=== PATIENT | male | born 1950 | race Caucasian/White ===

== ENCOUNTER 2023-03-01 17:33 | Inpatient (IN) | payer OTHER, SELFPAY ==
[2023-03-01] VITALS (13 sets, daily range): BP systolic 112–133; BP diastolic 66–86; PULSE 50–68; RESP 10–22; TEMP 36–36.6; O2SAT 90–100; BMI 31.8; BMI 29.0
--- NOTE | 2023-03-01 17:39 | CT_ITS ---
EXAM: CT HEAD WITHOUT INTRAVENOUS CONTRAST CLINICAL INDICATION: STROKE TECHNIQUE: Multiple axial images were obtained of the head without intravenous contrast. This CT exam was performed using one or more of the following dose reduction techniques: automated exposure control, adjustment of the mA and/or kV according to patient size, and/or use of iterative reconstruction technique. This report was created using [employer] report [employer] technology. COMPARISON: None. FINDINGS: BRAIN AND EXTRA-AXIAL SPACES: Unremarkable. No intra- or extra-axial hemorrhage. No evidence of acute infarct. No intracranial mass or mass effect. There is preservation of the cantrell/white matter interface. Posterior fossa structures are unremarkable. Ventricles are appropriate for age. No hydrocephalus. Basal cisterns are patent. BONES/JOINTS: Unremarkable. No discrete lytic or blastic abnormalities. SINUSES: Unremarkable as visualized. Clear. MASTOID AIR CELLS: Unremarkable. Clear. ORBITS: Visualized globes, extraocular muscles, optic nerves and retrobulbar fat appear unremarkable. CT/Brain/Head without Contrast IMPRESSION: 1. No acute intracranial abnormality. 2. Aspects score 10. N.B. : The above Results were Read Back by Aravind Huffman MD to Jeanette Choi MD, and understanding confirmed on 03/01/2023 18:04:33 (ET). Electronically Signed: Aravind Huffman MD at 17:48 EDT ,
--- NOTE | 2023-03-01 17:41 | CT_ITS ---
We are attempting to reach an attending provider to discuss findings. An addendum with communication details will be sent when the communication is complete. EXAM: CT ANGIOGRAPHY HEAD AND NECK WITH INTRAVENOUS CONTRAST CLINICAL INDICATION: Neuro deficit, acute, stroke suspected TECHNIQUE: [place] of [place]/head and neck CT angiography protocol performed with intravenous contrast. This CT exam was performed using one or more of the following dose reduction techniques: automated exposure control, adjustment of the mA and/or kV according to patient size, and/or use of iterative reconstruction technique. This report was created using [employer] report [employer] technology. MIP reconstructed images were created and reviewed. CONTRAST: [id number] 100ML COMPARISON: None. FINDINGS: HEAD: RIGHT ANTERIOR CEREBRAL ARTERY: Unremarkable. No significant stenosis at the visualized segments. Anterior communicating artery is present. No aneurysm. RIGHT MIDDLE CEREBRAL ARTERY: Unremarkable. No significant stenosis at the visualized segments. No aneurysm. RIGHT POSTERIOR CEREBRAL ARTERY: Unremarkable. No occlusion or significant stenosis. No aneurysm. RIGHT INTRACRANIAL INTERNAL CAROTID ARTERY: Unremarkable. No significant stenosis. No dissection or occlusion. RIGHT INTRACRANIAL VERTEBRAL ARTERY: Unremarkable. No significant stenosis. No dissection or occlusion. LEFT ANTERIOR CEREBRAL ARTERY: Unremarkable. No significant stenosis at the visualized segments. No aneurysm. LEFT MIDDLE CEREBRAL ARTERY: Unremarkable. No significant stenosis at the visualized segments. No aneurysm. LEFT POSTERIOR CEREBRAL ARTERY: Unremarkable. No occlusion or significant stenosis. No aneurysm. LEFT INTRACRANIAL INTERNAL CAROTID ARTERY: Unremarkable. No significant stenosis. No dissection or occlusion. LEFT INTRACRANIAL VERTEBRAL ARTERY: Unremarkable. No significant stenosis. No dissection or occlusion. BASILAR ARTERY: Unremarkable. No significant stenosis. No aneurysm. OTHER VASCULATURE: No vascular malformation. NECK: RIGHT COMMON CAROTID ARTERY: Unremarkable. No significant stenosis. No dissection or occlusion. RIGHT EXTRACRANIAL INTERNAL CAROTID ARTERY: Unremarkable. No significant stenosis. No dissection or occlusion. RIGHT EXTERNAL CAROTID ARTERY: Unremarkable. No occlusion. RIGHT EXTRACRANIAL VERTEBRAL ARTERY: Unremarkable. No significant stenosis. No dissection or occlusion. LEFT COMMON CAROTID ARTERY: Unremarkable. No significant stenosis. No dissection or occlusion. LEFT EXTRACRANIAL INTERNAL CAROTID ARTERY: Unremarkable. No significant stenosis. No dissection or occlusion. LEFT EXTERNAL CAROTID ARTERY: Unremarkable. No occlusion. LEFT EXTRACRANIAL VERTEBRAL ARTERY: Unremarkable. No significant stenosis. No dissection or occlusion. BRACHIOCEPHALIC AND SUBCLAVIAN ARTERIES: Unremarkable as visualized. No occlusion or significant stenosis. LUNG APICES: Unremarkable as visualized. HEAD and NECK: BONES/JOINTS: Unremarkable. No discrete lytic or blastic abnormalities. SOFT TISSUES: Unremarkable. CAROTID STENOSIS REFERENCE USING NASCET CRITERIA: % ICA stenosis = (1 - narrowest ICA diameter/diameter of distal cervical ICA) x 100. Mild - <50% stenosis. Moderate - 50-69% stenosis. Severe - 70-94% stenosis. Near occlusion - 95-99% stenosis. Occluded - 100% stenosis. CT/STROKE CTA Head AND Neck W/Con IMPRESSION: Negative CTA carotid and CTA brain. Electronically Signed: Aravind Huffman MD at 18:08 EDT ,
--- NOTE | 2023-03-01 17:45 | ED.RN ---
THIS RN CALLED [facility] AT [phone].
[2023-03-01 17:54] LABS: Absolute Neutrophil Count 3.6 X10^3/uL (2.0-7.7); Basophil# 0.02 X10^3/uL; Basophil% 0.4 % (0-1); Eosinophil# 0.12 X10^3/uL; Eosinophils% 2.3 % (0-5); Hematocrit 36.7 % (40-54); Hemoglobin 11.7 g/dL (13.0-16.5); Mean Corp Hgb Conc 31.9 g/dL (32-36); Mean Corpuscular Hgb 32.3 pg (27.0-32.0); Mean Corpuscular Volume 101.4 fL (80-94); Mean Platelet Vol. 11.8 fl (6.2-12.0); Monocyte# 0.52 X10^3/uL; Monocyte% 9.9 % (0-10); NRBC Flagged by Analyzer 0 % (0-5); Neutrophil # 3.58 X10^3/uL (2.7-7.7); Platelet Count 144 K/mm3 (150-450); RBC Distribution Width CV 15.1 % (11.6-14.6); RBC Distribution Width SD 56.4 fl (35.1-43.9); Red Blood Count 3.62 M/mm3 (4.6-6.2); White Blood Count 5.3 K/mm3 (4.4-11.0)
--- NOTE | 2023-03-01 17:55 | ED.RN ---
SILVIA WARRENUOLOGIST ON ROBOT AT [id number].
[2023-03-01 18:04] LABS: Alcohol, Blood (Medical)-Serum < 3.0 mg/dL
[2023-03-01 18:05] LABS: International Normalized Ratio 1.1; Prothrombin Time (Protime)PT. 14.3 SECONDS (11.7-14.9)
[2023-03-01 18:11] LABS: Anion Gap 7 (5-15); BUN 50 mg/dL (7-18); BUN/Creat Ratio 14.8 RATIO (10-20); Calcium,Total 9.4 mg/dL (8.5-10.1); Chloride 104 mmol/L (98-107); Creatinine, Serum 3.37 mg/dL (0.70-1.30); EST Glomerular Filtration Rate 19 mL/min (>60); Est Glom Filt Rate - Afr Amer 23 mL/min (>60); Estimated Creatinine Clearance 21.43 ml/min; Glucose 151 mg/dL (74-106); Potassium 4.4 mmol/L (3.5-5.1); Sodium Level 135 mmol/L (136-145); Troponin-I HS 24 pg/mL (3.0-78.0)
[2023-03-01] MEDS: 0.9% Normal Saline 1,000 ML 100 ML IV (18:17)
--- NOTE | 2023-03-01 18:21 | MDS.RN ---
PT HAS A CORNEAL ABRASION FROM FALLING DOWN 5-7 STEPS IN THE LEFT EYE. PT ALSO HAS MULTIPLE ABRASIONS TO BL SHINS. PT HAS DARK CIRCLES AROUND EYES THAT ALMOST MIMIC RACCOON EYES. CT AND CTA HAS BEEN DONE. PT HAS BEEN CLEANED UP AND UROSTOMY LEAKS.
--- NOTE | 2023-03-01 18:23 | ED.RN ---
DR SOTO USED TETRACAINE AND FLUOROSCEIN? ON PTS EYES TO SEE WHY HE IS HAVING SO MUCH LEFT EYE PAIN. CORNEAL ABRASION FOUND.
[2023-03-01 18:44] LABS: Color, Urine Yellow (Yellow); Glucose, Dipstick Normal (Normal); Ketone-Dipstick 5 mg/dl (Negative); Leukocyte Esterase-Dipstick 500 /ul (Negative); Nitrite-Dipstick Negative (Negative); Occult Blood-Urine 250 /ul (Negative); Protein-Dipstick 100 mg/dl (Negative); Urine Bilirubin Dipstick Negative (Negative); Urine Clarity Cloudy (Clear); Urine Urobilinogen 1 mg/dl (Normal)
[2023-03-01 18:53] LABS: Bacteria 4+ /hpf (None Seen); Mucous, Urine RARE /hpf (<or=2+); Red Blood Cells-Urine 0-5 SEEN /hpf (0-5); Squamous Epithelial Cells - UA 0-5 SEEN /hpf (0-5); White Blood Cells 10-25 SEEN /hpf (0-5)
--- NOTE | 2023-03-01 19:32 | ED.RN ---
PER DR. SOTO VERBAL ORDER, OKAY TO DC [facility] CHECKS Q30.
--- NOTE | 2023-03-01 19:39 | ED.RN ---
THIS RN ANSWERED PHONE CALL FROM SLIM CAMPOS (PT SISTER IN LAW) AT 1940. THIS RN ASKED THE PT IF IT WOULD BE OKAY TO TAKE CALL. PT GAVE VERBAL PERMISSION AND STATED IT IS ALWAYS OKAY TO GIVE SLIM INFORMATION. THIS RN UPDATED MS. CAMPOS ON PLAN OF CARE. SHE WOULD LIKE AN UPDATE WHEN ALL RESULTS ARE BACK AT [phone].
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
--- NOTE | 2023-03-01 20:06 | ED.RN ---
THIS RN CALLED SLIM CAMPOS ON BEHALF OF THE PT AT 2015. THIS RN UPDATED HER THAT PT IS TO BE ADMITTED TO PCU. THIS RN ALSO UPDATED HER ON PLAN OF CARE. THIS RN ASKED HER IF SHE KNEW WHAT MEDICATIONS PT TAKES AT HOME. SHE RECOMMENDED WE CALL [facility] [place] THAT IS WHERE PTS MEDICATION LIST IS.
[2023-03-01] MEDS: Gentamicin Sulfate 1 OPTH.BTL 2 DRP LEFT EYE (20:38)
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
--- NOTE | 2023-03-01 21:12 | ED.RN ---
REPORT GIVEN TO JOSE DURAN IN PCU. [facility] COMPLETED AT BEDSIDE. CARE ASSUMED BY JOSE DURAN ON PCU.
[2023-03-01 23:15] LABS: Magnesium 2.6 mg/dL (1.6-2.6)
[2023-03-02] VITALS (7 sets, daily range): BP systolic 119–136; BP diastolic 62–77; PULSE 56–79; RESP 17–20; TEMP 36.4–37; O2SAT 96–100; BMI 29.0
[2023-03-02] MEDS: 0.9% Normal Saline 1,000 ML 75 ML IV ×2 (05:11→21:42)
[2023-03-02] MEDS: Acetaminophen 325 MG Tablet 650 MG PO ×2 (05:11→21:39)
[2023-03-02] MEDS: Gentamicin Sulfate 1 OPTH.BTL 1 DRP LEFT EYE ×4 (05:11→21:40)
[2023-03-02 06:01] LABS: Absolute Lymphocyte Count 0.53 X10^3/uL (0.83-4.51); Absolute Neutrophil Count 3.4 X10^3/uL (2.0-7.7); Basophil# 0.01 X10^3/uL; Basophil% 0.2 % (0-1); Eosinophil# 0.12 X10^3/uL; Eosinophils% 2.7 % (0-5); Hematocrit 36.1 % (40-54); Lymphocyte # 0.53 X10^3/ul (0.83-4.51); Lymphocyte % 11.8 % (19-41); Mean Corp Hgb Conc 30.5 g/dL (32-36); Mean Corpuscular Hgb 31.8 pg (27.0-32.0); Mean Corpuscular Volume 104.3 fL (80-94); Monocyte# 0.42 X10^3/uL; Monocyte% 9.3 % (0-10); NRBC Flagged by Analyzer 0 % (0-5); Neutrophil # 3.39 X10^3/uL (2.7-7.7); Neutrophil % 75.3 % (47-70); POSITIVE DIFFERENTIAL YES; Platelet Count 128 K/mm3 (150-450); RBC Distribution Width CV 15.3 % (11.6-14.6); RBC Distribution Width SD 58.2 fl (35.1-43.9); Red Blood Count 3.46 M/mm3 (4.6-6.2); White Blood Count 4.5 K/mm3 (4.4-11.0)
[2023-03-02 06:13] LABS: Anisocytosis 1+; Differential Comment SCANNED; Differential Indicated SCAN CRITERIA MET; Macrocytosis 1+
[2023-03-02 06:36] LABS: ALB/GLOB Ratio 0.5 RATIO (0.9-2.4); AST(SGOT) 24 U/L (15-37); Alanine Aminotransfer ALT/SGPT 22 U/L (16-61); Albumin, Serum 2.8 g/dL (3.2-5.0); Alkaline Phosphatase 80 U/L (45-117); Anion Gap 7 (5-15); BUN 45 mg/dL (7-18); BUN/Creat Ratio 15.6 RATIO (10-20); Calcium,Total 8.7 mg/dL (8.5-10.1); Chloride 108 mmol/L (98-107); Cholesterol 110 mg/dL (200); Creatinine, Serum 2.88 mg/dL (0.70-1.30); EST Glomerular Filtration Rate 23 mL/min (>60); Est Glom Filt Rate - Afr Amer 28 mL/min (>60); Estimated Creatinine Clearance 25.07 ml/min; Globulin 5.1 g/dL (2.2-4.2); Glucose 165 mg/dL (74-106); High Density Lipoprotein 30 mg/dL; Potassium 4.1 mmol/L (3.5-5.1); Protein, Total 7.9 g/dL (6.4-8.2); Sodium Level 135 mmol/L (136-145); Triglycerides 144 mg/dL; Very Low Density Lipoprotein 29 mg/dL (5-40)
[2023-03-02 07:50] LABS: Hemoglobin A1c 5.5 % (3.8-5.6)
--- NOTE | 2023-03-02 08:01 | PCM.PN.HOSP ---
Reason for Visit Reason for Visit: Diagnoses Cerebral infarction, unspecified (03/01/23) Dizziness and giddiness (03/01/23) Other specified abnormal findings of blood chemistry (03/01/23) Injury of conjunctiva and corneal abrasion without foreign body, left eye, initial encounter (03/01/23) Subjective Subjective leaking around urostomy. pain in right hip after falls. Objective Data Objective Data Vital Signs: Vital Signs Temp Pulse Resp BP Pulse Ox O2 Del Method O2 Flow Rate 37.0 C 62 18 136/77 H 98 Room Air 2 03/02/23 05:15 03/02/23 05:15 03/02/23 05:15 03/02/23 05:15 03/02/23 05:15 03/02/23 05:15 03/02/23 01:15 Oxygen Flow Rate (L/min) 2 Oxygen Delivery Method Room Air Weight: 97.3 kg Body Mass Index (BMI) 29.0 Intake & Output: Intake and Output for Last 24 Hours 02/28/23 03/01/23 03/02/23 23:59 23:59 23:59 Intake Total 281.67 / 281.67 607.5 / 607.5 Output Total 260 / 260 Balance 281.67 / 221.67 347.5 / 347.5 Lab / Micro Data Result Diagrams: 03/02/23 05:46 03/02/23 05:46 Labs: Laboratory Results - last 24 hr 03/01/23 17:45: WBC 5.3, RBC 3.62 L, Hgb 11.7 L, Hct 36.7 L, MCV 101.4 H, MCH 32.3 H, MCHC 31.9 L, RDW Std Deviation 56.4 H, RDW Coeff of Homar 15.1 H, Plt Count 144 L, MPV 11.8, Immature Gran % (Auto) 0.400, Neut % (Auto) 68.0, Lymph % (Auto) 19.0, [place] % (Auto) 9.9, Eos % (Auto) 2.3, Baso % (Auto) 0.4, Absolute Neuts (auto) 3.6, Absolute Lymphs (auto) 1.00, Nucleated RBC % 0 03/01/23 17:45: PT 14.3, INR 1.1, APTT 35.0 03/01/23 17:45: Sodium 135 L, Potassium 4.4, Chloride 104, Carbon Dioxide 24.0, Anion Gap 7, BUN 50 H, Creatinine 3.37 H, Estim Creat Clear Calc 21.43, Est GFR (MDRD) Af Amer 23 L, Est GFR (MDRD) Non-Af 19 L, BUN/Creatinine Ratio 14.8, Glucose 151 H, Calcium 9.4, Troponin I High Sens 24 03/01/23 17:45: Ethyl Alcohol < 3.0 03/01/23 17:45: Magnesium 2.6 03/01/23 18:30: Ammonia 36.0 H 03/01/23 18:35: Urine Color Yellow, Urine Clarity Cloudy, Urine pH 8.0, Ur Specific [place] 1.010, Urine Protein 100 H, Urine Glucose (UA) Normal, Urine Ketones 5 H, Urine Occult Blood 250 H, Urine Nitrite Negative, Urine Bilirubin Negative, Urine Urobilinogen 1 H, Ur Leukocyte Esterase 500 H, Urine RBC 0-5 SEEN, Urine WBC 10-25 SEEN, Ur Squamous Epith Cells 0-5 SEEN, Urine Bacteria 4+, Urine Mucus RARE 03/02/23 05:46: WBC 4.5, RBC 3.46 L, Hgb 11.0 L, Hct 36.1 L, MCV 104.3 H, MCH 31.8, MCHC 30.5 L, RDW Std Deviation 58.2 H, RDW Coeff of Homar 15.3 H, Plt Count 128 L, MPV 12.0, Immature Gran % (Auto) 0.700, Neut % (Auto) 75.3 H, Lymph % (Auto) 11.8 L, [place] % (Auto) 9.3, Eos % (Auto) 2.7, Baso % (Auto) 0.2, Absolute Neuts (auto) 3.4, Absolute Lymphs (auto) 0.53 L, Nucleated RBC % 0, Differential Comment SCANNED, Anisocytosis 1+, Macrocytosis 1+ 03/02/23 05:46: Sodium 135 L, Potassium 4.1, Chloride 108 H, Carbon Dioxide 20.0 L, Anion Gap 7, BUN 45 H, Creatinine 2.88 H, Estim Creat Clear Calc 25.07, Est GFR (MDRD) Af Amer 28 L, Est GFR (MDRD) Non-Af 23 L, BUN/Creatinine Ratio 15.6, Glucose 165 H, Calcium 8.7, Total Bilirubin 0.90, AST 24, ALT 22, Alkaline Phosphatase 80, Total Protein 7.9, Albumin 2.8 L, Globulin 5.1 H, Albumin/Globulin Ratio 0.5 L, Triglycerides 144, Cholesterol 110, LDL Cholesterol 51, VLDL Cholesterol 29, HDL Cholesterol 30 L, TSH 0.60 03/02/23 05:46: Hemoglobin A1c 5.5 03/02/23 05:46: Ammonia 54.0 H Radiography Diagnostic Testing: Radiology Impression Brain CT 03/01/23 17:39 IMPRESSION: 1. No acute intracranial abnormality. 2. Aspects score 10. N.B. : The above Results were Read Back by Aravind Huffman MD to Jeanette Choi MD, and understanding confirmed on 03/01/2023 18:04:33 (ET). Electronically Signed: Aravind Huffman MD at 17:48 EDT , Head/Neck CTA 03/01/23 17:41 IMPRESSION: Negative CTA carotid and CTA brain. Electronically Signed: Aravind Huffman MD at 18:08 EDT , ADDENDUM: 03/01/23 1828 IMPRESSION: Negative CTA carotid and CTA brain. N.B. : The above Results were Read Back by Aravind Huffman MD to Jeanette Choi MD, and understanding confirmed on 03/01/2023 18:22:00 (ET). Electronically Signed: Aravind Huffman MD at 18:08 EDT , Physical Exam Const alert and no apparent distress HEENT head/scalp atraumatic and moist oral mucous membranes Resp normal respiratory effort, no retractions, no use of accessory muscles and clear to auscultation bilaterally Cardio regular rate, regular rhythm, S1 normal heart sound and S2 normal heart sound GI GI Narrative: urostomy in RLQ with active leaking underdressing. Extremity Extremity Narrative: exquistite pain over right hip. Neuro oriented x3, no focal motor deficits and no sensory deficits noted Sensorium / Orientation: oriented to place and oriented to time Speech: speech normal Assessment & Plan Assessment/Plan (1) Vertigo: PLAN: suspect due to vertigo. No focal deficits to suggest CVA at this time. Pt adamantly refused MRI unless he was knocked out. Head CT, CTA head and neck negative Physical therapy, occupational therapy and speech therapy to work with patient. Daily aspirin. High intensity statin Permissive hypertension. Control blood pressure with labetalol for systolic blood pressure of more than 220 or diastolic blood pressure of more than 120. Echocardiogram ordered. CVA ruled out (2) Injury of conjunctiva and corneal abrasion of left eye w/o FB: PLAN: Injury of contact level and continue abrasions of the left without foreign body. Eye exams with dilatation done by ED physician with report that there was no foreign body. Started on gentamicin at the emergency department and continued. (3) Hyperammonemia: PLAN: Unclear significance Will start empiric lactulose (4) NAYE (acute kidney injury): PLAN: Suspected (no baseline studies to compare at this time) Improved today Continue IVF as pt received a contrast load yesterday for CTA Check renal US (5) Right hip pain: PLAN: out of proportion to exam. Xray shows femoroacetabular impingement (no fracture seen) given the fall and severe pain, will check a CT (pt wont tolerate an MRI, see above) pain control (6) Leakage of genitourinary device: PLAN: stoma is withdrawn in abdomen, making a good seal difficult as urine is seeping under adhesive and compromising adhesive stoma nurse to evaluate / PLAN: Plan DVT prophylaxis: SCDs ordered. Charges/Coding Visit Charges Inpatient E&M: 76180 Subs Hosp L3
--- NOTE | 2023-03-02 10:12 | NURSING ---
This RN spoke with Tosha, patient's [id number] in regards to obtaining information for MRI Questionnaire. Information provided was limited. Patient's son lives in [place], [place]. [id number] is going to attempt to obtain his phone number as we don't have it in patient's contact list here at [facility]. Called Linda, in MRI and updated her on same.
[2023-03-02] MEDS: Lactulose 20 GM/30 ML UDC PO (10:52)
[2023-03-02] MEDS: Aspirin 81 MG TAB.CHEW PO (10:52)
--- NOTE | 2023-03-02 10:57 | RAD_ITS ---
STUDY: X-RAY - PELVIS AND RIGHT HIP REASON FOR EXAM: Male, 73 years old. pain TECHNIQUE: 3 views of the pelvis and hip. COMPARISON: None. FINDINGS: There is a non-specific bowel gas pattern. Normal visualized soft tissue structures. No fracture or displaced bony fragment is seen. Normal bilateral iliac wings, sacroiliac joints and visualized sacrum. Normal bilateral superior and inferior pubic rami. Normal pubic symphysis. Normal bilateral ischial tuberosities. Normal visualized femoral head. Normal acetabulum. Decreased offset at the lateral head neck junction of the right femur and overgrowth and uncovering of the lateral aspect of the femoral head are all findings associated with femoral acetabular impingement. There is no evidence of avascular necrosis. The left hip is normal. RAD/HIP, UNI W/ Pelvis 2-3 Views IMPRESSION: 1. Decreased offset at the lateral head neck junction of the right femur and overgrowth and uncovering of the lateral aspect of the femoral head are all findings associated with femoral acetabular impingement. There is no evidence of avascular necrosis. Electronically Signed: Félix Luna MD at 13:35 EDT ,
--- NOTE | 2023-03-02 14:30 | CT_ITS ---
STUDY: CT Lower Extremity W/O Contrast Injection 03/02/2023 4:14 PM REASON FOR EXAM: Male, 73 years old. right hip pain Individualized dose optimization techniques were used for this CT. COMPARISON: xr of the same day TECHNIQUE: Multiple axial computed tomographic images were obtained of the hip. IV contrast was not utilized. FINDINGS: Soft tissue planes are preserved. There is no fracture. There is no dislocation. There is anatomic alignment. The sacro iliac joint is unremarkable. Femoral head is noted in the acetabulum. Pincer type of impingement noted as extra bone extends out over the normal rim of the superior acetabulum. Cam impingement noted with the femoral head is not round and a superior spur has formed on the edge of the femoral head . Degenerative findings in the lumbar spine. Right lower ostomy noted. This contains small bowel and several mesenteric vessels. Appendix is visualized and appears normal. 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 (Combined impingement means that both the pincer and cam types are present. ) Electronically Signed: Que Henriquez MD at 16:19 EDT ,
[2023-03-02] MEDS: 0.9% Saline Lock 10 ML Syringe IV (18:18)
[2023-03-02] MEDS: Atorvastatin Calcium 40 MG Tablet PO (21:39)
[2023-03-02] MEDS: oxyCODONE 5 MG Tablet PO (21:39)
[2023-03-02] MEDS: MELATONIN 3 MG TABLET PO (21:39)
[2023-03-03] MEDS: Gentamicin Sulfate 1 OPTH.BTL 1 DRP LEFT EYE ×6 (03:02→22:06)
[2023-03-03 03:04] VITALS: BP 112/62; PULSE 70; RESP 18; TEMP 36.9; O2SAT 98
[2023-03-03] MEDS: Acetaminophen 325 MG Tablet 650 MG PO (05:44)
[2023-03-03] MEDS: oxyCODONE 5 MG Tablet PO ×2 (05:45→18:19)
[2023-03-03 06:24] LABS: Absolute Lymphocyte Count 0.91 X10^3/uL (0.83-4.51); Absolute Neutrophil Count 1.8 X10^3/uL (2.0-7.7); Basophil# 0.01 X10^3/uL; Basophil% 0.3 % (0-1); Eosinophil# 0.14 X10^3/uL; Eosinophils% 4.3 % (0-5); Hematocrit 32.2 % (40-54); Hemoglobin 9.8 g/dL (13.0-16.5); Lymphocyte # 0.91 X10^3/ul (0.83-4.51); Lymphocyte % 28.2 % (19-41); Mean Corp Hgb Conc 30.4 g/dL (32-36); Mean Corpuscular Hgb 32.1 pg (27.0-32.0); Mean Corpuscular Volume 105.6 fL (80-94); Mean Platelet Vol. 12.1 fl (6.2-12.0); Monocyte# 0.35 X10^3/uL; Monocyte% 10.8 % (0-10); NRBC Flagged by Analyzer 0 % (0-5); Neutrophil # 1.81 X10^3/uL (2.7-7.7); Neutrophil % 56.1 % (47-70); Platelet Count 122 K/mm3 (150-450); RBC Distribution Width CV 15.3 % (11.6-14.6); RBC Distribution Width SD 59.2 fl (35.1-43.9); Red Blood Count 3.05 M/mm3 (4.6-6.2); White Blood Count 3.2 K/mm3 (4.4-11.0)
[2023-03-03 06:43] LABS: ALB/GLOB Ratio 0.5 RATIO (0.9-2.4); AST(SGOT) 19 U/L (15-37); Alanine Aminotransfer ALT/SGPT 19 U/L (16-61); Albumin, Serum 2.5 g/dL (3.2-5.0); Alkaline Phosphatase 73 U/L (45-117); Anion Gap 5 (5-15); BUN 33 mg/dL (7-18); BUN/Creat Ratio 15.1 RATIO (10-20); Calcium,Total 8.8 mg/dL (8.5-10.1); Chloride 112 mmol/L (98-107); Creatinine, Serum 2.18 mg/dL (0.70-1.30); EST Glomerular Filtration Rate 32 mL/min (>60); Est Glom Filt Rate - Afr Amer 38 mL/min (>60); Estimated Creatinine Clearance 33.12 ml/min; Glucose 99 mg/dL (74-106); Potassium 4.1 mmol/L (3.5-5.1); Protein, Total 7.5 g/dL (6.4-8.2); Sodium Level 137 mmol/L (136-145)
--- NOTE | 2023-03-03 07:00 | US_ITS ---
STUDY: RENAL ULTRASOUND - COMPLETE REASON FOR EXAM: Male, 73 years old. Kidney injury TECHNIQUE: Ultrasound evaluation of the kidneys was performed with real-time and static rai-scale imaging. COMPARISON: None. FINDINGS: RIGHT KIDNEY: Normal location of the right kidney, which is normal in size. The right kidney measures 11 cm x 5.7 cm x 5.9 cm. There is a normal cortex of the right kidney. The renal cortex measures 2.1 cm. There is no right renal mass or cyst. There are no right renal calculi. There is no right hydronephrosis. DISTAL RIGHT URETER: There is non-visualization of the distal right ureter. There is no demonstrated right ureterovesical junction calculus. There is no demonstrated right ureteral jet. LEFT KIDNEY: with mild renal atrophy. The left kidney measures 8.6 cm x 4.3 cm x 4.2 cm. There is a normal cortex of the left kidney. The renal cortex measures 1.1 cm. There is no left renal mass or cyst. There are no left renal calculi. There is mild hydronephrosis of the left kidney. DISTAL LEFT URETER: There is non-visualization of the distal left ureter. There is no demonstrated left ureterovesical junction calculus. There is no demonstrated left ureteral jet. BLADDER: The bladder is empty at the time of examination. US/Kidney and Bladder IMPRESSION: Mild atrophy of the left kidney with a mild degree of left hydronephrosis. Electronically Signed: Mulugeta Castro MD at 10:59 EDT ,
[2023-03-03] MEDS: Aspirin 81 MG TAB.CHEW PO (08:58)
[2023-03-03 09:04] VITALS: BP 109/60; PULSE 77; RESP 18; TEMP 36.7; O2SAT 94
[2023-03-03 09:06] LABS: Vitamin B12 1006 pg/mL (211-911)
--- NOTE | 2023-03-03 10:25 | WOUNDNOTE ---
Was asked to see patient for leaking urostomy. removed the ostomy appliance d/t leaking. urine very strong with lots of mucous noted. the peristomal skin is cantrell/purple in color. very tender to touch. skin slightly weepy. stoma sits just at skin level and sits within a crease. the urine appears to be leaking laterally. cleansed skin with warm water. pat dry. applied stoma powder and placed a small piece of Adapt ring to the lateral crease. placed a 1 piece convex [place] appliance. pt tolerated well. will monitor. family is supposed to bring some patient patients appliances in.
--- NOTE | 2023-03-03 10:45 | PN.HOSP_ITS ---
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) Cerebral infarction, unspecified (03/01/23) Pain in right hip (03/01/23) Acute kidney failure, unspecified (03/01/23) Dizziness and giddiness (03/01/23) Other specified abnormal findings of blood chemistry (03/01/23) Injury of conjunctiva and corneal abrasion without foreign body, left eye, initial encounter (03/01/23) Subjective Subjective Patient is a 73-year-old gentleman admitted with disequilibrium admitted to regular nursing floor for subsequent evaluation and management Objective Data Objective Data Vital Signs: Vital Signs Temp Pulse Resp BP Pulse Ox O2 Del Method O2 Flow Rate 98.4 F 70 18 112/62 98 Nasal Cannula 3 03/03/23 03:04 03/03/23 03:04 03/03/23 03:04 03/03/23 03:04 03/03/23 03:04 03/03/23 08:42 03/03/23 08:42 Oxygen Flow Rate (L/min) 3 Oxygen Delivery Method Nasal Cannula Weight: 97.3 kg Body Mass Index (BMI) 29.0 Intake & Output: Intake and Output for Last 24 Hours 03/01/23 03/02/23 03/03/23 23:59 23:59 23:59 Intake Total 281.67 / 281.67 2277.50 / 2277.50 240 / 240 Output Total 760 / 760 120 / 120 Balance 281.67 / 221.67 1517.50 / 1517.50 120 / 120 Lab / Micro Data Result Diagrams: 03/03/23 05:55 03/03/23 05:55 Labs: Laboratory Results - last 24 hr 03/01/23 17:45: Vitamin B12 1006 H 03/03/23 05:55: WBC 3.2 L, RBC 3.05 L, Hgb 9.8 L, Hct 32.2 L, MCV 105.6 H, MCH 32.1 H, MCHC 30.4 L, RDW Std Deviation 59.2 H, RDW Coeff of Homar 15.3 H, Plt Count 122 L, MPV 12.1 H, Immature Gran % (Auto) 0.300, Neut % (Auto) 56.1, Lymph % (Auto) 28.2, [place] % (Auto) 10.8 H, Eos % (Auto) 4.3, Baso % (Auto) 0.3, Absolute Neuts (auto) 1.8 L, Absolute Lymphs (auto) 0.91, Nucleated RBC % 0 03/03/23 05:55: Sodium 137, Potassium 4.1, Chloride 112 H, Carbon Dioxide 20.0 L , Anion Gap 5, BUN 33 H, Creatinine 2.18 H, Estim Creat Clear Calc 33.12, Est GFR (MDRD) Af Amer 38 L, Est GFR (MDRD) Non-Af 32 L, BUN/Creatinine Ratio 15.1, Glucose 99, Calcium 8.8, Total Bilirubin 0.70, AST 19, ALT 19, Alkaline Phosphatase 73, Total Protein 7.5, Albumin 2.5 L, Globulin 5.0 H, Albumin/Globulin Ratio 0.5 L Micro: Microbiology 03/01/23 19:18 Urine, Nephrostomy Urine Culture - Preliminary Escherichia coli GNR non eye dropper assembler Alpha hemolytic organism Alpha hemolytic organism#2 GNR lactose eye dropper assembler Radiography Diagnostic Testing: Radiology Impression Hip/Pelvis X-Ray 03/02/23 10:57 IMPRESSION: 1. Decreased offset at the lateral head neck junction of the right femur and overgrowth and uncovering of the lateral aspect of the femoral head are all findings associated with femoral acetabular impingement. There is no evidence of avascular necrosis. 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 (Combined impingement means that both the pincer and cam types are present. ) Electronically Signed: Que Henriquez MD at 16:19 EDT , Physical Exam Narrative GENERAL: cooperative HEENT: Atraumatic; normocephalic EYES; Anicteric, Normal Conjunctiva NECK; supple, normal thyroid, RESPIRATORY: Diminished to auscultation CARDIOVASCULAR: Regular S1 S2, GI: soft, normoactive bowel sounds, : No Renal angle tenderness; EXTREMITIES: No edema, no clubbing, MUSCULOSKELETAL: no muscle wasting NEURO: Awake; no lateralizing signs. SKIN: No Rash PSYCH; Flat affect Assessment & Plan Assessment/Plan (1) Vertigo: (2) NAYE (acute kidney injury): (3) Right hip pain: PLAN: Plan Patient is a 73-year-old gentleman admitted with disequilibrium admitted to regular nursing floor for subsequent evaluation and management 1. Disequilibrium ? Patient declined MRI requested for PT OT eval and social sciences research scientist to assist with discharge planning 2. Right hip pain ? Imaging studies demonstrated Femoroacetabular impingement. Treated symptomati callie with plans for patient to be referred to the PT surgery as outpatient 3. Left corneal abrasion ? Patient was started on gentamicin from the ED continued 4. Hyperammonemia -Patient started on lactulose 5. Acute kidney injury ?patient baseline creatinine unknown patient apparently did receive dye for CAT scan on IV fluid with subsequent monitoring with daily BMPs ordered 5. Presence of urostomy ? Patient apparently difficulty with adhesive to the stoma. Patient has been evaluated by stoma nurse 6. Anemia - Secondary to chronic disorder monitoring H&H and transfuse if patient becomes symptomatic or hemoglobin falls below 7 7. DVT prophylaxis ? SCDs Time spent in the patient's overall evaluation,decision-making process, review of diagnostic data, adjustment of management, discussion with other providers, nursing nursing and ancillary staff involved in patient's care documentation, 40 Minutes Charges/Coding Visit Charges Inpatient E&M: 77103 Subs Hosp L2
[2023-03-03] MEDS: 0.9% Normal Saline 1,000 ML 75 ML IV (11:46)
[2023-03-03] MEDS: 0.9% Saline Lock 10 ML Syringe IV (11:47)
--- NOTE | 2023-03-03 12:30 | CASEMGMT ---
JOSE YOU in to complete [employer] form. JOSE YOU explained [employer] form to patient, patient voiced understanding. Patient signed [employer] Form and filed in chart. Patient provided copy of signed [employer] form. Patient had no further questions or concerns at this time.
--- NOTE | 2023-03-03 12:30 | CASEMGMT ---
RN CM Face to Face with patient for initial transition planning/care coordination assessment. RN CM introduced self and role at [facility]. Patient lying in bed, alert and oriented, brother at bedside. Patient willing to participate in assessment and is able to answer all questions appropriately. Care providers, pharmacy, and demographics verified. Patient wishes to discharge to SNF at discharge for additional therapy. A list of SNF providers including quality and resource use data and consistent with the patient?s preferred geographical region, medical needs, and insurance network were provided from the [employer] Guide. Patient states he prefers [facility] and [facility] and was agreeable to have referrals sent to both facilities. Patient states he has no further needs or concerns at this time. SW updated regarding request for SNF and preferences. CM to follow for discharge planning needs that may arise. PCP: None, just moved from [place]. Was to have apt with [facility] but missed appt. Specialists: none Preferred Pharmacy: no preferences Insurance: [place], [facility] Prescription Benefit: [place] Living Will/HPOA: none LNOK: daughter lives in [place], brother lives in [place]. Living Arrangements: Patient just recently moved from [place] and has been staying in brother's basement. Patient having difficulty with stairs and has had falls. Transportation: self, brother DME/HHC: Patient denies DME. Per Brother Perez, daughter works at [employer] in [place] and is going to be moving patient down with her. Patient and brother agreeable to SNF for additional rehab and then transition to [place] in [place] Disposition Plan: SNF pending acceptnace. Vickie HANSON, RN, CM
[2023-03-03 14:27] VITALS: BP 138/69; PULSE 84; RESP 18; TEMP 36.7; O2SAT 96
[2023-03-03 15:12] VITALS: BMI 29.0
--- NOTE | 2023-03-03 15:25 | CASEMGMT ---
Referrals sent to [facility] and [facility] via [facility] per patient request. Kaylee Godoy DIRECTOR INBOUND SALES, COUNSELING DIRECTOR
[2023-03-03 19:51] VITALS: O2SAT 93
--- NOTE | 2023-03-03 19:51 | NURSING ---
Pt refusing O2 through [facility] at this time. States he never wears O2.Pt also wants IV's out at this time educated on both needs. Remains non-compliant.
[2023-03-03 22:00] VITALS: O2SAT 98
[2023-03-03] MEDS: Atorvastatin Calcium 40 MG Tablet PO (22:08)
[2023-03-03 23:20] VITALS: BP 159/87; PULSE 72; RESP 18; TEMP 36.4; O2SAT 98
[2023-03-04] MEDS: 0.9% Normal Saline 1,000 ML 75 ML IV (00:22)
[2023-03-04] MEDS: Gentamicin Sulfate 1 OPTH.BTL 1 DRP LEFT EYE ×4 (00:24→14:53)
--- NOTE | 2023-03-04 00:58 | EX.EMERGENCY ---
EMERGENCY DOCUMENTATION INITIATED: Date: 02/28/2023 Time: 1900 Initiated at beginning of Shift by Charge and Audio/Video Engineer
[2023-03-04 04:42] VITALS: BP 174/104; PULSE 78; RESP 18; TEMP 36.7; O2SAT 95
--- NOTE | 2023-03-04 07:47 | PN.HOSP_ITS ---
Reason for Visit Reason for Visit: Diagnoses Disorder of urea cycle metabolism, unspecified (03/03/23) Cerebral infarction, unspecified (03/03/23) Pain in right hip (03/03/23) Acute kidney failure, unspecified (03/03/23) Dizziness and giddiness (03/03/23) Other specified abnormal findings of blood chemistry (03/03/23) Injury of conjunctiva and corneal abrasion without foreign body, left eye, initial encounter (03/03/23) Subjective Subjective Patient blood pressure control not optimal added scheduled amlodipine. Patient finally agreed to be discharged to [facility] for rehab Objective Data Objective Data Vital Signs: Vital Signs Temp Pulse Resp BP Pulse Ox O2 Del Method O2 Flow Rate 98.1 F 78 18 174/104 H 95 Room Air 2 03/04/23 04:42 03/04/23 04:42 03/04/23 04:42 03/04/23 04:42 03/04/23 04:42 03/04/23 04:42 03/03/23 16:10 Oxygen Flow Rate (L/min) 2 Oxygen Delivery Method Room Air Weight: 97.3 kg Body Mass Index (BMI) 29.0 Intake & Output: Intake and Output for Last 24 Hours 03/02/23 03/03/23 03/04/23 23:59 23:59 23:59 Intake Total 2277.50 / 2277.50 1890 / 1890 945 / 945 Output Total 760 / 760 545 / 845 300 / 300 Balance 1517.50 / 1517.50 1345 / 1045 645 / 645 Lab / Micro Data Result Diagrams: 03/03/23 05:55 03/03/23 05:55 Labs: Laboratory Results - last 24 hr 03/01/23 17:45: Vitamin B12 1006 H Micro: Microbiology 03/01/23 19:18 Urine, Nephrostomy Urine Culture - Preliminary Escherichia coli GNR non mechanical manager Alpha hemolytic organism Alpha hemolytic organism#2 GNR lactose mechanical manager Radiography Diagnostic Testing: Radiology Impression Echocardiogram 03/01/23 21:11 Interpretation Summary The estimated ejection fraction is 65 %. Diastolic function is indeterminate. Aortic sclerosis, no stenosis. Ordering Physician: Mukul Suh Referring Physician: NO PCP Performed By: Dory Soils, STEVENCS, RVT Renal Ultrasound 03/03/23 07:00 IMPRESSION: Mild atrophy of the left kidney with a mild degree of left hydronephrosis. Electronically Signed: Mulugeta Castro MD at 10:59 EDT , Physical Exam Narrative GENERAL: cooperative HEENT: Atraumatic; normocephalic EYES; Anicteric, Normal Conjunctiva NECK; supple, normal thyroid, RESPIRATORY: Diminished to auscultation CARDIOVASCULAR: Regular S1 S2, GI: soft, normoactive bowel sounds, : No Renal angle tenderness; EXTREMITIES: No edema, no clubbing, MUSCULOSKELETAL: no muscle wasting NEURO: Awake; no lateralizing signs. SKIN: No Rash PSYCH; Flat affect Assessment & Plan Assessment/Plan (1) Vertigo: (2) NAYE (acute kidney injury): (3) Right hip pain: PLAN: Plan Patient is a 73-year-old gentleman admitted with disequilibrium admitted to regular nursing floor for subsequent evaluation and management 1. Disequilibrium ? Patient declined MRI requested for PT OT eval and social work supervisor to assist with discharge planning 2. Right hip pain ? Imaging studies demonstrated Femoroacetabular impingement. Treated symptomatically with plans for patient to be referred to the PT surgery as outpatient 3. Left corneal abrasion ? Patient was started on gentamicin from the ED continued 4. Hyperammonemia -Patient started on lactulose 5. Acute kidney injury ?patient baseline creatinine unknown patient apparently did receive dye for CAT scan on IV fluid with subsequent monitoring with daily BMPs ordered 5. Presence of urostomy ? Patient apparently difficulty with adhesive to the stoma. Patient has been evaluated by stoma nurse 6. Anemia - Secondary to chronic disorder monitoring H&H and transfuse if patient becomes symptomatic or hemoglobin falls below 7 7. DVT prophylaxis ? SCDs 8. Essential hypertension ? Newly diagnosed patient started on amlodipine 10 mg daily Time spent in the patient's overall evaluation,decision-making process, review of diagnostic data, adjustment of management, discussion with other providers, nursing nursing and ancillary staff involved in patient's care documentation, 40 Minutes Charges/Coding Visit Charges Inpatient E&M: 84661 Subs Hosp L2
[2023-03-04 08:18] VITALS: O2SAT 95
[2023-03-04 08:34] VITALS: BP 133/79; PULSE 120; RESP 16; TEMP 37; O2SAT 94
[2023-03-04] MEDS: Aspirin 81 MG TAB.CHEW PO (09:04)
--- NOTE | 2023-03-04 09:57 | CASEMGMT ---
[facility] accepted patient. SW will notify patient. Dorene Goodman WAREHOUSE PROCESSOR HEAD MEN'S GOLF COACH
--- NOTE | 2023-03-04 10:59 | WOUNDNOTE ---
Urostomy appliance remains intact. no sign of leakage noted at this time. will monitor.
[2023-03-04 11:00] VITALS: BP 133/79; PULSE 120; RESP 16; TEMP 37; O2SAT 94
--- NOTE | 2023-03-04 11:09 | CASEMGMT ---
SW notified patient that [facility] agreed to accept him. Kaylee Godoy GASKET SUPERVISOR, RELIABILITY ENGINEER
[2023-03-04] MEDS: amLODIPine 10 MG Tablet PO (11:19)
[2023-03-04] MEDS: oxyCODONE 5 MG Tablet PO (11:27)
--- NOTE | 2023-03-04 11:37 | TREXTCAR_ITS ---
Diet Diet Order/Speech Therapy: 03/01/23 21:11 Diet: Cardiac - Heart Healthy Food consistency:: Regular Liquid Consistency:: Regular/Thin Wound(s) left lei: Wound Type: Abrasion Therapies Physical Therapy: Eval and Treat Occupational Therapy: Eval and Treat Problem/Diagnosis (1) Vertigo: Status: Acute Code(s): R42 - Dizziness and giddiness (2) NAYE (acute kidney injury): Status: Acute Code(s): N17.9 - Acute kidney failure, unspecified (3) Right hip pain: Status: Acute Code(s): M25.551 - Pain in right hip Plan Patient is a 73-year-old gentleman admitted with disequilibrium admitted to regular nursing floor for subsequent evaluation and management 1. Disequilibrium ? Patient declined MRI requested for PT OT eval and social worker assistant to assist with discharge planning 2. Right hip pain ? Imaging studies demonstrated Femoroacetabular impingement. Treated symptomatically with plans for patient to be referred to the PT surgery as outpatient 3. Left corneal abrasion ? Patient was started on gentamicin from the ED continued 4. Hyperammonemia -Patient started on lactulose 5. Acute kidney injury ?patient baseline creatinine unknown patient apparently did receive dye for CAT scan on IV fluid with subsequent monitoring with daily BMPs ordered 5. Presence of urostomy ? Patient apparently difficulty with adhesive to the stoma. Patient has been evaluated by stoma nurse 6. Anemia - Secondary to chronic disorder monitoring H&H and transfuse if patient becomes symptomatic or hemoglobin falls below 7 7. DVT prophylaxis ? SCDs 8. Essential hypertension ? Newly diagnosed patient started on amlodipine 10 mg daily Time spent in the patient's overall evaluation,decision-making process, review of diagnostic data, adjustment of management, discussion with other providers, nursing nursing and ancillary staff involved in patient's care documentation, 40 Minutes Allergies/Procedures Done in Hospital Allergies No Known Allergies Allergy (Verified 03/01/23 18:19) Type of Care/Length of Stay Estimated LOS: Convalescent Care Less Than 30 days Type of Care Needed: Skilled Rehab Potential: Good Prognosis: Good Additional Orders/Day of Discharge Day of Discharge: 03/04/23 Dietary and Speech Recommendations Dietitian Recommendations/Changes: Continue cardiac diet. ONS not indicated at this time. Discharge Plan Admission Admit Date/Time: 03/03/23 16:08 Attending Provider: Rafi Montero Primary Care Provider: Care Physician,No Primary Consulting Providers: Mukul Suh ; Get Wheatley Discharge Orders/Prescriptions Prescriptions: New sennosides-docusate sodium [Stool Softener-Stimulant Laxat] 8.6-50 mg Tablet 2 tab PO BID PRN PRN (Reason: Constipation) Qty: 0 0RF oxycodone 5 mg Tablet 5 mg PO Q6H PRN PRN (Reason: Pain Score 6-10) 2 Days Qty: 8 0RF Remove Patch 1 patch topical DAILY@2200 Qty: 0 0RF acetaminophen 325 mg Tablet 650 mg PO Q6H PRN PRN (Reason: Pain 1-10 Or Fever>100.7) Qty: 0 0RF melatonin 3 mg Tablet 3 mg PO QHS PRN PRN (Reason: Insomnia) Qty: 0 0RF gentamicin 0.3 % Drops 1 drp LEFT EYE Q4 7 Days Qty: 0 0RF amlodipine 10 mg Tablet 10 mg PO DAILY Qty: 0 0RF lidocaine 5 % Adhesive Patch,Medicated 1 patch topical DAILY Qty: 0 0RF Protocol: *Topical Application Instructions APPLICATION INSTRUCTIONS: right hip Referrals / Follow Up: Care Physician,No Primary [Primary Care Provider] - Disposition Disposition (needs filled in before D/C Order can be placed): Detention [facility]
--- NOTE | 2023-03-04 11:38 | PCM.DC.SUM ---
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 Disequilibrium ? Patient declined MRI requested for PT OT eval and social work instructor to assist with discharge planning 2. Right hip pain ? Imaging studies demonstrated Femoroacetabular impingement. Treated symptomatically with plans for patient to be referred to the PT surgery as outpatient 3. Left corneal abrasion ? Patient was started on gentamicin from the ED continued 4. Hyperammonemia -Patient started on lactulose 5. Acute kidney injury ?patient baseline creatinine unknown patient apparently did receive dye for CAT scan on IV fluid with subsequent monitoring with daily BMPs ordered 5. Presence of urostomy ? Patient apparently difficulty with adhesive to the stoma. Patient has been evaluated by stoma nurse 6. Anemia - Secondary to chronic disorder monitoring H&H and transfuse if patient becomes symptomatic or hemoglobin falls below 7 7. DVT prophylaxis ? SCDs 8. Essential hypertension ? Newly diagnosed patient started on amlodipine 10 mg daily Time spent in the patient's overall evaluation,decision-making process, review of diagnostic data, adjustment of management, discussion with other providers, nursing nursing and ancillary staff involved in patient's care documentation, 40 Minutes Medications at Discharge Home Medications Remove Patch 1 patch topical DAILY@2200 ##0 03/04/23 acetaminophen 325 mg tablet 650 mg PO Q6H PRN PRN Pain 1-10 Or Fever>100.7 #0 tabs 03/04/23 amlodipine 10 mg tablet 10 mg PO DAILY #0 tabs 03/04/23 gentamicin 0.3 % eye drops 1 drp LEFT EYE Q4 7 days #0 mL 03/04/23 lidocaine 5 % topical patch 1 patch topical DAILY #0 ea 03/04/23 melatonin 3 mg tablet 3 mg PO QHS PRN PRN Insomnia #0 tabs 03/04/23 oxycodone 5 mg tablet 5 mg PO Q6H PRN PRN Pain Score 6-10 2 days #8 tabs 03/04/23 sennosides 8.6 mg-docusate sodium 50 mg tablet (Stool Softener-Stimulant Laxative) 2 tab PO BID PRN PRN Constipation #0 tabs 03/04/23 Hospital Course Summary of Care Provided Minutes Spent on Discharge: 40 Physical Exam Narrative GENERAL: cooperative HEENT: Atraumatic; normocephalic EYES; Anicteric, Normal Conjunctiva NECK; supple, normal thyroid, RESPIRATORY: Diminished to auscultation CARDIOVASCULAR: Regular S1 S2, GI: soft, normoactive bowel sounds, : No Renal angle tenderness; EXTREMITIES: No edema, no clubbing, MUSCULOSKELETAL: no muscle wasting NEURO: Awake; no lateralizing signs. SKIN: No Rash PSYCH; Flat affect Weight / BMI Weight Weight: 97.3 kg Body Mass Index (BMI) 29.0 ABG / Lab / Microbiology Data Result Diagrams: 03/03/23 05:55 03/03/23 05:55 Microbiology: Microbiology 03/01/23 19:18 Urine, Nephrostomy Urine Culture - Preliminary Escherichia coli GNR non thermal technician Streptococcus infantarius coli Enterococcus faecalis GNR lactose thermal technician Radiography Diagnostic Testing: Radiology Impression Echocardiogram 03/01/23 21:11 Interpretation Summary The estimated ejection fraction is 65 %. Diastolic function is indeterminate. Aortic sclerosis, no stenosis. Ordering Physician: Mukul Suh Referring Physician: NO PCP Performed By: Dory Solis, VARSHA, RVT D/C Instructions Discharge Diet: No restrictions Discharge Activity: Return to Normal Activity Call your doctor if you observe: Fever of 101 or Higher, Shortness of breath, Fainting spells and Chest pain Meaningful Use Info Meaningful Use Diagnoses (Choose all that apply): None applicable Discharge Plan Admission Admit Date/Time: 03/03/23 16:08 Attending Provider: Rafi Montero Primary Care Provider: Care Physician,No Primary Consulting Providers: Mukul Suh ; Get Wheatley Discharge Orders/Prescriptions Prescriptions: New sennosides-docusate sodium [Stool Softener-Stimulant Laxat] 8.6-50 mg Tablet 2 tab PO BID PRN PRN (Reason: Constipation) Qty: 0 0RF oxycodone 5 mg Tablet 5 mg PO Q6H PRN PRN (Reason: Pain Score 6-10) 2 Days Qty: 8 0RF Remove Patch 1 patch topical DAILY@2200 Qty: 0 0RF acetaminophen 325 mg Tablet 650 mg PO Q6H PRN PRN (Reason: Pain 1-10 Or Fever>100.7) Qty: 0 0RF melatonin 3 mg Tablet 3 mg PO QHS PRN PRN (Reason: Insomnia) Qty: 0 0RF gentamicin 0.3 % Drops 1 drp LEFT EYE Q4 7 Days Qty: 0 0RF amlodipine 10 mg Tablet 10 mg PO DAILY Qty: 0 0RF lidocaine 5 % Adhesive Patch,Medicated 1 patch topical DAILY Qty: 0 0RF Protocol: *Topical Application Instructions APPLICATION INSTRUCTIONS: right hip Referrals / Follow Up: Care Physician,No Primary [Primary Care Provider] - Disposition Disposition (needs filled in before D/C Order can be placed): [facility] Facility Charges/Coding Visit Charges Inpatient E&M: 18700 Disch Hosp >30min
--- NOTE | 2023-03-04 12:30 | CASEMGMT ---
BENJAMIN sent patient's d/c orders and med list to [facility] via [employer]. SW spoke with patient. Introduced self and role at [facility]. BENJAMIN asked patient if he is able to sit up in a wheelchair. Patient said he can sit up in a wheelchair. BENJAMIN told patient he will be going to [facility] under his Medicare. BENJAMIN explained that Medicare does not pay for wheelchair vans so he will get a bill for this transport. Patient was insistent that [facility] would pay for this transport. BENJAMIN asked patient which [facility] he [facility]. Patient said he just moved up here from [place] and has not been to any [facility] clinics in [place] yet. BENJAMIN told him SW will check on this. BENJAMIN called BENJAMIN Blas at the [facility] and left her a voice mail requesting a return call. Dorene HER
--- NOTE | 2023-03-04 13:26 | CASEMGMT ---
BENJAMIN received a return call from Wan at the [facility] in [place]. Wan does not think [facility] will pay transport if patient is not going to a [facility] contracted facility. Wan suggested BENJAMIN call the transfer line. BENJAMIN called the transfer line and left a message requesting a return call regarding this matter. Dorene HER
[2023-03-04 13:55] VITALS: BMI 29.0
--- NOTE | 2023-03-04 14:22 | CASEMGMT ---
BENJAMIN spoke with the [facility] transfer line and they will not pay for transport if a patient is going to a facility that is not contracted with the [facility]. BENJAMIN let patient know this information. Patient asked about the cost for a wheelchair van. BENJAMIN called [employer] and it is a $95 base fee and $10 per mile. The cost came out to $305. BENJAMIN told patient this information. There was a family member at bedside and it was decided they will transport patient. BENJAMIN asked [employer]ION SERVICES DIRECTOR who felt patient could get in and out of a care no problem. Patient will get picked up at . RN, audio visual secretary, and [facility] notified. BENJAMIN also sent patient's COVID test via [employer]. PASRR completed in [facility]. Plan: d/c to [facility] under skilled level of care on a PASRR. Family transported via private vehicle. Dorene HER
[2023-03-04 15:00] VITALS: BP 156/71; PULSE 80; RESP 16; TEMP 36.6; O2SAT 95
--- NOTE | 2023-03-04 16:23 | NURSING ---
Report called to Gisela at [facility]. Family to transport patient.
== END 2023-03-04 16:37 | disposition skilled nursing facility (03) | DRG 149 ==
LOC: ED 20:09 → PCU 20:29
PROVIDERS: Admitting Provider Hospitalist; Emergency Provider Emergency Medicine; Visit Provider Internal Medicine
DX: R42 Dizziness and giddiness (principal); E72.20 Disorder of urea cycle metabolism, unspecified; N17.9 Acute kidney failure, unspecified; D63.8 Anemia in other chronic diseases classified elsewhere; Z43.6 Encounter for attention to other artificial openings of urinary tract; S05.02XA Injury of conjunctiva and corneal abrasion without foreign body, left eye, initial encounter; W10.9XXA Fall (on) (from) unspecified stairs and steps, initial encounter; I10 Essential (primary) hypertension; M25.851 Other specified joint disorders, right hip; F17.210 Nicotine dependence, cigarettes, uncomplicated; R29.6 Repeated falls; Z79.899 Other long term (current) drug therapy
CPT/HCPCS: 36415; 70450; 70496; 70498; 73502; 73700; 76770; 80048; 80053; 80061; 81001; 82077; 82140; 82607; 83036; 83735; 84443; 84484; 85025; 85610; 85730; 87077; 87086; 87088; 87186; 87426; 92523; 92610; 93005; 93306; 97161; 97166; 97802; 99285; J7030; Q9967; A4216

== ENCOUNTER → 2023-06-27 | Outpatient (CLI) | payer OTHER, SELFPAY ==
--- NOTE | 2023-06-27 14:52 | CT_ITS ---
STUDY: CT BRAIN WITHOUT CONTRAST REASON FOR EXAM: Male, 73 years old. IMPAIRED MEMORY, FALL IN MARCH 2023 HIT HEAD RADIATION DOSAGE (If Supplied By Facility): CTDIvol = ( 44.99 ) mGy, DLP = ( 829.85 ) mGycm TECHNIQUE: Transaxial CT imaging of the brain was performed without administration of intravenous contrast material. Individualized dose optimization techniques were used for this CT. COMPARISON: March 01, 2023 CT head FINDINGS: Normal soft tissue structures. Normal calvarium. There is mild cerebral atrophy with widening of the extra-axial spaces and ventricular dilatation. Normal white matter tracts of the cerebral hemispheres. Normal basal ganglia and thalami. Normal brainstem. There is mild cerebellar atrophy. There is no intracranial hemorrhage. There are no findings of an acute ischemic infarction. Normal visualized paranasal sinuses. CT/Brain/Head without Contrast IMPRESSION: Atrophy no evidence of acute hemorrhage or infarct or edema. Electronically Signed: Ginny Waterman MD at 5:35 EDT ,
== END | disposition home or self-care (01) ==
LOC: CT 14:51
DX: I69.911 Memory deficit following unspecified cerebrovascular disease (principal)
CPT/HCPCS: 70450

== ENCOUNTER 2023-07-26 12:26 | Inpatient (IN) | payer OTHER, SELFPAY ==
[2023-07-26] VITALS (35 sets, daily range): BP systolic 79–138; BP diastolic 48–96; PULSE 45–61; RESP 8–20; TEMP 35.4–36.8; O2SAT 95–100; BMI 28.6; BMI 28.0
--- NOTE | 2023-07-26 12:28 | CT_ITS ---
We are attempting to reach an attending provider to discuss findings. An addendum with communication details will be sent when the communication is complete. EXAM: CT HEAD WITHOUT INTRAVENOUS CONTRAST CLINICAL INDICATION: Neuro deficit, acute, stroke suspected TECHNIQUE: Multiple axial images were obtained of the head without intravenous contrast. This CT exam was performed using one or more of the following dose reduction techniques: automated exposure control, adjustment of the mA and/or kV according to patient size, and/or use of iterative reconstruction technique. RADIATION DOSE: CTDIvol = 44.99 mGy, DLP = 829.85 mGy-cm COMPARISON: CT head without contrast 06/27/2023. FINDINGS: BRAIN AND EXTRA-AXIAL SPACES: Unremarkable. No intra- or extra-axial hemorrhage. No evidence of acute infarct. No intracranial mass or mass effect. There is preservation of the cantrell/white matter interface. Posterior fossa structures are unremarkable. Ventricles are appropriate for age. No hydrocephalus. Basal cisterns are patent. BONES/JOINTS: Unremarkable. No discrete lytic or blastic abnormalities. VASCULATURE: Tubular calcified plaques in the cavernous segments of both internal carotid arteries are unchanged. SINUSES: Unremarkable as visualized. Clear. MASTOID AIR CELLS: Unremarkable. Clear. ORBITS: Visualized globes, extraocular muscles, optic nerves and retrobulbar fat appear unremarkable. CT/STROKE Brain/Head without Cont IMPRESSION: 1. No CT evidence of intracranial bleeding, acute ischemic infarct or acute intracranial abnormality at this time. 2. Total ASPECTS score: 10/10. 3. No significant interval change when compared to 06/27/2023. Electronically Signed: Trever Cortés MD at 12:43 EDT ,
--- NOTE | 2023-07-26 12:28 | RAD_ITS ---
INDICATION: Neuro deficit, acute, stroke suspected EXAMINATION/TECHNIQUE: X-RAY - XR Chest 1 View COMPARISON: FINDINGS: LINES/DEVICES: None. LUNGS: No consolidation, edema or effusion. No pneumothorax. MEDIASTINUM AND CARDIOVASCULAR STRUCTURES: Cardiac silhouette not enlarged. Central airways and mediastinal contour are unremarkable. BONES AND SOFT TISSUES: Unremarkable. RAD/Chest 1 View IMPRESSION: No radiographic evidence of acute cardiopulmonary disease. Electronically Signed: Kenneth Nichole DO at 16:16 EDT ,
--- NOTE | 2023-07-26 12:32 | ED.RN ---
THIS RN CALLED [facility] AT 1228.
--- NOTE | 2023-07-26 12:39 | EKG12_ITS ---
Test Reason : STROKEALRT Blood Pressure : / mmHG Vent. Rate : 051 BPM Atrial Rate : 051 BPM P-R Int : 118 ms QRS Dur : 078 ms QT Int : 654 ms P-R-T Axes : 000 -52 -78 degrees QTc Int : 602 ms Critical Test Result: Long QTc Sinus bradycardia Left axis deviation T wave abnormality, consider inferior ischemia T wave abnormality, consider anterolateral ischemia Prolonged QT Abnormal ECG Confirmed by STANLEY BECKWITH, TONYA ([id number]), city editor MIRIAM HEMPHILL ([id number]) on 08/21/2023 2:28:16 PM Referred By: Confirmed By:WILBERT ANGEL MD
--- NOTE | 2023-07-26 12:39 | ED.RN ---
THIS RN CALLED [facility] TO LET THEM KNOW PT BACK IN ROOM AT 1237.
--- NOTE | 2023-07-26 12:44 | CT_ITS ---
INDICATION: Neuro deficit, acute, stroke suspected EXAMINATION: CTA HEAD - CTA Head and Neck Stroke W/ Contrast (and W/O if performed) TECHNIQUE: [place]/head CT angiogram protocol was performed following IV contrast. Routine carotid CT angiogram protocol was performed without and with IV contrast. NASCET criteria using the distal ICAs for comparison were used for evaluation of stenoses. 3D reconstructions were reviewed of the CT angiogram head and neck. A radiation dose optimization technique was used for this scan. IV Contrast dosage and agent: 100 mL of Isovue-370. COMPARISON: FINDINGS: --Anterior cerebral circulation: ACAs: No significant stenosis at the visualized segments. ACOM: Present. MCAs: No significant stenosis at the visualized segments. --Posterior cerebral circulation: PCOMs: Bilaterally patent and small posterior communicating arteries. buyer renter: No significant stenosis at the visualized segments. BASILAR ARTERY: No significant stenosis. --Carotid and vertebral circulation: AORTIC ARCH AND BRANCHES: High-grade stenosis of the left vertebral artery at its direct aortic arch origin. Normal and widely patent aortic arch and origins of the innominate artery, left common carotid artery and left carotid artery. RIGHT CCA: No occlusion, significant stenosis or dissection. RIGHT ICA: Motion degradation artifacts at the origin of the right internal carotid artery without obvious significant stenosis and unchanged. LEFT CCA: No occlusion, significant stenosis or dissection. LEFT ICA: Motion degradation artifacts at the origin of the left internal carotid artery without obvious significant stenosis and unchanged. RIGHT VERTEBRAL ARTERY: No occlusion, significant stenosis or dissection. LEFT VERTEBRAL ARTERY: High-grade stenosis at its direct aortic arch origin. Normal remaining segments of the left vertebral artery. NECK SOFT TISSUES: Unremarkable. LUNG APICES: Clear. BONES: Mild C5-6 C7 degenerative disc space height narrowing with endplate sclerosis. No lytic or blastic lesions. Normal vertebral body heights and alignment. Normal remaining cervical disc space heights. CT/STROKE CTA Head AND Neck W/Con IMPRESSION: 1. No CTA evidence of any suspicious significant vaso-occlusive disease of the anterior and posterior intracranial circulation and no intracranial aneurysms. This is unchanged when compared to 03/01/2023. 2. Greater than 70% stenosis of the left vertebral artery at its direct aortic arch origin. The remaining segments of the left vertebral artery are widely patent. 3. Motion degradation artifacts at the origins of both cervical internal carotid arteries similar to the previous CTA neck. No obvious significant stenosis at the origins of both cervical internal carotid arteries. Widely patent remaining cervical carotid arteries. 4. Normal and widely patent codominant right vertebral artery including its subclavian origin. 5. Normal and widely patent aortic arch and origins of the innominate artery, left common carotid artery and left subclavian artery. 6. No significant interval change when compared to 03/01/2023. N.B. : The above Results were Read Back by Trever Cortés MD to Get Alexander DO, and understanding confirmed on 07/26/2023 14:46:24 (ET). Electronically Signed: Trever Cortés MD at 14:56 EDT ,
--- NOTE | 2023-07-26 12:48 | ED.RN ---
[facility] NEUROLOGIST TO TALK TO DR. STOUT ABOUT PT CT RESULTS. [facility] NEUROLOGIST NOT TO BEAM IN ON ROBOT.
--- NOTE | 2023-07-26 13:00 | CT_ITS ---
STUDY: CT ABDOMEN AND PELVIS WITH CONTRAST REASON FOR EXAM: Male, 73 years old. Abdominal pain RADIATION DOSAGE (If Supplied By Facility): CTDIvol = ( 23.55 ) mGy, DLP = ( 1345.69 ) mGycm TECHNIQUE: Transaxial images were obtained from the dome of the diaphragm to the symphysis pubis without oral contrast. IV 100mL Isovue-370 was administered. Sagittal and coronal images were reconstructed. Individualized dose optimization techniques were used for this CT. COMPARISON: None. FINDINGS: There is an irregular 2.3 cm parenchymal density in the right lower lobe requiring further evaluation with a The The visualized portions of the heart are within normal limits. Normal liver. Normal gallbladder and extrahepatic biliary system. Normal spleen. There is mesenteric stranding around the pancreas since just before pancreatitis. Normal bilateral adrenal glands. Normal right kidney. Atrophic small left kidney with hydronephrosis. Left hydroureter Normal visualized stomach. Normal small intestine. Mild colonic diverticulosis. The appendix is visualized and appears normal. Calcified abdominal aorta. 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 Normal inferior vena Normal retroperitoneum.toneum. 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 Normal osseous structures. CT/Abdomen/Pelvis W IV Cont ONLY IMPRESSION: Possible pancreatitis. Colonic diverticulosis. Atrophic left kidney with hydronephrosis and left hydroureter. 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 Irregular right lower lobe parenchymal nodule requiring further evaluation. Focal infrarenal abdominal aortic aneurysm. Electronically Signed: Kenneth Nichole DO at 16:09 EDT ,
--- NOTE | 2023-07-26 13:01 | EDS_ITS ---
HPI History of Present Illness Chief Complaint: Stroke Alert Informant: patient and EMS Onset/Context/Timing Onset: Yesterday Context: Sudden Onset Timing: Continuous Quality and Location: Positive for Right Arm Weakness and Right Leg Weakness Associated Symptoms Associated Symptoms: Negative for Headache, Nausea, Vomiting or Chest Pain Narrative Narrative: Patient presents with confusion, slurred speech, and generalized weakness that was noticed today. Patient's last known well was yesterday afternoon approximately 22 hours prior to arrival. Patient states he feels weak in his arms and legs. Patient also pulled his urostomy tube out accidentally today. Patient admits to some pain in his abdomen as well. Patient denies any fevers or chills. Patient denies any headaches. Patient denies any nausea or vomiting. [facility] Medical History (Updated 07/26/23 @ 17:[address] Get Alexander, ) Hypertension Home Medications Remove Patch 1 patch topical DAILY@2200 ##0 03/04/23 [Rx Last Taken Unknown] acetaminophen 325 mg tablet 650 mg (2 x 325 mg) PO Q6H PRN PRN Pain 1-10 Or Fever>100.7 #0 tabs 03/04/23 [Rx Last Taken Unknown] amlodipine 10 mg tablet 10 mg PO DAILY #0 tabs 03/04/23 [Rx Last Taken Unknown] gentamicin 0.3 % eye drops 1 drp LEFT EYE Q4 7 days #0 mL 03/04/23 [Rx Last Taken Unknown] lidocaine 5 % topical patch 1 patch topical DAILY #0 ea 03/04/23 [Rx Last Taken Unknown] melatonin 3 mg tablet 3 mg PO QHS PRN PRN Insomnia #0 tabs 03/04/23 [Rx Last Taken Unknown] oxycodone 5 mg tablet 5 mg PO Q6H PRN PRN Pain Score 6-10 2 days #8 tabs 03/04/23 [Rx Last Taken Unknown] sennosides 8.6 mg-docusate sodium 50 mg tablet (Stool Softener-Stimulant Laxative) 2 tab PO BID PRN PRN Constipation #0 tabs 03/04/23 [Rx Last Taken Unknown] Allergy/AdvReac Type Severity Reaction Status Date / Time No Known Allergies Allergy Verified 07/26/23 12:50 Surgical History History of urostomy Social History (System 03/05/23 @ 10:00 by Halima Elizalde) Smoking Status: Current every day smoker tobacco type: cigarettes ROS ROS ED Constitutional Constitutional ED: Denies chills or fever(s) ENT ENT ED: Denies rhinorrhea or sore throat Cardiovascular Cardiovascular: Denies chest pain or palpitations Respiratory/Chest Respiratory/Chest: Denies cough or dyspnea Gastrointestinal Gastrointestinal: Reports abdominal pain; Denies nausea or vomiting Musculoskeletal Musculoskeletal: Denies back pain or neck pain Integumentary Denies abscess or rash Neurologic Neurologic: Reports weakness; Denies headache(s) Allergic/Immunologic Allergic/Immunologic ED: Denies mouth swelling or urticaria EXAM Physical Exam Const Vital Signs: 07/26/23 12:34 07/26/23 12:41 07/26/23 12:27 Temperature 96.4 F L Temperature Source Temporal Pulse Rate 52 L 57 L Respiratory Rate 17 18 Blood Pressure 112/71 112/71 Blood Pressure Mean 84 84 Pulse Ox 97 98 98 Oxygen Delivery Method Room Air Room Air Room Air Oxygen Flow Rate (L/min) 07/26/23 12:43 07/26/23 12:43 07/26/23 12:49 Temperature 96.9 F L Temperature Source Temporal Pulse Rate 52 L 52 L 50 L Respiratory Rate 20 H 15 11 L Blood Pressure 99/68 99/68 Blood Pressure Mean 78 78 Pulse Ox 99 99 95 Oxygen Delivery Method Room Air Room Air Room Air Oxygen Flow Rate (L/min) 07/26/23 12:27 07/26/23 12:58 07/26/23 13:30 Temperature Temperature Source Pulse Rate 57 L 51 L 49 L Respiratory Rate 18 11 L 11 L Blood Pressure 112/71 99/70 138/93 H Blood Pressure Mean 84 79 108 Pulse Ox 98 98 99 Oxygen Delivery Method Room Air Room Air Room Air Oxygen Flow Rate (L/min) 07/26/23 13:35 07/26/23 14:06 07/26/23 14:09 Temperature 96.9 F L Temperature Source Temporal Pulse Rate 49 L 53 L 53 L Respiratory Rate 11 L 14 11 L Blood Pressure 138/93 H 136/85 H 136/85 H Blood Pressure Mean 108 102 102 Pulse Ox 99 99 100 Oxygen Delivery Method Room Air Room Air Room Air Oxygen Flow Rate (L/min) 07/26/23 15:12 07/26/23 14:54 07/26/23 15:44 Temperature 97.4 F L Temperature Source Oral Pulse Rate 46 L 46 L Respiratory Rate 13 10 L Blood Pressure 125/78 H 103/69 Blood Pressure Mean 93 80 Pulse Ox 100 99 99 Oxygen Delivery Method Nasal Cannula Nasal Cannula Room Air Oxygen Flow Rate (L/min) 2 2 07/26/23 16:21 07/26/23 16:21 07/26/23 17:03 Temperature 97.4 F L Temperature Source Oral Pulse Rate 45 L 45 L 50 L Respiratory Rate 15 11 L 11 L Blood Pressure 104/61 104/61 90/65 Blood Pressure Mean 75 75 73 Pulse Ox 100 100 99 Oxygen Delivery Method Room Air Room Air Room Air Oxygen Flow Rate (L/min) 07/26/23 17:12 Temperature 95.7 F L Temperature Source Temporal Pulse Rate 49 L Respiratory Rate 10 L Blood Pressure 89/53 L Blood Pressure Mean 65 Pulse Ox 100 Oxygen Delivery Method Room Air Oxygen Flow Rate (L/min) Positive well nourished and well developed General Appearance ED: well developed and NAD HEENT Reports moist mucous membranes Neck supple and no JVD Resp normal respiratory effort Auscultation: diminished lung sounds bilateral Cardio Rate: regular rate Rhythm: regular rhythm GI soft to palpation GI Narrative: There is tenderness over the right mid to lower abdomen where the patient's urostomy site was. There is some darkening of the skin around the urostomy site. The urostomy site is open. There is no bleeding or purulent drainage noted. Palpation: tender RLQ; Negative for guarding or rebound tenderness present Extremity General Extremety ED: Negative for deformity or tenderness General Extremity: Negative for deformity Neuro oriented x3, CN's II-XII intact bilaterally and no sensory deficits noted Neuro Narrative: Patient has generalized weakness in his arms and legs but is somewhat worse on the right. Speech: speech normal Motor Exam: general weakness Psych mental status grossly normal MDM MDM MDM Narrative Medical decision making narrative: Prehospital stroke alert was called. Stroke protocols were entered. Differential diagnosis includes stroke, sepsis, urinary tract infection, electrolyte abnormality, cardiac dysrhythmia, cardiac ischemia, and pneumonia. CT scan of the brain will be obtained to assess for intracranial bleeding and stroke. EKG will be obtained to assess for cardiac dysrhythmia and cardiac ischemia. CBC will be obtained to assess for leukocytosis and anemia. Basic metabolic profile will be obtained to assess for renal function and electrolyte abnormality. Lactate will be obtained to assess for sepsis. High-sensitivity troponin will be obtained to assess for cardiac ischemia. PT with INR and PTT will be obtained to assess for coagulopathy. Urinalysis will be obtained to assess for urinary tract infection. Blood cultures will be obtained to assess for sepsis. Urine culture will be obtained to assess for urinary tract infection. Chest x-ray will be obtained to assess for pneumonia. CT scan of the abdomen and pelvis will be obtained to assess for bowel obstruction, perforation, and abdominal mass. CTA of the head and neck will be obtained to assess for large vessel occlusion. Lab Data Attestation: I reviewed the patient's lab results. Lab results narrative: CBC was reviewed. White blood cell count was normal. There is mild anemia with a hemoglobin of 12.2. Platelets were slightly low at 86. PT with INR and PTT were reviewed and were within normal limits. Basic metabolic profile was reviewed. Potassium was low at 3.2. Chloride was 118. Anion gap was normal. BUN was 92 and creatinine was 4.16. These are increased from previous results. Serum lactate was normal at 1.9. Initial high-sensitivity troponin was reviewed and was elevated at 2644. Urinalysis was reviewed. There is a leukocyte es terase of 500 with 10-25 white blood cells and 1+ bacteria. 2-hour repeat high- sensitivity troponin was reviewed and was elevated at 2322. Labs: Laboratory Results - last 24 hr 07/26/23 07/26/23 07/26/23 13:15 13:30 15:10 WBC 4.7 RBC 4.06 L Hgb 12.2 L Hct 40.6 MCV 100.0 H MCH 30.0 MCHC 30.0 L RDW Std Deviation 58.2 H RDW Coeff of Homar 15.9 H Plt Count 86 L MPV 13.5 H Immature Gran % (Auto) 1.100 H Neut % (Auto) 65.1 Lymph % (Auto) 25.6 Towns % (Auto) 5.1 Eos % (Auto) 2.5 Baso % (Auto) 0.6 Absolute Neuts (auto) 3.1 Absolute Lymphs (auto) 1.21 Nucleated RBC % 0.4 Differential Comment SCANNED Platelet Estimate MOD DEC PT 14.5 INR 1.1 APTT 31.2 Sodium 145 Potassium 3.2 L Chloride 118 H Carbon Dioxide 19.0 L Anion Gap 8 BUN 92 H Creatinine 4.16 H Estim Creat Clear Calc 17.36 Est GFR (MDRD) Af Amer 18 L Est GFR (MDRD) Non-Af 15 L BUN/Creatinine Ratio 22.1 H Glucose 65 L Lactic Acid 1.9 Calcium 8.6 Troponin I High Sens 2644 H* Urine Color Yellow Urine Clarity Clear Urine pH 7.0 Ur Specific [place] 1.010 Urine Protein 30 H Urine Glucose (UA) Normal Urine Ketones Negative Urine Occult Blood 50 H Urine Nitrite Negative Urine Bilirubin Negative Urine Urobilinogen Normal Ur Leukocyte Esterase 500 H Urine RBC 0 SEEN Urine WBC 10-25 SEEN Ur Squamous Epith Cells 0 SEEN Urine Bacteria 1+ Urine Mucus 0 SEEN POC Glucose 07/26/23 07/26/23 16:24 16:29 WBC RBC Hgb Hct MCV MCH MCHC RDW Std Deviation RDW Coeff of Homar Plt Count MPV Immature Gran % (Auto) Neut % (Auto) Lymph % (Auto) Towns % (Auto) Eos % (Auto) Baso % (Auto) Absolute Neuts (auto) Absolute Lymphs (auto) Nucleated RBC % Differential Comment Platelet Estimate PT INR APTT Sodium Potassium Chloride Carbon Dioxide Anion Gap BUN Creatinine Estim Creat Clear Calc Est GFR (MDRD) Af Amer Est GFR (MDRD) Non-Af BUN/Creatinine Ratio Glucose Lactic Acid Calcium Troponin I High Sens 2322 H* Urine Color Urine Clarity Urine pH Ur Specific [place] Urine Protein Urine Glucose (UA) Urine Ketones Urine Occult Blood Urine Nitrite Urine Bilirubin Urine Urobilinogen Ur Leukocyte Esterase Urine RBC Urine WBC Ur Squamous Epith Cells Urine Bacteria Urine Mucus POC Glucose 63 L Radiography Diagnostic Testing: Clinical Impression(s) from Imaging Studies Brain CT 07/26/23 12:28 IMPRESSION: 1. No CT evidence of intracranial bleeding, acute ischemic infarct or acute intracranial abnormality at this time. 2. Total ASPECTS score: 10/10. 3. No significant interval change when compared to 06/27/2023. Electronically Signed: Trever Cortés MD at 12:43 EDT , ADDENDUM: 07/26/23 1252 IMPRESSION: 1. No CT evidence of intracranial bleeding, acute ischemic infarct or acute intracranial abnormality at this time. 2. Total ASPECTS score: 10/10. 3. No significant interval change when compared to 06/27/2023. N.B. : The above Results were Read Back by Trever Cortés MD to Get Alexander DO, and understanding confirmed on 07/26/2023 12:45:44 (ET). Electronically Signed: Trever Cortés MD at 12:43 EDT , Chest X-Ray 07/26/23 12:28 IMPRESSION: No radiographic evidence of acute cardiopulmonary disease. Electronically Signed: Kenneth Nichole DO at 16:16 EDT , Head/Neck CTA 07/26/23 12:44 IMPRESSION: 1. No CTA evidence of any suspicious significant vaso-occlusive disease of the anterior and posterior intracranial circulation and no intracranial aneurysms. This is unchanged when compared to 03/01/2023. 2. Greater than 70% stenosis of the left vertebral artery at its direct aortic arch origin. The remaining segments of the left vertebral artery are widely patent. 3. Motion degradation artifacts at the origins of both cervical internal carotid arteries similar to the previous CTA neck. No obvious significant stenosis at the origins of both cervical internal carotid arteries. Widely patent remaining cervical carotid arteries. 4. Normal and widely patent codominant right vertebral artery including its subclavian origin. 5. Normal and widely patent aortic arch and origins of the innominate artery, left common carotid artery and left subclavian artery. 6. No significant interval change when compared to 03/01/2023. N.B. : The above Results were Read Back by Trever Cortés MD to Get Alexander DO, and understanding confirmed on 07/26/2023 14:46:24 (ET). Electronically Signed: Trever Cortés MD at 14:56 EDT , ADDENDUM: 07/26/23 1503 IMPRESSION: 1. No CTA evidence of any suspicious significant vaso-occlusive disease of the anterior and posterior intracranial circulation and no intracranial aneurysms. This is unchanged when compared to 03/01/2023. 2. Greater than 70% stenosis of the left vertebral artery at its direct aortic arch origin. The remaining segments of the left vertebral artery are widely patent. 3. Motion degradation artifacts at the origins of both cervical internal carotid arteries similar to the previous CTA neck. No obvious significant stenosis at the origins of both cervical internal carotid arteries. Widely patent remaining cervical carotid arteries. 4. Normal and widely patent codominant right vertebral artery including its subclavian origin. 5. Normal and widely patent aortic arch and origins of the innominate artery, left common carotid artery and left subclavian artery. 6. No significant interval change when compared to 03/01/2023. N.B. : The above Results were Read Back by Trever Cortés MD to Get Alexander DO, and understanding confirmed on 07/26/2023 14:46:24 (ET). Electronically Signed: Trever Cortés MD at 14:56 EDT , Abdomen/Pelvis CT 07/26/23 13:00 IMPRESSION: Possible pancreatitis. Colonic diverticulosis. Atrophic left kidney with hydronephrosis and left hydroureter. 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 Irregular right lower lobe parenchymal nodule requiring further evaluation. Focal infrarenal abdominal aortic aneurysm. Electronically Signed: Kenneth Nichole DO at 16:09 EDT , CT scan of the brain was obtained. There is no acute infarct or bleed noted. This was interpreted by the radiologist and was also independently reviewed by myself. CTA of the head and neck was obtained. There is stenosis of the left vertebral artery. There is no large vessel occlusion or medium vessel occlusion noted. There is no bleeding noted. This was interpreted by the radiologist and was also independently reviewed by myself. CT scan of the abdomen and pelvis was obtained. There is possible pancreatitis. There is atrophic left kidney with hydronephrosis and hydroureter. There is an ileal conduit to the right anterior abdominal wall. There is an irregular right lower lobe parenchymal nodule requiring further evaluation. This was interpreted by the radiologist and was also independently reviewed by myself. Portable 1 view chest x-ray was obtained. On my independent interpretation, lung baca are clear. There is normal cardiac silhouette. Bony thorax is normal. There is no acute process noted. Radiologist also interpreted the x-ray and agrees. EKG Initial EKG: Attestation: I personally reviewed and interpreted this EKG as follows: Interpretation: Sinus Bradycardia (51) and Non-Specific ST Changes Comments: EKG was obtained. On my independent interpretation, it shows sinus bradycardia with a rate of 51. MT interval was normal at 118 ms. QRS interval is normal at 78 ms. QTc interval was slightly prolonged at 602 ms. There is left axis deviation at -52. There are nonspecific ST-T wave changes noted. The nonspecific T wave changes in V3 through V6 are new compared to previous EKG dated 03/03/2023. Prior EKG tracings: available for review Prior: Changed (Nonspecific T wave inversion in leads V3 through V6 are new compared to previous EKG dated 03/03/2023.) Management Discussion w/another healthcare provider: Hospitalist (Dr. Piper), [employer] and Radiologist Treatment and Re-Evaluation Narrative: Patient was given IV fluids. Case was discussed with the stroke neurologist, Dr. Winkler. He states the patient is not a candidate for thrombolytics at this time. He recommends further evaluation with CTA of the head and neck and inpatient admission. Patient was given aspirin. Urine culture, blood cultures were obtained. Patient was started on cefepime. Patient was given IV fluids. Patient's blood sugar dropped to 63. Patient was given a dose of D50. Patient was started on heparin drip. Case was discussed with Dr. Zayas from cardiology. He had no further recommendations. Case was discussed with the hospitalist. He will admit the patient to her service. Patient understood and was agreeable with the plan. All questions were answered. Critical Care Time Critical Care Time: Yes Critical care time (excluding procedures): 30-74 minutes (36), Including time spent:, Discussing w/Patient &/or Family/Paper Slitter, Discussing w/Consultants, Arranging Admission or Transfer and Performing Direct Patient Care at Bedside Discharge Plan Dx/Rx/DC Orders Clinical Impression: Non-STEMI (non-ST elevated myocardial infarction), Urinary tract infection, Sepsis, Acute kidney injury Disposition Disposition: Acute Care [facility]
[2023-07-26] MEDS: 0.9% Normal Saline 1,000 ML 1000 ML IV ×2 (13:14→17:10)
[2023-07-26 13:47] LABS: Absolute Lymphocyte Count 1.21 X10^3/uL (0.83-4.51); Absolute Neutrophil Count 3.1 X10^3/uL (2.0-7.7); Basophil# 0.03 X10^3/uL; Basophil% 0.6 % (0-1); Eosinophil# 0.12 X10^3/uL; Eosinophils% 2.5 % (0-5); Hematocrit 40.6 % (40-54); Hemoglobin 12.2 g/dL (13.0-16.5); Lymphocyte # 1.21 X10^3/ul (0.83-4.51); Lymphocyte % 25.6 % (19-41); Mean Platelet Vol. 13.5 fl (6.2-12.0); Monocyte# 0.24 X10^3/uL; Monocyte% 5.1 % (0-10); NRBC Flagged by Analyzer 0.4 % (0-5); Neutrophil # 3.08 X10^3/uL (2.7-7.7); Neutrophil % 65.1 % (47-70); POSITIVE COUNT YES; Platelet Count 86 K/mm3 (150-450); RBC Distribution Width CV 15.9 % (11.6-14.6); RBC Distribution Width SD 58.2 fl (35.1-43.9); Red Blood Count 4.06 M/mm3 (4.6-6.2); White Blood Count 4.7 K/mm3 (4.4-11.0)
[2023-07-26 13:49] LABS: Differential Indicated SCAN CRITERIA MET
[2023-07-26 13:53] LABS: International Normalized Ratio 1.1; Prothrombin Time (Protime)PT. 14.5 SECONDS (11.7-14.9)
[2023-07-26 13:54] LABS: Partial Thromboplast Time 31.2 Seconds (24.1-36.2)
[2023-07-26 13:57] LABS: Lactic Acid 1.9 mmol/L (0.4-1.9)
[2023-07-26 14:03] LABS: Anion Gap 8 (5-15); BUN 92 mg/dL (7-18); BUN/Creat Ratio 22.1 RATIO (10-20); Calcium,Total 8.6 mg/dL (8.5-10.1); Chloride 118 mmol/L (98-107); Creatinine, Serum 4.16 mg/dL (0.70-1.30); EST Glomerular Filtration Rate 15 mL/min (>60); Est Glom Filt Rate - Afr Amer 18 mL/min (>60); Estimated Creatinine Clearance 17.36 ml/min; Glucose 65 mg/dL (74-106); Potassium 3.2 mmol/L (3.5-5.1); Sodium Level 145 mmol/L (136-145); Troponin-I HS 2644 pg/mL (3.0-78.0)
--- NOTE | 2023-07-26 14:04 | ED.RN ---
PER DR. STOUT VERBAL ORDER, OKAY TO DISCONTINUE NIH ASSESSMENTS DUE TO LAB RESULT FINDINGS.
[2023-07-26] MEDS: Aspirin 81 MG TAB.CHEW 324 MG PO (14:29)
[2023-07-26 14:30] LABS: Differential Comment SCANNED; Platelet Estimate MOD DEC (ADEQ)
[2023-07-26 15:17] LABS: Mucous, Urine 0 SEEN /hpf (<or=2+); Red Blood Cells-Urine 0 SEEN /hpf (0-5); Squamous Epithelial Cells - UA 0 SEEN /hpf (0-5)
[2023-07-26 15:19] LABS: Color, Urine Yellow (Yellow); Glucose, Dipstick Normal (Normal); Ketone-Dipstick Negative (Negative); Leukocyte Esterase-Dipstick 500 /ul (Negative); Nitrite-Dipstick Negative (Negative); Occult Blood-Urine 50 /ul (Negative); Protein-Dipstick 30 mg/dl (Negative); Urine Bilirubin Dipstick Negative (Negative); Urine Clarity Clear (Clear); Urine Urobilinogen Normal (Normal)
[2023-07-26 16:18] LABS: Bacteria 1+ /hpf (None Seen); White Blood Cells 10-25 SEEN /hpf (0-5)
[2023-07-26 16:42] LABS: Bedside Glucose 63 mg/dL (74-106)
[2023-07-26] MEDS: Dextrose 50%-Water 25 GM/50 ML DISP.SYRIN IV (16:53)
[2023-07-26] MEDS: Heparin Injection (Vial) 5,000 UNIT/ML VIAL 7500 UNIT IV (16:54)
[2023-07-26] MEDS: HEPARIN/D5w 25,000 UNITS 25,000 UNITS/250 ML IV.SOLN. 14 UNITS CONT INF (16:59)
[2023-07-26 17:00] LABS: Troponin-I HS 2322 pg/mL (3.0-78.0)
--- NOTE | 2023-07-26 17:04 | ED.RN ---
[facility]
--- NOTE | 2023-07-26 17:07 | PCM.HP.STD ---
Documented by User: Dr. Jeremy Piper DO 07/26/23 23:35 HPI - General General Date of Admission: 07/26/23 Date of Service: 07/26/23 Chief Complaint: Stroke alert, altered mental status HPI Narrative LEIF SIMON is a 73 M with history of presence of urostomy, CKD and hypertension who presented to [facility] ED on 07/26/2023 via EMS as a stroke alert. Acute stroke ruled out in the ED. However, patient course complicated by continued altered mental status along with elevated troponins, elevated lipase and other electrolyte abnormalities. Patient seen at bedside in the ED. He was laying comfortably in bed, did not appear to be in any acute distress. He was initially somnolent, but then woke up with further questioning and was answering most questions appropriately. He knew that he was in [facility] and knew his name, however he thought the year was 2002 and that Bam was president. Patient states that he lives in a trailer on his brother's property. He was not sure exactly what happened over the last few days. States he does not drink alcohol or use illicit substances. Not able to answer many more questions. Does report some mild epigastric pain but otherwise denies any acute distress. Vitals in the ED were notable for hypotension with BP 90s over 50s, and heart rate in the 45 to 55 bpm range. Labs are notable for normal white blood cell count of 4, creatinine 4.16, BUN 92, potassium 3.2, lactate 1.9, troponin 2644, lipase 346. UA showed clear yellow urine, 30 protein, 500 leukocyte esterase, negative nitrites, 1+ bacteria, 10-[address] head and CTA head/neck were negative for any acute pathology. Chest x-ray was nonacute. CT abdomen pelvis showed mesenteric fat stranding around the pancreas concerning for pancreatitis, left hydronephrosis with hydroureter, otherwise no other acute findings. [facility] Medical History Hypertension Home Medications Remove Patch 1 patch topical DAILY@2200 ##0 03/04/23 [Rx Last Taken Unknown] acetaminophen 325 mg tablet 650 mg (2 x 325 mg) PO Q6H PRN PRN Pain 1-10 Or Fever>100.7 #0 tabs 03/04/23 [Rx Last Taken 07/25/23] amlodipine 10 mg tablet 10 mg PO DAILY #0 tabs 03/04/23 [Rx Last Taken 07/25/23] gentamicin 0.3 % eye drops 1 drp LEFT EYE Q4 7 days #0 mL 03/04/23 [Rx Last Taken Unknown] lidocaine 5 % topical patch 1 patch topical DAILY #0 ea 03/04/23 [Rx Last Taken Unknown] melatonin 3 mg tablet 3 mg PO QHS PRN PRN Insomnia #0 tabs 03/04/23 [Rx Last Taken Unknown] oxycodone 5 mg tablet 5 mg PO Q6H PRN PRN Pain Score 6-10 2 days #8 tabs 03/04/23 [Rx Last Taken Unknown] sennosides 8.6 mg-docusate sodium 50 mg tablet (Stool Softener-Stimulant Laxative) 2 tab PO BID PRN PRN Constipation #0 tabs 03/04/23 [Rx Last Taken 07/13/23] Allergy/AdvReac Type Severity Reaction Status Date / Time No Known Allergies Allergy Verified 07/26/23 12:50 Surgical History History of urostomy Social History (Updated 07/26/23 @ 18:50 by Marina Vanegas) Smoking Status: Current every day smoker tobacco type: cigarettes alcohol intake: former ROS Review of Systems ROS Unobtainable: due to mental status Vital Signs Vital Signs Vital Signs: 07/26/23 12:34 07/26/23 12:41 07/26/23 12:27 Temperature 96.4 F L Temperature Source Temporal Pulse Rate 52 L 57 L Respiratory Rate 17 18 Blood Pressure 112/71 112/71 Blood Pressure Mean 84 84 Pulse Ox 97 98 98 Oxygen Delivery Method Room Air Room Air Room Air Oxygen Flow Rate (L/min) 07/26/23 12:43 07/26/23 12:43 07/26/23 12:49 Temperature 96.9 F L Temperature Source Temporal Pulse Rate 52 L 52 L 50 L Respiratory Rate 20 H 15 11 L Blood Pressure 99/68 99/68 Blood Pressure Mean 78 78 Pulse Ox 99 99 95 Oxygen Delivery Method Room Air Room Air Room Air Oxygen Flow Rate (L/min) 07/26/23 12:27 07/26/23 12:58 07/26/23 13:30 Temperature Temperature Source Pulse Rate 57 L 51 L 49 L Respiratory Rate 18 11 L 11 L Blood Pressure 112/71 99/70 138/93 H Blood Pressure Mean 84 79 108 Pulse Ox 98 98 99 Oxygen Delivery Method Room Air Room Air Room Air Oxygen Flow Rate (L/min) 07/26/23 13:35 07/26/23 14:06 07/26/23 14:09 Temperature 96.9 F L Temperature Source Temporal Pulse Rate 49 L 53 L 53 L Respiratory Rate 11 L 14 11 L Blood Pressure 138/93 H 136/85 H 136/85 H Blood Pressure Mean 108 102 102 Pulse Ox 99 99 100 Oxygen Delivery Method Room Air Room Air Room Air Oxygen Flow Rate (L/min) 07/26/23 15:12 07/26/23 14:54 07/26/23 15:44 Temperature 97.4 F L Temperature Source Oral Pulse Rate 46 L 46 L Respiratory Rate 13 10 L Blood Pressure 125/78 H 103/69 Blood Pressure Mean 93 80 Pulse Ox 100 99 99 Oxygen Delivery Method Nasal Cannula Nasal Cannula Room Air Oxygen Flow Rate (L/min) 2 2 07/26/23 16:21 07/26/23 16:21 07/26/23 17:03 Temperature 97.4 F L Temperature Source Oral Pulse Rate 45 L 45 L 50 L Respiratory Rate 15 11 L 11 L Blood Pressure 104/61 104/61 90/65 Blood Pressure Mean 75 75 73 Pulse Ox 100 100 99 Oxygen Delivery Method Room Air Room Air Room Air Oxygen Flow Rate (L/min) Weight Weight: 95.8 kg Body Mass Index (BMI) 28.6 Physical Exam Const alert Constitutional Narrative: Alert and oriented x2 in the ED, not oriented to time. Appeared fairly somnolent but comfortable lying in bed, in no acute distress. General Appearance: cooperative and comfortable HEENT normocephalic, head/scalp atraumatic, hearing grossly normal bilaterally, nasal mucous membranes and turbinates normal and moist oral mucous membranes Eyes PERRL, EOMs intact bilaterally and conjunctivae normal Neck full ROM, no lymphadenopathy and supple Lymph Lymphatic: no lymphadenopathy noted Chest inspection of chest normal Resp normal respiratory effort, normal air movement, no use of accessory muscles and clear to auscultation bilaterally Cardio regular rate, regular rhythm, no murmurs and peripheral pulses 2+ throughout GI normal to inspection, nondistended, normoactive bowel sounds, soft to palpation, non-tender and non-distended Back/Spine normal ROM Extremity normal to inspection, full ROM and no pedal edema Skin no rashes or lesions noted Results Lab / Micro Data 07/26/23 13:30 07/26/23 20:57 Labs: Laboratory Results - last 24 hr 07/26/23 13:15: Lactic Acid 1.9 07/26/23 13:30: WBC 4.7, RBC 4.06 L, Hgb 12.2 L, Hct 40.6, MCV 100.0 H, MCH 30.0, MCHC 30.0 L, RDW Std Deviation 58.2 H, RDW Coeff of Homar 15.9 H, Plt Count 86 L, MPV 13.5 H, Immature Gran % (Auto) 1.100 H, Neut % (Auto) 65.1, Lymph % (Auto) 25.6, [place] % (Auto) 5.1, Eos % (Auto) 2.5, Baso % (Auto) 0.6, Absolute Neuts (auto) 3.1, Absolute Lymphs (auto) 1.21, Nucleated RBC % 0.4, Differential Comment SCANNED, Platelet Estimate MOD DEC, PT 14.5, INR 1.1, APTT 31.2, Sodium 145, Potassium 3.2 L, Chloride 118 H, Carbon Dioxide 19.0 L, Anion Gap 8, BUN 92 H, Creatinine 4.16 H, Estim Creat Clear Calc 17.36, Est GFR (MDRD) Af Amer 18 L, Est GFR (MDRD) Non-Af 15 L, BUN/Creatinine Ratio 22.1 H, Glucose 65 L, Calcium 8.6, Troponin I High Sens 2644 H* 07/26/23 15:10: Urine Color Yellow, Urine Clarity Clear, Urine pH 7.0, Ur Specific [place] 1.010, Urine Protein 30 H, Urine Glucose (UA) Normal, Urine Ketones Negative, Urine Occult Blood 50 H, Urine Nitrite Negative, Urine Bilirubin Negative, Urine Urobilinogen Normal, Ur Leukocyte Esterase 500 H, Urine RBC 0 SEEN, Urine WBC 10-25 SEEN, Ur Squamous Epith Cells 0 SEEN, Urine Bacteria 1+, Urine Mucus 0 SEEN 07/26/23 16:24: POC Glucose 63 L 07/26/23 16:29: Troponin I High Sens 2322 H* Radiology Impression Brain CT 07/26/23 12:28 IMPRESSION: 1. No CT evidence of intracranial bleeding, acute ischemic infarct or acute intracranial abnormality at this time. 2. Total ASPECTS score: 10/10. 3. No significant interval change when compared to 06/27/2023. Electronically Signed: Trever Cortés MD at 12:43 EDT , ADDENDUM: 07/26/23 1252 IMPRESSION: 1. No CT evidence of intracranial bleeding, acute ischemic infarct or acute intracranial abnormality at this time. 2. Total ASPECTS score: 10/10. 3. No significant interval change when compared to 06/27/2023. N.B. : The above Results were Read Back by Trever Cortés MD to Get Alexander DO, and understanding confirmed on 07/26/2023 12:45:44 (ET). Electronically Signed: Trever Cortés MD at 12:43 EDT , Chest X-Ray 07/26/23 12:28 IMPRESSION: No radiographic evidence of acute cardiopulmonary disease. Electronically Signed: Kenneth Nichole DO at 16:16 EDT , Head/Neck CTA 07/26/23 12:44 IMPRESSION: 1. No CTA evidence of any suspicious significant vaso-occlusive disease of the anterior and posterior intracranial circulation and no intracranial aneurysms. This is unchanged when compared to 03/01/2023. 2. Greater than 70% stenosis of the left vertebral artery at its direct aortic arch origin. The remaining segments of the left vertebral artery are widely patent. 3. Motion degradation artifacts at the origins of both cervical internal carotid arteries similar to the previous CTA neck. No obvious significant stenosis at the origins of both cervical internal carotid arteries. Widely patent remaining cervical carotid arteries. 4. Normal and widely patent codominant right vertebral artery including its subclavian origin. 5. Normal and widely patent aortic arch and origins of the innominate artery, left common carotid artery and left subclavian artery. 6. No significant interval change when compared to 03/01/2023. N.B. : The above Results were Read Back by Trever Cortés MD to Get Alexander DO, and understanding confirmed on 07/26/2023 14:46:24 (ET). Electronically Signed: Trever Cortés MD at 14:56 EDT , ADDENDUM: 07/26/23 1503 IMPRESSION: 1. No CTA evidence of any suspicious significant vaso-occlusive disease of the anterior and posterior intracranial circulation and no intracranial aneurysms. This is unchanged when compared to 03/01/2023. 2. Greater than 70% stenosis of the left vertebral artery at its direct aortic arch origin. The remaining segments of the left vertebral artery are widely patent. 3. Motion degradation artifacts at the origins of both cervical internal carotid arteries similar to the previous CTA neck. No obvious significant stenosis at the origins of both cervical internal carotid arteries. Widely patent remaining cervical carotid arteries. 4. Normal and widely patent codominant right vertebral artery including its subclavian origin. 5. Normal and widely patent aortic arch and origins of the innominate artery, left common carotid artery and left subclavian artery. 6. No significant interval change when compared to 03/01/2023. N.B. : The above Results were Read Back by Trever Cortés MD to Get Alexander DO, and understanding confirmed on 07/26/2023 14:46:24 (ET). Electronically Signed: Trever Cortés MD at 14:56 EDT , Abdomen/Pelvis CT 07/26/23 13:00 IMPRESSION: Possible pancreatitis. Colonic diverticulosis. Atrophic left kidney with hydronephrosis and left hydroureter. 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 Irregular right lower lobe parenchymal nodule requiring further evaluation. Focal infrarenal abdominal aortic aneurysm. Electronically Signed: Kenneth Nichole DO at 16:09 EDT Reading Location ID and State: [facility] / [place] Tel [phone], Service support , Assessment & Plan Assessment/Plan (1) Acute kidney injury: PLAN: Plan Patient is a 73-year-old male with history of presence of urostomy, CKD and hypertension who presented to [facility] ED on 07/26/2023 via EMS as a stroke alert. Acute stroke ruled out in the ED. However, patient course complicated by continued altered mental status along with elevated troponins, elevated lipase and other electrolyte abnormalities. 1. Altered mental status Unclear etiology at this time. CT head and CTA head/neck in the ED negative, low concern for acute stroke at this time. UDS negative, alcohol level normal. Given 1 dose of Narcan in case of possible opiate intoxication, with no response. UA taken from urostomy bag appears only mildly infectious. ABG showed pH 7.36, CO2 in the 20s so no concern for severe hypercapnia. Ammonia level normal. TSH normal. BUN 81 as noted below, however seems less likely that this could be due to uremia. Patient was initially alert and oriented x2 in the ED; knew he was at [facility] but thought the year was 2002 and Kuhn was president. Then became somewhat less responsive on the floor, was not answering hardly any questions appropriately. -Initially admitted to PCU bed with cardiac telemetry, however transferred to the ICU due to persistent altered mental status and hypotension as noted below. Treating possible UTI and pancreatitis as noted below. Blood cultures pending. We will hold on getting brain MRI as this seems low yield, can consider at later time if needed. Continue to monitor closely. 2. Hypotension Unclear etiology at this point. May be secondary to significant hypovolemia in setting of possible pancreatitis and UTI as noted below. Labs did seem to be consistent with dehydration on admit. Patient did feel dehydrated in the ED and was requesting p.o. fluids. Seems less likely secondary to sepsis in setting of UTI but cannot be ruled out. May be secondary to cardiac etiology given elevated troponins with concern for NSTEMI on admission; however, bedside ultrasound performed and patient seem to have adequate ejection fraction. Notably has had normal lactate with no anion gap metabolic acidosis. ? Has received 3 L of IV fluids to this point, and now has maintenance fluids running. Has seemingly had mild improvement in his blood pressure with fluids. Echo ordered. Treating pancreatitis and UTI as below. Treating NSTEMI as below. Pressors as needed for now. 3. Bradycardia Unclear etiology. Patient has been bradycardic to the 50s on previous admissions. Not on any rate controlling medications. EKG shows sinus bradycardia to the 40s, telemetry shows this as well. May be secondary to NSTEMI but seems less likely. ?Can consider atropine 0.5 mg pushes, however would seem unlikely that this would aid patient at this point. 4. NSTEMI Unclear if type I versus type II at this time. Troponins 2644 on admit, repeat 2321 then 2026. EKG showed sinus bradycardia with no specific ST changes. Discussed with on-call cardiology in the ED, initiated on a heparin drip. ? Cardiology consulted, appreciate recs. Continue heparin drip for now. Continue on telemetry. Echo ordered as above. 5. Pancreatitis Unclear etiology. Lipase 354 in ED, CT abdomen pelvis on admission showed mesenteric stranding around the pancreas concerning for pancreatitis. Patient more alert in the ED, reported mild epigastric pain but was nontender to palpation. Alcohol level negative on admission. CT abdomen pelvis on admit showed normal liver, normal gallbladder and extrahepatic biliary system; liver enzymes normal so no concern for gallstone pancreatitis. Triglyceride level normal in March 2023. ? Has received 3 L of IV fluids as noted above. Now has maintenance IV fluids running at 100 mL/hour. Monitor volume status closely and discontinue if needed. Can add pain control as needed, however patient has been somnolent and not required pain control. 6. UTI - UA in ED showed 500 leukocyte esterase, negative nitrates, 1+ bacteria, 10-25 white blood cells. Urine culture pending. Will treat empirically with cefepime for now, given systemic symptoms as noted above. 7. NAYE on CKD - Creatinine 4.16 on admission, BUN 81. Unclear baseline but creatinine on discharge on last hospitalization in March 2023 was 2.18. Very likely prerenal in setting of NSTEMI, pancreatitis and UTI as noted above. IV fluids given as noted above. Monitor BMP daily. No acute needs for dialysis. Can consider nephrology consultation as needed. 8. Hypokalemia - Potassium 3.2 on admission. Suspect this may be due to wasting into the urostomy bag. Replete as needed. 9. S/p urostomy bag - Unclear on patient's history requiring the urostomy. CT abdomen pelvis on admission did show a small atrophic left kidney with hydronephrosis and left hydroureter. Urostomy bag replaced in the ED. Monitor. DVT prophylaxis: Heparin drip Status: Full code, unverified Expected disposition: TBD Total clinical time spent by myself addressing the patient's medical issues, reviewing all the data, and collaborating with patient's care team: 75 minutes. Charges/Coding Visit Charges Inpatient E&M: 00991 Init Hosp L3 Documented by User: Vinayak Del Toro 07/26/23 21:31 HPI - General General Date of Admission: 07/26/23 [facility] Medical History Hypertension Home Medications Remove Patch 1 patch topical DAILY@2200 ##0 03/04/23 [Rx Last Taken Unknown] acetaminophen 325 mg tablet 650 mg (2 x 325 mg) PO Q6H PRN PRN Pain 1-10 Or Fever>100.7 #0 tabs 03/04/23 [Rx Last Taken 07/25/23] amlodipine 10 mg tablet 10 mg PO DAILY #0 tabs 03/04/23 [Rx Last Taken 07/25/23] gentamicin 0.3 % eye drops 1 drp LEFT EYE Q4 7 days #0 mL 03/04/23 [Rx Last Taken Unknown] lidocaine 5 % topical patch 1 patch topical DAILY #0 ea 03/04/23 [Rx Last Taken Unknown] melatonin 3 mg tablet 3 mg PO QHS PRN PRN Insomnia #0 tabs 03/04/23 [Rx Last Taken Unknown] oxycodone 5 mg tablet 5 mg PO Q6H PRN PRN Pain Score 6-10 2 days #8 tabs 03/04/23 [Rx Last Taken Unknown] sennosides 8.6 mg-docusate sodium 50 mg tablet (Stool Softener-Stimulant Laxative) 2 tab PO BID PRN PRN Constipation #0 tabs 03/04/23 [Rx Last Taken 07/13/23] Allergy/AdvReac Type Severity Reaction Status Date / Time No Known Allergies Allergy Verified 07/26/23 12:50 Surgical History History of urostomy Social History (Updated 07/26/23 @ 18:50 by Marina Vanegas) Smoking Status: Current every day smoker tobacco type: cigarettes alcohol intake: former Results Lab / Micro Data 07/26/23 13:30 07/26/23 20:57 Assessment & Plan Assessment/Plan (1) Acute kidney injury:
--- NOTE | 2023-07-26 17:41 | ECHOD_ITS ---
Reason For Study: CHEST PAIN Procedure This was a 2D Doppler, Color Flow transthoracic echocardiogram. Exam performed portable in ICU/CCU. Left Ventricle Normal LV size. The estimated ejection fraction is 55 %. Diastolic function is indeterminate. No regional wall motion abnormalities noted. Right Ventricle Normal RV size. Normal systolic function. Atria Normal left atrium. Normal right atrium. No doppler evidence for ASD. Bubble contrast study negative for right to left interatrial shunt. Mitral Valve There is no mitral valve stenosis. Trivial mitral valve insufficiency. Tricuspid Valve There is no tricuspid stenosis. Trivial tricuspid valve insufficiency. Pulmonary artery systolic pressure is 30 mmHg. Aortic Valve Aortic sclerosis, no stenosis. There is no aortic stenosis. Trivial aortic valve insufficiency. Pulmonic Valve There is no pulmonic valvular stenosis. No pulmonic valve insufficiency. Great Vessels Normal aortic root. Pericardium/Pleural No pericardial effusion. Medication Performed a rapid injection of agitated mix of 9 cc saline and 1cc air to assess for atrial septal defect. MMode/2D Measurements & Calculations LVIDd: 5.9 cm IVSd: 0.94 cm Ao root diam: 3.8 cm LVIDs: 4.3 cm LVPWd: 1.2 cm RVDd: 4.2 cm FS: 27.0 % LAV(MOD-bp): 51.0 ml LVAd ap4: 38.2 cm2 SV(MOD-sp4): 84.1 ml LAV(MOD-bp) Indexed: 23.4 ml/m2 LVLd ap4: 8.4 cm LAV(MOD-sp2): 40.0 ml EDV(MOD-sp4): 145.4 ml LAV(MOD-sp4): 66.8 ml EDV(sp4-el): 147.9 ml LVAs ap4: 23.0 cm2 LVLs ap4: 7.3 cm ESV(MOD-sp4): 61.2 ml ESV(sp4-el): 61.7 ml EF(MOD-sp4): 57.9 % EF(sp4-el): 58.3 % SV(sp4-el): 86.2 ml LA A4 area: 21.7 cm2 LA dimension(2D): 4.1 cm RA A4 area: 23.3 cm2 TAPSE: 1.9 cm Time Measurements MV dec time: 0.23 sec Doppler Measurements & Calculations MV E max lamine: 97.7 cm/sec Lat Peak E' Lamine: 7.1 cm/sec Med Peak E' Lamine: 5.2 cm/sec MV A max lamine: 55.8 cm/sec E/E' lat: 13.8 E/E' med: 18.8 MV E/A: 1.8 MV V2 max: 101.8 cm/sec MV dec slope: 432.5 cm/sec2 Ao V2 max: 121.6 cm/sec MV max P.2 mmHg Ao max P.9 mmHg MV V2 mean: 47.0 cm/sec Ao V2 mean: 83.7 cm/sec MV mean P.2 mmHg Ao mean P.2 mmHg MV V2 VTI: 29.5 cm Ao V2 VTI: 29.3 cm AV (velocity ratio): 0.77 LV V1 max: 97.6 cm/sec PA V2 max: 121.3 cm/sec TR max lamine: 267.7 cm/sec LV V1 max P.8 mmHg PA V2 mean: 81.1 cm/sec TR max P.7 mmHg LV V1 mean P.1 mmHg LV V1 mean: 66.9 cm/sec LV V1 VTI: 22.5 cm ECHO/Echo Complete Interpretation Summary The estimated ejection fraction is 55 %. Diastolic function is indeterminate. Trivial aortic valve insufficiency. Trivial mitral valve insufficiency. Ordering Physician: Jeremy Piper Referring Physician: REMIGIO PCP Performed By: Marta Mccartney RCS
[2023-07-26 18:03] LABS: Alcohol, Blood (Medical)-Serum < 3.0 mg/dL
[2023-07-26 18:04] LABS: Lipase 346 U/L (13-75)
[2023-07-26 18:29] LABS: Amphetamine Urine VISTA NEGATIVE (<1000 ng/mL); Barbiturate Urine VISTA NEGATIVE (< 200 ng/mL); Benzodiazepine Urine VISTA NEGATIVE (< 200 ng/mL); Cocaine Urine VISTA NEGATIVE (< 300 ng/mL); Ecstacy Urine VISTA NEGATIVE (< 500 ng/mL); Methadone Urine VISTA NEGATIVE (< 300 ng/mL); PCP Urine VISTA NEGATIVE (< 25 ng/mL); THC Urine VISTA NEGATIVE (< 50 ng/mL); Vista UDS pH Range 7
[2023-07-26] MEDS: 0.9% Saline Lock 10 ML Syringe IV ×2 (19:54→20:36)
[2023-07-26] MEDS: Lactated Ringers 1,000 ML 100 ML IV (19:54)
[2023-07-26] MEDS: Lactated Ringers 1,000 ML 999 ML IV (20:18)
[2023-07-26 20:25] LABS: Bedside Glucose 86 mg/dL (74-106)
[2023-07-26] MEDS: Naloxone 0.4 MG/ML Syringe IV (20:32)
[2023-07-26 20:44] LABS: AST(SGOT) 37 U/L (15-37); Alanine Aminotransfer ALT/SGPT 28 U/L (16-61); Albumin, Serum 2.7 g/dL (3.2-5.0); Alkaline Phosphatase 61 U/L (45-117); Bilirubin, Direct 0.27 mg/dL (0.00-0.30); Globulin 4.2 g/dL (2.2-4.2); Protein, Total 6.9 g/dL (6.4-8.2)
[2023-07-26 20:56] LABS: Allen Test Positive; Base Excess -7 mmol/L (-2 to +2); Bicarbonate 18.2 mmol/L (22-26); Blood Gas Specimen Type ART; O2 Delivery Device Cannula; PO2 178 mmHG (75-100); SITE L Radial; SO2 100 % (95-99); Total Carbon Dioxide 19 mmol/L; pCO2 31.6 mmHg (35-45); pH 7.37 (7.35-7.45)
--- NOTE | 2023-07-26 21:15 | NURSING ---
Discussed need for transfer with Dr Piper. Pt is more alert and bp is more stable at this time. Physician states he doesn't feel comfortable keeping him on pcu at this time. Perhaps they will send him out of ICU tomorrow but I want him observed in ICU overnight
--- NOTE | 2023-07-26 21:20 | NURSING ---
Report given to diana gray for transfer to icu at bedside. transported to room 7 with belongings at this time
--- NOTE | 2023-07-26 21:37 | NURSING ---
Updated patients daughter on his condition and transfer to icu bed 7. Sharee states to please call for any needs or changes.
[2023-07-26 21:41] LABS: Lactic Acid 1.6 mmol/L (0.4-1.9)
[2023-07-26 21:52] LABS: Anion Gap 6 (5-15); BUN 81 mg/dL (7-18); BUN/Creat Ratio 22.7 RATIO (10-20); Calcium,Total 8.3 mg/dL (8.5-10.1); Chloride 120 mmol/L (98-107); Creatinine, Serum 3.57 mg/dL (0.70-1.30); EST Glomerular Filtration Rate 18 mL/min (>60); Est Glom Filt Rate - Afr Amer 22 mL/min (>60); Estimated Creatinine Clearance 20.23 ml/min; Glucose 78 mg/dL (74-106); Potassium 3.5 mmol/L (3.5-5.1); Sodium Level 146 mmol/L (136-145); Thyroid Stim Hormone (TSH) 0.75 uIU/mL (0.358-3.74); Troponin-I HS 2027 pg/mL (3.0-78.0)
[2023-07-26] MEDS: Dextrose 5%-Lactated Ringers 1,000 ML 100 ML IV (22:16)
[2023-07-26] MEDS: Atropine Sulfate 1 MG/10 ML Syringe 0.5 MG IV (23:15)
[2023-07-27] VITALS (58 sets, daily range): BP systolic 76–127; BP diastolic 47–90; PULSE 51–84; RESP 10–18; TEMP 36.2–37.3; O2SAT 93–100; BMI 28.8
[2023-07-27 01:40] LABS: Partial Thromboplast Time > 200.0 Seconds (24.1-36.2); Troponin-I HS 1894 pg/mL (3.0-78.0)
[2023-07-27 02:27] LABS: Bedside Glucose 93 mg/dL (74-106)
[2023-07-27 05:11] LABS: Hematocrit 33.3 % (40-54); Hemoglobin 9.6 g/dL (13.0-16.5); Mean Corp Hgb Conc 28.8 g/dL (32-36); Mean Corpuscular Hgb 29.9 pg (27.0-32.0); Mean Corpuscular Volume 103.7 fL (80-94); Mean Platelet Vol. 12.9 fl (6.2-12.0); POSITIVE COUNT YES; Platelet Count 73 K/mm3 (150-450); RBC Distribution Width CV 15.9 % (11.6-14.6); RBC Distribution Width SD 60.7 fl (35.1-43.9); Red Blood Count 3.21 M/mm3 (4.6-6.2); White Blood Count 3.2 K/mm3 (4.4-11.0)
[2023-07-27 05:34] LABS: Anion Gap 6 (5-15); BUN 68 mg/dL (7-18); BUN/Creat Ratio 22.7 RATIO (10-20); Calcium,Total 7.9 mg/dL (8.5-10.1); Chloride 121 mmol/L (98-107); Creatinine, Serum 2.99 mg/dL (0.70-1.30); EST Glomerular Filtration Rate 22 mL/min (>60); Est Glom Filt Rate - Afr Amer 27 mL/min (>60); Estimated Creatinine Clearance 24.15 ml/min; Glucose 110 mg/dL (74-106); Potassium 3.5 mmol/L (3.5-5.1); Sodium Level 150 mmol/L (136-145)
--- NOTE | 2023-07-27 05:39 | PCM.RX.CS ---
Consult Antibiotic Management Pharmacy has been consulted to manage selected antiobiotic: Vancomycin Type of Intervention Type of Consult: New start Labs Labs: Sodium 150 mmol/L (136-145) H 07/27/23 04:53 Potassium 3.5 mmol/L (3.5-5.1) 07/27/23 04:53 Chloride 121 mmol/L (98-107) H 07/27/23 04:53 Carbon Dioxide 23.0 mmol/L (21.0-32.0) 07/27/23 04:53 Anion Gap 6 (5-15) 07/27/23 04:53 BUN 68 mg/dL (7-18) H 07/27/23 04:53 Creatinine 2.99 mg/dL (0.70-1.30) H 07/27/23 04:53 Est GFR (MDRD) Af Amer 27 mL/min (>60) L 07/27/23 04:53 Est GFR (MDRD) Non-Af 22 mL/min (>60) L 07/27/23 04:53 BUN/Creatinine Ratio 22.7 RATIO (10-20) H 07/27/23 04:53 Glucose 110 mg/dL (74-106) H 07/27/23 04:53 Pharmacy Plan for Drug Dosing Pharmacy Plan for Drug Dosing: Pharmacy Service will continue to monitor and adjust dosing as required. CRCl < 20. GIVE 1ST DOSE AND DRAW RANDOM LEVEL 07/28 @ 0600 AND DOSE ACCORDINGLY Follow-Up Labs Follow-Up Labs: Trough: Vancomycin Date/Time Labs Ordered Labs to be done on [date and time ordered]: 07/28 @ 0600
[2023-07-27] MEDS: Dextrose 5%-Lactated Ringers 1,000 ML 100 ML IV (07:10)
--- NOTE | 2023-07-27 07:33 | PCM.PN.HOSP ---
Subjective Subjective Patient awake and alert, intermittently answers questions appropriately, reports some abdominal pain but had no other complaints Objective Data Objective Data Vital Signs: Vital Signs Temp Pulse Resp BP Pulse Ox O2 Del Method O2 Flow Rate 98 F 66 14 104/77 96 Room Air 1 07/27/23 07:00 07/27/23 07:00 07/27/23 07:00 07/27/23 07:00 07/27/23 07:00 07/27/23 07:00 07/27/23 04:45 Oxygen Flow Rate (L/min) 1 Oxygen Delivery Method Room Air Weight: 96.4 kg Body Mass Index (BMI) 28.8 Intake & Output: Intake and Output for Last 24 Hours 07/25/23 07/26/23 07/27/23 23:59 23:59 23:59 Intake Total 3133.33 / 3133.33 675.11 / 675.11 Output Total 1100 / 1100 Balance 3133.33 / 3033.33 -424.89 / -424.89 Lab / Micro Data 07/27/23 04:53 07/27/23 04:53 Labs: Laboratory Results - last 24 hr 07/26/23 13:15: Lactic Acid 1.9 07/26/23 13:30: WBC 4.7, RBC 4.06 L, Hgb 12.2 L, Hct 40.6, MCV 100.0 H, MCH 30.0, MCHC 30.0 L, RDW Std Deviation 58.2 H, RDW Coeff of Homar 15.9 H, Plt Count 86 L, MPV 13.5 H, Immature Gran % (Auto) 1.100 H, Neut % (Auto) 65.1, Lymph % (Auto) 25.6, Mora % (Auto) 5.1, Eos % (Auto) 2.5, Baso % (Auto) 0.6, Absolute Neuts (auto) 3.1, Absolute Lymphs (auto) 1.21, Nucleated RBC % 0.4, Differential Comment SCANNED, Platelet Estimate MOD DEC, PT 14.5, INR 1.1, APTT 31.2, Sodium 145, Potassium 3.2 L, Chloride 118 H, Carbon Dioxide 19.0 L, Anion Gap 8, BUN 92 H, Creatinine 4.16 H, Estim Creat Clear Calc 17.36, Est GFR (MDRD) Af Amer 18 L, Est GFR (MDRD) Non-Af 15 L, BUN/Creatinine Ratio 22.1 H, Glucose 65 L, Calcium 8.6, Troponin I High Sens 2644 H* 07/26/23 15:10: Urine Color Yellow, Urine Clarity Clear, Urine pH 7.0, Ur Specific [place] 1.010, Urine Protein 30 H, Urine Glucose (UA) Normal, Urine Ketones Negative, Urine Occult Blood 50 H, Urine Nitrite Negative, Urine Bilirubin Negative, Urine Urobilinogen Normal, Ur Leukocyte Esterase 500 H, Urine RBC 0 SEEN, Urine WBC 10-25 SEEN, Ur Squamous Epith Cells 0 SEEN, Urine Bacteria 1+, Urine Mucus 0 SEEN, Urine Opiates Screen NEGATIVE, Urine Methadone Screen NEGATIVE, Ur Barbiturates Screen NEGATIVE, Ur Phencyclidine Scrn NEGATIVE, Ur Amphetamines Screen NEGATIVE, MDMA (Ecstasy) Screen NEGATIVE, U Benzodiazepines Scrn NEGATIVE, Urine Cocaine Screen NEGATIVE, U Cannabinoids Screen NEGATIVE, Ur Drug Screen Comment 07/26/23 16:24: POC Glucose 63 L 07/26/23 16:29: Troponin I High Sens 2322 H* 07/26/23 17:20: Total Bilirubin 0.60, Direct Bilirubin 0.27, AST 37, ALT 28, Alkaline Phosphatase 61, Total Protein 6.9, Albumin 2.7 L, Globulin 4.2, Lipase 346 H, Ethyl Alcohol < 3.0 07/26/23 20:05: POC Glucose 86 07/26/23 20:57: Sodium 146 H, Potassium 3.5, Chloride 120 H, Carbon Dioxide 20.0 L, Anion Gap 6, BUN 81 H, Creatinine 3.57 H, Estim Creat Clear Calc 20.23, Est GFR (MDRD) Af Amer 22 L, Est GFR (MDRD) Non-Af 18 L, BUN/Creatinine Ratio 22.7 H, Glucose 78, Lactic Acid 1.6, Calcium 8.3 L, Ammonia 41.0 H, Troponin I High Sens 7 H*, TSH 0.75 07/27/23 00:45: APTT > 200.0 H*, Troponin I High Sens 1894 H* 07/27/23 02:05: POC Glucose 93 07/27/23 04:53: WBC 3.2 L, RBC 3.21 L, Hgb 9.6 L, Hct 33.3 L, MCV 103.7 H, MCH 29.9, MCHC 28.8 L, RDW Std Deviation 60.7 H, RDW Coeff of Homar 15.9 H, Plt Count 73 L, MPV 12.9 H, Sodium 150 H, Potassium 3.5, Chloride 121 H, Carbon Dioxide 23.0, Anion Gap 6, BUN 68 H, Creatinine 2.99 H, Estim Creat Clear Calc 24.15, Est GFR (MDRD) Af Amer 27 L, Est GFR (MDRD) Non-Af 22 L, BUN/Creatinine Ratio 22.7 H, Glucose 110 H, Calcium 7.9 L ABG Data ABG results: ABG 07/26/23 20:51 Specimen Type ART Sample Site L Radial pH 7.37 Bicarbonate Actual 18.2 L Total CO2 19 Base Excess -7 L O2 Saturation 100 H ABG pCO2 31.6 L ABG pO2 178 H Charles Test Positive O2 Delivery Device Cannula Liter Flow 2.0 Radiography Diagnostic Testing: Radiology Impression Brain CT 07/26/23 12:28 IMPRESSION: 1. No CT evidence of intracranial bleeding, acute ischemic infarct or acute intracranial abnormality at this time. 2. Total ASPECTS score: 10/10. 3. No significant interval change when compared to 06/27/2023. Electronically Signed: Trever Cortés MD at 12:43 EDT Reading Location ID and State: [facility] / [place] , Service support , ADDENDUM: 07/26/23 1252 IMPRESSION: 1. No CT evidence of intracranial bleeding, acute ischemic infarct or acute intracranial abnormality at this time. 2. Total ASPECTS score: 10/10. 3. No significant interval change when compared to 06/27/2023. N.B. : The above Results were Read Back by Trever Cortés MD to Get Alexander DO, and understanding confirmed on 07/26/2023 12:45:44 (ET). Electronically Signed: Trever Cortés MD at 12:43 EDT , Chest X-Ray 07/26/23 12:28 IMPRESSION: No radiographic evidence of acute cardiopulmonary disease. Electronically Signed: Kenneth Nichole DO at 16:16 EDT , Head/Neck CTA 07/26/23 12:44 IMPRESSION: 1. No CTA evidence of any suspicious significant vaso-occlusive disease of the anterior and posterior intracranial circulation and no intracranial aneurysms. This is unchanged when compared to 03/01/2023. 2. Greater than 70% stenosis of the left vertebral artery at its direct aortic arch origin. The remaining segments of the left vertebral artery are widely patent. 3. Motion degradation artifacts at the origins of both cervical internal carotid arteries similar to the previous CTA neck. No obvious significant stenosis at the origins of both cervical internal carotid arteries. Widely patent remaining cervical carotid arteries. 4. Normal and widely patent codominant right vertebral artery including its subclavian origin. 5. Normal and widely patent aortic arch and origins of the innominate artery, left common carotid artery and left subclavian artery. 6. No significant interval change when compared to 03/01/2023. N.B. : The above Results were Read Back by Trever Cortés MD to Get Alexander DO, and understanding confirmed on 07/26/2023 14:46:24 (ET). Electronically Signed: Trever Cortés MD at 14:56 EDT , ADDENDUM: 07/26/23 1503 IMPRESSION: 1. No CTA evidence of any suspicious significant vaso-occlusive disease of the anterior and posterior intracranial circulation and no intracranial aneurysms. This is unchanged when compared to 03/01/2023. 2. Greater than 70% stenosis of the left vertebral artery at its direct aortic arch origin. The remaining segments of the left vertebral artery are widely patent. 3. Motion degradation artifacts at the origins of both cervical internal carotid arteries similar to the previous CTA neck. No obvious significant stenosis at the origins of both cervical internal carotid arteries. Widely patent remaining cervical carotid arteries. 4. Normal and widely patent codominant right vertebral artery including its subclavian origin. 5. Normal and widely patent aortic arch and origins of the innominate artery, left common carotid artery and left subclavian artery. 6. No significant interval change when compared to 03/01/2023. N.B. : The above Results were Read Back by Trever Cortés MD to Get Alexander DO, and understanding confirmed on 07/26/2023 14:46:24 (ET). Electronically Signed: Trever Cortés MD at 14:56 EDT , Abdomen/Pelvis CT 07/26/23 13:00 IMPRESSION: Possible pancreatitis. Colonic diverticulosis. Atrophic left kidney with hydronephrosis and left hydroureter. 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 Irregular right lower lobe parenchymal nodule requiring further evaluation. Focal infrarenal abdominal aortic aneurysm. Electronically Signed: Kenneth Nichole DO at 16:09 EDT , Physical Exam Narrative General: Alert, initially thought it was 2002 and then said 2003, was corrected to 2002, did say he now knows Fernandez is president, knew where he was, could not tell me much about prior to the hospital HEENT: Normocephalic Eyes: Anicteric, normal conjunctiva, extraocular movements grossly intact Neck: Supple Respiratory: Clear to auscultation bilaterally, normal respiratory effort Cardiovascular: Regular rate and rhythm GI: Soft, tender in various spots but not reproducible, rebound, guarding, rigidity Extremities: No edema Musculoskeletal: Moving all extremities Neuro: No overt focal neurological deficits Skin: No rashes appreciated Psych: Cooperative Assessment & Plan Assessment/Plan (1) Acute kidney injury: PLAN: Plan #AMS -Lives in trailer on brothers property, could not remember the several days prior to admit -Denies alcohol or substance use, UDS negative, alcohol wnl, was given narcan for possible opioid intox but no response -ABG in ED w/ pH 7.36 and pCO2 in 20's, did have glucose of 63 on presentation -Ammonia 41 but not do not think this would entirely account for this, tsh wnl -BUN 81 which could be contributory -CT/CTA head and neck without acute process -UA w/ 500 leuk esterase, no nitrite, 1+ bacteria, 10-25wbc -CT abd w/ mesenteric fat stranding around pancreas and lipase 346 but no abd pain -CT also w/ small atrophic left kidney left hydronephrosis w/ hydroureter otherwise no acute findings -07/27: Waking up and is alert, will trial food, continue to treat underlying etiology #Concern for UTI -UA mildly infectious appearing -Continue cefepime -Monitor cx #Pancreatitis -Has elevated lipase of 346 which is >3x ULN and stranding on CT consistent with pancreatitis -Mild epigastric pain reported -Denies alcohol use and CT on admit with normal liver and gallbladder, TGs normal march -Continue fluids and supportive care #hypotension -Secondary to infection vs poor PO intake vs pancreatitis -Receiving IVF -on abx, follow cxs -Did require initiation of levo at 3AM at 5mcg/min, wean as tolerated -Hold home amlodipine #NAYE on CKD IV -Cr on presentation 4.16 with baseline around 2-3 -CT abd w/ small atrophic left kidney, left hydronephrosis and w/ hydroureter no previous renal ultrasound 03/03/2023 also noted the mild hydronephrosis of left kidney with atrophy -Prerenal w/ hypotension vs obstructive component w/ hydro -Improving with fluids #RLL parenchymal nodule -CT abd pelvis noted irregular R lower lobe parenchymal nodule- this will ultimately require further evaluation #Focal infrarenal AAA -CT abd w/ small focal thrombosed saccular aneurysm and infrarenal segment w/ max diameter 3.6cm #Presence of urostomy -Supportive care, urostomy bag replaced in ED #Elevated troponin -initially 2644 downtrended to 1874 -EKG sinus javier with non specific ST changes -No chest pain, possibly demand in nature given hypotension and underlying etiologies -Do not suspect ACS -Echo ordered -Given multiple other etiologies that may have caused demand ischemia we will transition to subcu heparin, patient has no chest pain at this time either, do not think heparin drip is necessary #Hypernatremia with hyperchloremia -Unclear etiology at this time -Continue D5LR and trend BMP, further workup if not improving #Pancytopenia/chronic macrocytic anemia/chronic thrombocytopenia -Unclear etiology -Liver fxn normal based on chemistries -Will check b12 and folate, continue to montor -Has chronic component of thrombocytopenia and macrocytic anemia -May need to see heme/onc on outpt basis #DVT ppx: Heparin sub q Frances Adkins MD Time spent in the patient's overall evaluation,decision-making process, review of diagnostic data, adjustment of management, discussion with other providers, nursing nursing and ancillary staff involved in patient's care documentation, 51 minutes Charges/Coding Visit Charges Inpatient E&M: 46517 Subs Hosp L3
--- NOTE | 2023-07-27 08:00 | NURSING ---
pt reacts almost violently when touched but this RN is unable to duplicate when touching the same area only a few minutes later. also, this happens in random areas: near urostomy, bilat arms, chest, feet.
--- NOTE | 2023-07-27 12:10 | NURSING ---
pts dtr Sharee states pt has had periods of confusion that not has she noticed but pt has mentioned as well. She also states he has increasingly c/o pain in his urostomy and back and that he has had several urostomy infections and other problems with it.
[2023-07-27 12:44] LABS: Anion Gap 6 (5-15); BUN 59 mg/dL (7-18); BUN/Creat Ratio 22.1 RATIO (10-20); Calcium,Total 8.2 mg/dL (8.5-10.1); Chloride 123 mmol/L (98-107); Creatinine, Serum 2.67 mg/dL (0.70-1.30); EST Glomerular Filtration Rate 25 mL/min (>60); Est Glom Filt Rate - Afr Amer 30 mL/min (>60); Estimated Creatinine Clearance 27.05 ml/min; Glucose 149 mg/dL (74-106); Potassium 3.4 mmol/L (3.5-5.1); Sodium Level 151 mmol/L (136-145)
--- NOTE | 2023-07-27 13:50 | NURSING ---
per pt's brother, pt lives in his own camper in this gentleman's backyard but they have little interaction except in passing or if pt askes for something. He states pt's camper reeks of urine/feces everywhere. everything appears to be filthy and soaked in urine. He states pt has told him he doesn't feel well but it is too much work to set up my meds, I'm just not going to take them. I believe he is getting medications/pain medications from the [place] (the state) in the mail. He says he is showering but he (the pt) has no running water. Since he moved to my yard last October, he has had maybe 5 baths. He can't continue to live like this.
[2023-07-27] MEDS: Nystatin Powder 15gm Bottle 1 APPLIC TOPICAL ×2 (14:32→20:33)
[2023-07-27] MEDS: Heparin Injection (Vial) 5,000 UNIT/ML VIAL 5000 UNIT SC ×2 (14:32→20:33)
[2023-07-27] MEDS: 0.9% Saline Lock 10 ML Syringe IV ×2 (14:37→18:11)
[2023-07-27] MEDS: TITRATION PARAMETER CHANGE 1 EACH IV (16:11)
[2023-07-27] MEDS: Dext 5%-0.45% NS 1,000 ML 100 ML IV (16:12)
[2023-07-27] MEDS: Potassium Chloride 10mEq/100mL 10 MEQ/100 ML IV.SOLN. 100 MEQ IV BOLUS ×2 (16:12→18:11)
[2023-07-28] VITALS (23 sets, daily range): BP systolic 88–150; BP diastolic 49–77; PULSE 59–97; RESP 12–18; TEMP 36.4–36.8; O2SAT 93–100; BMI 29.3
[2023-07-28] MEDS: Dext 5%-0.45% NS 1,000 ML 100 ML IV ×3 (01:08→19:41)
[2023-07-28] MEDS: Heparin Injection (Vial) 5,000 UNIT/ML VIAL 5000 UNIT SC (05:52)
[2023-07-28] MEDS: Nystatin Powder 15gm Bottle 1 APPLIC TOPICAL ×3 (05:53→19:41)
[2023-07-28 06:21] LABS: Absolute Lymphocyte Count 0.77 X10^3/uL (0.83-4.51); Absolute Neutrophil Count 1.6 X10^3/uL (2.0-7.7); Basophil# 0.01 X10^3/uL; Basophil% 0.4 % (0-1); Eosinophil# 0.09 X10^3/uL; Eosinophils% 3.4 % (0-5); Hemoglobin 8.6 g/dL (13.0-16.5); Lymphocyte # 0.77 X10^3/ul (0.83-4.51); Lymphocyte % 28.7 % (19-41); Mean Corp Hgb Conc 28.7 g/dL (32-36); Mean Corpuscular Hgb 30.1 pg (27.0-32.0); Mean Corpuscular Volume 104.9 fL (80-94); Mean Platelet Vol. 11.9 fl (6.2-12.0); Monocyte# 0.15 X10^3/uL; Monocyte% 5.6 % (0-10); NRBC Flagged by Analyzer 0 % (0-5); Neutrophil # 1.64 X10^3/uL (2.7-7.7); Neutrophil % 61.2 % (47-70); POSITIVE COUNT YES; Platelet Count 70 K/mm3 (150-450); RBC Distribution Width CV 15.9 % (11.6-14.6); RBC Distribution Width SD 60.4 fl (35.1-43.9); Red Blood Count 2.86 M/mm3 (4.6-6.2); White Blood Count 2.7 K/mm3 (4.4-11.0)
[2023-07-28 06:35] LABS: Vancomycin, Random Level 11.9 ug/mL (0.0-15.0)
--- NOTE | 2023-07-28 06:37 | CON.PCM.CC_ITS ---
Assessment & Plan Assessment/Plan (1) Sepsis: PLAN: Plan RECOMMENDATIONS: 1. Continue vasopressor support, if needed, to maintain mean arterial pressure at or above 65 mmHg. 2. Continue antimicrobials based upon cultures and sensitivities. 3. Repeat chemistry profile to monitor for renal function improvement/hypernatremia. 4. Encourage incentive spirometer use and mobilize patient as tolerated. IMPRESSIONS: 1. Gram-negative septic shock The patient initially presented to the hospital with altered mentation and was found to have a urinary tract source of infection. Although he initially received supplemental IV fluid hydration, the patient developed fluid refractory hypotension, which necessitated vasopressor support. As of this morning, he has been weaned from Levophed and appears to be clinically stable. Urine culture is preliminarily positive for ESBL E. coli. The patient remains on appropriate antimicrobials. Recommend continuing supplemental IV fluid hydration and monitoring renal function. 2. Acute on chronic kidney disease Most likely prerenal in etiology in the setting of #1. Anticipate further improvement with volume expansion. Continue to monitor urine output. No current indication for renal replacement therapy. 3. Hypernatremia Continue D5W and check chemistry profile this morning. 4. Encephalopathy Most likely metabolic in etiology in the setting #1. Mentation appears to be back to baseline at the present time. 5. Right lower lobe pulmonary nodule Recommend outpatient pulmonary follow-up after discharge. 6. NSTEMI Most likely demand ischemia in the setting of #1. Echocardiogram is pending. This note was generated with [employer] dictation software. It may contain incorrect words, spelling, and punctuation that were not noted in checking the note before signing. HPI Consult Data Date of Consult: 07/28/23 HPI Narrative Reason for Consultation: Shock HPI Narrative: The patient is a 73-year-old male, with a history as outlined below, who presented to the emergency department via EMS on July 26 with altered mental status. The patient has a known history of chronic kidney disease and hypertension. The patient denied any illicit drug use or alcohol dependency. On presentation to the emergency department, the patient was documented to have a temperature of 96.4 ?F. He was bradycardic with heart rate in the 50s. Oxygen saturations were stable on room air. Initial laboratory evaluation revealed no evidence of a leukocytosis. ABG on 2 L/min demonstrated a pH of 7.37 with a PCO2 of 31 and PO2 of 178. Chemistry profile was notable for a potassium of 3.2, bicarbonate of 19 and creatinine of 4.16. BUN was elevated at 92. Troponin was increased at 2644. Lipase was elevated at 346. Urinalysis was positive for leukocyte esterase but negative for nitrates. 1+ urine bacteria was noted. CT head demonstrated no acute findings. CT abdomen/pelvis demonstrated possible pancreatitis along with hydronephrosis and left hydroureter. An irregular appearing 2.3 cm nodular density was present in the right lower lobe of the lungs. The patient ultimately received supplemental IV fluid hydration and was initiated on antimicrobials. The patient developed fluid refractory hypotension, which required vasopressor initiation. As of this morning, the patient has been weaned from vasopressor support. He is currently pancytopenic with preliminary urine cultures that are positive for ESBL E. coli. ON LICENSE OF [facility] Medical History Hypertension Home Medications Remove Patch 1 patch topical DAILY@2200 ##0 03/04/23 [Rx Last Taken Unknown] acetaminophen 325 mg tablet 650 mg (2 x 325 mg) PO Q6H PRN PRN Pain 1-10 Or Fev er>100.7 #0 tabs 03/04/23 [Rx Last Taken 07/25/23] amlodipine 10 mg tablet 10 mg PO DAILY #0 tabs 03/04/23 [Rx Last Taken 07/25/23] gentamicin 0.3 % eye drops 1 drp LEFT EYE Q4 7 days #0 mL 03/04/23 [Rx Last Taken Unknown] lidocaine 5 % topical patch 1 patch topical DAILY #0 ea 03/04/23 [Rx Last Taken Unknown] melatonin 3 mg tablet 3 mg PO QHS PRN PRN Insomnia #0 tabs 03/04/23 [Rx Last Taken Unknown] oxycodone 5 mg tablet 5 mg PO Q6H PRN PRN Pain Score 6-10 2 days #8 tabs 03/04/23 [Rx Last Taken Unknown] sennosides 8.6 mg-docusate sodium 50 mg tablet (Stool Softener-Stimulant Laxative) 2 tab PO BID PRN PRN Constipation #0 tabs 03/04/23 [Rx Last Taken 07/13/23] Allergy/AdvReac Type Severity Reaction Status Date / Time No Known Allergies Allergy Verified 07/26/23 12:50 Surgical History History of urostomy Social History (Updated 07/26/23 @ 18:50 by Marina Vanegas) Smoking Status: Current every day smoker tobacco type: cigarettes alcohol intake: former ROS ROS Narrative 10 systems were reviewed with pertinent positives as noted in the HPI above. Physical Exam Const alert and no apparent distress General Appearance: cooperative HEENT normocephalic and head/scalp atraumatic Eyes PERRL and EOMs intact bilaterally Neck supple General: trachea midline Chest inspection of chest normal Resp normal respiratory effort Auscultation: Negative for rales, rhonchi or wheezes Cardio regular rate and regular rhythm GI normal to inspection, nondistended, normoactive bowel sounds Extremity no clubbing, cyanosis or edema Skin no rashes or lesions noted Neuro CN's II-XII intact bilaterally and no focal motor deficits Psych Mood & Affect: flat affect Lab / Micro Data 07/28/23 06:00 07/27/23 12:00 Labs: Laboratory Results - last 24 hr 07/27/23 12:00: Sodium 151 H, Potassium 3.4 L, Chloride 123 H, Carbon Dioxide 22.0, Anion Gap 6, BUN 59 H, Creatinine 2.67 H, Estim Creat Clear Calc 27.05, Est GFR (MDRD) Af Amer 30 L, Est GFR (MDRD) Non-Af 25 L, BUN/Creatinine Ratio 22.1 H, Glucose 149 H, Calcium 8.2 L 07/28/23 06:00: WBC 2.7 L, RBC 2.86 L, Hgb 8.6 L, Hct 30.0 L, MCV 104.9 H, MCH 30.1, MCHC 28.7 L, RDW Std Deviation 60.4 H, RDW Coeff of Homar 15.9 H, Plt Count 70 L, MPV 11.9, Immature Gran % (Auto) 0.700, Neut % (Auto) 61.2, Lymph % (Auto) 28.7, [place] % (Auto) 5.6, Eos % (Auto) 3.4, Baso % (Auto) 0.4, Absolute Neuts (auto) 1.6 L, Absolute Lymphs (auto) 0.77 L, Nucleated RBC % 0, Random Vancomycin 11.9 Micro: Microbiology 07/26/23 13:30 Blood Culture (Wb) - Venous Blood Culture - Preliminary 07/26/23 15:10 Urine, Pedibag Urine Culture - Preliminary GNR lactose core maker helper Charges/Coding Visit Charges Inpatient E&M: 59526 Init Hosp L3
--- NOTE | 2023-07-28 07:38 | PHA.PHARE_ITS ---
Consult Antibiotic Management Pharmacy has been consulted to manage selected antiobiotic: Vancomycin Type of Intervention Type of Consult: Follow-up Suspected Infection Suspected Infection: Other (UNKNOWN/EMPIRIC) Prior Doses of Antibiotics Prior Doses of Antibiotics Received/Current Regimen: Vancomycin 2000 mg IV x 1 given 07/26/23 @ 2216 Labs Labs: Sodium 151 mmol/L (136-145) H 07/27/23 12:00 Potassium 3.4 mmol/L (3.5-5.1) L 07/27/23 12:00 Chloride 123 mmol/L (98-107) H 07/27/23 12:00 Carbon Dioxide 22.0 mmol/L (21.0-32.0) 07/27/23 12:00 Anion Gap 6 (5-15) 07/27/23 12:00 BUN 59 mg/dL (7-18) H 07/27/23 12:00 Creatinine 2.67 mg/dL (0.70-1.30) H 07/27/23 12:00 Est GFR (MDRD) Af Amer 30 mL/min (>60) L 07/27/23 12:00 Est GFR (MDRD) Non-Af 25 mL/min (>60) L 07/27/23 12:00 BUN/Creatinine Ratio 22.1 RATIO (10-20) H 07/27/23 12:00 Glucose 149 mg/dL (74-106) H 07/27/23 12:00 Random Vancomycin 11.9 ug/mL (0.0-15.0) 07/28/23 06:00 Microbiology Microbiology: Microbiology 07/26/23 13:30 Blood Culture (Wb) - Venous Blood Culture - Preliminary 07/26/23 15:10 Urine, Pedibag Urine Culture - Preliminary GNR lactose data entry analyst Dosing Weight Weight used for dosin.3 kg Estimated Creatinine Clearance Estimated Creatinine Clearance: 27 Goal Trough Goal Trough: 15-20 mcg/mL Pharmacy Plan for Drug Dosing Pharmacy Plan for Drug Dosing: Vancomycin random level this AM = 11.9, as Scr has improved will start the patient on 1000 mg IV Q24H with a trough prior to the 3rd dose of this new regimen. Pharmacy Service will continue to monitor and adjust dosing as required. Follow-Up Labs Follow-Up Labs: Trough: Vancomycin Date/Time Labs Ordered Labs to be done on [date and time ordered]: 07/30 @ 4756
--- NOTE | 2023-07-28 07:45 | PN.HOSP_ITS ---
Reason for Visit Reason for Visit: Diagnoses Acute kidney failure, unspecified (07/26/23) Subjective Subjective Patient lying in bed, not reporting any abdominal pain today but is confused Objective Data Objective Data Vital Signs: Vital Signs Temp Pulse Resp BP Pulse Ox O2 Del Method O2 Flow Rate 97.6 F L 70 16 97/51 L 95 Room Air 1 07/28/23 00:00 07/28/23 07:00 07/28/23 07:00 07/28/23 07:00 07/28/23 07:00 07/28/23 07:00 07/27/23 04:45 Oxygen Flow Rate (L/min) 1 Oxygen Delivery Method Room Air Weight: 98.3 kg Body Mass Index (BMI) 29.3 Intake & Output: Intake and Output for Last 24 Hours 07/26/23 07/27/23 07/28/23 23:59 23:59 23:59 Intake Total 3133.33 / 3133.33 4283.12 / 4286.92 914.23 / 914.23 Output Total 3425 / 3425 300 / 300 Balance 3133.33 / 3033.33 858.12 / 861.92 614.23 / 614.23 Lab / Micro Data 07/28/23 06:00 07/27/23 12:00 Labs: Laboratory Results - last 24 hr 07/27/23 12:00: Sodium 151 H, Potassium 3.4 L, Chloride 123 H, Carbon Dioxide 22 .0, Anion Gap 6, BUN 59 H, Creatinine 2.67 H, Estim Creat Clear Calc 27.05, Est GFR (MDRD) Af Amer 30 L, Est GFR (MDRD) Non-Af 25 L, BUN/Creatinine Ratio 22.1 H , Glucose 149 H, Calcium 8.2 L 07/28/23 06:00: WBC 2.7 L, RBC 2.86 L, Hgb 8.6 L, Hct 30.0 L, MCV 104.9 H, MCH 30.1, MCHC 28.7 L, RDW Std Deviation 60.4 H, RDW Coeff of Homar 15.9 H, Plt Count 70 L, MPV 11.9, Immature Gran % (Auto) 0.700, Neut % (Auto) 61.2, Lymph % (Auto) 28.7, Door % (Auto) 5.6, Eos % (Auto) 3.4, Baso % (Auto) 0.4, Absolute Neuts (auto) 1.6 L, Absolute Lymphs (auto) 0.77 L, Nucleated RBC % 0, Folate 19.40, Random Vancomycin 11.9 Micro: Microbiology 07/26/23 13:30 Blood Culture (Wb) - Venous Blood Culture - Preliminary Coag Negative Staph 07/26/23 15:10 Urine, Pedibag Urine Culture - Preliminary GNR lactose application defense manager Physical Exam Narrative General: Alert, no acute distress, difficulty answering orientation questions HEENT: Atraumatic, normocephalic Eyes: Anicteric, t Neck: Supple Respiratory: Clear to auscultation bilaterally, normal respiratory effort Cardiovascular: Regular rate GI: Soft, nontender, no rebound, guarding, rigidity Extremities: Trace edema Musculoskeletal: Moving all extremities Neuro: No overt focal neurological deficits Skin: No rashes appreciated Psych: Attempts to be cooperative Assessment & Plan Assessment/Plan (1) Acute kidney injury: PLAN: Plan #AMS -Lives in trailer on brothers property, could not remember the several days prior to admit -Denies alcohol or substance use, UDS negative, alcohol wnl, was given narcan for possible opioid intox but no response -ABG in ED w/ pH 7.36 and pCO2 in 20's, did have glucose of 63 on presentation -Ammonia 41 but not do not think this would entirely account for this, tsh wnl -BUN 81 which could be contributory -CT/CTA head and neck without acute process -UA w/ 500 leuk esterase, no nitrite, 1+ bacteria, 10-25wbc -CT abd w/ mesenteric fat stranding around pancreas and lipase 346 but no abd pain -CT also w/ small atrophic left kidney left hydronephrosis w/ hydroureter otherwise no acute findings -07/27: Waking up and is alert, will trial food, continue to treat underlying etiology -07/28: Discussed with nursing staff after family gave further history, patient had a who about a year ago and since that time seems he has not been doing well. Brother had found him in his trailer and he lives there with a dog and he found urine and feces along to both the patient and the dog and the trailer and it sounds like there may be a more pervasive and longer-term problem with mental status leading up to acute admission. Will discuss with social work, doubt patient will be safe to return home #UTI -UA mildly infectious appearing -Continue cefepime -Monitor cx -07/28: Urine culture with gram-negative merrick lactose application defense manager which has speciated to ESBL E. coli, continue cefepime, will DC vancomycin. Had 1 or 2 blood cultures positive but it was for coag negative staph, suspect contaminant #Pancreatitis -Has elevated lipase of 346 which is >3x ULN and stranding on CT consistent with pancreatitis -Mild epigastric pain reported -Denies alcohol use and CT on admit with normal liver and gallbladder, TGs normal march -Continue fluids and supportive care -07/28: Continue present management, tolerating diet #hypotension -Secondary to infection vs poor PO intake vs pancreatitis -Receiving IVF -on abx, follow cxs -Did require initiation of levo at 3AM at 5mcg/min, wean as tolerated -Hold home amlodipine -07/28: Remains suboptimal, continue antibiotics, ICU on board #NAYE on CKD IV -Cr on presentation 4.16 with baseline around 2-3 -CT abd w/ small atrophic left kidney, left hydronephrosis and w/ hydroureter no previous renal ultrasound 03/03/2023 also noted the mild hydronephrosis of left kidney with atrophy -Prerenal w/ hypotension vs obstructive component w/ hydro -Improving with fluids -07/28: Continue supportive care #RLL parenchymal nodule -CT abd pelvis noted irregular R lower lobe parenchymal nodule- this will ultimately require further evaluation #Focal infrarenal AAA -CT abd w/ small focal thrombosed saccular aneurysm and infrarenal segment w/ m ax diameter 3.6cm #Presence of urostomy -Supportive care, urostomy bag replaced in ED #Elevated troponin -initially 2644 downtrended to 1874 -EKG sinus javier with non specific ST changes -No chest pain, possibly demand in nature given hypotension and underlying etiologies -Do not suspect ACS -Echo ordered -Given multiple other etiologies that may have caused demand ischemia we will transition to subcu heparin, patient has no chest pain at this time either, do not think heparin drip is necessary -07/28: Echo #Hypernatremia with hyperchloremia -Unclear etiology at this time -Continue D5LR and trend BMP, further workup if not improving -07/28: #Pancytopenia/chronic macrocytic anemia/chronic thrombocytopenia -Unclear etiology -Liver fxn normal based on chemistries -Will check b12 and folate, continue to monitor -Has chronic component of thrombocytopenia and macrocytic anemia -May need to see heme/onc on outpt basis -07/28: All cell lines slightly lower than yesterday, suspect that this is in part dilutional #DVT ppx: SCDs given platelet count Frances Adkins MD Time spent in the patient's overall evaluation,decision-making process, review of diagnostic data, adjustment of management, discussion with other providers, nursing nursing and ancillary staff involved in patient's care documentation, 45 minutes Charges/Coding Visit Charges Inpatient E&M: 40157 Subs Hosp L2
[2023-07-28] MEDS: Vancomycin IV 1,000 MG/200 ML BAG 200 MG IV (08:14)
[2023-07-28 08:30] LABS: Vitamin B12 606 pg/mL (211-911); Vitamin D,25 Hydroxy 63.3 ng/mL
--- NOTE | 2023-07-28 13:49 | WOUNDNOTE ---
Was consulted to see patient for his urostomy. nursing had stated that there was some discoloration around the stoma. this is quite normal with a residential urostomy. the skin often appears white or cantrell from frequent moisture. pt did not want this nurse to remove the appliance since it was just changed. did use the [place] connector to hook into the mcghee bag. pt denies further needs at this time.
--- NOTE | 2023-07-28 14:11 | CHAPLAIN ---
Type of Pastoral Visit _x__ Initial Visit ___ Follow-up Visit ___ On-call Visit ___ General Patient Visit ___ Spiritual Assessment ___ Family Conference ___ Bereavement ___ Rapid Response ___ Code Blue ___ Other (describe below) Pastoral Care Referral From _x__ Patient ___ Family ___ Nurse ___ Physician ___ Senior Drafter ___ Plate Worker Helper ___ Other (describe below) Sacrament/Intervention _x__ Active listening ___ Anointing ___ Episcopal ___ Bereavement ___ Communion ___ Destiny exploration ___ _x__ Life review _x__ Prayer ___ Reconciliation ___ Sacrament of Sick ___ Supportive presence ___ Wedding ___ Other (describe below) Pastoral Comments patient was able to answer questions appropriately however he was fixated on the smell of his blankets repeating that they smelled like medicines crushed into them and that he cannot breathe when up near his chin; blankets did not appear soiled or did not have an oder in evaluation of this marble polisher; pt stated goal is to get out of the hospital; pt only concern is that I won't go home from the hospital; pt offered spiritual care support, listening ear, and a prayer
[2023-07-28 14:15] LABS: Anion Gap 5 (5-15); BUN 40 mg/dL (7-18); Calcium,Total 7.5 mg/dL (8.5-10.1); Chloride 119 mmol/L (98-107); EST Glomerular Filtration Rate 33 mL/min (>60); Est Glom Filt Rate - Afr Amer 40 mL/min (>60); Estimated Creatinine Clearance 34.39 ml/min; Glucose 229 mg/dL (74-106); Potassium 3.1 mmol/L (3.5-5.1); Sodium Level 144 mmol/L (136-145)
[2023-07-28] MEDS: Potassium Chloride 10mEq/100mL 10 MEQ/100 ML IV.SOLN. 100 MEQ IV BOLUS ×2 (15:07→16:13)
[2023-07-29 02:00] VITALS: BP 117/74; PULSE 75; RESP 16; TEMP 36.9; O2SAT 98
[2023-07-29] MEDS: Dext 5%-0.45% NS 1,000 ML 100 ML IV (04:41)
[2023-07-29] MEDS: Nystatin Powder 15gm Bottle 1 APPLIC TOPICAL ×3 (04:42→21:28)
[2023-07-29 04:57] VITALS: BMI 29.8
[2023-07-29 05:02] LABS: Absolute Lymphocyte Count 0.72 X10^3/uL (0.83-4.51); Absolute Neutrophil Count 1.2 X10^3/uL (2.0-7.7); Eosinophil# 0.06 X10^3/uL; Eosinophils% 2.8 % (0-5); Hematocrit 29.3 % (40-54); Hemoglobin 8.4 g/dL (13.0-16.5); Lymphocyte # 0.72 X10^3/ul (0.83-4.51); Lymphocyte % 33.8 % (19-41); Mean Corp Hgb Conc 28.7 g/dL (32-36); Mean Corpuscular Hgb 29.7 pg (27.0-32.0); Mean Corpuscular Volume 103.5 fL (80-94); Monocyte# 0.12 X10^3/uL; Monocyte% 5.6 % (0-10); NRBC Flagged by Analyzer 0 % (0-5); Neutrophil # 1.22 X10^3/uL (2.7-7.7); Neutrophil % 57.3 % (47-70); POSITIVE COUNT YES; Platelet Count 73 K/mm3 (150-450); RBC Distribution Width CV 15.6 % (11.6-14.6); RBC Distribution Width SD 58.2 fl (35.1-43.9); Red Blood Count 2.83 M/mm3 (4.6-6.2); White Blood Count 2.1 K/mm3 (4.4-11.0)
[2023-07-29 05:16] LABS: Anion Gap 5 (5-15); BUN 26 mg/dL (7-18); BUN/Creat Ratio 16.1 RATIO (10-20); Chloride 120 mmol/L (98-107); Creatinine, Serum 1.61 mg/dL (0.70-1.30); EST Glomerular Filtration Rate 45 mL/min (>60); Est Glom Filt Rate - Afr Amer 54 mL/min (>60); Estimated Creatinine Clearance 44.85 ml/min; Glucose 110 mg/dL (74-106); Potassium 3.4 mmol/L (3.5-5.1); Sodium Level 145 mmol/L (136-145)
--- NOTE | 2023-07-29 07:26 | PCM.PN.INT ---
Assessment & Plan Assessment/Plan (1) Sepsis: PLAN: Plan RECOMMENDATIONS: 1. Okay to discontinue IV fluids 2. Continue antibiotics with contact precautions 3. Okay to leave the intensive care unit 4. Encourage incentive spirometer use and mobilize patient as tolerated. 5. Hemodynamically stable on room air. Will sign off from a critical care perspective IMPRESSIONS: 1. Septic shock secondary to ESBL E. coli UTI The patient initially presented to the hospital with altered mentation and was found to have a urinary tract source of infection. Patient has been off of pressors for over 24 hours. Patient has grown ESBL E. coli and is in current contact precautions. Patient currently is hemodynamically stable on room air. Will sign off from a critical care perspective. 2. Acute on chronic kidney disease Most likely prerenal in etiology in the setting of #1. Continue to monitor on a daily basis with electrolyte repletion as indicated. Continue to monitor urine output. No current indication for renal replacement therapy. 3. Hypernatremia Likely okay to discontinue IV fluids 4. Encephalopathy Most likely metabolic in etiology in the setting #1. Mentation appears to be back to baseline at the present time. 5. Right lower lobe pulmonary nodule Recommend outpatient pulmonary follow-up after discharge. 6. NSTEMI Most likely demand ischemia in the setting of #1. Echocardiogram shows preserved ejection fraction with slightly elevated pulmonary artery pressures. Patient likely could have outpatient follow-up This note was generated with [employer] dictation software. It may contain incorrect words, spelling, and punctuation that were not noted in checking the note before signing. Subjective Subjective Patient did well overnight. No acute issues were reported. Patient has been off of pressors for over 24 hours. Patient remains in isolation secondary to ESBL. Patient is not reporting any dyspnea this morning. Objective Data Objective Data Vital Signs: Vital Signs Temp Pulse Resp BP Pulse Ox O2 Del Method O2 Flow Rate 36.9 C 75 16 117/74 98 Room Air 1 07/29/23 02:00 07/29/23 02:00 07/29/23 02:00 07/29/23 02:00 07/29/23 02:00 07/29/23 02:00 07/27/23 04:45 Oxygen Flow Rate (L/min) 1 Oxygen Delivery Method Room Air Weight: 100 kg Body Mass Index (BMI) 29.8 Intake & Output: Intake and Output for Last 24 Hours 07/27/23 07/28/23 07/29/23 23:59 23:59 23:59 Intake Total 4283.12 / 4286.92 3219.23 / 3219.23 900 / 900 Output Total 3425 / 3425 1999 1575 / 1575 Balance 858.12 / 861.92 1219.23 / 1219.23 -675 / -675 Lab / Micro Data Attestation: I reviewed the patient's lab results. 07/29/23 04:50 07/29/23 04:50 Labs: Laboratory Results - last 24 hr 07/28/23 06:00: Sodium 144, Potassium 3.1 L, Chloride 119 H, Carbon Dioxide 20.0 L, Anion Gap 5, BUN 40 H, Creatinine 2.10 H, Estim Creat Clear Calc 34.39, Est GFR (MDRD) Af Amer 40 L, Est GFR (MDRD) Non-Af 33 L, BUN/Creatinine Ratio 19.0, Glucose 229 H, Calcium 7.5 L, Vitamin B12 606, Vitamin D 25-Hydroxy 63.3 07/29/23 04:50: WBC 2.1 L, RBC 2.83 L, Hgb 8.4 L, Hct 29.3 L, MCV 103.5 H, MCH 29.7, MCHC 28.7 L, RDW Std Deviation 58.2 H, RDW Coeff of Homar 15.6 H, Plt Count 73 L, MPV 12.0, Immature Gran % (Auto) 0.500, Neut % (Auto) 57.3, Lymph % (Auto) 33.8, [place] % (Auto) 5.6, Eos % (Auto) 2.8, Baso % (Auto) 0.0, Absolute Neuts (auto) 1.2 L, Absolute Lymphs (auto) 0.72 L, Nucleated RBC % 0, Sodium 145, Potassium 3.4 L, Chloride 120 H, Carbon Dioxide 20.0 L, Anion Gap 5, BUN 26 H, Creatinine 1.61 H, Estim Creat Clear Calc 44.85, Est GFR (MDRD) Af Amer 54 L, Est GFR (MDRD) Non-Af 45 L, BUN/Creatinine Ratio 16.1, Glucose 110 H, Calcium 8.0 L Micro: Microbiology 07/26/23 15:10 Urine, Pedibag Urine Culture - Final ESBL Escherichia coli 07/26/23 13:30 Blood Culture (Wb) - Venous Blood Culture - Preliminary Coag Negative Staph Radiography Diagnostic Testing: Radiology Impression Echocardiogram 07/26/23 17:41 Interpretation Summary The estimated ejection fraction is 55 %. Diastolic function is indeterminate. Trivial aortic valve insufficiency. Trivial mitral valve insufficiency. Ordering Physician: Jeremy Piper Referring Physician: REMIGIO PCP Performed By: Marta Mccartney RCS Physical Exam Const alert and no apparent distress General Appearance: cooperative HEENT normocephalic and head/scalp atraumatic Eyes PERRL and EOMs intact bilaterally Neck supple General: trachea midline Chest inspection of chest normal Resp normal respiratory effort Auscultation: Negative for rales, rhonchi or wheezes Cardio regular rate, regular rhythm, S1 normal heart sound, S2 normal heart sound, no murmurs, no rub and no gallops GI normal to inspection, nondistended, normoactive bowel sounds Extremity no clubbing, cyanosis or edema Skin no rashes or lesions noted Neuro CN's II-XII intact bilaterally and no focal motor deficits Psych Mood & Affect: flat affect Charges/Coding Visit Charges Inpatient E&M: 38256 Subs Hosp L2
--- NOTE | 2023-07-29 07:41 | PCM.PN.HOSP ---
Reason for Visit Reason for Visit: Diagnoses Sepsis, unspecified organism (07/26/23) Acute kidney failure, unspecified (07/26/23) Subjective Subjective Patient much more awake and alert today, feeling tired, abdominal pain improved Objective Data Objective Data Vital Signs: Vital Signs Temp Pulse Resp BP Pulse Ox O2 Del Method O2 Flow Rate 98.5 F 75 16 117/74 98 Room Air 1 07/29/23 02:00 07/29/23 02:00 07/29/23 02:00 07/29/23 02:00 07/29/23 02:00 07/29/23 02:00 07/27/23 04:45 Oxygen Flow Rate (L/min) 1 Oxygen Delivery Method Room Air Weight: 100 kg Body Mass Index (BMI) 29.8 Intake & Output: Intake and Output for Last 24 Hours 07/27/23 07/28/23 07/29/23 23:59 23:59 23:59 Intake Total 4283.12 / 4286.92 3219.23 / 3219.23 900 / 900 Output Total 3425 / 3425 1999 / 1999 1575 / 1575 Balance 858.12 / 861.92 1219.23 / 1219.23 -675 / -675 Lab / Micro Data 07/29/23 04:50 07/29/23 04:50 Labs: Laboratory Results - last 24 hr 07/28/23 06:00: Sodium 144, Potassium 3.1 L, Chloride 119 H, Carbon Dioxide 20.0 L, Anion Gap 5, BUN 40 H, Creatinine 2.10 H, Estim Creat Clear Calc 34.39, Est GFR (MDRD) Af Amer 40 L, Est GFR (MDRD) Non-Af 33 L, BUN/Creatinine Ratio 19.0, Glucose 229 H, Calcium 7.5 L, Vitamin B12 606, Vitamin D 25-Hydroxy 63.3 07/29/23 04:50: WBC 2.1 L, RBC 2.83 L, Hgb 8.4 L, Hct 29.3 L, MCV 103.5 H, MCH 29.7, MCHC 28.7 L, RDW Std Deviation 58.2 H, RDW Coeff of Homar 15.6 H, Plt Count 73 L, MPV 12.0, Immature Gran % (Auto) 0.500, Neut % (Auto) 57.3, Lymph % (Auto) 33.8, [place] % (Auto) 5.6, Eos % (Auto) 2.8, Baso % (Auto) 0.0, Absolute Neuts (auto) 1.2 L, Absolute Lymphs (auto) 0.72 L, Nucleated RBC % 0, Sodium 145, Potassium 3.4 L, Chloride 120 H, Carbon Dioxide 20.0 L, Anion Gap 5, BUN 26 H, Creatinine 1.61 H, Estim Creat Clear Calc 44.85, Est GFR (MDRD) Af Amer 54 L, Est GFR (MDRD) Non-Af 45 L, BUN/Creatinine Ratio 16.1, Glucose 110 H, Calcium 8.0 L Micro: Microbiology 07/26/23 15:10 Urine, Pedibag Urine Culture - Final ESBL Escherichia coli 07/26/23 13:30 Blood Culture (Wb) - Venous Blood Culture - Preliminary Coag Negative Staph Radiography Diagnostic Testing: Radiology Impression Echocardiogram 07/26/23 17:41 Interpretation Summary The estimated ejection fraction is 55 %. Diastolic function is indeterminate. Trivial aortic valve insufficiency. Trivial mitral valve insufficiency. Ordering Physician: Jeremy Piper Referring Physician: REMIGIO PCP Performed By: Marta Mccartney RCS Physical Exam Narrative General: Alert, oriented, no apparent distress HEENT: Atraumatic, normocephalic Eyes: Anicteric, normal conjunctiva, extraocular movements grossly intact Neck: Supple Respiratory: Clear to auscultation bilaterally, normal respiratory effort Cardiovascular: Regular rate and rhythm GI: Protuberant, nontender, no rebound, guarding, rigidity Extremities: No edema Musculoskeletal: Moving all extremities Neuro: No overt focal neurological deficits Skin: No rashes appreciated Psych: Cooperative Assessment & Plan Assessment/Plan (1) Acute kidney injury: PLAN: Plan #AMS -Lives in trailer on brothers property, could not remember the several days prior to admit -Denies alcohol or substance use, UDS negative, alcohol wnl, was given narcan for possible opioid intox but no response -ABG in ED w/ pH 7.36 and pCO2 in 20's, did have glucose of 63 on presentation -Ammonia 41 but not do not think this would entirely account for this, tsh wnl -BUN 81 which could be contributory -CT/CTA head and neck without acute process -UA w/ 500 leuk esterase, no nitrite, 1+ bacteria, 10-25wbc -CT abd w/ mesenteric fat stranding around pancreas and lipase 346 but no abd pain -CT also w/ small atrophic left kidney left hydronephrosis w/ hydroureter otherwise no acute findings -07/27: Waking up and is alert, will trial food, continue to treat underlying etiology -07/28: Discussed with nursing staff after family gave further history, patient had a who about a year ago and since that time seems he has not been doing well. Brother had found him in his trailer and he lives there with a dog and he found urine and feces along to both the patient and the dog and the trailer and it sounds like there may be a more pervasive and longer-term problem with mental status leading up to acute admission. Will discuss with social work, doubt patient will be safe to return home -07/29: Will likely need placement, continue to treat underlying etiology and patient alert and oriented today, answering much more appropriately #UTI -UA mildly infectious appearing -Continue cefepime -Monitor cx -07/28: Urine culture with gram-negative merrick lactose institutional cook which has speciated to ESBL E. coli, continue cefepime, will DC vancomycin. Had 1 or 2 blood cultures positive but it was for coag negative staph, suspect contaminant -07/29: Urine culture with ESBL E. coli 2 different strains, limited sensitivities, switch to [place], ID consulted due to likely need for IV antibiotics if patient DC'd #Pancreatitis -Has elevated lipase of 346 which is >3x ULN and stranding on CT consistent with pancreatitis -Mild epigastric pain reported -Denies alcohol use and CT on admit with normal liver and gallbladder, TGs normal march -Continue fluids and supportive care -07/28: Continue present management, tolerating diet -07/29: No more abdominal pain, fluids DC'd #hypotension -Secondary to infection vs poor PO intake vs pancreatitis -Receiving IVF -on abx, follow cxs -Did require initiation of levo at 3AM at 5mcg/min, wean as tolerated -Hold home amlodipine -07/28: Remains suboptimal, continue antibiotics, ICU on board -07/29: BP improved, no further pressors #NAYE on CKD IV -Cr on presentation 4.16 with baseline around 2-3 -CT abd w/ small atrophic left kidney, left hydronephrosis and w/ hydroureter no previous renal ultrasound 03/03/2023 also noted the mild hydronephrosis of left kidney with atrophy -Prerenal w/ hypotension vs obstructive component w/ hydro -Improving with fluids -07/28: Continue supportive care -07/29: Creatinine significantly improved with fluids #RLL parenchymal nodule -CT abd pelvis noted irregular R lower lobe parenchymal nodule- this will ultimately require further evaluation -07/29: Outpatient pulm follow-up #Focal infrarenal AAA -CT abd w/ small focal thrombosed saccular aneurysm and infrarenal segment w/ max diameter 3.6cm #Presence of urostomy -Supportive care, urostomy bag replaced in ED #Elevated troponin -initially 2644 downtrended to 1874 -EKG sinus javier with non specific ST changes -No chest pain, possibly demand in nature given hypotension and underlying etiologies -Do not suspect ACS -Echo ordered -Given multiple other etiologies that may have caused demand ischemia we will transition to subcu heparin, patient has no chest pain at this time either, do not think heparin drip is necessary -07/28: Echo -07/29: No wall motion abnormalities, EF 55%, indeterminate diastolic dysfunction, no ASD #Hypernatremia with hyperchloremia -Unclear etiology at this time -Continue D5LR and trend BMP, further workup if not improving -07/29: Improved #Pancytopenia/chronic macrocytic anemia/chronic thrombocytopenia -Unclear etiology -Liver fxn normal based on chemistries -Will check b12 and folate, continue to monitor -Has chronic component of thrombocytopenia and macrocytic anemia -May need to see heme/onc on outpt basis -07/28: All cell lines slightly lower than yesterday, suspect that this is in part dilutional -07/29: Similar to yesterday #DVT ppx: SCDs given platelet count Frances Adkins MD Time spent in the patient's overall evaluation,decision-making process, review of diagnostic data, adjustment of management, discussion with other providers, nursing nursing and ancillary staff involved in patient's care documentation, 45 minutes Charges/Coding Visit Charges Inpatient E&M: 36850 Subs Hosp L2
--- NOTE | 2023-07-29 08:30 | CASEMGMT ---
JOSE YOU NOTE: Received call from pt's dtr, Sharee, who voiced concerns w/pt's home/living situation, stating her uncle has stated pt's camper reeks of urine and feces and she voiced concerns of pt not bathing for awhile and not eating. She also voiced concerns that pt is not taking his meds correctly. She states feels pt would most benefit from going to a long-term nursing facility @ discharge but she is not think pt will be agreeable to this. Mansi ALEXANDER, made aware. Renea PELLETIERN JOSE CM
[2023-07-29 08:47] VITALS: BP 101/64; PULSE 74; RESP 17; TEMP 36.6; O2SAT 96
[2023-07-29] MEDS: Potassium Chloride 10mEq/100mL 10 MEQ/100 ML IV.SOLN. 100 MEQ IV BOLUS ×2 (08:51→10:47)
--- NOTE | 2023-07-29 10:15 | CON.PCM.ID_ITS ---
Assessment & Plan Assessment/Plan (1) Urinary tract infection: PLAN: Ucx with esbl ecoli. Cont meropenem while inpatient. NAYE improving. ANC trending down. 1 of 2 bcx with CoNS, consistent with contamination. Will follow, thank you HPI Consult Data Date of Consult: 07/29/23 HPI Narrative Reason for Consultation: esbl HPI Narrative: LEIF SIMON, is a 73 M with RLE urostomy, CKD, presented 07/26 as possible stroke due to acute onset confusion, lethargy. No fever or chills, no abd pain. Admitted on cefepime, then changed to meropenem. No n/v/d. Full ROS performed and neg except as noted above. [facility] Medical History Hypertension Home Medications Remove Patch 1 patch topical DAILY@2200 ##0 03/04/23 [Rx Last Taken Unknown] acetaminophen 325 mg tablet 650 mg (2 x 325 mg) PO Q6H PRN PRN Pain 1-10 Or Fever>100.7 #0 tabs 03/04/23 [Rx Last Taken 07/25/23] amlodipine 10 mg tablet 10 mg PO DAILY #0 tabs 03/04/23 [Rx Last Taken 07/25/23] gentamicin 0.3 % eye drops 1 drp LEFT EYE Q4 7 days #0 mL 03/04/23 [Rx Last Taken Unknown] lidocaine 5 % topical patch 1 patch topical DAILY #0 ea 03/04/23 [Rx Last Taken Unknown] melatonin 3 mg tablet 3 mg PO QHS PRN PRN Insomnia #0 tabs 03/04/23 [Rx Last Taken Unknown] oxycodone 5 mg tablet 5 mg PO Q6H PRN PRN Pain Score 6-10 2 days #8 tabs 03/04/23 [Rx Last Taken Unknown] sennosides 8.6 mg-docusate sodium 50 mg tablet (Stool Softener-Stimulant La xative) 2 tab PO BID PRN PRN Constipation #0 tabs 03/04/23 [Rx Last Taken 07/13/23] Allergy/AdvReac Type Severity Reaction Status Date / Time No Known Allergies Allergy Verified 07/26/23 12:50 Surgical History History of urostomy Social History (Updated 07/26/23 @ 18:50 by Marina Vanegas) Smoking Status: Current every day smoker tobacco type: cigarettes alcohol intake: former Physical Exam Const alert and no apparent distress General Appearance: cooperative HEENT normocephalic and head/scalp atraumatic Eyes PERRL and EOMs intact bilaterally Neck supple and No nodes Resp normal air movement and clear to auscultation bilaterally Cardio regular rate and regular rhythm GI soft to palpation, non-tender and non-distended GI Narrative: RLQ urostomy Extremity General Extremity: Negative for edema Skin no rashes or lesions noted Neuro CN's II-XII intact bilaterally Lab / Micro Data Attestation: I reviewed the patient's lab results. 07/29/23 04:50 07/29/23 04:50 Labs: Laboratory Results - last 24 hr 07/28/23 06:00: Sodium 144, Potassium 3.1 L, Chloride 119 H, Carbon Dioxide 20.0 L, Anion Gap 5, BUN 40 H, Creatinine 2.10 H, Estim Creat Clear Calc 34.39, Est GFR (MDRD) Af Amer 40 L, Est GFR (MDRD) Non-Af 33 L, BUN/Creatinine Ratio 19.0, Glucose 229 H, Calcium 7.5 L 07/29/23 04:50: WBC 2.1 L, RBC 2.83 L, Hgb 8.4 L, Hct 29.3 L, MCV 103.5 H, MCH 29.7, MCHC 28.7 L, RDW Std Deviation 58.2 H, RDW Coeff of Homar 15.6 H, Plt Count 73 L, MPV 12.0, Immature Gran % (Auto) 0.500, Neut % (Auto) 57.3, Lymph % (Auto) 33.8, Gregg % (Auto) 5.6, Eos % (Auto) 2.8, Baso % (Auto) 0.0, Absolute Neuts (auto) 1.2 L, Absolute Lymphs (auto) 0.72 L, Nucleated RBC % 0, Sodium 145, Potassium 3.4 L, Chloride 120 H, Carbon Dioxide 20.0 L, Anion Gap 5, BUN 26 H, Creatinine 1.61 H, Estim Creat Clear Calc 44.85, Est GFR (MDRD) Af Amer 54 L, Est GFR (MDRD) Non-Af 45 L, BUN/Creatinine Ratio 16.1, Glucose 110 H, Calcium 8.0 L Micro: Microbiology 07/26/23 15:10 Urine, Pedibag Urine Culture - Final ESBL Escherichia coli 07/26/23 13:30 Blood Culture (Wb) - Venous Blood Culture - Preliminary Coag Negative Staph Radiology Impression Echocardiogram 07/26/23 17:41 Interpretation Summary The estimated ejection fraction is 55 %. Diastolic function is indeterminate. Trivial aortic valve insufficiency. Trivial mitral valve insufficiency. Ordering Physician: Jeremy Piper Referring Physician: NO PCP Performed By: Marta Mccartney RCS
--- NOTE | 2023-07-29 11:59 | CASEMGMT ---
Addendum entered by Vimal Kurtz 07/29/23 14:09: JOSE YOU discussed discharge plan w/pt. Pt is aware ID has been consulted and discussed possibility of needing IV atb's @ d/c. Pt states he thinks he will be able to manage this @ his home. Pt states he does not want to go to a SNF @ discharge, stating, When you go into those places, you often don't get out. Pt gave permission for his dtr, Sharee, to be given medical information and to have discussion w/her re: discharge planning. Plan: TBD, pending course of treatment and progress w/therapy. CM or SW to f/u with pt to discuss further discharge planning. Original Note: RN?CM?FOOD QUALITY TECHNICIAN?CM?to room to meet with patient for initial transition planning/care coordination?assessment.?RN?CM?introduced self and role at [facility].? Pt voices understanding and consents to?assessment?at this time.? Pt resting in bed in no distress at this time.? Pt is A/O at this time and answers all questions appropriately.?? Care providers, pharmacy, and demographics verified/updated at this time. PCP: [facility]TEGRATION [facility]NALYST[facility] @ [place], [place] Specialists: none Preferred Pharmacy: [facility] Retail Insurance: [place], [facility] A only Prescription Benefit:?[place] only Living Will/HPOA:? Pt does not currently have LW/HCPOA and would like to complete. He states he would like his dtr, Sharee, to be primary HCPOA and son, Marvel to be 1st alternative. Mansi ALEXANDER, made aware. LNOK: Dtr, Sharee. Son, Marvel. Pt also has another son. Living Arrangements: Pt lives in motor home on his brother's property. 2 steps to enter. Pt was independent w/ADL's prior to hospitalization. Pt states he manages his own meds and that he has been taking them as prescribed, except for he had just recently missed a couple of days. He states he does not have running water in the motor home and so goes to his brother's to bathe. He states it is difficult to get in/out of his brother's bathtub, though, and he has fallen in the past. He goes to the laundromat to wash clothes. He states he gets his own groceries and mostly microwaves his meals. Pt states he has already paid the deposits and is supposed to be moving into the [facility] on [address] any day. The armored transport service manager @ [facility] is Kaylee Estes. Mansi ALEXANDER, made aware. Transportation:?Pt states drives self and has a vehicle. DME: ?States has the following DME:?Pt has a cane, rollator, and scooter he got from the [place]. He has a lift chair being stored in his brother's basement and a lift that goes on the back of his vehicle that needs wired before he can use it. He has a urostomy that he states he manages himself and the [place] mails the supplies to him. He states he probably does not have all the supplies he needs for it. HHC/SNF: No hx of either. PLAN:??RYLEY PELLETIERN?RN?CM
[2023-07-29 14:27] VITALS: O2SAT 96
--- NOTE | 2023-07-29 15:14 | WOUNDNOTE ---
Urostomy appliance remains intact to the RLQ. no sign of leaks noted. patient wanting to keep appliance in place. will continue to monitor.
[2023-07-29] MEDS: Glycerin/Hypromellose/PEG400 15 ml Bottle 2 DRP EACH EYE (15:25)
[2023-07-29 15:26] VITALS: BP 128/85; PULSE 94; RESP 14; TEMP 36.7; O2SAT 98
--- NOTE | 2023-07-29 17:00 | CASEMGMT ---
Social Work SW met with pt and introduced self and role of SW. SW discussed advance directives with pt and pt requesting to complete. Pt completed Living will and health care POA naming his daughter Sharee first and son Marvel second. Copy placed on chart and original given to pt. Pt gave SW permission to talk to family. SW spoke with pt regarding discharge plan. Pt feels he will be able to return home at discharge. SW explored home situation with pt. Pt states he has secured permanent house at [facility] and he can move in in August. Phone call placed to pt Dgt Sharee and updated on HCPOA and living will. Sharee confirms that pts home situation is not good and that SNF placement would be appropriate if pt would agree. SW to continue to follow for dc planning. BARRY Deshpande
[2023-07-29 21:00] VITALS: BP 127/80; PULSE 100; RESP 16; TEMP 36.8; O2SAT 98
[2023-07-30 03:00] VITALS: BP 146/75; PULSE 100; RESP 14; TEMP 36.4; O2SAT 98
[2023-07-30 04:32] VITALS: BMI 29.8
[2023-07-30 04:32] LABS: Absolute Lymphocyte Count 0.77 X10^3/uL (0.83-4.51); Basophil# 0.01 X10^3/uL; Basophil% 0.5 % (0-1); Eosinophil# 0.08 X10^3/uL; Eosinophils% 4.1 % (0-5); Hematocrit 30.8 % (40-54); Lymphocyte # 0.77 X10^3/ul (0.83-4.51); Lymphocyte % 39.1 % (19-41); Mean Corp Hgb Conc 29.2 g/dL (32-36); Mean Corpuscular Hgb 29.9 pg (27.0-32.0); Mean Corpuscular Volume 102.3 fL (80-94); Mean Platelet Vol. 11.6 fl (6.2-12.0); Monocyte# 0.12 X10^3/uL; Monocyte% 6.1 % (0-10); NRBC Flagged by Analyzer 0 % (0-5); Neutrophil # 0.97 X10^3/uL (2.7-7.7); Neutrophil % 49.2 % (47-70); POSITIVE COUNT YES; POSITIVE DIFFERENTIAL YES; Platelet Count 82 K/mm3 (150-450); RBC Distribution Width CV 15.8 % (11.6-14.6); RBC Distribution Width SD 57.7 fl (35.1-43.9); Red Blood Count 3.01 M/mm3 (4.6-6.2)
[2023-07-30 04:34] LABS: Differential Indicated SCAN CRITERIA MET
[2023-07-30 04:45] LABS: Anion Gap 4 (5-15); BUN 19 mg/dL (7-18); BUN/Creat Ratio 13.3 RATIO (10-20); Calcium,Total 8.4 mg/dL (8.5-10.1); Chloride 119 mmol/L (98-107); Creatinine, Serum 1.43 mg/dL (0.70-1.30); EST Glomerular Filtration Rate 52 mL/min (>60); Est Glom Filt Rate - Afr Amer 62 mL/min (>60); Glucose 89 mg/dL (74-106); Potassium 3.6 mmol/L (3.5-5.1); Sodium Level 143 mmol/L (136-145)
[2023-07-30 05:08] LABS: Anisocytosis 1+; Differential Comment SCANNED; Hypochromasia 1+; Platelet Estimate MOD DEC (ADEQ)
[2023-07-30] MEDS: Nystatin Powder 15gm Bottle 1 APPLIC TOPICAL ×2 (05:21→20:35)
--- NOTE | 2023-07-30 07:58 | PN.HOSP_ITS ---
Reason for Visit Reason for Visit: Diagnoses Sepsis, unspecified organism (07/26/23) Acute kidney failure, unspecified (07/26/23) Urinary tract infection, site not specified (07/26/23) Subjective Subjective Patient feeling tired today, still better than previous Objective Data Objective Data Vital Signs: Vital Signs Temp Pulse Resp BP Pulse Ox O2 Del Method O2 Flow Rate 97.6 F L 100 14 146/75 H 98 Room Air 1 07/30/23 03:00 07/30/23 03:00 07/30/23 03:00 07/30/23 03:00 07/30/23 03:00 07/30/23 03:00 07/27/23 04:45 Oxygen Flow Rate (L/min) 1 Oxygen Delivery Method Room Air Weight: 100 kg Body Mass Index (BMI) 29.8 Intake & Output: Intake and Output for Last 24 Hours 07/28/23 07/29/23 07/30/23 23:59 23:59 23:59 Intake Total 3219.23 / 3219.23 1636.67 / 1636.67 120 / 120 Output Total 1999 / 1999 3800 / 3800 700 / 700 Balance 1219.23 / 1219.23 -2163.33 / -2163.33 -580 / -580 Lab / Micro Data 07/30/23 04:15 07/30/23 04:15 Labs: Laboratory Results - last 24 hr 07/30/23 04:15: WBC 2.0 L, RBC 3.01 L, Hgb 9.0 L, Hct 30.8 L, MCV 102.3 H, MCH 29.9, MCHC 29.2 L, RDW Std Deviation 57.7 H, RDW Coeff of Homar 15.8 H, Plt Count 82 L, MPV 11.6, Immature Gran % (Auto) 1.000 H, Neut % (Auto) 49.2, Lymph % (Au to) 39.1, [place] % (Auto) 6.1, Eos % (Auto) 4.1, Baso % (Auto) 0.5, Absolute Neuts (auto) 1.0 L, Absolute Lymphs (auto) 0.77 L, Nucleated RBC % 0, Differential Comment SCANNED, Platelet Estimate MOD DEC, Hypochromasia 1+, Anisocytosis 1+, Sodium 143, Potassium 3.6, Chloride 119 H, Carbon Dioxide 20.0 L, Anion Gap 4 L, BUN 19 H, Creatinine 1.43 H, Estim Creat Clear Calc 50.50, Est GFR (MDRD) Af Amer 62, Est GFR (MDRD) Non-Af 52 L, BUN/Creatinine Ratio 13.3, Glucose 89, Calcium 8.4 L Micro: Microbiology 07/26/23 16:25 Blood Culture (Wb) - Anticubital Right Blood Culture - Preliminary No growth in 5 days. 07/26/23 15:10 Urine, Pedibag Urine Culture - Final ESBL Escherichia coli 07/26/23 13:30 Blood Culture (Wb) - Venous Blood Culture - Preliminary Coag Negative Staph Physical Exam Narrative General: Alert, oriented, no apparent distress HEENT: Atraumatic, normocephalic Eyes: Anicteric, normal conjunctiva, extraocular movements grossly intact Neck: Supple Respiratory: Clear to auscultation bilaterally, normal respiratory effort Cardiovascular: Regular rate and rhythm GI: Protuberant, nontender, no rebound, guarding, rigidity Extremities: No edema Musculoskeletal: Moving all extremities Neuro: No overt focal neurological deficits Skin: No rashes appreciated Psych: Cooperative Assessment & Plan Assessment/Plan (1) Acute kidney injury: PLAN: Plan #AMS -[place], could not remember the several days prior to admit -Denies alcohol or substance use, UDS negative, alcohol wnl, was given narcan for possible opioid intox but no response -ABG in ED w/ pH 7.36 and pCO2 in 20's, did have glucose of 63 on presentation -Ammonia 41 but not do not think this would entirely account for this, tsh wnl -BUN 81 which could be contributory -CT/CTA head and neck without acute process -UA w/ 500 leuk esterase, no nitrite, 1+ bacteria, 10-25wbc -CT abd w/ mesenteric fat stranding around pancreas and lipase 346 but no abd pain -CT also w/ small atrophic left kidney left hydronephrosis w/ hydroureter otherwise no acute findings -07/27: Waking up and is alert, will trial food, continue to treat underlying etiology -07/28: Discussed with nursing staff after family gave further history, patient had a who about a year ago and since that time seems he has not been doing well. Brother had found him in his trailer and he lives there with a dog and he found urine and feces along to both the patient and the dog and the trailer and it sounds like there may be a more pervasive and longer-term problem with mental status leading up to acute admission. Will discuss with social work, doubt patient will be safe to return home -07/29: Will likely need placement, continue to treat underlying etiology and patient alert and oriented today, answering much more appropriately -07/30: Patient's mental status is significantly improved. PT feels patient can go home with help. At present do not think patient would be able to manage IV antibiotics at home if necessary, patient will need 5 more days of IV antibiot ics, patient to consider placement #UTI -UA mildly infectious appearing -Continue cefepime -Monitor cx -07/28: Urine culture with gram-negative merrick lactose clinical counselor which has speciated to ESBL E. coli, continue cefepime, will DC vancomycin. Had 1 or 2 blood cultures positive but it was for coag negative staph, suspect contaminant -07/29: Urine culture with ESBL E. coli 2 different strains, limited sensitivities, switch to Merrem, ID consulted due to likely need for IV antibiotics if patient DC'd -07/30: Blood cultures 1 out of 2 for coag negative staph, likely contaminant, urine with ESBL as above, presently on Merrem #Pancreatitis -Has elevated lipase of 346 which is >3x ULN and stranding on CT consistent with pancreatitis -Mild epigastric pain reported -Denies alcohol use and CT on admit with normal liver and gallbladder, TGs normal march -Continue fluids and supportive care -07/28: Continue present management, tolerating diet -07/29: No more abdominal pain, fluids DC'd #hypotension -Secondary to infection vs poor PO intake vs pancreatitis -Receiving IVF -on abx, follow cxs -Did require initiation of levo at 3AM at 5mcg/min, wean as tolerated -Hold home amlodipine -07/28: Remains suboptimal, continue antibiotics, ICU on board -07/29: BP improved, no further pressors #NAYE on CKD IV -Cr on presentation 4.16 with baseline around 2-3 -CT abd w/ small atrophic left kidney, left hydronephrosis and w/ hydroureter no previous renal ultrasound 03/03/2023 also noted the mild hydronephrosis of left kidney with atrophy -Prerenal w/ hypotension vs obstructive component w/ hydro -Improving with fluids -07/28: Continue supportive care -07/29: Creatinine significantly improved with fluids #RLL parenchymal nodule -CT abd pelvis noted irregular R lower lobe parenchymal nodule- this will ultimately require further evaluation -07/29: Outpatient pulm follow-up #Focal infrarenal AAA -CT abd w/ small focal thrombosed saccular aneurysm and infrarenal segment w/ max diameter 3.6cm #Presence of urostomy -Supportive care, urostomy bag replaced in ED #Elevated troponin -initially 2644 downtrended to 1874 -EKG sinus javier with non specific ST changes -No chest pain, possibly demand in nature given hypotension and underlying etiologies -Do not suspect ACS -Echo ordered -Given multiple other etiologies that may have caused demand ischemia we will transition to subcu heparin, patient has no chest pain at this time either, do not think heparin drip is necessary -07/28: Echo -07/29: No wall motion abnormalities, EF 55%, indeterminate diastolic dysfunction, no ASD #Hypernatremia with hyperchloremia -Unclear etiology at this time -Continue D5LR and trend BMP, further workup if not improving -07/29: Improved #Pancytopenia/chronic macrocytic anemia/chronic thrombocytopenia -Unclear etiology -Liver fxn normal based on chemistries -Will check b12 and folate, continue to monitor -Has chronic component of thrombocytopenia and macrocytic anemia -May need to see heme/onc on outpt basis -07/28: All cell lines slightly lower than yesterday, suspect that this is in part dilutional -07/29: Similar to yesterday #DVT ppx: SCDs given platelet count Frances Adkins MD Time spent in the patient's overall evaluation,decision-making process, review of diagnostic data, adjustment of management, discussion with other providers, nursing nursing and ancillary staff involved in patient's care documentation, 37 minutes Charges/Coding Visit Charges Inpatient E&M: 19554 Subs Hosp L2
[2023-07-30 09:08] VITALS: O2SAT 98
[2023-07-30 09:59] VITALS: BP 115/68; PULSE 76; RESP 16; TEMP 36.4; O2SAT 95
--- NOTE | 2023-07-30 12:00 | CASEMGMT ---
Social Work SW spoke with pt's son Marvel who lives in [facility]. Marvel confirms that pt has rented an apartment in [place] and can move in in August. SW inquired about assistance with home setup in a new apartment. Marvel states pt has local family that can move his things into the apartment and get it ready for pt and local family can not, Marvel will come and assist. BARRY Deshpande
[2023-07-30] MEDS: oxyCODONE 5 MG Tablet PO (14:10)
[2023-07-30 14:12] VITALS: BP 126/74; PULSE 76; RESP 18; TEMP 36.4; O2SAT 94
--- NOTE | 2023-07-30 15:00 | CASEMGMT ---
Social Work BENJAMIN spoke with BENJAMIN Garcias at [facility]. Pt is service connected and does have SNF benefits through the [place]. Pt can use Medicare benefit or [place] benefit for SNF placement. BENJAMIN Catherine. BARRY Deshpande
--- NOTE | 2023-07-30 16:01 | CASEMGMT ---
Per Infectious Disease patient will be on 5 days of IV antibiotics at discharge. BENJAMIN met with patient. Introduced self and role at [facility]. BENJAMIN explained 's recommendation for IV's at d/c. BENJAMIN explained to patient that due to his insurance patient would be responsible for the cost of the IV medications and supplies which would be expensive. BENJAMIN discussed the option of chcf facility. Patient went on to talk about [facility] where he went in March. Patient said he had a bad experience. SW validated patient's concerns. BENJAMIN let patient know that he has other options. BENJAMIN A list of chcf facility providers including quality and resource use data and consistent with patient?s preferred geographic region, medical needs, and insurance network were provided from the [facility] Guide. Patient expressed interest in [facility] TCU. BENJAMIN let patient know SW will make a referral and get back with him tomorrow. SW encouraged patient to review the list for other options in case TCU cannot take him. BENJAMIN left a voice mail with referral for [facility] as well as sent a Backline. Dorene Goodman [employer] ARDEN
--- NOTE | 2023-07-30 16:03 | PCM.PN.ID ---
Physical Exam Narrative Feeling better, some abd pain, no fever Const alert and no apparent distress General Appearance: cooperative Resp normal air movement and clear to auscultation bilaterally Cardio regular rate and regular rhythm GI soft to palpation, non-tender and non-distended Skin no rashes or lesions noted ID ID: Route of nutrition/ use of supplements: [] Nutritional Intake: [] IV Site: [] Ferrer Catheter: [] Assessment & Plan Assessment/Plan (1) Urinary tract infection: PLAN: Ucx with esbl ecoli. Cont meropenem while inpatient. NAYE improving. 1 of 2 bcx with CoNS, consistent with contamination. Plan will be one week total of abx, can complete the course with IM ertapenem if he leaves prior to finishing. Will follow
[2023-07-30 21:00] VITALS: BP 133/85; PULSE 96; RESP 16; TEMP 36.4; O2SAT 98
[2023-07-31] VITALS (7 sets, daily range): BP systolic 117–141; BP diastolic 73–87; PULSE 72–101; RESP 16–18; TEMP 36.1–36.6; O2SAT 94–98; BMI 29.1
[2023-07-31] MEDS: oxyCODONE 5 MG Tablet PO ×5 (00:17→22:05)
[2023-07-31] MEDS: Glycerin/Hypromellose/PEG400 15 ml Bottle 2 DRP EACH EYE ×4 (00:18→22:13)
[2023-07-31 03:46] LABS: Absolute Lymphocyte Count 0.72 X10^3/uL (0.83-4.51); Absolute Neutrophil Count 1.1 X10^3/uL (2.0-7.7); Eosinophil# 0.06 X10^3/uL; Hematocrit 29.5 % (40-54); Hemoglobin 8.8 g/dL (13.0-16.5); Lymphocyte # 0.72 X10^3/ul (0.83-4.51); Lymphocyte % 35.6 % (19-41); Mean Corp Hgb Conc 29.8 g/dL (32-36); Mean Corpuscular Hgb 30.1 pg (27.0-32.0); Mean Platelet Vol. 11.6 fl (6.2-12.0); Monocyte# 0.15 X10^3/uL; Monocyte% 7.4 % (0-10); NRBC Flagged by Analyzer 0 % (0-5); Neutrophil # 1.07 X10^3/uL (2.7-7.7); POSITIVE COUNT YES; Platelet Count 80 K/mm3 (150-450); RBC Distribution Width CV 15.8 % (11.6-14.6); RBC Distribution Width SD 57.1 fl (35.1-43.9); Red Blood Count 2.92 M/mm3 (4.6-6.2)
[2023-07-31 03:58] LABS: Anion Gap 4 (5-15); BUN 18 mg/dL (7-18); BUN/Creat Ratio 13.2 RATIO (10-20); Calcium,Total 8.2 mg/dL (8.5-10.1); Chloride 115 mmol/L (98-107); Creatinine, Serum 1.36 mg/dL (0.70-1.30); EST Glomerular Filtration Rate 55 mL/min (>60); Est Glom Filt Rate - Afr Amer 66 mL/min (>60); Glucose 90 mg/dL (74-106); Potassium 3.6 mmol/L (3.5-5.1); Sodium Level 141 mmol/L (136-145)
[2023-07-31] MEDS: Nystatin Powder 15gm Bottle 1 APPLIC TOPICAL ×2 (05:49→22:16)
[2023-07-31] MEDS: 0.9% Saline Lock 10 ML Syringe IV ×2 (05:49→22:21)
--- NOTE | 2023-07-31 06:18 | NURSING ---
assuming care of this patient on PCU
--- NOTE | 2023-07-31 08:50 | CASEMGMT ---
Social Work Pt requested that Advance Directives be given to dgt Sharee. Phone call to Sharee and email address obtained. BENJAMIN emailed both living will and HCPOA to Sharee. Pt has originals and copy on pt chart. BENJAMIN updated Sharee on the discharge plan. Sharee states that pt has told her he has obtained an apartment in [place] but Sharee was not involved with this planning. BENJAMIN Catherine updated on conversation. BARRY Deshpande
--- NOTE | 2023-07-31 11:20 | WOUNDNOTE ---
Urostomy appliance leaking. removed appliance. the peristomal skin is very tender and cantrell in color. this is most likely d/t chronic moisture. patient states his appliance leaks a lot at home. cleansed the skin with warm soap and water. pat dry. applied skin prep to protect the skin. applied a new 2 piec flat Hansel appliance with a small amount of stoma paste. pt tolerated well. see stoma photo.
--- NOTE | 2023-07-31 12:15 | WOUNDNOTE ---
stoma photo: right lower abdomen
[2023-07-31] MEDS: Acetaminophen 325 MG Tablet 650 MG PO ×2 (12:57→19:38)
--- NOTE | 2023-07-31 14:56 | PN.HOSP_ITS ---
Reason for Visit Reason for Visit: Diagnoses Sepsis, unspecified organism (07/26/23) Acute kidney failure, unspecified (07/26/23) Urinary tract infection, site not specified (07/26/23) Subjective Subjective Feeling roughly the same today, little bit tired, irritated because his eyes are dry and he is worried somebody lost the eyedrops Objective Data Objective Data Vital Signs: Vital Signs Temp Pulse Resp BP Pulse Ox O2 Del Method O2 Flow Rate 97.8 F 72 16 117/77 95 Room Air 1 07/31/23 10:00 07/31/23 10:00 07/31/23 10:00 07/31/23 10:00 07/31/23 10:00 07/31/23 10:00 07/27/23 04:45 Oxygen Flow Rate (L/min) 1 Oxygen Delivery Method Room Air Weight: 97.6 kg Body Mass Index (BMI) 29.1 Intake & Output: Intake and Output for Last 24 Hours 07/29/23 07/30/23 07/31/23 23:59 23:59 23:59 Intake Total 1636.67 / 1636.67 240 / 240 120 / 120 Output Total 3800 / 3800 1400 / 2300 1500 / 1500 Balance -2163.33 / -2163.33 -1160 / -2060 -1380 / -1380 Lab / Micro Data 07/31/23 03:30 07/31/23 03:30 Labs: Laboratory Results - last 24 hr 07/31/23 03:30: WBC 2.0 L, RBC 2.92 L, Hgb 8.8 L, Hct 29.5 L, MCV 101.0 H, MCH 30.1, MCHC 29.8 L, RDW Std Deviation 57.1 H, RDW Coeff of Homar 15.8 H, Plt Count 80 L, MPV 11.6, Immature Gran % (Auto) 1.000 H, Neut % (Auto) 53.0, Lymph % (Auto) 35.6, Sebastian % (Auto) 7.4, Eos % (Auto) 3.0, Baso % (Auto) 0.0, Absolute Neuts (auto) 1.1 L, Absolute Lymphs (auto) 0.72 L, Nucleated RBC % 0, Sodium 141, Potassium 3.6, Chloride 115 H, Carbon Dioxide 22.0, Anion Gap 4 L, BUN 18, Creatinine 1.36 H, Estim Creat Clear Calc 53.10, Est GFR (MDRD) Af Amer 66, Est GFR (MDRD) Non-Af 55 L, BUN/Creatinine Ratio 13.2, Glucose 90, Calcium 8.2 L Micro: Microbiology 07/26/23 13:30 Blood Culture (Wb) - Venous Blood Culture - Final Coag Negative Staph 07/26/23 16:25 Blood Culture (Wb) - Anticubital Right Blood Culture - Preliminary No growth in 5 days. 07/26/23 15:10 Urine, Pedibag Urine Culture - Final ESBL Escherichia coli Physical Exam Narrative General: Alert, oriented, no apparent distress HEENT: Atraumatic, normocephalic Eyes: Anicteric, normal conjunctiva, extraocular movements grossly intact Neck: Supple Respiratory: Clear to auscultation bilaterally, normal respiratory effort Cardiovascular: Regular rate and rhythm GI: Protuberant, voluntary guarding on palpation however no guarding when listening with stethoscope, no rebound, no rigidity Extremities: No edema Musculoskeletal: Moving all extremities Neuro: No overt focal neurological deficits Skin: No rashes appreciated Psych: Cooperative Assessment & Plan Assessment/Plan (1) Acute kidney injury: PLAN: Plan #AMS -Lives in trailer on brothers property, could not remember the several days prior to admit -Denies alcohol or substance use, UDS negative, alcohol wnl, was given narcan for possible opioid intox but no response -ABG in ED w/ pH 7.36 and pCO2 in 20's, did have glucose of 63 on presentation -Ammonia 41 but not do not think this would entirely account for this, tsh wnl -BUN 81 which could be contributory -CT/CTA head and neck without acute process -UA w/ 500 leuk esterase, no nitrite, 1+ bacteria, 10-25wbc -CT abd w/ mesenteric fat stranding around pancreas and lipase 346 but no abd pain -CT also w/ small atrophic left kidney left hydronephrosis w/ hydroureter otherwise no acute findings -07/27: Waking up and is alert, will trial food, continue to treat underlying etiology -07/28: Discussed with nursing staff after family gave further history, patient had a who about a year ago and since that time seems he has not been doing well. Brother had found him in his trailer and he lives there with a dog and he found urine and feces along to both the patient and the dog and the trailer and it sounds like there may be a more pervasive and longer-term problem with mental status leading up to acute admission. Will discuss with social work, doubt patient will be safe to return home -07/29: Will likely need placement, continue to treat underlying etiology and patient alert and oriented today, answering much more appropriately -07/30: Patient's mental status is significantly improved. PT feels patient can go home with help. At present do not think patient would be able to manage IV antibiotics at home if necessary, patient will need 5 more days of IV antibiotics, patient to consider placement -07/31: Patient doing well and answering questions appropriately, plan is for SNF to finish out antibiotics #UTI -UA mildly infectious appearing -Continue cefepime -Monitor cx -07/28: Urine culture with gram-negative merrick lactose construction consultant which has speciated to ESBL E. coli, continue cefepime, will DC vancomycin. Had 1 or 2 blood cultures positive but it was for coag negative staph, suspect contaminant -07/29: Urine culture with ESBL E. coli 2 different strains, limited sensitivi ties, switch to Merrem, ID consulted due to likely need for IV antibiotics if patient DC'd -07/30: Blood cultures 1 out of 2 for coag negative staph, likely contaminant, urine with ESBL as above, presently on Merrem -07/31: We will need 7 total days of antibiotics, plan is to finish out antibiotics at SNF #Pancreatitis -Has elevated lipase of 346 which is >3x ULN and stranding on CT consistent with pancreatitis -Mild epigastric pain reported -Denies alcohol use and CT on admit with normal liver and gallbladder, TGs normal march -Continue fluids and supportive care -07/28: Continue present management, tolerating diet -07/29: No more abdominal pain, fluids DC'd #hypotension -Secondary to infection vs poor PO intake vs pancreatitis -Receiving IVF -on abx, follow cxs -Did require initiation of levo at 3AM at 5mcg/min, wean as tolerated -Hold home amlodipine -07/28: Remains suboptimal, continue antibiotics, ICU on board -07/29: BP improved, no further pressors #NAYE on CKD IV -Cr on presentation 4.16 with baseline around 2-3 -CT abd w/ small atrophic left kidney, left hydronephrosis and w/ hydroureter no previous renal ultrasound 03/03/2023 also noted the mild hydronephrosis of left kidney with atrophy -Prerenal w/ hypotension vs obstructive component w/ hydro -Improving with fluids -07/28: Continue supportive care -07/29: Creatinine significantly improved with fluids #RLL parenchymal nodule -CT abd pelvis noted irregular R lower lobe parenchymal nodule- this will ultimately require further evaluation -07/29: Outpatient pulm follow-up #Focal infrarenal AAA -CT abd w/ small focal thrombosed saccular aneurysm and infrarenal segment w/ max diameter 3.6cm #Presence of urostomy -Supportive care, urostomy bag replaced in ED #Elevated troponin -initially 2644 downtrended to 1874 -EKG sinus javier with non specific ST changes -No chest pain, possibly demand in nature given hypotension and underlying etiologies -Do not suspect ACS -Echo ordered -Given multiple other etiologies that may have caused demand ischemia we will transition to subcu heparin, patient has no chest pain at this time either, do not think heparin drip is necessary -07/28: Echo -07/29: No wall motion abnormalities, EF 55%, indeterminate diastolic dysfunction, no ASD #Hypernatremia with hyperchloremia -Unclear etiology at this time -Continue D5LR and trend BMP, further workup if not improving -07/29: Improved #Pancytopenia/chronic macrocytic anemia/chronic thrombocytopenia -Unclear etiology -Liver fxn normal based on chemistries -Will check b12 and folate, continue to monitor -Has chronic component of thrombocytopenia and macrocytic anemia -May need to see heme/onc on outpt basis -07/28: All cell lines slightly lower than yesterday, suspect that this is in part dilutional -07/29: Similar to yesterday -07/31: We will benefit from following up with hematology on outpatient basis for further exploration #DVT ppx: SCDs given platelet count Frances Adkins MD Time spent in the patient's overall evaluation,decision-making process, review of diagnostic data, adjustment of management, discussion with other providers, nursing nursing and ancillary staff involved in patient's care documentation, 37 minutes Charges/Coding Visit Charges Inpatient E&M: 68560 Subs Hosp L2
--- NOTE | 2023-07-31 16:25 | CASEMGMT ---
BENJAMIN is waiting to see if Inpatient Rehab will accept patient. BENJAMIN spoke with Steph and patient will be approved for TCU or Rehab and she will know by tomorrow. SW let patient know this information. Patient also is worried he will lose his apartment he put a deposit on. Patient asked BENJAMIN to call Kaylee Estes at [facility] regarding [address] letting her know patient wants the apartment, but won't be able to move in tomorrow. BENJAMIN told patient BENJAMIN will call. BENJAMIN called [facility] and left a voice mail requesting a return call. Dorene Goodman BIZTALK SOFTWARE DEVELOPER ARDEN
[2023-08-01] MEDS: oxyCODONE 5 MG Tablet 10 MG PO ×3 (03:51→15:42)
[2023-08-01 04:00] VITALS: BP 130/75; PULSE 77; RESP 18; TEMP 36.4; O2SAT 93
[2023-08-01 05:57] LABS: Absolute Lymphocyte Count 0.72 X10^3/uL (0.83-4.51); Absolute Neutrophil Count 1.3 X10^3/uL (2.0-7.7); Basophil# 0.01 X10^3/uL; Basophil% 0.4 % (0-1); Eosinophil# 0.08 X10^3/uL; Eosinophils% 3.5 % (0-5); Hematocrit 31.3 % (40-54); Hemoglobin 9.3 g/dL (13.0-16.5); Lymphocyte # 0.72 X10^3/ul (0.83-4.51); Lymphocyte % 31.6 % (19-41); Mean Corp Hgb Conc 29.7 g/dL (32-36); Mean Corpuscular Hgb 29.6 pg (27.0-32.0); Mean Corpuscular Volume 99.7 fL (80-94); Mean Platelet Vol. 9.9 fl (6.2-12.0); Monocyte# 0.19 X10^3/uL; Monocyte% 8.3 % (0-10); NRBC Flagged by Analyzer 0 % (0-5); Neutrophil # 1.27 X10^3/uL (2.7-7.7); Neutrophil % 55.8 % (47-70); POSITIVE COUNT YES; Platelet Count 95 K/mm3 (150-450); RBC Distribution Width CV 15.9 % (11.6-14.6); RBC Distribution Width SD 56.9 fl (35.1-43.9); Red Blood Count 3.14 M/mm3 (4.6-6.2); White Blood Count 2.3 K/mm3 (4.4-11.0)
[2023-08-01 06:00] VITALS: BMI 29.2
[2023-08-01 06:40] LABS: Anion Gap 5 (5-15); BUN 17 mg/dL (7-18); BUN/Creat Ratio 12.9 RATIO (10-20); Calcium,Total 8.5 mg/dL (8.5-10.1); Chloride 113 mmol/L (98-107); Creatinine, Serum 1.32 mg/dL (0.70-1.30); EST Glomerular Filtration Rate 56 mL/min (>60); Est Glom Filt Rate - Afr Amer 68 mL/min (>60); Estimated Creatinine Clearance 54.71 ml/min; Glucose 88 mg/dL (74-106); Potassium 3.9 mmol/L (3.5-5.1); Sodium Level 139 mmol/L (136-145)
[2023-08-01 07:39] VITALS: O2SAT 98
--- NOTE | 2023-08-01 09:14 | CASEMGMT ---
Inpatient Rehab has accepted patient. SW went to notify patient, but he was sleeping. SW did notify RN and physician. Dorene Goodman PROFESSOR OF THEATER ARDEN
--- NOTE | 2023-08-01 09:54 | CASEMGMT ---
Social Work SW completed LW/POA forms w/pt, the paper copies are on the chart. Pt named his daughter Sharee Camarillo as POA for healthcare. ATA Aly
[2023-08-01 10:05] VITALS: BP 126/78; PULSE 76; RESP 16; TEMP 36.6; O2SAT 95
--- NOTE | 2023-08-01 11:11 | DCINST_ITS ---
Discharge Instructions Diet Discharge Diet: Renal Diet Activity Discharge Activity: - (Advance activity as tolerated) Follow Up Care Test Results: Test results from this visit will be discussed in further detail at your follow- up appointment, if applicable. Discharge Plan Admission Admit Date/Time: 07/26/23 17:32 Primary Reason for Your Visit: confusion Attending Provider: Frances Adkins Primary Care Provider: ESTER BEAULIEU Consulting Providers: Jeremy Piper; Rory Love; Jordan Baldwin; Vu Kelley; Tomer Soares; Alma Tse NP; Mike Strange Instructions Patient Instructions: ED Fall Prevention Additional Instructions / Restrictions: DISCHARGE INSTRUCTIONS PLEASE READ *Please take this with you to your next doctors appointment* -You were found to have a right sided lung nodule in your lower lobe, this will need followed further on an outpatient basis, and be beneficial to follow-up with pulmonology on discharge, contact information below -You were also found to have a small abdominal aortic aneurysm that may need further monitoring over time, this can be followed through your primary care physician's office -You will also benefit from following with a blood doctor on discharge, contact information below that you can establish with one on discharge -Additionally will need to finish a course of antibiotics, you will have 3 more days of IM ertapenem -Please call your primary care provider's office upon discharge to schedule a hospital follow up within 1 week. -For any concerning signs or symptoms please call 911 or proceed to the nearest emergency department Discharge Orders/Prescriptions Prescriptions: New ertapenem 1 gram recon soln 1 g IM DAILY Qty: 3 0RF Rx Instructions: dx: esbl infection oxycodone 5 mg Tablet 5 mg PO Q4H PRN PRN (Reason: Pain Score 4-7) Qty: 0 0RF Continued sennosides-docusate sodium [Stool Softener-Stimulant Laxat] 8.6-50 mg Tablet 2 tab PO BID PRN PRN (Reason: Constipation) Qty: 0 0RF oxycodone 5 mg Tablet 5 mg PO Q6H PRN PRN (Reason: Pain Score 6-10) 2 Days Qty: 8 0RF acetaminophen 325 mg Tablet 650 mg PO Q6H PRN PRN (Reason: Pain 1-10 Or Fever>100.7) Qty: 0 0RF melatonin 3 mg Tablet 3 mg PO QHS PRN PRN (Reason: Insomnia) Qty: 0 0RF gentamicin 0.3 % Drops 1 drp LEFT EYE Q4 7 Days Qty: 0 0RF Hold Instructions: I can see fine now - noncompliant amlodipine 10 mg Tablet 10 mg PO DAILY Qty: 0 0RF Discontinued Remove Patch 1 patch topical DAILY@2200 Qty: 0 0RF lidocaine 5 % Adhesive Patch,Medicated 1 patch topical DAILY Qty: 0 0RF Protocol: *Topical Application Instructions APPLICATION INSTRUCTIONS: right hip Referrals / Follow Up: ESTER BEAULIEU [Other] - Within 1 Week ESTER BEAULIEU [Other] Rory Love MD [Med Staff - Active Staff] - Within 1 Month Regan Shah DO [Med Staff - Active Staff] - Disposition Disposition (needs filled in before D/C Order can be placed): Inpatient Rehab Unit/Facility
[2023-08-01 11:16] VITALS: BP 124/69
[2023-08-01] MEDS: Glycerin/Hypromellose/PEG400 15 ml Bottle 2 DRP EACH EYE (11:25)
--- NOTE | 2023-08-01 13:28 | CASEMGMT ---
BENJAMIN was able to talk with Eugenia at [facility]. BENJAMIN explained patient is in the hospital and will not be able to move into his new apartment today. Patient wants to make sure they do not give his apartment away. BENJAMIN told Eugenia patient was working with Kaylee Estes and it was [address]. Eugenia said she normally does not work in that office so she will look into this and get back with BENJAMIN. BENJAMIN let patient know this information as well as the information about Rehab taking him. Patient gave BENJAMIN verbal permission to talk with Jay yesterday. Today patient signed a release of information for Jordan. Plan: Inpatient Rehab Dorene HER
--- NOTE | 2023-08-01 13:43 | DS.PCM_ITS ---
Providers Date of Admission: 07/26/23 Date of Discharge: 08/01/23 Primary Care Physician: ETSER BEAULIEU Consultations 07/27/23 14:51 Consult: Onc/Wound/paper production engineer Routine Comment: Reason for Consult:: irritation and skin changes around urostomy 07/28/23 01:43 Consult: Burr Mill Operator / Pulmonary Medicine Routine Consulting Provider: Pulmonary Medicine addis Rice Reason for Consult: receiving levophed EMERGENT Consult: No MD Notified: Yes Date Notified: 07/28/23 Time Notified: 01:43 Method of Notification: Text 07/29/23 07:42 Consult: Infectious Disease Routine Consulting Provider: Mike Strange Reason for Consult: ESBL UTI w/ urostomy, limited sensitivities EMERGENT Consult: No MD Notified: Yes Date Notified: 07/29/23 Time Notified: 09:09 Method of Notification: Answering Service Reason For Visit: ALTERED MENTAL STATUS Diagnosis Discharge Diagnosis (1) Sepsis: Status: Acute Code(s): A41.9 - Sepsis, unspecified organism (2) Acute kidney injury: Status: Acute Code(s): N17.9 - Acute kidney failure, unspecified (3) Urinary tract infection: Status: Acute Code(s): N39.0 - Urinary tract infection, site not specified (4) Pancytopenia: Status: Acute Code(s): D61.818 - Other pancytopenia (5) Stage 3b chronic kidney disease (CKD): Status: Acute Code(s): N18.32 - Chronic kidney disease, stage 3b (6) Incidental lung nodule: Status: Acute Code(s): R91.1 - Solitary pulmonary nodule (7) Infrarenal abdominal aortic aneurysm (AAA) without rupture: Status: Acute Code(s): I71.43 - Infrarenal abdominal aortic aneurysm, without rupture (8) Elevated troponin: Status: Acute Code(s): R77.8 - Other specified abnormalities of plasma proteins Plan #Severe sepsis secondary to ESBL UTI -Pt with UTI as source with plt <100 on admission (86) and Cr >2 (3.57) in addition to metabolic encephalopathy with refractory hypotension requiring ICU admission and vasopressors #Metabolic encephalopathy 2/2 septic shock #mild Pancreatitis #NAYE on CKD IIIb #RLL parenchymal nodule -CT abd pelvis noted irregular R lower lobe parenchymal nodule- this will ul timately require further evaluation #Chronic urostomy #Focal infrarenal AAA -CT abd w/ small focal thrombosed saccular aneurysm and infrarenal segment w/ max diameter 3.6cm #Presence of urostomy #Elevated troponin- secondary to demand ischemia #Hypernatremia with hyperchloremia- resolved #Pancytopenia/chronic macrocytic anemia/chronic thrombocytopenia Medications at Discharge Home Medications acetaminophen 325 mg tablet 650 mg (2 x 325 mg) PO Q6H PRN PRN Pain 1-10 Or Fever>100.7 #0 tabs 03/04/23 amlodipine 10 mg tablet 10 mg PO DAILY #0 tabs 03/04/23 gentamicin 0.3 % eye drops 1 drp LEFT EYE Q4 7 days #0 mL 03/04/23 melatonin 3 mg tablet 3 mg PO QHS PRN PRN Insomnia #0 tabs 03/04/23 oxycodone 5 mg tablet 5 mg PO Q6H PRN PRN Pain Score 6-10 2 days #8 tabs 03/04/23 sennosides 8.6 mg-docusate sodium 50 mg tablet (Stool Softener-Stimulant Laxative) 2 tab PO BID PRN PRN Constipation #0 tabs 03/04/23 ertapenem 1 gram solution for injection 1 g IM DAILY #3 ea 08/01/23 oxycodone 5 mg tablet 5 mg PO Q4H PRN PRN Pain Score 4-7 #0 tabs 08/01/23 Hospital Course Summary of Care Provided Minutes Spent on Discharge: 45 Hospital Course: LEIF SIMON is a 73 M with history of presence of urostomy, CKD and hyper tension who presented to [facility] ED on 07/26/2023 via EMS for altered mental status and was found to be altered and had elevated troponins, elevated lipase and other electrolyte abnormalities additionally had UA suggestive of UTI and was found to have low blood pressure with blood pressures 90s over 50s and heart rate 45-55 with a creatinine of 3.57, and platelet count of 86. CT abdomen pelvis showed mesenteric fat stranding around the pancreas concerning for pancreatitis as well as small atrophic left kidney with hydronephrosis with hydroureter. He was given fluids and started on cefepime for UTI and ultimately did require Levophed for his refractory hypotension. Additionally had NAYE that improved with fluids. Multiple electrolyte abnormalities also improved as patient underlying etiologies were addressed. Ultimately he was found to have 2 strains of ESBL E. coli and his antibiotics were switched to Merrem and ID was consulted and he improved significantly. Jyothi jaquez unclear what his baseline mental status was however patient was awake and alert and answering questions after his underlying infection was being treated. Patient reports being somewhat tired and have intermittent pain around his ostomy but feels this is the same as it typically is and has no new or acute complaints. Decision was made for med rehab. Did discuss with patient his pancytopenia, lung nodule, aortic aneurysm and need for follow-up and he verbalized his understanding. Discharge instructions as follows: -You were found to have a right sided lung nodule in your lower lobe, this will need followed further on an outpatient basis, and be beneficial to follow-up with pulmonology on discharge, contact information below -You were also found to have a small abdominal aortic aneurysm that may need further monitoring over time, this can be followed through your primary care p lorrian's office -You will also benefit from following with a blood doctor on discharge, contact information below that you can establish with 1 on discharge -Additionally will need to finish 3 days of IM ertapenem -Please call your primary care provider's office upon discharge to schedule a hospital follow up within 1 week. -For any concerning signs or symptoms please call 911 or proceed to the nearest emergency department Physical Exam Narrative General: Alert, oriented, no apparent distress HEENT: Atraumatic, normocephalic Eyes: Anicteric, normal conjunctiva, extraocular movements grossly intact Neck: Supple Respiratory: Clear to auscultation bilaterally, normal respiratory effort Cardiovascular: Regular rate and rhythm GI: Protuberant, will have various tender spots but are inconsistent each time abdomen is palpated Extremities: No edema Musculoskeletal: Moving all extremities Neuro: No overt focal neurological deficits Skin: No rashes appreciated Psych: Cooperative Weight / BMI Weight Weight: 98 kg Body Mass Index (BMI) 29.2 ABG / Lab / Microbiology Data 08/01/23 05:45 08/01/23 05:45 Laboratory: Laboratory Results - last 24 hr 08/01/23 05:45: WBC 2.3 L, RBC 3.14 L, Hgb 9.3 L, Hct 31.3 L, MCV 99.7 H, MCH 29.6, MCHC 29.7 L, RDW Std Deviation 56.9 H, RDW Coeff of Homar 15.9 H, Plt Count 95 L, MPV 9.9, Immature Gran % (Auto) 0.400, Neut % (Auto) 55.8, Lymph % (Auto) 31.6, [place] % (Auto) 8.3, Eos % (Auto) 3.5, Baso % (Auto) 0.4, Absolute Neuts (auto) 1.3 L, Absolute Lymphs (auto) 0.72 L, Nucleated RBC % 0, Sodium 139, Potassium 3.9, Chloride 113 H, Carbon Dioxide 21.0, Anion Gap 5, BUN 17, Creatinine 1.32 H, Estim Creat Clear Calc 54.71, Est GFR (MDRD) Af Amer 68, Est GFR (MDRD) Non-Af 56 L, BUN/Creatinine Ratio 12.9, Glucose 88, Calcium 8.5 Microbiology: Microbiology 07/26/23 16:25 Blood Culture (Wb) - Anticubital Right Blood Culture - Final No growth in 5 days. 07/26/23 13:30 Blood Culture (Wb) - Venous Blood Culture - Final Coag Negative Staph 07/26/23 15:10 Urine, Pedibag Urine Culture - Final ESBL Escherichia coli D/C Instructions Discharge Diet: Renal Diet Meaningful Use Info Meaningful Use Diagnoses (Choose all that apply): None applicable Discharge Plan Admission Admit Date/Time: 07/26/23 17:32 Primary Reason for Your Visit: confusion Attending Provider: Frances Adkins Primary Care Provider: ESTER BEAULIEU Consulting Providers: Jeremy Piper; Rory Love; Jordan Baldwin; Vu Kelley; Tomer Soares; Alma Tse AUTOMATION DESIGN ENGINEER; Mike Strange Instructions Patient Instructions: ED Fall Prevention Additional Instructions / Restrictions: DISCHARGE INSTRUCTIONS PLEASE READ *Please take this with you to your next doctors appointment* -You were found to have a right sided lung nodule in your lower lobe, this will need followed further on an outpatient basis, and be beneficial to follow-up with pulmonology on discharge, contact information below -You were also found to have a small abdominal aortic aneurysm that may need further monitoring over time, this can be followed through your primary care physician's office -You will also benefit from following with a blood doctor on discharge, contact information below that you can establish with one on discharge -Additionally will need to finish a course of antibiotics, you will have 3 more days of IM ertapenem -Please call your primary care provider's office upon discharge to schedule a hospital follow up within 1 week. -For any concerning signs or symptoms please call 911 or proceed to the nearest emergency department Discharge Orders/Prescriptions Prescriptions: New ertapenem 1 gram recon soln 1 g IM DAILY Qty: 3 0RF Rx Instructions: dx: esbl infection oxycodone 5 mg Tablet 5 mg PO Q4H PRN PRN (Reason: Pain Score 4-7) Qty: 0 0RF Continued sennosides-docusate sodium [Stool Softener-Stimulant Laxat] 8.6-50 mg Tablet 2 tab PO BID PRN PRN (Reason: Constipation) Qty: 0 0RF oxycodone 5 mg Tablet 5 mg PO Q6H PRN PRN (Reason: Pain Score 6-10) 2 Days Qty: 8 0RF acetaminophen 325 mg Tablet 650 mg PO Q6H PRN PRN (Reason: Pain 1-10 Or Fever>100.7) Qty: 0 0RF melatonin 3 mg Tablet 3 mg PO QHS PRN PRN (Reason: Insomnia) Qty: 0 0RF gentamicin 0.3 % Drops 1 drp LEFT EYE Q4 7 Days Qty: 0 0RF Hold Instructions: I can see fine now - noncompliant amlodipine 10 mg Tablet 10 mg PO DAILY Qty: 0 0RF Discontinued Remove Patch 1 patch topical DAILY@2200 Qty: 0 0RF lidocaine 5 % Adhesive Patch,Medicated 1 patch topical DAILY Qty: 0 0RF Protocol: *Topical Application Instructions APPLICATION INSTRUCTIONS: right hip Referrals / Follow Up: ESTER BEAULIEU [Other] - Within 1 Week ESTER BEAULIEU [Other] oRry Love MD [Med Staff - Active Staff] - Within 1 Month Regan Shah DO [Med Staff - Active Staff] - Disposition Disposition (needs filled in before D/C Order can be placed): Inpatient Rehab Unit/Facility Charges/Coding Visit Charges Inpatient E&M: 84926 Disch Hosp >30min
--- NOTE | 2023-08-01 14:32 | PCM.PN.ID ---
Physical Exam Narrative Feeling better, no fever, d/c planned Const alert and no apparent distress General Appearance: cooperative Resp normal air movement and clear to auscultation bilaterally Cardio regular rate and regular rhythm GI soft to palpation, non-tender and non-distended Skin no rashes or lesions noted ID ID: Route of nutrition/ use of supplements: [] Nutritional Intake: [] IV Site: [] Ferrer Catheter: [] Assessment & Plan Assessment/Plan (1) Urinary tract infection: PLAN: Ucx with esbl ecoli. On sherri, will change to dose of erta. NAYE improving. 1 of 2 bcx with CoNS, consistent with contamination. Plan will be one week total of abx, wrote rx for 3 more days IM erta. Will follow as needed, d/w employment case manager
[2023-08-01 15:32] VITALS: BP 144/77; PULSE 98; RESP 16; TEMP 36.7; O2SAT 97
[2023-08-01] MEDS: Nystatin Powder 15gm Bottle 1 APPLIC TOPICAL (15:37)
[2023-08-01 17:39] VITALS: BP 143/83; PULSE 95; RESP 16; TEMP 36.4; O2SAT 95
--- NOTE | 2023-08-01 18:45 | NURSING ---
Called report to In rehab.
== END 2023-08-01 21:05 | DRG 698 ==
LOC: ED 17:25 → PCU 18:04 → ICU 21:41 → PCU 07-31 06:56
PROVIDERS: Admitting Provider Hospitalist; Emergency Provider Emergency Medicine; Visit Provider Internal Medicine
DX: T83.518A Infection and inflammatory reaction due to other urinary catheter, initial encounter (principal); A41.51 Sepsis due to Escherichia coli [E. coli]; R65.21 Severe sepsis with septic shock; G93.41 Metabolic encephalopathy; K85.90 Acute pancreatitis without necrosis or infection, unspecified; D61.818 Other pancytopenia; N17.9 Acute kidney failure, unspecified; I24.8 Other forms of acute ischemic heart disease; E87.0 Hyperosmolality and hypernatremia; Z16.12 Extended spectrum beta lactamase (ESBL) resistance; N13.6 Pyonephrosis; N18.32 Chronic kidney disease, stage 3b; I71.43 Infrarenal abdominal aortic aneurysm, without rupture; Z93.6 Other artificial openings of urinary tract status; I12.9 Hypertensive chronic kidney disease with stage 1 through stage 4 chronic kidney disease, or unspecified chronic kidney disease; E87.8 Other disorders of electrolyte and fluid balance, not elsewhere classified; F17.210 Nicotine dependence, cigarettes, uncomplicated; E86.0 Dehydration; E87.6 Hypokalemia; I95.89 Other hypotension; X58.XXXA Exposure to other specified factors, initial encounter; R91.1 Solitary pulmonary nodule; Z63.4 Disappearance and death of family member; Z79.899 Other long term (current) drug therapy
CPT/HCPCS: 36415; 36600; 70450; 70496; 70498; 71045; 74177; 80048; 80076; 80202; 80307; 81001; 82077; 82140; 82306; 82607; 82746; 82803; 82962; 83605; 83690; 84443; 84484; 85025; 85027; 85610; 85730; 87040; 87077; 87086; 87088; 87186; 92526; 92610; 93005; 93306; 97110; 97162; 97166; 97530; 97535; 99285; J2185; J7030; J7040; J7050; J7120; Q9967; A4216; J2310; J7799

== ENCOUNTER 2023-08-01 21:20 | Inpatient (IN) | payer MEDICARE, SELFPAY ==
[2023-08-01 21:30] VITALS: BP 124/79; PULSE 104; RESP 18; TEMP 36.6; O2SAT 98
--- NOTE | 2023-08-01 22:29 | NURSING ---
clinical findings were being completed and staff was assisting pt with signing paper work and refused to sign the permission to treat paper stating i'm trying to be difficult but i'm good as i'm going to get and no amount of therapy will help that I'm not signing that paper rn made aware pts statement.
[2023-08-01 22:35] VITALS: BMI 28.8
[2023-08-02] MEDS: Gentamicin Sulfate 1 OPTH.BTL 1 DRP LEFT EYE ×5 (05:34→20:24)
[2023-08-02] MEDS: oxyCODONE 5 MG Tablet PO ×3 (05:34→14:37)
[2023-08-02 05:58] LABS: Hematocrit 32.5 % (40-54); Hemoglobin 9.7 g/dL (13.0-16.5); Mean Corp Hgb Conc 29.8 g/dL (32-36); Mean Corpuscular Hgb 29.8 pg (27.0-32.0); Mean Platelet Vol. 10.8 fl (6.2-12.0); Platelet Count 101 K/mm3 (150-450); RBC Distribution Width CV 16.1 % (11.6-14.6); RBC Distribution Width SD 56.9 fl (35.1-43.9); Red Blood Count 3.25 M/mm3 (4.6-6.2); White Blood Count 2.8 K/mm3 (4.4-11.0)
[2023-08-02 06:20] LABS: Magnesium 2.1 mg/dL (1.6-2.6)
--- NOTE | 2023-08-02 07:46 | NURSING ---
staff retrieved wallet from the safe and gave it to the pt . paper signed by pt to verify that he received the wallet and checked the contents of the wallet. signed papers are in the pt chart
[2023-08-02 09:46] VITALS: BP 118/72; PULSE 77; RESP 15; TEMP 36.4; O2SAT 97
[2023-08-02 10:23] LABS: ALB/GLOB Ratio 0.8 RATIO (0.9-2.4); AST(SGOT) 23 U/L (15-37); Alanine Aminotransfer ALT/SGPT 22 U/L (16-61); Albumin, Serum 2.7 g/dL (3.2-5.0); Alkaline Phosphatase 76 U/L (45-117); Anion Gap 7 (5-15); BUN 19 mg/dL (7-18); BUN/Creat Ratio 14.7 RATIO (10-20); Calcium,Total 8.4 mg/dL (8.5-10.1); Chloride 109 mmol/L (98-107); Creatinine, Serum 1.29 mg/dL (0.70-1.30); EST Glomerular Filtration Rate 58 mL/min (>60); Est Glom Filt Rate - Afr Amer 70 mL/min (>60); Estimated Creatinine Clearance 55.98 ml/min; Globulin 3.6 g/dL (2.2-4.2); Glucose 83 mg/dL (74-106); Phosphorus 2.4 mg/dL (2.5-4.9); Protein, Total 6.3 g/dL (6.4-8.2); Sodium Level 139 mmol/L (136-145)
[2023-08-02] MEDS: amLODIPine 10 MG Tablet PO (10:41)
[2023-08-02] MEDS: Lidocaine 1% (5 ml sdv) 5 ML Vial 3.2 ML INFILT (10:53)
[2023-08-02] MEDS: Ertapenem Sod 1 GM/10 ML Vial IM (11:00)
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
--- NOTE | 2023-08-02 16:47 | PCM.RU.PYE ---
Admission Information Primary Diagnosis:: Debility secondary to septic shock from urosepsis with ESBL E. coli Status Changes from Prescreening?: No changes Identified Actual Problem List:: Falls, Pain, ALteration in Cmfrt, Depression, Alteration in Sleep, Mobility Impaired, Self Care Deficit and Alteration-Leisure Activ. Potential Problem List:: DVT, Bleeding, Infection, UTI, Aspiration, Falls, Skin Integrity and Depression Risk of Complications DVT: LMWH and IGNACIO Hose Bleeding: Monitor Lab Values, Nursing to Teach Precautions for anti-coagulation therapy., Wound, if applicable, to be assessed every shift. and Stroke patients assessed for lethargy or change in status. Infection: Clinical Staff to Monitor for S/S of infection: and S/S of infection include fever, redness, warmth, etc. Urinary Tract Infection: Monitor for frequency, burning, discomfort, or incontinence. and Nursing will obtain urine sample for urinalysis and C&S when ordered. Aspiration: Clinical staff will monitor for coughing, drooling, congestion., Speech will evaluate swallowing and dsyphasia. and Nursing will monitor patient swallowing during meals. Falls: Patient will be evaluated for Fall Precautions and Patient will be placed on Fall Precautions as indicated per protocol. Skin Breakdown: Nursing will assess skin daily using assessment tool. and Nursing will place on Skin Breakdown Precautions as indicated. Pain: Clinical staff will assess patient's pain level per protocol., Medications will be given, if needed, and the pain level reassessed. and Other methods: Massage, distraction, decrease stimulus, etc. used PRN. Plan of Care Patient requires physician specializing in physical medicine and rehab oversight to provide close medical supervision of rehab issues including: Pain Management, Sleep Problems, Bowel and Bladder, Medical and co-morbidity Management, DVT prophylaxis, Rehabilitation Leadership and Coordination of treatment team Patient needs Physical Therapy: For a minimum of 1 hour and At least 5 out of 7 days Patient needs Physical Therapy to improve:: Mobility, Strengthening, Transfers, Stretching, ROM, Endurance, Stairs, Gait and Balance Patient needs Occupational Therapy: For a minimum of 1 hour and At least 5 out of 7 days Patient needs Occupational Therapy to improve ADL's incl.: Eating, Grooming, Bathing, Dressing, Toileting, Toilet transfers, Community Reintegration, Higher functioning activities, Household tasks, Adaptive Equipment, Splinting and Other activities as determined Patient requires 24/ Rehabilitation Nursing for: Pain Issues, Identifying and preventing risk factors, Monitoring and reporting current medical conditions, Assisting with ambulation, transfer, and all ADL's, Teaching patients about disease process and medications, Family teaching, Providing safe environment, Bowel and Bladder Issues, Skin integrity and Medication Management Patient needs Wildlife Protector/ Case Management for: Discharge Planning, Arranging Home Equipment or Services and Family Interventions Patient needs Dietary and Nutrition Services for: Adequate Nutrition, Nutritional Supplements and Nutritional Education Goals Patient will remain: free from falls and or injury at time of discharge. Patient will perform bed mobility at: MOD I level of assist. Patient will complete transfers from bed to chair at: MOD I level of assist. Patient will ambulate: with LRD and - (200 feet with a wheeled walker on various surfaces without loss of balance) Patient will complete upper body dressing at: MOD I level of assist. Patient will complete lower body dressing at: MOD I level of assist. Patient will complete toileting at: MOD I level of assist. Patient will perform bathing at: MOD I level of assist. Patient will complete grooming at: MOD I level of assist. Patient will complete home management skills at: MOD I level of assist. Patient will achieve: - (1 curb step) Patient will have pain level of: of 3 or less Patient's skin will: remain intact Patient will receive: adequate nutrition. Discharge Planning Estimated Length of stay (days): 7 Anticipated D/C Destination: Home with Outpt Therapy ([facility]) Was Preadmission Assessment Accurate?: Yes
[2023-08-02] MEDS: 0.9% Saline Lock 10 ML Syringe IV (17:23)
[2023-08-02] MEDS: Glycerin/Hypromellose/PEG400 15 ml Bottle 1 DRP EACH EYE (17:24)
[2023-08-02] MEDS: oxyCODONE 5 MG Tablet 10 MG PO ×2 (20:26→20:53)
[2023-08-02] MEDS: Loratadine 10 MG Tablet PO (20:49)
[2023-08-02 22:00] VITALS: BP 128/74; PULSE 96; RESP 18; TEMP 36.8; O2SAT 96
[2023-08-02 22:30] VITALS: BP 128/74; PULSE 96; RESP 18; TEMP 36.8
--- NOTE | 2023-08-03 03:29 | NURSING ---
Reviewed and agree with Rigoberto RUIZ, documentation and assessment charting.
[2023-08-03] MEDS: Gentamicin Sulfate 1 OPTH.BTL 1 DRP LEFT EYE ×5 (06:15→20:43)
[2023-08-03] MEDS: Enoxaparin 40 MG/0.4 ML Syringe SC (06:15)
[2023-08-03] MEDS: Glycerin/Hypromellose/PEG400 15 ml Bottle 1 DRP EACH EYE ×4 (06:15→17:29)
[2023-08-03 06:42] VITALS: BP 114/70; PULSE 80; RESP 16; TEMP 36; O2SAT 96
[2023-08-03 09:58] VITALS: BP 122/70; PULSE 79; RESP 18; TEMP 36.7; O2SAT 97
[2023-08-03] MEDS: oxyCODONE 5 MG Tablet 10 MG PO ×2 (11:37→17:37)
[2023-08-03] MEDS: Lidocaine 1% (5 ml sdv) 5 ML Vial 3.2 ML INFILT (11:38)
[2023-08-03] MEDS: Ertapenem Sod 1 GM/10 ML Vial IM (11:38)
[2023-08-03] MEDS: amLODIPine 10 MG Tablet PO (11:39)
--- NOTE | 2023-08-03 11:40 | NURSING ---
Patient would not take any medications until this time and given. Tolerated IM atb left deltoid well.
[2023-08-03 19:59] VITALS: BP 121/67; PULSE 97; RESP 18; TEMP 36.5; O2SAT 94
[2023-08-03] MEDS: MELATONIN 3 MG TABLET PO (20:43)
[2023-08-03] MEDS: Loratadine 10 MG Tablet PO (20:44)
[2023-08-04] MEDS: Enoxaparin 40 MG/0.4 ML Syringe SC (05:53)
[2023-08-04] MEDS: Gentamicin Sulfate 1 OPTH.BTL 1 DRP LEFT EYE ×5 (05:53→19:53)
[2023-08-04 07:50] VITALS: BP 99/59; PULSE 68; RESP 15; TEMP 36.8
[2023-08-04] MEDS: amLODIPine 10 MG Tablet PO (08:25)
[2023-08-04] MEDS: Ertapenem Sod 1 GM/10 ML Vial IM (08:25)
[2023-08-04] MEDS: Lidocaine 1% (5 ml sdv) 5 ML Vial 3.2 ML INFILT (08:25)
[2023-08-04] MEDS: oxyCODONE 5 MG Tablet 10 MG PO (10:21)
[2023-08-04 12:00] VITALS: BP 135/85; PULSE 74; RESP 16; TEMP 36.9; O2SAT 95
[2023-08-04] MEDS: Acetaminophen 325 MG Tablet 650 MG PO (13:28)
[2023-08-04] MEDS: traMADol 50 MG Tablet PO (17:17)
[2023-08-04 18:00] VITALS: BP 100/65; PULSE 64; RESP 16; TEMP 36.9; O2SAT 94
[2023-08-04 19:30] VITALS: BP 105/65; PULSE 97; RESP 16; TEMP 36.7; O2SAT 93
[2023-08-04] MEDS: MELATONIN 3 MG TABLET PO (19:51)
[2023-08-04] MEDS: Loratadine 10 MG Tablet PO (19:52)
[2023-08-05 05:34] LABS: Absolute Lymphocyte Count 0.91 X10^3/uL (0.83-4.51); Absolute Neutrophil Count 1.6 X10^3/uL (2.0-7.7); Basophil# 0.02 X10^3/uL; Basophil% 0.7 % (0-1); Eosinophil# 0.08 X10^3/uL; Eosinophils% 2.8 % (0-5); Hematocrit 32.3 % (40-54); Hemoglobin 9.7 g/dL (13.0-16.5); Lymphocyte # 0.91 X10^3/ul (0.83-4.51); Lymphocyte % 31.7 % (19-41); Mean Corpuscular Hgb 29.8 pg (27.0-32.0); Mean Corpuscular Volume 99.1 fL (80-94); Monocyte# 0.21 X10^3/uL; Monocyte% 7.3 % (0-10); NRBC Flagged by Analyzer 0 % (0-5); Neutrophil # 1.63 X10^3/uL (2.7-7.7); Neutrophil % 56.8 % (47-70); Platelet Count 104 K/mm3 (150-450); RBC Distribution Width CV 15.9 % (11.6-14.6); Red Blood Count 3.26 M/mm3 (4.6-6.2); White Blood Count 2.9 K/mm3 (4.4-11.0)
[2023-08-05] MEDS: Gentamicin Sulfate 1 OPTH.BTL 1 DRP LEFT EYE ×5 (05:37→20:46)
[2023-08-05] MEDS: Enoxaparin 40 MG/0.4 ML Syringe SC (05:37)
[2023-08-05 05:57] LABS: Anion Gap 3 (5-15); BUN 20 mg/dL (7-18); BUN/Creat Ratio 16.4 RATIO (10-20); Calcium,Total 8.9 mg/dL (8.5-10.1); Chloride 106 mmol/L (98-107); Creatinine, Serum 1.22 mg/dL (0.70-1.30); EST Glomerular Filtration Rate 62 mL/min (>60); Est Glom Filt Rate - Afr Amer 75 mL/min (>60); Estimated Creatinine Clearance 59.19 ml/min; Glucose 86 mg/dL (74-106); Potassium 4.7 mmol/L (3.5-5.1); Sodium Level 137 mmol/L (136-145)
[2023-08-05 06:00] VITALS: BP 115/65; PULSE 72; RESP 16; TEMP 36.4; O2SAT 91
--- NOTE | 2023-08-05 08:00 | NURSING ---
Patient requesting to leave Hospital AMA. Discussed w/ patient about possibly having a discharge from care, willing to wait until MD arrives to Floor to discuss further.
[2023-08-05] MEDS: amLODIPine 10 MG Tablet PO (08:29)
[2023-08-05 09:40] VITALS: BP 115/65; PULSE 72; RESP 16; TEMP 36.4; O2SAT 91
--- NOTE | 2023-08-05 09:50 | PCM.DC ---
Discharge Instructions Diet Discharge Diet: Low fat / Low cholesterol Activity Discharge Activity: May Drive Weight Bearing Status: Full weight bearing Dressing / Incision Call your doctor if you observe: Fever of 101 or Higher, Shortness of breath, Dizziness, Fainting spells, Chest pain, Increased palpitations (irregular heartbeat) and Calf discomfort Cleanse incision/area with: Soap & Water Catheter: - (has a urostomy) Follow Up Care Please Follow Up With: [facility] Test Results: Test results from this visit will be discussed in further detail at your follow-up appointment, if applicable. Pending Tests Upon Discharge: none Discharge Plan Admission Admit Date/Time: 08/01/23 21:20 Primary Reason for Your Visit: Debility due to urosepsis Attending Provider: Abigail Gonzáles Primary Care Provider: ESTER BEAULIEU Instructions Additional Instructions / Restrictions: 1. Your bone marrow makes 3 kinds of cells, white blood cells, red blood cells and platelets. You have what is called pancytopenia.....this means your bone marrow is not producing enough of any of these 3 cell lines. You will need to follow up with a guyline operator/oncologist at the [place]. You also have a mass in your R lung which may be cancerous. The oncologist can arrange additional testing for you. 2. The cantrell skin around the stoma is normal in people who have had a ostomy for a long time.......It is due to constant exposure of the area to moisture. 3. I recommend you stop smoking. 4. We will be notifying Adult Protective Services to check up on you at your home.......I do not think you are adequately taking care of yourself at home. 5. You should follow up with your PCP within the next week. 6. Since you have not cooperated with doing therapy and you have decided to leave the hospital AMA you will not be receiving any prescriptions. You have finished the recommended course of antibiotics for the urinary tract infection. Discharge Orders/Prescriptions Prescriptions: Continued acetaminophen 325 mg Tablet 650 mg PO Q6H PRN PRN (Reason: Pain 1-10 Or Fever>100.7) Qty: 0 0RF melatonin 3 mg Tablet 3 mg PO QHS PRN PRN (Reason: Insomnia) Qty: 0 0RF gentamicin 0.3 % Drops 1 drp LEFT EYE Q4 7 Days Qty: 0 0RF Hold Instructions: I can see fine now - noncompliant amlodipine 10 mg Tablet 10 mg PO DAILY Qty: 0 0RF Discontinued sennosides-docusate sodium [Stool Softener-Stimulant Laxat] 8.6-50 mg Tablet 2 tab PO BID PRN PRN (Reason: Constipation) Qty: 0 0RF ertapenem 1 gram recon soln 1 g IM DAILY Qty: 3 0RF Rx Instructions: dx: esbl infection oxycodone 5 mg Tablet 5 mg PO Q4H PRN PRN (Reason: Pain Score 4-10) Qty: 0 0RF Referrals / Follow Up: ESTER BEAULIEU [Other] Disposition Disposition (needs filled in before D/C Order can be placed): Home, Self Care
[2023-08-05] MEDS: Acetaminophen 325 MG Tablet 650 MG PO ×3 (10:09→22:50)
[2023-08-05] MEDS: traMADol 50 MG Tablet PO ×2 (10:09→16:09)
--- NOTE | 2023-08-05 10:12 | PCM.DC.SUM ---
Providers Date of Admission: 08/01/23 Date of Discharge: 08/05/23 Primary Care Physician: ANABEL LOW Reason For Visit: SEPSIS, UTI Diagnosis Discharge Diagnosis (1) Debility: Status: Acute Code(s): R53.81 - Other malaise (2) Septic shock due to Escherichia coli: Status: Resolved Code(s): A41.51 - Sepsis due to Escherichia coli [E. coli]; R65.21 - Severe sepsis with septic shock (3) Infection due to ESBL-producing Escherichia coli: Status: Resolved Code(s): A49.8 - Other bacterial infections of unspecified site; Z16.12 - Extended spectrum beta lactamase (ESBL) resistance (4) Acute renal failure superimposed on stage 3a chronic kidney disease: Status: Resolved Code(s): N17.9 - Acute kidney failure, unspecified; N18.31 - Chronic kidney disease, stage 3a Qualifiers: Acute renal failure type: unspecified Qualified Code(s): N17.9 - Acute kidney failure, unspecified; N18.31 - Chronic kidney disease, stage 3a (5) Dehydration: Status: Resolved Code(s): E86.0 - Dehydration Plan: resolved (6) Elevated troponin: Status: Resolved Code(s): R77.8 - Other specified abnormalities of plasma proteins Plan: Due to NSTEMI? or did he have rhabdo from falling down the steps.......he does not know what happened to him for a few days prior to admission.....he could have laid in the same position for an extended period of time. And the troponin could also have stayed high due to the ARF? (7) Pancytopenia: Status: Acute Code(s): D61.818 - Other pancytopenia Plan: Etiology unknown at this time. With the 2.3 cm nodule in the RLL and long smoking hx he could have CA. The combination of pancytopenia, long standing tobacco dependence and pulmonary nodule raises suspicion for lung CA metastatic to bone? (8) Infrarenal abdominal aortic aneurysm (AAA) without rupture: Status: Chronic Code(s): I71.43 - Infrarenal abdominal aortic aneurysm, without rupture (9) Incidental lung nodule: Status: Acute Code(s): R91.1 - Solitary pulmonary nodule Plan: RLL 2.3 cm, irregular shape. (10) Stage 3a chronic kidney disease: Status: Chronic Code(s): N18.31 - Chronic kidney disease, stage 3a (11) Tobacco dependence: Status: Chronic Code(s): F17.200 - Nicotine dependence, unspecified, uncomplicated Plan 1. Pt has said he is leaving today regardless of whether we think he is safe to DC. I have explained to him what AMA means and that he will not receive prescriptions at [place]. He will follow up at the [facility] with Dr. Low. 2. Will need to follow up with oncology for pancytopenia and 2.3 cm irregularly shaped nodule in the RLL in pt with extensive hx of tobacco dependence. 3. I reviewed his OARRS report and he has only received 2 prescriptions for narcotics in the past year and both were for 4 tabs of Oxycodone 5 mg. He will need to follow up with pain management at the [facility] for pain medication. 4. SW will notify APS that we suspect he is not able to care for himself at home. EMS did not document the condition of his camper but, reportedly it smelled of feces and urine. He has been admitted to this hospital twice in the past year and on both occasions he was severely dehydrated. He confabulates....told me the [facility] wound nurse told him to use cigarette geophysical prospecting surveyor fluid to clean around his stoma. He also tells me that the reason he needed a urostomy was because he had bladder polyps and when he awoke one time after a cystoscopy he was told he got a double dose of chemo instilled in the bladder and this lead to breakdown of the bladder wall and then it was perforated during a procedure. [facility] Medications at Discharge Home Medications acetaminophen 325 mg tablet 650 mg (2 x 325 mg) PO Q6H PRN PRN Pain 1-10 Or Fever>100.7 #0 tabs 03/04/23 amlodipine 10 mg tablet 10 mg PO DAILY blood pressure #0 tabs 03/04/23 gentamicin 0.3 % eye drops 1 drp LEFT EYE Q4 eye gtts 7 days #0 mL 03/04/23 melatonin 3 mg tablet 3 mg PO QHS PRN PRN Insomnia #0 tabs 03/04/23 Hospital Course Operations None Procedures None Summary of Care Provided Minutes Spent on Discharge: 35 Hospital Course: LEIF ALFRED, is a 73 YO M with a past medical history of hypertension, left kidney atrophy, L hydronephrosis, L hydroureter, mild cerebral atrophy/mild cerebellar atrophy, tobacco dependence, alcohol abuse in remission, diverticulosis and a urostomy with ileal conduit who presented to the ED at [facility] on 07/26/2023 with altered mental status, elevated troponin, elevated lipase and not knowing what happened to him for the past few days. CTB was negative for cerebral hemorrhage or evidence of a acute infarct. Lab in the emergency department showed a white blood cell count of 4.7, hemoglobin of 12.12 with macrocytic indices, a markedly increased RDW standard deviation of 58.2 and platelets of 86,000. BMP was positive for an elevated creatinine of 4.16 with a BUN of 92, low potassium of 3.2 and a low serum bicarbonate 19. Lactic acid was 1.9. Troponin was elevated at 2644 and LFTs were unremarkable. Lipase was elevated at 346. A UA taking from the urostomy tube revealed 10-25 WBCs and +1 bacteria. Blood pressure in the emergency department was initially 112/71 but then dropped to 99/[address] scan of the abdomen and pelvis showed mesenteric fat stranding around the pancreas concerning for pancreatitis and left hydronephrosis with left hydroureter, and irregular right lower lobe parenchymal nodule and a focal infrarenal abdominal aortic aneurysm. He was admitted to the hospitalist service with a diagnosis of NSTEMI, borderline hypotension, acute renal failure, urinary tract infection and possible pancreatitis. IV fluids were started to hydrate and he was placed on cefepime. Urine culture and blood cultures were sent. Despite IV fluids the BP continued to drop and he was transferred to ICU for hypotension resistant to IVF's. He was started on a pressor. Urine culture grew greater than 100,000 colonies of an ESBL E. coli. The antibiotic was transitioned to meropenem. Consult was obtained with infectious disease and the plan was for 1 week of antibiotics. The patient threatened to leave and ID said he could complete his tx with IM Ertapenem. He was seen by physical therapy prior to discharge from the hospital and his gait was slow and he felt weak. It took him an increased time to complete 10 feet of ambulation and he did not want to walk any further. He was transferred to acute rehab on 08/01/2023 for 3 hours of therapy daily to restore strength/function at or near his level prior to the recent infection. On the morning of 08/02/2023 he refused therapy however the therapists were able to cajole him into doing some therapy. He was standby assist using a wheeled walker and ambulated 30 feet in his room. He refused to sit in the recliner. He was standby assist with a wheeled walker to stand and pivot. Mr. Fan was uncooperative while in rehab. He refused to do therapy and was gruff/nasty with the nursing/therapy staff. On 08/05/23 he informed everyone he was leaving and we could not stop him. I discussed what it meant to go AMA and then he signed the necessary paperwork. He concluded the complete course of antibiotics recommended by ID. He was not given RX's at [place]. He is going to follow up with Dr. Anabel Low, his [facility] in [place]. He will need to follow up with oncology at [place] for the irregularly shaped 2.3 cm nodule in the right lower lobe and for pancytopenia. Has not been allowing the nursing staff to keep him clean. Lying in bed in a diaper....will not put a gown or pajamas on. Was not scheduled for therapy today because he said he was leaving whether he was ready or not. Social working is now telling me that his camper is condemned and he has no place to go. DTR is POA and she is not in state. He is not capable of caring for himself. Has refused therapy over the weekend and will not get therapy today. Patients in this unit must do 3 hours a day and he will not even try. He has been c/o pruritus over the weekend and demanding Benadryl. He has no rash. Oxycodone has been discontinued and the Ertapenem has concluded. Will continue Claritin x 3 days then [place]. He is now on Tramadol for reported back pain. Physical Exam Const alert General Appearance: Negative for cooperative Resp normal respiratory effort Resp Narrative: Not tachypneic, even lying flat in bed. Not coughing. Markedly diminished BS's throughout. GI normal to inspection, nondistended, normoactive bowel sounds GI Narrative: regular bowel function Extremity General Extremity: Negative for edema Weight / BMI Weight Weight: 212 lb 1.355 oz Body Mass Index (BMI) 28.8 ABG / Lab / Microbiology Data 08/05/23 05:25 08/05/23 05:25 Laboratory: Laboratory Results - last 24 hr 08/05/23 05:25: WBC 2.9 L, RBC 3.26 L, Hgb 9.7 L, Hct 32.3 L, MCV 99.1 H, MCH 29.8, MCHC 30.0 L, RDW Std Deviation 57.0 H, RDW Coeff of Homar 15.9 H, Plt Count 104 L, MPV 11.0, Immature Gran % (Auto) 0.700, Neut % (Auto) 56.8, Lymph % (Auto) 31.7, Dent % (Auto) 7.3, Eos % (Auto) 2.8, Baso % (Auto) 0.7, Absolute Neuts (auto) 1.6 L, Absolute Lymphs (auto) 0.91, Nucleated RBC % 0, Sodium 137, Potassium 4.7, Chloride 106, Carbon Dioxide 28.0, Anion Gap 3 L, BUN 20 H, Creatinine 1.22, Estim Creat Clear Calc 59.19, Est GFR (MDRD) Af Amer 75, Est GFR (MDRD) Non-Af 62, BUN/Creatinine Ratio 16.4, Glucose 86, Calcium 8.9 D/C Instructions Discharge Diet: Low fat / Low cholesterol Weight Bearing Status: Full weight bearing Call your doctor if you observe: Fever of 101 or Higher, Shortness of breath, Dizziness, Fainting spells, Chest pain, Increased palpitations (irregular heartbeat) and Calf discomfort Cleanse incision/area with: Soap & Water Catheter: - (has a urostomy) Pending Tests Upon Discharge: none Please Follow Up With: [facility] Meaningful Use Info Meaningful Use Diagnoses (Choose all that apply): None applicable Discharge Plan Admission Admit Date/Time: 08/01/23 21:20 Primary Reason for Your Visit: Debility due to urosepsis Attending Provider: Abigail Gonázles Primary Care Provider: ANABEL LOW Instructions Additional Instructions / Restrictions: 1. Your bone marrow makes 3 kinds of cells, white blood cells, red blood cells and platelets. You have what is called pancytopenia.....this means your bone marrow is not producing enough of any of these 3 cell lines. You will need to follow up with a distresser/oncologist at the [place]. You also have a mass in your R lung which may be cancerous. The oncologist can arrange additional testing for you. 2. The cantrell skin around the stoma is normal in people who have had a ostomy for a long time.......It is due to constant exposure of the area to moisture. 3. I recommend you stop smoking. 4. We will be notifying Adult Protective Services to check up on you at your home.......I do not think you are adequately taking care of yourself at home. 5. You should follow up with your PCP within the next week. 6. Since you have not cooperated with doing therapy and you have decided to leave the hospital AMA you will not be receiving any prescriptions. You have finished the recommended course of antibiotics for the urinary tract infection. Discharge Orders/Prescriptions Prescriptions: Continued acetaminophen 325 mg Tablet 650 mg PO Q6H PRN PRN (Reason: Pain 1-10 Or Fever>100.7) Qty: 0 0RF melatonin 3 mg Tablet 3 mg PO QHS PRN PRN (Reason: Insomnia) Qty: 0 0RF gentamicin 0.3 % Drops 1 drp LEFT EYE Q4 7 Days Qty: 0 0RF Hold Instructions: I can see fine now - noncompliant amlodipine 10 mg Tablet 10 mg PO DAILY Qty: 0 0RF Discontinued sennosides-docusate sodium [Stool Softener-Stimulant Laxat] 8.6-50 mg Tablet 2 tab PO BID PRN PRN (Reason: Constipation) Qty: 0 0RF ertapenem 1 gram recon soln 1 g IM DAILY Qty: 3 0RF Rx Instructions: dx: esbl infection oxycodone 5 mg Tablet 5 mg PO Q4H PRN PRN (Reason: Pain Score 4-10) Qty: 0 0RF Referrals / Follow Up: ANABEL LOW [Other] [place], Head Of Mathematics/Oncologist [Other] (Pancytopenia and Rt Lung Mass) Disposition Disposition (needs filled in before D/C Order can be placed): Home, Self Care Charges/Coding Visit Charges Inpatient E&M: 81716 Disch Hosp >30min
[2023-08-05 12:00] VITALS: BP 134/66; PULSE 70; RESP 14; TEMP 36.8; O2SAT 98
--- NOTE | 2023-08-05 16:23 | CASEMGMT ---
Social Work IDT conversed on pt and pt is refusing therapy and reportedly being uncooperative with staff. Per staff, pt is requesting to DC home today regardless of what anyone says. Pt was not placed on therapy schedule in anticipation for DC. DR to DC pt today AMA. SW presented to pt's room, but pt asleep in bed and not arousable, however, nurse entered room to provide pt care and pt aroused. This worker introduced self and role and agreed to speak to this worker. Pt agreed for nurse to return later for care. SW inquired about wishes to DC AMA. Pt explained he has so many things to do to prepare for moving into new apartment, and he cannot get any of those things done in 'here' [referring to [place]]. SW encouraged pt to remain in [place] for nursing and therapy care. Pt and this worker spoke back and forth with no resolution. SW inquired where pt would DC to if he left today. Pt stated he could go to this new apartment; it was ready to move in 08/03, but if that was not ready, he could go back to his motor home [not mobile home]. BENJAMIN repeated and clarified pt had a roof over his head to return to, and pt confirmed multiple times. SW offered to contact [facility] to confirm. Pt agreed. BENJAMIN reviewed chart and hand-off reports from acute social workers on pt home situation. Per chart, pt can move into apartment on 08/09. BENJAMIN phoned Kaylee at [facility] to inquire about apt. readiness. Kaylee confirmed move in 08/09 maybe the evening on 08/08 but the old tenant moved out 08/01 and the apt needs 'flipped' for pt to move in. BENJAMIN thanked Kaylee for confirming. BENJAMIN returned to pt's room to update on move in date 08/09. Pt stated then I have nowhere to go. SW repeated earlier conversation, but pt denied, he was intending on moving into new apartment. BENJAMIN informed pt that this worker would return to discuss further. BENJAMIN phoned [employer] to collaborate as pt is allegedly homeless if DC AMA today. After conversation, this worker returned to pt's room to have further detailed discussion. BENJAMIN spoke with pt and attempted to retrieve further details on why pt wants to leave today, how pt would leave, who pt has as a support system, reason for admission initially, willingness to participate in therapy, expectations of Medicare coverage in [place] and therapy, and how this worker can assist pt during stay to remain until 08/09, for apartment readiness. Spoke extensively with pt. Provided ongoing active listening, empathized with pt's current and past situation, and expressed this worker's care for pt's well-being. Assisted pt in problem-solving reasons for pt wanting to DC. Pt expressed he cannot wear the current tennis shoes he has and needs clothes. Pt was admitted to the ED from EMS and was unable to gather personal belongings. Pt stated his daughter lives out of state and bought the shoes and clothes and mailed them to pt to wear. SW reframed pt's reported issues with clothes and shoes, that those are not pt's preferences to wear, but he does have clothes and shoes to wear. Pt agreed with statement. Pt explained he needs his glasses to do anything, which are at this house. Pt also stated he needs paperwork from his house, needs to check on his bank account balance, pay for the rest of the apartment and rent a [employer] truck before Friday. Pt explains he needs to do these tasks in person. First, SW inquired whom can help pt in the community. Pt stated a friend who pt pays to help with things like this. Pt phoned friend, Perez, to ask for help. SW spoke to Perez. Perez has the bowens to the pt's home and offered to bring pt any belongings, however, Perez works long hours (9pm) for the rest of the week and unsure when he could get the items. In addition, Perez stated pt's dtr was told that no one is allowed to enter pt's home without a mask and suit. Perez stated his is sick and he cannot risk bringing any illness home to . If that is not true, Perez would be able to assist. SW agreed to not jeopardize Perez or 's health, but appreciative of willingness to help. Pt ended phone call and refuted allegation of unable to enter pt's home. SW advised to error on the side of caution and not have anyone else enter the home. SW revisited pt's needs/wishes. Pt returned to the need of his glasses. SW offered to appropriately buy reading glasses for pt during stay. Pt agreed. SW informed pt, he could call the [employer] to get balance of bank account; call [employer] to get final payment amount; call to po [place] or this worker could assist with online rental, as pt states he has a credit card on his person; and if further paperwork from [employer] needs completed, this worker could assist. SW continued to stress to pt that he will be homeless if he leaves today, and could benefit from the nursing and therapy for the remainder of the week. Pt attempted to dispute each solution this worker offered, but ultimately, became tearful and expressed he is scared, he misses his dog, and is stressed moving into his apartment. SW validated feelings, empathized, and provided emotional support. SW continue to encourage pt remain and participate in therapy. Noted Medicare is covering [place] stay, and does not want pt to DC homeless or AMA, but pt must participate in therapy for ongoing coverage in . Pt beginning to get more tired, closing eyes, and not engaging in conversation as quickly. SW noted it is approx. 11 am, lunch is arriving within the hour, then therapy will see pt after lunch, and pt will be placed on the therapy schedule for tomorrow. Educated that if pt has a ride to leave AMA, this worker cannot stop pt, but encouraged to get medications, sleep, therapy, and food until apartment is ready 08/09. Pt did agree. This worker exited room and updated PT and Dr. -- After therapy session, SW spoke with treating PT. PT reported pt did participate in full hour session, SBA, completed steps, but did complain of pain. PT prepared pt for full 3 hrs of therapy tomorrow. Pt unsure if he could complete all hours, but willingness to try. SW attempted to follow up with pt but pt asleep in room. -- Acute psychiatric social worker supervisor received email from dtr stating I [dtr] have discussed it with my , and being involved in my father's care is too much for me. He is determined to continue on his usual pattern of needing and getting help,?only to throw it away. I apologize for the extra paperwork and concern this may cause you. Thank you. This worker updated [employer] and a POA VOID is not valid since pt is still electing dtr to make his decisions. SW replied to email to inform dtr. SW will continue to follow. Shivani Hanson, CARDIOVASCULAR DISEASE SPECIALIST ASSISTANT EDITOR
[2023-08-05 17:46] VITALS: BP 110/62; PULSE 83; RESP 14; TEMP 36.8; O2SAT 98
[2023-08-05 19:28] VITALS: BP 112/72; PULSE 72; RESP 14; TEMP 36.7; O2SAT 98
[2023-08-05] MEDS: Loratadine 10 MG Tablet PO (20:47)
[2023-08-05] MEDS: MELATONIN 3 MG TABLET PO (20:47)
[2023-08-06] MEDS: Gentamicin Sulfate 1 OPTH.BTL 1 DRP LEFT EYE ×4 (04:54→20:06)
[2023-08-06] MEDS: Enoxaparin 40 MG/0.4 ML Syringe SC (04:55)
[2023-08-06] MEDS: traMADol 50 MG Tablet PO ×3 (04:58→20:05)
[2023-08-06 07:44] VITALS: BP 117/62; PULSE 91; RESP 16; TEMP 36.7; O2SAT 93
[2023-08-06] MEDS: amLODIPine 10 MG Tablet PO (10:07)
--- NOTE | 2023-08-06 13:10 | NURSING ---
pt refused to work with OT today
--- NOTE | 2023-08-06 16:08 | CASEMGMT ---
Social Work SW notified by PT that pt on the phone with [facility] [employer] and pt is still needing to sign the lease agreement and provide payment for rent, but this can only be done online, and asking for this worker's assistance. SW presented to pt's room and offered assistance with tasks. Pt provided this worker access to phone/email to assist with lease agreement. SW assisted in having pt sign lease agreement, reviewed pricing and how to enroll for payment. BENJAMIN phoned Kaylee at [employer] to confirm lease is signed. Kaylee will confirm once back in the office; once lease is cosigned by Kaylee, an email notification will be sent to pt to set up payment. BENJAMIN agreed to return the following day to assist. Kaylee confirmed that pt can move in 08/08 as early as 0930. Pt also needed to schedule aul. BENJAMIN phoned [facility] and assisted in scheduling truck for lease picker on 08/08, sent email confirmation to pt and printed email confirmation for pt. pt expressed appreciation for this worker's assistance. BENJAMIN will continue to follow. RICKY SifuentesW
[2023-08-06 19:28] VITALS: BP 113/62; PULSE 89; RESP 17; TEMP 36.6; O2SAT 94
[2023-08-06] MEDS: MELATONIN 3 MG TABLET PO (20:05)
[2023-08-06] MEDS: Loratadine 10 MG Tablet PO (20:05)
[2023-08-07] MEDS: Gentamicin Sulfate 1 OPTH.BTL 1 DRP LEFT EYE ×3 (06:20→22:55)
[2023-08-07] MEDS: Enoxaparin 40 MG/0.4 ML Syringe SC (06:21)
[2023-08-07] MEDS: traMADol 50 MG Tablet PO ×3 (06:26→22:56)
[2023-08-07 08:30] VITALS: BP 109/72; PULSE 75; RESP 15; TEMP 36.1; O2SAT 96
[2023-08-07] MEDS: amLODIPine 10 MG Tablet PO (11:43)
[2023-08-07] MEDS: Acetaminophen 325 MG Tablet 650 MG PO (11:43)
[2023-08-07] MEDS: Glycerin/Hypromellose/PEG400 15 ml Bottle 1 DRP EACH EYE (14:44)
[2023-08-07] MEDS: MELATONIN 3 MG TABLET PO (20:06)
[2023-08-07 22:00] VITALS: BP 108/67; PULSE 72; RESP 17; TEMP 36.7; O2SAT 96
[2023-08-07] MEDS: Loratadine 10 MG Tablet PO (22:55)
[2023-08-08] MEDS: Gentamicin Sulfate 1 OPTH.BTL 1 DRP LEFT EYE ×2 (03:09→05:35)
[2023-08-08] MEDS: Enoxaparin 40 MG/0.4 ML Syringe SC (05:35)
[2023-08-08] MEDS: amLODIPine 10 MG Tablet PO (08:06)
[2023-08-08 09:38] VITALS: BP 110/70; PULSE 96; RESP 18; TEMP 36.6; O2SAT 95
--- NOTE | 2023-08-08 10:43 | PCM.PROGNOTE ---
Subjective Subjective This is a late entry for 08/07/23 Afebrile Vital signs are stable-blood pressure is within normal limits and the heart rate is also within normal limits. Maintaining appropriate oxygen saturation on room air Good oral intake D/W nursing - other than not wanting to do anything for himself, he told the nurses he is here for them to take care of him, no problems. Has done some walking and steps with PT but, never more than 1 hour a day. All recent lab is stable. Remains pancytopenic. Diff is unremarkable. Creat is down to 1.22 with a BUN of 20. Calcium is normal. Denies CP, SOB, cough, calf pain and lightheadedness. Alert, poor memory.........not able to recall what I told him after just 5 minutes. Unable to verify info about him that he has told us. Dtr refused to be POA. Says it is the same old story......he begs for help and then when it is offered he refuses or does not follow up. Never received the [facility]. NAD Heart - RRR with no MM or gallops or rub. Lungs - CTA, no tachypnea, respirations are not labored. abd - soft, NT, ND, BS's present no peripheral edema No rashes and no skin breakdown. Stoma is red and producing clear urine. Pt continues to c/o pain in the stoma and he is getting Tramadol 3 times a day but, I have never seen him appear to be in distress. Ambulating with a slow kwaku and no LOB. Continues to refuse to wear the gait belt. He is SBA for STS from various surfaces at A. He is able to SPT with FWW and SBA. He completed the tug test and 17.5 seconds today with a front wheeled walker at standby assist. He was able to do for sit to stands in 30 seconds using his upper extremities to assist. He is able to ascend/descend 5 steps with 2 handrails at standby assist. Impressions 1. Debility due to recent urosepsis 2. Hx of urostomy - 10-15 years ago per pt. functioning well. He is always c/o pain in the stoma but, it is functioning well and the urine is clear. He was not on pain medication at admission to the hospital and he has told me [facility] will not [facility]. He never appears to be in any distress. the cantrell discoloration around the stoma is normal and is due to chronic exposure to moisture. 3. irregular pulmonary nodule in the RLL - suspect he likely has lung CA. He will need to follow up at the [facility] with pulmonology and oncology for further W/U 4. Tobacco dependence - long standing. 5. pancytopenia - unknown etiology. He has been told he will need to follow up with heme/onc for this. 6. Hx of ETOH abuse........tells me that he quit but, I am skeptical about this. 7. In my opinion this gentleman is not capable of taking care for himself. No family willing to step up to be POA. It is my hope that the [facility] will do a competency eval with neurology/geropsych and have him declared incompetent to make healthcare decisions and appt a POA. He is hesitant to do anything for himself if there is someone who will do it for him. SW will make a referral to APS at [place]. 8. Plan is for him to discharge tomorrow to an appt he has rented at [facility] on [address]. An appt has been made for him to follow up with his PCP [facility] the [facility] in [place]. Objective Data Objective Data Vital Signs: Vital Signs Temp Pulse Resp BP Pulse Ox O2 Del Method 97.9 F 96 18 110/70 95 Room Air 08/08/23 09:38 08/08/23 09:38 08/08/23 09:38 08/08/23 09:38 08/08/23 09:38 08/08/23 09:38 Oxygen Delivery Method Room Air Weight: 212 lb 1.355 oz Body Mass Index (BMI) 28.8 Intake & Output: Intake and Output for Last 24 Hours 08/06/23 08/07/23 08/08/23 23:59 23:59 23:59 Intake Total 1100 / 1100 1200 / 1200 360 / 360 Output Total 2200 / 2200 2350 / 2350 750 / 750 Balance -1100 / -1100 -1150 / -1150 -390 / -390 Lab / Micro Data 08/05/23 05:25 08/05/23 05:25 Charges/Coding Visit Charges Inpatient E&M: 00880 Subs Hosp L2
--- NOTE | 2023-08-08 11:37 | PN_ITS ---
Subjective Subjective Afebrile Vital signs are stable Maintaining appropriate oxygen saturation on room air Eating 50 to 75% of his meals. No visitors since he was admitted to the hospital No adverse events is the past 24H. His friend Kel was supposed to pick him up at 9AM today and help him move his stuff into an appt in [place] but, no one has of yet showed up. Now I am told his brother is going to pick him up after he is done with work. I am skeptical about this and would not be surprised if his brother never shows. W ill discuss with the SW what the plan is if no one shows up to transport him today. Will ask discuss with risk management. Continues to complain of stoma pain and back pain. No CP and no cough or SOB. Good urine OP from the stoma and the urine is clear and pale yellow. Alert, poor memory, rambles and has a hard time staying on topic. Lungs - CTA HRRR abd - soft, NT, ND, BS's present No ankle edema and no calf pain Impressions 1. Debility due to Urosepsis, acute on chronic renal failure and generalized weakness 2. Cognitive dysfunction 3. presence of urostomy 4. changes in the skin surrounding the stoma due to chronic exposure to moisture......this is normal. has arranged for the hospital van to take the patient to his home to retrieve some items and then to his apt. His brother will assist with getting the rest of his things to the new appt. [facility]. Needs to be evaluated for pancytopenia and for the irregularly shaped RLL nodule measuring 2.3 cm. Objective Data Objective Data Vital Signs: Vital Signs Temp Pulse Resp BP Pulse Ox O2 Del Method 97.9 F 96 18 110/70 95 Room Air 08/08/23 09:38 08/08/23 09:38 08/08/23 09:38 08/08/23 09:38 08/08/23 09:38 08/08/23 09:38 Oxygen Delivery Method Room Air Weight: 212 lb 1.355 oz Body Mass Index (BMI) 28.8 Intake & Output: Intake and Output for Last 24 Hours 08/06/23 08/07/23 08/08/23 23:59 23:59 23:59 Intake Total 1100 / 1100 1200 / 1200 360 / 360 Output Total 2200 / 2200 2350 / 2350 750 / 750 Balance -1100 / -1100 -1150 / -1150 -390 / -390 Lab / Micro Data 08/05/23 05:25 08/05/23 05:25 Charges/Coding Visit Charges Inpatient E&M: 81801 Subs Hosp L2
--- NOTE | 2023-08-08 13:20 | NURSING ---
discharged home vis transport services. discharge instruction, medications and appointments reviewed with pt. denies questions or concerns
[2023-08-08 13:40] VITALS: BP 110/70; PULSE 96; RESP 18; TEMP 36.6; O2SAT 95
--- NOTE | 2023-08-08 13:47 | CASEMGMT ---
Social Work This worker notified by the nurse that pt's ride home canceled on him and his brother is unsure when he will get off work. SW presented to pt's room to discuss situation and problem solve for cotton picker and new transport. SW left voicemail with Kaylee at [facility] updating her on pt's later arrival time. SW phoned brother, Perez, and Perez was unsure when he would get off work 6,7,8pm. Brother agreed to come to apartment and assist pt with getting belongings after work. SW phoned [employer] for [facility] Van transport, spoke with Ibeth. Ibeth was able to accommodate pt DC cotton picker from [facility], drive to old trailer to gather some belongings quickly, then drop off at [facility] to get the keys before the leasing office closes. Pt agreeable to all arrangements. This worker accompanied nurse to main entrance with pt and belongings and gave well wishes as pt got into [facility] Van. BENJAMIN phoned referral to Fab at [facility]. Notified Fab of housing situation, lack of meals and support. Fab advised this worker to submit referral to [facility] online to allow start of services. BENJAMIN completed referral. BENJAMIN explained pt does not have insurance coverage for [facility], which is why is was not ordered. Fab appreciative of assistance this worker provided thus far and voiced phoning pt after this call to assist with providing immediate food and furniture assistance. RICKY Sifuentes COMMISSIONER OF OFFICIALS
== END 2023-08-08 13:15 | disposition home or self-care (01) | DRG 689 ==
PROVIDERS: Admitting Provider Internal Medicine; Visit Provider Internal Medicine
DX: N39.0 Urinary tract infection, site not specified (principal); I21.4 Non-ST elevation (NSTEMI) myocardial infarction; D61.818 Other pancytopenia; Z16.12 Extended spectrum beta lactamase (ESBL) resistance; N18.31 Chronic kidney disease, stage 3a; I71.43 Infrarenal abdominal aortic aneurysm, without rupture; I12.9 Hypertensive chronic kidney disease with stage 1 through stage 4 chronic kidney disease, or unspecified chronic kidney disease; F17.210 Nicotine dependence, cigarettes, uncomplicated; F17.290 Nicotine dependence, other tobacco product, uncomplicated; B96.20 Unspecified Escherichia coli [E. coli] as the cause of diseases classified elsewhere; Z79.899 Other long term (current) drug therapy; R91.1 Solitary pulmonary nodule
CPT/HCPCS: 36415; 80048; 80053; 83735; 84100; 85025; 85027; 97110; 97116; 97162; 97166; 97530; 97535; 97802; A4216

== ENCOUNTER 2024-01-09 19:17 | Inpatient (IN) | payer OTHER, SELFPAY ==
[2024-01-09 19:22] VITALS: BP 142/82; PULSE 99; RESP 18; TEMP 36.1; O2SAT 98; BMI 26.3
--- NOTE | 2024-01-09 19:31 | CT_ITS ---
STUDY: CT BRAIN WITHOUT CONTRAST REASON FOR EXAM: Male, 73 years old. altered mental status RADIATION DOSAGE (If Supplied By Facility): CTDIvol = ( 44.99 ) mGy, DLP = ( 897.35 ) mGycm TECHNIQUE: Transaxial CT imaging of the brain was performed without administration of intravenous contrast material. Individualized dose optimization techniques were used for this CT. COMPARISON: CT brain July 26, 2023 FINDINGS: Normal soft tissue structures. Normal calvarium. There is moderate cerebral atrophy with widening of the extra-axial spaces and ventricular dilatation. Normal white matter tracts of the cerebral hemispheres. Normal basal ganglia and thalami. Normal brainstem. Normal cerebellum. There is no intracranial hemorrhage. There are no findings of an acute ischemic infarction. Intracranial atherosclerosis. Normal visualized paranasal sinuses. CT/Brain/Head without Contrast IMPRESSION: Chronic involutional changes of the brain. Electronically Signed: Diony Hollingsworth MD at 21:57 EST ,
--- NOTE | 2024-01-09 19:32 | CT_ITS ---
STUDY: CT ABDOMEN AND PELVIS WITHOUT CONTRAST REASON FOR EXAM: Male, 73 years old. RLQ pain RADIATION DOSAGE (If Supplied By Facility): CTDIvol = ( 23.62 ) mGy, DLP = ( 1304.30 ) mGycm TECHNIQUE: Transaxial images were obtained from the dome of the diaphragm to the symphysis pubis without oral contrast, and without intravenous contrast. Sagittal and coronal images were reconstructed. Individualized dose optimization techniques were used for this CT. COMPARISON: CT abdomen and pelvis July 26, 2033. FINDINGS: The visualized lung bases are unremarkable. Calcific coronary artery disease. Normal liver. Normal gallbladder and extrahepatic biliary system. Normal spleen. Normal pancreas. Normal bilateral adrenal glands. Normal right kidney. Moderate left hydronephrosis. Left hydroureter. No radiodense ureterolithiasis. Small hiatal hernia. Normal small intestine. Normal colon. The appendix is visualized and appears normal. Infrarenal abdominal aortic aneurysm measures 3 cm. Calcified plaque along the aorta and its branches. Normal inferior vena cava. Normal retroperitoneum. Normal urinary bladder. Right lower quadrant urostomy. Normal osseous structures. CT/Abdomen/Pelvis without Cont IMPRESSION: Moderate left hydronephrosis and renal atrophy. Right lower quadrant urostomy. 3 cm abdominal aortic aneurysm unchanged. Sensitivity limited without IV and oral contrast. Electronically Signed: Diony Hollingsworth MD at 21:52 EST ,
--- NOTE | 2024-01-09 19:35 | EDS_ITS ---
HPI History of Present Illness Chief Complaint: Confusion Informant: patient and EMS Narrative Narrative: EMS was reportedly called for a welfare check. Patient's brothers reported he had increased confusion the last several days. His home was found to be [address] He does report a fall for 5 days ago. He states everything hurts, specifically his right lower quadrant where his stoma site is. Patient did reportedly start taking CBD Gummies not long ago. EMS squad report stated that his blood sugar was high. He does not have a history of diabetes. He has been hospitalized with altered mental status secondary to UTIs. [facility] Medical History Hypertension Non-STEMI (non-ST elevated myocardial infarction) Stage 3a chronic kidney disease Tobacco dependence Home Medications acetaminophen 325 mg tablet 650 mg (2 x 325 mg) PO Q6H PRN PRN Pain 1-10 Or Fever>100.7 #0 tabs 03/04/23 [Rx Last Taken 07/25/23] amlodipine 10 mg tablet 10 mg PO DAILY blood pressure #0 tabs 03/04/23 [Rx Last Taken 07/25/23] gentamicin 0.3 % eye drops 1 drp LEFT EYE Q4 eye gtts 7 days #0 mL 03/04/23 [Rx Last Taken Unknown] melatonin 3 mg tablet 3 mg PO QHS PRN PRN Insomnia #0 tabs 03/04/23 [Rx Last Taken Unknown] Allergy/AdvReac Type Severity Reaction Status Date / Time No Known Allergies Allergy Verified 07/26/23 12:50 Surgical History History of urostomy Social History household members: none Smoking Status: Current some day smoker tobacco type: cigarettes and cigars alcohol intake: former ROS ROS ED Constitutional Constitutional ED: Denies chills or fever(s) Eyes Eyes: Denies discharge from eye(s) ENT ENT ED: Denies discharge from eye(s), rhinorrhea or sore throat Cardiovascular Cardiovascular: Denies chest pain or palpitations Respiratory/Chest Respiratory/Chest: Reports dyspnea; Denies cough Gastrointestinal Gastrointestinal: Reports abdominal pain; Denies diarrhea, nausea or vomiting Musculoskeletal Musculoskeletal: Reports back pain and extremity pain Integumentary Denies Abrasions or rash Neurologic Neurologic: Reports headache(s) and weakness Psychiatric Psychiatric: Denies anxiety or depression Allergic/Immunologic Allergic/Immunologic ED: Denies lip swelling or urticaria EXAM Physical Exam Const Vital Signs: 01/09/24 19:22 01/09/24 20:44 01/09/24 21:20 Temperature 97 F L 97 F L 97.2 F L Temperature Source Temporal Temporal Axillary Pulse Rate 99 122 H 109 H Respiratory Rate 18 14 18 Blood Pressure 142/82 H 140/98 H 152/99 H Blood Pressure Mean 102 112 116 Pulse Ox 98 95 96 Oxygen Delivery Method Room Air Room Air Room Air Positive well nourished and well developed General Appearance ED: well developed HEENT Reports dry mucous membranes Mouth ED: Yes dry mucous membranes Mouth: dry mucous membranes Eyes EOMs intact bilaterally Chest Wall inspection of chest normal and palpation of chest normal Resp normal respiratory effort and clear to auscultation bilaterally Cardio regular rate and regular rhythm GI GI Narrative: Abdomen soft with minimal diffuse tenderness, slightly worse in the right lower quadrant at his stoma site. No surrounding erythema or palpable mass. Extremity normal to inspection Neuro Neuro Narrative: Patient is alert and answers questions. He is intermittently confused but able to be redirected. No focal deficits are noted. Skin no rashes or lesions noted MDM MDM MDM Narrative Medical decision making narrative: Patient placed on filter tank tender. IV line initiated. EKG obtained to evaluate for cardiac arrhythmia/ischemia. Labwork obtained to evaluate for leukocytosis, anemia, and electrolyte derangement. Urinalysis obtained to evaluate for infection/hematuria. Swab for COVID, influenza, and RSV obtained. CT scan of the head obtained given his confusion as well as CT scan abdomen pelvis given his right lower quadrant pain to evaluate for bowel abnormality, appendicitis, renal stone. BGT was obtained on arrival to the emergency room. His blood sugar is reading high on our monitor as well. Patient does tell the nurse that he is diabetic, although we do not have record of this from his last admission in August 2023. History & Record Review Discussion w/independent historian: Patient Additional record(s) reviewed:: Prior inpatient record, Prior ED visit and Prior labs Lab Data Attestation: I reviewed the patient's lab results. Labs: Laboratory Results - last 24 hr 01/09/24 01/09/24 01/09/24 19:39 19:58 20:27 WBC 6.0 RBC 4.74 Hgb 15.6 Hct 45.5 MCV 96.0 H MCH 32.9 H MCHC 34.3 RDW Std Deviation 50.9 H RDW Coeff of Homar 14.6 Plt Count 104 L MPV 12.8 H Immature Gran % (Auto) 1.200 H Neut % (Auto) 72.3 H Lymph % (Auto) 17.5 L Pershing % (Auto) 7.0 Eos % (Auto) 1.3 Baso % (Auto) 0.7 Absolute Neuts (auto) 4.4 Absolute Lymphs (auto) 1.06 Nucleated RBC % 0 Sodium 123 L Potassium 3.5 Chloride 97 L Carbon Dioxide 14.0 L Anion Gap 12 BUN 43 H Creatinine 3.27 H Estim Creat Clear Calc 22.08 Est GFR (MDRD) Af Amer 24 L Est GFR (MDRD) Non-Af 20 L BUN/Creatinine Ratio 13.1 Glucose 879 H* Hemoglobin A1c 12.1 H Calcium 10.0 Total Bilirubin 1.60 H Direct Bilirubin 0.63 H AST 13 L ALT 12 L Alkaline Phosphatase 133 H Troponin I High Sens 52 Total Protein 8.5 H Albumin 3.4 Globulin 5.1 H Lipase 295 H Urine Color Yellow Urine Clarity Clear Urine pH 7.0 Ur Specific [place] 1.010 Urine Protein 30 H Urine Glucose (UA) 1000 H Urine Ketones 5 H Urine Occult Blood 250 H Urine Nitrite Negative Urine Bilirubin Negative Urine Urobilinogen Normal Ur Leukocyte Esterase 500 H Urine RBC 0-5 SEEN Urine WBC 5-10 SEEN Ur Squamous Epith Cells 0-5 SEEN Urine Bacteria 0 SEEN Urine Mucus 0 SEEN Urine Opiates Screen NEGATIVE Urine Methadone Screen NEGATIVE Ur Barbiturates Screen NEGATIVE Ur Phencyclidine Scrn NEGATIVE Ur Amphetamines Screen NEGATIVE MDMA (Ecstasy) Screen NEGATIVE U Benzodiazepines Scrn NEGATIVE Urine Cocaine Screen NEGATIVE U Cannabinoids Screen NEGATIVE Ur Drug Screen Comment Ethyl Alcohol < 3.0 Acetone Level NEGATIVE POC Glucose > 500 H* ABG Data ABG results: ABG 01/09/24 20:21 Specimen Type HEBERT Sample Site Not entered VBG pH 7.22 L VBG pO2 38 VBG HCO3 14 L VBG Total CO2 15 L VBG O2 Sat (Calc) 62 VBG Base Excess -14 L POC Mix VBG pCO2 Pt Tmp 33.4 L O2 Delivery Device Room Air Radiography Chest X-Ray - ED: 1 View, Read by ED Physician, Chronic Changes and No Infiltrates Diagnostic Testing: Clinical Impression(s) from Imaging Studies Brain CT 01/09/24 19:31 IMPRESSION: Chronic involutional changes of the brain. Electronically Signed: Diony Hollingsworth MD at 21:57 EST Reading Location ID and State: [address] [place] [address] Tel , Service support , Abdomen/Pelvis CT 01/09/24 19:32 IMPRESSION: Moderate left hydronephrosis and renal atrophy. Right lower quadrant urostomy. 3 cm abdominal aortic aneurysm unchanged. Sensitivity limited without IV and oral contrast. Electronically Signed: Diony Hollingsworth MD at 21:52 EST Reading Location ID and State: [address] [place] [address] Tel , Service support , Chest X-Ray 01/09/24 20:09 IMPRESSION: Normal x-ray examination of the chest. Electronically Signed: Diony Hollingsworth MD at 21:02 EST Reading Location ID and State: [address] [place] [address] Tel , Service support , EKG Initial EKG: Attestation: I personally reviewed and interpreted this EKG as follows: Interpretation: Sinus Tachycardia (Sinus tachycardia at 109 with left anterior fascicular block. T wave inversions in V2 through V6 noted, similar to prior study.) Treatment and Re-Evaluation :: CBC was normal white count at 6.0. Hemoglobin is 15.6, however prior labs appear to show baseline hemoglobin around 9. Platelet count is low at 104. Differential is unremarkable. Chemistry studies significant for acute kidney injury with a BUN of 43 and a creatinine of 3.27. In August the patient's creatinine was 1.22. Glucose is elevated at 879. Sodium reveals pseudo- hyponatremia at 123. LFTs significant for total bilirubin of 1.6, direct bilirubin of 0.63. ALT and AST are normal. Alk phos is 133. Lipase is slightly elevated at 295. Urinalysis reveals 5-10 white cells with 0-5 epithelial cells. No bacteria noted. This is sent for culture. Urine tox screen is negative. EtOH is negative. Serum acetone is negative. Patient's hemoglobin A1c is 12.1. EKG is sinus tachycardia with T inversions in the precordial leads. This appears similar to prior study. Chest x-ray per my interpretation was chronic changes with no focal infiltrate. Radiology interpretation is reviewed and agrees. VBG reveals a pH of 7.216. CT scan of the head reveals chronic involutional changes. CT scan of the abdomen pelvis reveals hydronephrosis with renal atrophy on the left. This is similar to prior study when I compare. Right lower quadrant urostomy is noted. He has a 3 cm abdominal aortic aneurysm which is unchanged from prior. Patient is currently getting a second liter of IV fluids. He states he normally takes pills for his diabetes. I spoke with hospitalist who would like the patient to be given 20 units of Lantus subcu at this time and patient be admitted to the PCU. Discharge Plan Triage Chief Complaint: Confusion ED Provider: Melissa Ocampo Dx/Rx/DC Orders Clinical Impression: NAYE (acute kidney injury), Confusion, Hyperglycemia Prescriptions: No Action acetaminophen 325 mg Tablet 650 mg PO Q6H PRN PRN (Reason: Pain 1-10 Or Fever>100.7) Qty: 0 0RF melatonin 3 mg Tablet 3 mg PO QHS PRN PRN (Reason: Insomnia) Qty: 0 0RF gentamicin 0.3 % Drops 1 drp LEFT EYE Q4 7 Days Qty: 0 0RF Hold Instructions: I can see fine now - noncompliant amlodipine 10 mg Tablet 10 mg PO DAILY Qty: 0 0RF [facility] [facility] Provider[facility] - Disposition Disposition: Acute Care Hospital [facility]
--- NOTE | 2024-01-09 20:09 | RAD_ITS ---
STUDY: X-RAY CHEST REASON FOR EXAM: Male, 73 years old. sob TECHNIQUE: Single frontal view of the chest. COMPARISON: July 26, 2023 FINDINGS: The lungs are clear and expanded. There is no demonstrated pleural abnormality. Normal size heart. Normal mediastinum and christine. Normal visualized pulmonary arteries. Normal visualized aortic arch and descending thoracic aorta. Normal visualized thoracic spine. Normal visualized ribs, clavicles, and shoulders. There is no demonstrated abnormality of the visualized soft tissue structures of the upper abdomen. RAD/Chest 1 View (Portable) IMPRESSION: Normal x-ray examination of the chest. Electronically Signed: Diony Hollingsworth MD at 21:02 EST ,
--- OUTSIDE RECORDS SUMMARY | 2024-01-09 20:13 | XMS RPT_ITS | CCD ---
Author Name Unknown Address [address] [place] [address] Organization [facility] Care Team Providers Care [place] Operator Name Role Phone ALVARADO JOHNSON MD Attending Unavailable ALVARADO JOHNSON MD Consulting Unavailable ALVARADO JOHNSON MD Primary Care Unavailable ALVARADO JOHNSON MD Admitting Unavailable PROVIDER, UNKNOWN Consulting Unavailable PROVIDER, UNKNOWN Consulting Unavailable Results Test Name Value Interpretation Reference Range Facil ity Encounters Encounter Date Encounter Type Care Provider Facility Start: 03-04-2023 ambulatory ALVARADO JOHNSON [facility] Summary Purpose Family History No Family History Records Found Advance Directives No Advanced Directives Records Found Additional Source Comments (unrecognized sect ion and content) No Status Records Found INFORMATION SOURCE (unrecogn ized section and content) FOR RECORDS PERTAINING TO PATIENTS WHO ARE OR HAVE BEEN ENROLLED IN A CHEMICAL DEPENDENCY/SUBSTANCEABUSE PROGRAM, SOME INFORMATION MAY BE OMITTED. This clinical summary was aggregated from multiple sources. Caution should be exercised in using it in the provision of clinical care. This summary normalizes information from multiple sources, and as a consequence, information in this document may materially change the coding, format and clinical context of patient data. In addition, data may be omitted in some cases. CLINICAL DECISIONS SHOULD BE BASED ON THE PRIMARY CLINICAL RECORDS. [facility]. provides no warranty or guarantee of the accuracy or completeness of information in this document.
[2024-01-09 20:24] LABS: Blood Gas Specimen Type VEN; O2 Delivery Device Room Air; SITE Not entered; VBG BASE EXCESS -14 mmol/L (-1.0-3.5); VBG Bicarbonate 14 mmol/L (22-26); VBG PO2 38 mmHg (25-40); VBG SO2 62 % (50-70); VBG TCO2 15 mmol/L (23-33); VBG pCO2 33.4 mmHg (41-51); VBG pH 7.22 (7.32-7.42)
[2024-01-09 20:24] LABS: Absolute Lymphocyte Count 1.06 X10^3/uL (0.83-4.51); Absolute Neutrophil Count 4.4 X10^3/uL (2.0-7.7); Basophil# 0.04 X10^3/uL; Basophil% 0.7 % (0-1); Eosinophil# 0.08 X10^3/uL; Eosinophils% 1.3 % (0-5); Hematocrit 45.5 % (40-54); Hemoglobin 15.6 g/dL (13.0-16.5); Lymphocyte # 1.06 X10^3/ul (0.83-4.51); Lymphocyte % 17.5 % (19-41); Mean Corp Hgb Conc 34.3 g/dL (32-36); Mean Corpuscular Hgb 32.9 pg (27.0-32.0); Mean Platelet Vol. 12.8 fl (6.2-12.0); Monocyte# 0.42 X10^3/uL; NRBC Flagged by Analyzer 0 % (0-5); Neutrophil # 4.37 X10^3/uL (2.7-7.7); Neutrophil % 72.3 % (47-70); Platelet Count 104 K/mm3 (150-450); RBC Distribution Width CV 14.6 % (11.6-14.6); RBC Distribution Width SD 50.9 fl (35.1-43.9); Red Blood Count 4.74 M/mm3 (4.6-6.2)
[2024-01-09 20:29] LABS: Alcohol, Blood (Medical)-Serum < 3.0 mg/dL
[2024-01-09 20:31] LABS: Bacteria 0 SEEN /hpf (None Seen); Mucous, Urine 0 SEEN /hpf (<or=2+)
[2024-01-09 20:33] LABS: Color, Urine Yellow (Yellow); Glucose, Dipstick 1000 mg/dl (Normal); Ketone-Dipstick 5 mg/dl (Negative); Leukocyte Esterase-Dipstick 500 /ul (Negative); Nitrite-Dipstick Negative (Negative); Occult Blood-Urine 250 /ul (Negative); Protein-Dipstick 30 mg/dl (Negative); Urine Bilirubin Dipstick Negative (Negative); Urine Clarity Clear (Clear); Urine Urobilinogen Normal (Normal)
[2024-01-09] MEDS: 0.9% Normal Saline (1000mL) 1,000 ML 999 ML IV ×2 (20:34→21:59)
--- NOTE | 2024-01-09 20:39 | ED.RN ---
Daughter, Sharee Kaur is POA. Called asking for information, permission given by pt. Phone number [phone].
[2024-01-09 20:44] VITALS: BP 140/98; PULSE 122; RESP 14; TEMP 36.1; O2SAT 95
[2024-01-09 20:44] LABS: Amphetamine Urine VISTA NEGATIVE (<1000 ng/mL); Barbiturate Urine VISTA NEGATIVE (< 200 ng/mL); Benzodiazepine Urine VISTA NEGATIVE (< 200 ng/mL); Cocaine Urine VISTA NEGATIVE (< 300 ng/mL); Ecstacy Urine VISTA NEGATIVE (< 500 ng/mL); Methadone Urine VISTA NEGATIVE (< 300 ng/mL); PCP Urine VISTA NEGATIVE (< 25 ng/mL); THC Urine VISTA NEGATIVE (< 50 ng/mL); Vista UDS pH Range 7
[2024-01-09 20:45] LABS: Red Blood Cells-Urine 0-5 SEEN /hpf (0-5); Squamous Epithelial Cells - UA 0-5 SEEN /hpf (0-5); White Blood Cells 5-10 SEEN /hpf (0-5)
[2024-01-09 20:47] LABS: AST(SGOT) 13 U/L (15-37); Alanine Aminotransfer ALT/SGPT 12 U/L (16-61); Albumin, Serum 3.4 g/dL (3.2-5.0); Alkaline Phosphatase 133 U/L (45-117); Anion Gap 12 (5-15); BUN 43 mg/dL (7-18); BUN/Creat Ratio 13.1 RATIO (10-20); Bilirubin, Direct 0.63 mg/dL (0.00-0.30); Chloride 97 mmol/L (98-107); Creatinine, Serum 3.27 mg/dL (0.70-1.30); EST Glomerular Filtration Rate 20 mL/min (>60); Est Glom Filt Rate - Afr Amer 24 mL/min (>60); Estimated Creatinine Clearance 22.08 ml/min; Globulin 5.1 g/dL (2.2-4.2); Glucose 879 mg/dL (74-106); Lipase 295 U/L (13-75); Potassium 3.5 mmol/L (3.5-5.1); Protein, Total 8.5 g/dL (6.4-8.2); Sodium Level 123 mmol/L (136-145); Troponin-I HS (w/2H Reflex) 52 pg/mL (3.0-78.0)
[2024-01-09 20:48] LABS: Hemoglobin A1c 12.1 % (3.8-5.6)
[2024-01-09 21:11] LABS: Bedside Glucose > 500 mg/dL (74-106)
[2024-01-09 21:20] VITALS: BP 152/99; PULSE 109; RESP 18; TEMP 36.2; O2SAT 96
[2024-01-09 22:03] LABS: Reflex Troponin-HS? (from REC) Y
--- NOTE | 2024-01-09 22:21 | PCM.HP.STD ---
[facility] - General General Date of Admission: 01/09/24 Date of Service: 01/09/24 Chief Complaint: Altered mental status, confused as found by by his brother, abnormal behavior. HPI Narrative LEIF SIMON, is a 73 M was brought by EMS in confused state. Before that his brother checks them every day and found him confused disoriented. EMS found him in underwear, disorganized behavior/disheveled and that he turned up 85 Fahrenheit. Patient also takes CBD/marijuana gummy but patient stated he has just took 1 day. His blood sugar rate was too high on 2 occasions. Patient further stated did not had good appetite, water or food intake for about 1 week. Patient is still confused and disoriented and states he is in [facility] and could not tell his age. In ED, vitals in normal range. Patient denies any fever or chills. Blood sugar 879 BMP, A1c 12.1. BUNs/creatinine is high but he has CKD stage 4 and was admitted for similar altered mental status, septic shock secondary to ESBL UTI in August 2023. In ED, patient was restrained with 2 L of IV bolus and Lantus 20 units given. Patient did not meet criteria for DKA therefore admitted in PCU [facility] Medical History Hypertension Non-STEMI (non-ST elevated myocardial infarction) Stage 3a chronic kidney disease Tobacco dependence Home Medications acetaminophen 325 mg tablet 650 mg (2 x 325 mg) PO Q6H PRN PRN Pain 1-10 Or Fever>100.7 #0 tabs 03/04/23 [Rx Last Taken 07/25/23] amlodipine 10 mg tablet 10 mg PO DAILY blood pressure #0 tabs 03/04/23 [Rx Last Taken 07/25/23] gentamicin 0.3 % eye drops 1 drp LEFT EYE Q4 eye gtts 7 days #0 mL 03/04/23 [Rx Last Taken Unknown] melatonin 3 mg tablet 3 mg PO QHS PRN PRN Insomnia #0 tabs 03/04/23 [Rx Last Taken Unknown] Allergy/AdvReac Type Severity Reaction Status Date / Time No Known Allergies Allergy Verified 07/26/23 12:50 Surgical History History of urostomy Social History household members: none Smoking Status: Current some day smoker tobacco type: cigarettes and cigars alcohol intake: former ROS ROS Narrative 14 ROS is not completely obtainable as patient is confused and disoriented. Overall he states he does not have fever, chest pain shortness of breath. He is urine bag is leaking. Not happy with the urostomy and he states [facility] has his screwed it up Bowel movement states normal but could not substantiate it. Denies GI bleed Vital Signs Vital Signs Vital Signs: 01/09/24 19:22 01/09/24 20:44 01/09/24 21:20 Temperature 97 F L 97 F L 97.2 F L Temperature Source Temporal Temporal Axillary Pulse Rate 99 122 H 109 H Respiratory Rate 18 14 18 Blood Pressure 142/82 H 140/98 H 152/99 H Blood Pressure Mean 102 112 116 Pulse Ox 98 95 96 Oxygen Delivery Method Room Air Room Air Room Air Weight Weight: 194 lb 3.636 oz Body Mass Index (BMI) 26.3 Physical Exam Narrative General: Awake, confused, disoriented to place and time. HEENT: Atraumatic, PERRLA, EOMI, Normocephalic Oral: No Gingival or Mucosal Lesions/ Ulcerations Neck: Supple, No JVD, Negative Carotid Bruits Chest wall/Lungs: Air entry diminished in bilateral lung bases. No crepitation/rhonchi Cardiovascular: Regular rate, Regular Rhythm, Normal S1, Normal S2, No M/G/R Abdomen: Bowel Sounds Present, Soft, Non Tender, Non-Distended : No dysuria. No renal angle tenderness. No suprapubic tenderness. Extremities: No edema, Capillary Refill Less than 3 Seconds Skin: No rashes, No breakdown Musculoskeletal: No Tenderness to Palpation of Joints or Extremities Neurological: Cranial nerves II-XII grossly intact, DTR 2+/4. No acute focal neurological deficit. Psych/Mental Status: disheveled, disorganized behavior, flat affect Results Lab / Micro Data 01/09/24 19:58 01/09/24 19:58 Labs: Laboratory Results - last 24 hr 01/09/24 19:39: POC Glucose > 500 H* 01/09/24 19:58: WBC 6.0, RBC 4.74, Hgb 15.6, Hct 45.5, MCV 96.0 H, MCH 32.9 H, MCHC 34.3, RDW Std Deviation 50.9 H, RDW Coeff of Homar 14.6, Plt Count 104 L, MPV 12.8 H, Immature Gran % (Auto) 1.200 H, Neut % (Auto) 72.3 H, Lymph % (Auto) 17.5 L, [place] % (Auto) 7.0, Eos % (Auto) 1.3, Baso % (Auto) 0.7, Absolute Neuts (auto) 4.4, Absolute Lymphs (auto) 1.06, Nucleated RBC % 0, Sodium 123 L, Potassium 3.5, Chloride 97 L, Carbon Dioxide 14.0 L, Anion Gap 12, BUN 43 H, Creatinine 3.27 H, Estim Creat Clear Calc 22.08, Est GFR (MDRD) Af Amer 24 L, Est GFR (MDRD) Non-Af 20 L, BUN/Creatinine Ratio 13.1, Glucose 879 H*, Hemoglobin A1c 12.1 H, Calcium 10.0, Total Bilirubin 1.60 H, Direct Bilirubin 0.63 H, AST 13 L, ALT 12 L, Alkaline Phosphatase 133 H, Troponin I High Sens 52, Total Protein 8.5 H, Albumin 3.4, Globulin 5.1 H, Lipase 295 H, Ethyl Alcohol < 3.0, Acetone Level NEGATIVE 01/09/24 20:27: Urine Color Yellow, Urine Clarity Clear, Urine pH 7.0, Ur Specific [place] 1.010, Urine Protein 30 H, Urine Glucose (UA) 1000 H, Urine Ketones 5 H, Urine Occult Blood 250 H, Urine Nitrite Negative, Urine Bilirubin Negative, Urine Urobilinogen Normal, Ur Leukocyte Esterase 500 H, Urine RBC 0-5 SEEN, Urine WBC 5-10 SEEN, Ur Squamous Epith Cells 0-5 SEEN, Urine Bacteria 0 SEEN, Urine Mucus 0 SEEN, Urine Opiates Screen NEGATIVE, Urine Methadone Screen NEGATIVE, Ur Barbiturates Screen NEGATIVE, Ur Phencyclidine Scrn NEGATIVE, Ur Amphetamines Screen NEGATIVE, MDMA (Ecstasy) Screen NEGATIVE, U Benzodiazepines Scrn NEGATIVE, Urine Cocaine Screen NEGATIVE, U Cannabinoids Screen NEGATIVE, Ur Drug Screen Comment Micro: Microbiology 01/09/24 20:11 Mucosa - Nose SARS-CoV-2, Influenza & RSV (PCR) - Final ABG Data ABG results: ABG 01/09/24 20:21 Specimen Type HEBERT Sample Site Not entered VBG pH 7.22 L VBG pO2 38 VBG HCO3 14 L VBG Total CO2 15 L VBG O2 Sat (Calc) 62 VBG Base Excess -14 L POC Mix VBG pCO2 Pt Tmp 33.4 L O2 Delivery Device Room Air Imaging Radiology Impression Brain CT 01/09/24 19:31 IMPRESSION: Chronic involutional changes of the brain. Electronically Signed: Diony Hollingsworth MD at 21:57 EST Reading Location ID and State: [employer] [place] Tel , Service support , Abdomen/Pelvis CT 01/09/24 19:32 IMPRESSION: Moderate left hydronephrosis and renal atrophy. Right lower quadrant urostomy. 3 cm abdominal aortic aneurysm unchanged. Sensitivity limited without IV and oral contrast. Electronically Signed: Diony Hollingsworth MD at 21:52 EST Reading Location ID and State: [employer] [place] Tel , Service support , Chest X-Ray 01/09/24 20:09 IMPRESSION: Normal x-ray examination of the chest. Electronically Signed: Diony Hollingsworth MD at 21:02 EST Reading Location ID and State: [employer] [place] Tel , Service support , Assessment & Plan Assessment/Plan (1) Metabolic encephalopathy: (2) Hyperglycemia: (3) NAYE (acute kidney injury): PLAN: Plan This 73-year-old gentleman being admitted for altered mental status, hyperglycemia, NAYE on CKD stage IV 1. Altered mental status/acute encephalopathy, exact etiology unclear but possible metabolic encephalopathy: Patient is being admitted in PCU. Orientation cues. Try to treat underlying factor. 2. Diabetes mellitus type 2 with hyperglycemia: A1c 12.1, glucose 179. Does not meet criteria for DKA. VBG 7.22, total CO2 15, mixed pCO2 33 mmHg. Mild normal anion gap metabolic acidosis. Lantus 15 units after meals twice daily with holding parameters. Humalog insulin 10 units subcutaneous 3 times daily. Accu-Cheks and cover with block sliding scale. 3. NAYE on CKD stage IIIa with hyponatremia: Baseline creatinine runs around 1.2-1.3. Admission BUNs/creatinine 43/3.27. Sodium 123. K3.5. UA from urostomy shows LE 500, WBC 5-10 cells, urine bacteria 0, squamous epithelial cells 0-5. CT abdomen shows left moderate hydronephrosis and renal atrophy. Normal right kidney. Right lower quadrant urostomy. Normal small intestine and colon. Infrarenal AAA measuring 3 cm. Normal retroperitoneum. Normal urinary bladder. Patient stated he does not follow any energy efficiency specialist therefore will consult energy efficiency specialist. Serum magnesium and phosphorus ordered. I do not think patient has UTI therefore will not start empiric antibiotic but follow urine and blood culture. IV fluid normal saline at 100 mill per hour for 2 L. 4. Elevated lipase 295. During previous admission patient's lipase was 346. Patient does not have abdominal pain or tenderness, guarding or rigidity. Clinically I do not think patient has pancreatitis 5. Chronic thrombocytopenia: Platelet count is 104,000. Patient's platelet has been low 70s to 80,000 last year therefore this is better than his baseline. DVT prophylaxis: High risk. Lovenox 30 mg subcu daily. Discontinue if platelet count drops less than 50,000 or hemoglobin less than 8 g% Living will/advanced directive/end of life care: Patient does not have living will or advanced directive. His brother is the caregiver. After discussion of benefits/risks procedures involved with full code, DNR CC arrest and DNR CC, the patient opted for DNR CC arrest with no intubation Patient doesn't want artificial life support including intubation, tube feed, ventilator and/chest compression, central venous catheter, vasopressor and DC shock if needed Total time spent in [id number] encounter in discussion of advanced directive 17 minutes. Microbiology Past 72 Hours 01/09/24 20:11 Mucosa - Nose SARS-CoV-2, Influenza & RSV (PCR) - Final Laboratory Results 01/09/24 19:39: POC Glucose > 500 H* 01/09/24 19:58: WBC 6.0, RBC 4.74, Hgb 15.6, Hct 45.5, MCV 96.0 H, MCH 32.9 H, MCHC 34.3, RDW Std Deviation 50.9 H, RDW Coeff of Homar 14.6, Plt Count 104 L, MPV 12.8 H, Immature Gran % (Auto) 1.200 H, Neut % (Auto) 72.3 H, Lymph % (Auto) 17.5 L, [place] % (Auto) 7.0, Eos % (Auto) 1.3, Baso % (Auto) 0.7, Absolute Neuts (auto) 4.4, Absolute Lymphs (auto) 1.06, Nucleated RBC % 0, Sodium 123 L, Potassium 3.5, Chloride 97 L, Carbon Dioxide 14.0 L, Anion Gap 12, BUN 43 H, Creatinine 3.27 H, Estim Creat Clear Calc 22.08, Est GFR (MDRD) Af Amer 24 L, Est GFR (MDRD) Non-Af 20 L, BUN/Creatinine Ratio 13.1, Glucose 879 H*, Hemoglobin A1c 12.1 H, Calcium 10.0, Total Bilirubin 1.60 H, Direct Bilirubin 0.63 H, AST 13 L, ALT 12 L, Alkaline Phosphatase 133 H, Troponin I High Sens 52, Total Protein 8.5 H, Albumin 3.4, Globulin 5.1 H, Lipase 295 H, Ethyl Alcohol < 3.0, Acetone Level NEGATIVE 01/09/24 20:21: Specimen Type HEBERT, Sample Site Not entered, VBG pH 7.22 L, VBG pO2 38, VBG HCO3 14 L, VBG Total CO2 15 L, VBG O2 Sat (Calc) 62, VBG Base Excess -14 L, POC Mix VBG pCO2 Pt Tmp 33.4 L, O2 Delivery Device Room Air 01/09/24 20:27: Urine Color Yellow, Urine Clarity Clear, Urine pH 7.0, Ur Specific [place] 1.010, Urine Protein 30 H, Urine Glucose (UA) 1000 H, Urine Ketones 5 H, Urine Occult Blood 250 H, Urine Nitrite Negative, Urine Bilirubin Negative, Urine Urobilinogen Normal, Ur Leukocyte Esterase 500 H, Urine RBC 0-5 SEEN, Urine WBC 5-10 SEEN, Ur Squamous Epith Cells 0-5 SEEN, Urine Bacteria 0 SEEN, Urine Mucus 0 SEEN, Urine Opiates Screen NEGATIVE, Urine Methadone Screen NEGATIVE, Ur Barbiturates Screen NEGATIVE, Ur Phencyclidine Scrn NEGATIVE, Ur Amphetamines Screen NEGATIVE, MDMA (Ecstasy) Screen NEGATIVE, U Benzodiazepines Scrn NEGATIVE, Urine Cocaine Screen NEGATIVE, U Cannabinoids Screen NEGATIVE, Ur Drug Screen Comment Clinical Impression(s) from Imaging Studies Brain CT 01/09/24 19:31 IMPRESSION: Chronic involutional changes of the brain. CT head does not show acute intracranial abnormality but chronic changes. Abdomen/Pelvis CT 01/09/24 19:32 IMPRESSION: Moderate left hydronephrosis and renal atrophy. Right lower quadrant urostomy. 3 cm abdominal aortic aneurysm unchanged. Sensitivity limited without IV and oral contrast. Chest X-Ray 01/09/24 20:09 IMPRESSION: Normal x-ray examination of the chest. Electronically Signed: Diony Hollingsworth MD at 21:02 EST , Charges/Coding Visit Charges Inpatient E&M: 85177 Init Hosp L3 Procedures Hospitalists Procedures: 15090 Advncd Care Plan 30 Min
--- OUTSIDE RECORDS SUMMARY | 2024-01-09 22:39 | XMS RPT_ITS | CCD ---
Author Name Unknown Address [address] [place] [address] Organization [facility] Care Team Providers Care Physical Education Specialist Name Role Phone ALVARADO JOHNSON MD Attending Unavailable ALVARADO JOHNSON MD Consulting Unavailable ALVARADO JOHNSON MD Primary Care Unavailable ALVARADO JOHNSON MD Admitting Unavailable PROVIDER, UNKNOWN Consulting Unavailable PROVIDER, UNKNOWN Consulting Unavailable Results Test Name Value Interpretation Reference Range Facil ity Encounters Encounter Date Encounter Type Care Provider Facility Start: 03-04-2023 ambulatory ALVARADO JOHNSON [facility] Summary Purpose Family History No [...] BE BASED ON THE PRIMARY CLINICAL RECORDS. [employer] [facility]. provides no warranty or guarantee of the accuracy or completeness of information in this document.
[2024-01-09] MEDS: Insulin Glargine-YFGN 100 UNIT/ML Pen 20 UNIT SC (22:42)
[2024-01-09 22:44] VITALS: BP 138/92; PULSE 83; PULSE 85; RESP 16; RESP 21; TEMP 36.4; O2SAT 95; O2SAT 97
[2024-01-09 23:10] LABS: Magnesium 2.4 mg/dL (1.6-2.6); Troponin-I HS 50 pg/mL (3.0-78.0)
[2024-01-09 23:13] LABS: Phosphorus 1.9 mg/dL (2.5-4.9); Uric Acid 3.9 mg/dL (3.5-7.2)
--- OUTSIDE RECORDS SUMMARY | 2024-01-09 23:47 | XMS RPT_ITS | CCD ---
Author Name Unknown Address [address] [place] [address] Organization [facility] Care Team Providers Care Cork Cutter Name Role Phone ALVARADO JOHNSON MD Attending Unavailable ALVARADO JOHNSON MD Consulting Unavailable ALVARADO JOHNSON MD Primary Care Unavailable ALVARADO JOHNSON MD Admitting Unavailable PROVIDER, UNKNOWN Consulting Unavailable PROVIDER, UNKNOWN Consulting Unavailable Results Test Name Value Interpretation Reference Range Facil ity Encounters Encounter Date Encounter Type Care Provider Facility Start: 03-04-2023 ambulatory ALVARADO JOHNSON [facility] Summary Purpose Family History No [...] BE BASED ON THE PRIMARY CLINICAL RECORDS. [employer] [facility]. provides no warranty or guarantee of the accuracy or completeness of information in this document.
[2024-01-09 23:59] VITALS: BMI 30.7
[2024-01-10] VITALS: BP 99/61; PULSE 127; RESP 18; TEMP 36.6; O2SAT 100
[2024-01-10 00:05] VITALS: O2SAT 100
[2024-01-10] MEDS: 0.9% Normal Saline (1000mL) 1,000 ML 100 ML IV ×2 (00:19→10:44)
[2024-01-10 01:49] VITALS: BMI 30.7
[2024-01-10] MEDS: Enoxaparin 30 MG/0.3 ML Syringe SC (04:16)
[2024-01-10 05:55] LABS: Absolute Lymphocyte Count 1.08 X10^3/uL (0.83-4.51); Absolute Neutrophil Count 3.4 X10^3/uL (2.0-7.7); Basophil# 0.02 X10^3/uL; Basophil% 0.4 % (0-1); Eosinophil# 0.09 X10^3/uL; Eosinophils% 1.8 % (0-5); Hemoglobin 14.7 g/dL (13.0-16.5); Lymphocyte # 1.08 X10^3/ul (0.83-4.51); Lymphocyte % 21.7 % (19-41); Mean Corpuscular Hgb 33.3 pg (27.0-32.0); Mean Platelet Vol. 12.5 fl (6.2-12.0); NRBC Flagged by Analyzer 0 % (0-5); Neutrophil # 3.44 X10^3/uL (2.7-7.7); Neutrophil % 69.3 % (47-70); POSITIVE COUNT YES; Platelet Count 76 K/mm3 (150-450); RBC Distribution Width CV 14.4 % (11.6-14.6); RBC Distribution Width SD 49.6 fl (35.1-43.9); Red Blood Count 4.42 M/mm3 (4.6-6.2)
[2024-01-10 06:00] VITALS: BP 101/62; PULSE 82; RESP 18; TEMP 36.4; O2SAT 98
[2024-01-10 06:04] LABS: Differential Indicated SCAN CRITERIA MET
[2024-01-10 06:36] LABS: Anion Gap 10 (5-15); BUN 40 mg/dL (7-18); BUN/Creat Ratio 15.3 RATIO (10-20); Calcium,Total 9.5 mg/dL (8.5-10.1); Chloride 109 mmol/L (98-107); Creatinine, Serum 2.61 mg/dL (0.70-1.30); EST Glomerular Filtration Rate 26 mL/min (>60); Est Glom Filt Rate - Afr Amer 31 mL/min (>60); Glucose 572 mg/dL (74-106); Potassium 3.1 mmol/L (3.5-5.1); Sodium Level 134 mmol/L (136-145); Thyroid Stim Hormone (TSH) 0.47 uIU/mL (0.358-3.74)
[2024-01-10 07:00] LABS: Platelet Estimate SLT DEC (ADEQ)
[2024-01-10 08:06] VITALS: O2SAT 94
--- NOTE | 2024-01-10 09:39 | PCM.PN.HOSP ---
Reason for Visit Reason for Visit: Diagnoses Metabolic encephalopathy (01/09/24) Acute kidney failure, unspecified (01/09/24) Hyperglycemia, unspecified (01/09/24) Subjective Subjective Patient is a 73-year-old gentleman with multiple comorbidities who was brought to the ED by the family on account of progressive confusion. Patient was found to have acute kidney injury superimposed on chronic kidney disease admitted to a monitored bed for further management Objective Data Objective Data Vital Signs: Vital Signs Temp Pulse Resp BP Pulse Ox O2 Del Method 97.6 F L 82 18 101/62 98 Room Air 01/10/24 06:00 01/10/24 06:00 01/10/24 06:00 01/10/24 06:00 01/10/24 06:00 01/10/24 06:00 Oxygen Delivery Method Room Air Weight: 88.8 kg Body Mass Index (BMI) 30.7 Intake & Output: Intake and Output for Last 24 Hours 01/08/24 01/09/24 01/10/24 23:59 23:59 23:59 Intake Total 1000 / 1000 1600 / 1600 Output Total 800 / 800 Balance 1000 / 1000 800 / 800 Lab / Micro Data 01/10/24 05:17 01/10/24 05:17 Labs: Laboratory Results - last 24 hr 01/09/24 19:39: POC Glucose > 500 H* 01/09/24 19:58: WBC 6.0, RBC 4.74, Hgb 15.6, Hct 45.5, MCV 96.0 H, MCH 32.9 H, MCHC 34.3, RDW Std Deviation 50.9 H, RDW Coeff of Homar 14.6, Plt Count 104 L, MPV 12.8 H, Immature Gran % (Auto) 1.200 H, Neut % (Auto) 72.3 H, Lymph % (Auto) 17.5 L, [place] % (Auto) 7.0, Eos % (Auto) 1.3, Baso % (Auto) 0.7, Absolute Neuts (auto) 4.4, Absolute Lymphs (auto) 1.06, Nucleated RBC % 0, Sodium 123 L, Potassium 3.5, Chloride 97 L, Carbon Dioxide 14.0 L, Anion Gap 12, BUN 43 H, Creatinine 3.27 H, Estim Creat Clear Calc 22.08, Est GFR (MDRD) Af Amer 24 L, Est GFR (MDRD) Non-Af 20 L, BUN/Creatinine Ratio 13.1, Glucose 879 H*, Hemoglobin A1c 12.1 H, Calcium 10.0, Total Bilirubin 1.60 H, Direct Bilirubin 0.63 H, AST 13 L, ALT 12 L, Alkaline Phosphatase 133 H, Troponin I High Sens 52, Total Protein 8.5 H, Albumin 3.4, Globulin 5.1 H, Lipase 295 H, Ethyl Alcohol < 3.0, Acetone Level NEGATIVE 01/09/24 20:27: Urine Color Yellow, Urine Clarity Clear, Urine pH 7.0, Ur Specific [place] 1.010, Urine Protein 30 H, Urine Glucose (UA) 1000 H, Urine Ketones 5 H, Urine Occult Blood 250 H, Urine Nitrite Negative, Urine Bilirubin Negative, Urine Urobilinogen Normal, Ur Leukocyte Esterase 500 H, Urine RBC 0-5 SEEN, Urine WBC 5-10 SEEN, Ur Squamous Epith Cells 0-5 SEEN, Urine Bacteria 0 SEEN, Urine Mucus 0 SEEN, Urine Opiates Screen NEGATIVE, Urine Methadone Screen NEGATIVE, Ur Barbiturates Screen NEGATIVE, Ur Phencyclidine Scrn NEGATIVE, Ur Amphetamines Screen NEGATIVE, MDMA (Ecstasy) Screen NEGATIVE, U Benzodiazepines Scrn NEGATIVE, Urine Cocaine Screen NEGATIVE, U Cannabinoids Screen NEGATIVE, Ur Drug Screen Comment 01/09/24 22:40: Uric Acid 3.9, Phosphorus 1.9 L, Magnesium 2.4, Troponin I High Sens 50 01/10/24 05:17: WBC 5.0, RBC 4.42 L, Hgb 14.7, Hct 42.0, MCV 95.0 H, MCH 33.3 H, MCHC 35.0, RDW Std Deviation 49.6 H, RDW Coeff of Homar 14.4, Plt Count 76 L, MPV 12.5 H, Immature Gran % (Auto) 0.800, Neut % (Auto) 69.3, Lymph % (Auto) 21.7, [place] % (Auto) 6.0, Eos % (Auto) 1.8, Baso % (Auto) 0.4, Absolute Neuts (auto) 3.4, Absolute Lymphs (auto) 1.08, Nucleated RBC % 0, Platelet Estimate SLT DEC, Sodium 134 L, Potassium 3.1 L, Chloride 109 H, Carbon Dioxide 15.0 L, Anion Gap 10, BUN 40 H, Creatinine 2.61 H, Estim Creat Clear Calc 26.80, Est GFR (MDRD) Af Amer 31 L, Est GFR (MDRD) Non-Af 26 L, BUN/Creatinine Ratio 15.3, Glucose 572 H*, Calcium 9.5, TSH 0.47 Micro: Microbiology 01/09/24 20:11 Mucosa - Nose SARS-CoV-2, Influenza & RSV (PCR) - Final ABG Data ABG results: ABG 01/09/24 20:21 Specimen Type HEBERT Sample Site Not entered VBG pH 7.22 L VBG pO2 38 VBG HCO3 14 L VBG Total CO2 15 L VBG O2 Sat (Calc) 62 VBG Base Excess -14 L POC Mix VBG pCO2 Pt Tmp 33.4 L O2 Delivery Device Room Air Radiography Diagnostic Testing: Radiology Impression Brain CT 01/09/24 19:31 IMPRESSION: Chronic involutional changes of the brain. Electronically Signed: Diony Hollingsworth MD at 21:57 EST Reading Location ID and State: [employer] [place] Tel , Service support , Abdomen/Pelvis CT 01/09/24 19:32 IMPRESSION: Moderate left hydronephrosis and renal atrophy. Right lower quadrant urostomy. 3 cm abdominal aortic aneurysm unchanged. Sensitivity limited without IV and oral contrast. Electronically Signed: Diony Hollingsworth MD at 21:52 EST Reading Location ID and State: [employer] [place] Tel , Service support , Chest X-Ray 01/09/24 20:09 IMPRESSION: Normal x-ray examination of the chest. Electronically Signed: Diony Hollingsworth MD at 21:02 EST Reading Location ID and State: [employer] [place] Tel , Service support , Physical Exam Narrative GENERAL: Patient in no apparent distress HEENT: Atraumatic; normocephalic EYES; Anicteric, Normal Conjunctiva NECK; supple, normal thyroid, RESPIRATORY: Diminished to auscultation CARDIOVASCULAR: Regular S1 S2, GI: soft, normoactive bowel sounds, : Urostomy with an 80 conduit EXTREMITIES: No edema, no clubbing, MUSCULOSKELETAL: no muscle wasting NEURO: Awake; no lateralizing signs. SKIN: No Rash PSYCH; Flat affect Assessment & Plan Assessment/Plan (1) Metabolic encephalopathy: (2) Hyperglycemia: (3) NAYE (acute kidney injury): PLAN: Plan Patient is a 73-year-old gentleman with multiple comorbidities who was brought to the ED by the family on account of progressive confusion. Patient was found to have acute kidney injury superimposed on chronic kidney disease admitted to a monitored bed for further management 1. Acute metabolic encephalopathy ? Secondary to acute kidney injury.Patient has baseline creatinine of 1. To from 08/05/2023, creatinine on admission was 3.27 admitted to a monitored bed rehydration started with subsequent monitoring of electrolyte 2. Hyperglycemia ? Patient hemoglobin A1c was 12.1 with glucose of 179. Started on long-acting insulin with Accu-Cheks before meals and at bedtime with sliding scale coverage 3. Metabolic acidosis ? Secondary to acute kidney injury monitor 4. Chronic kidney disease stage III ? Patient presented with acute kidney injury management as discussed above 5. 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 Consult placed to ostomy nurse for local care 6. Thrombocytopenia ? Chronic we will continue with monitoring 7. Hypokalemia -Corrected per protocol 8. DVT prophylaxis ? SC Lovenox, with patient having relatively low platelet count will have no hesitation in discontinuation if platelet count drops Time spent in the patient's overall evaluation,decision-making process, review of diagnostic data, adjustment of management, discussion with other providers, nursing nursing and ancillary staff involved in patient's care documentation, 50 minutes Charges/Coding Visit Charges Inpatient E&M: 02725 Subs Hosp L3
[2024-01-10 10:40] VITALS: BP 145/94; PULSE 82; RESP 18; TEMP 36.8; O2SAT 99
[2024-01-10] MEDS: amLODIPine 10 MG Tablet PO (10:44)
[2024-01-10] MEDS: Gentamicin Sulfate 1 OPTH.BTL 1 DRP LEFT EYE ×2 (10:45→14:37)
[2024-01-10] MEDS: Ertapenem Sod 0.5 GM in 0.9% Normal Saline (50mL Bag) 50 ML IV (12:29)
--- NOTE | 2024-01-10 12:39 | CASEMGMT ---
JOSE YOU Assessment Face to Face with patient for initial transition planning/care coordination assessment. JOSE YOU introduced self and role at [facility], pt voices understanding. Pt is A&Ox3 and is resting comfortably in bed and is calm. Care providers, pharmacy, and demographics verified. Admitting dx: AMS, Hyperglycemia, Hyponatremia, NAYE PCP: Pt [place] through the [place] for [place]CP [place]. Pt states he goes to the [facility] in [place] Specialists: Denies Preferred Pharmacy: Pt goes through the [place] for medications. Pt states [facility] for short term Rx Insurance: [place], [facility] A Prescription Benefit: Pt states through the [place] LNOK: Aneesh Vasquez (ANNETTE) Living Arrangements: Pt lives alone in a single level apartment with a flat entrance. ADLs/IADLs: Ind with ADLs. Needs assistance with IADLs. Pt brother is able to help at times. Transportation: Pt brother DME: Pt states that he has enough supplies to check his BS. Denies rollator. States he uses a walker at home and a scooter in the community. Cane at home. Walk in shower with GB. HHC/SNF: Denies Pt?s goal: Pt goal is to regain PLOF and move to [place] closer to his daughter in an Assisted Living Facility. Plan: 6-Click is 15. OT states the pt would benefit from SNF. PT states additional skilled PT recommended. Pt is refusing SNF at this time and states he would be interested in HHC. Will provide list and CM to follow. Brandt Koroma RN, CM
--- NOTE | 2024-01-10 13:38 | CASEMGMT ---
A list of local in-network [facility] agencies (printed from [employer]) provided to the pt. Pt states he will need time deciding which agency he wants. CM to follow.
--- NOTE | 2024-01-10 14:30 | PCM.CONS.R ---
Assessment & Plan Assessment/Plan (1) NAYE (acute kidney injury): PLAN: Patient has severe prerenal azotemia due to hyperosmolar coma, improving with IV fluids. No dialysis indicated. He probably does have underlying diabetic nephropathy based on significant proteinuria. Will go ahead and measure proteinuria HPI Consult Data Date of Consult: 01/10/24 HPI Narrative Reason for Consultation: Acute kidney injury HPI Narrative: LEIF SIMON, is a 73 M who presents to emergency room with altered mental status, turnout to be in hyperosmolar coma with a blood sugar over 800, hemoglobin A1c is over 12. His creatinine was up to 3.6, baseline is 1.1. He started on IV fluids, his creatinine is down to 2.6 today. Potassium is 3. He is more awake, he is hemodynamically stable, he is making urine. He has significant proteinuria. [facility] Medical History Hypertension Non-STEMI (non-ST elevated myocardial infarction) Stage 3a chronic kidney disease Tobacco dependence Home Medications acetaminophen 325 mg tablet 650 mg (2 x 325 mg) PO Q6H PRN PRN Pain 1-10 Or Fever>100.7 #0 tabs 03/04/23 [Rx Last Taken 07/25/23] amlodipine 10 mg tablet 10 mg PO DAILY blood pressure #0 tabs 03/04/23 [Rx Last Taken 07/25/23] melatonin 3 mg tablet 3 mg PO QHS PRN PRN Insomnia #0 tabs 03/04/23 [Rx Last Taken Unknown] Allergy/AdvReac Type Severity Reaction Status Date / Time No Known Allergies Allergy Verified 07/26/23 12:50 Surgical History History of urostomy Social History household members: none Smoking Status: Current some day smoker tobacco type: cigarettes and cigars alcohol intake: former ROS Review of Systems ROS Unobtainable: due to mental condition; Denies due to encephalopathy, due to endotracheal tube, due to mental status or other Physical Exam Const alert and no apparent distress Constitutional Narrative: He thinks he is in [place] General Appearance: well developed Orientation / Consciousness: oriented to person HEENT normocephalic HEENT Narrative: Oral mucosa is dry Head and Scalp: atraumatic Eyes PERRL Neck no lymphadenopathy Resp no use of accessory muscles Cardio regular rate GI Auscultation: hypoactive bowel sounds Palpation: soft Back/Spine normal ROM Skin no rashes or lesions noted Skin Narrative: Poor skin turgor Neuro Sensorium / Orientation: somnolent Psych cooperative Medical Records Data Attestation: I reviewed the patient's medical records Lab / Micro Data Attestation: I reviewed the patient's lab results. 01/10/24 05:17 01/10/24 05:17 Labs: Laboratory Results - last 24 hr 01/09/24 19:39: POC Glucose > 500 H* 01/09/24 19:58: WBC 6.0, RBC 4.74, Hgb 15.6, Hct 45.5, MCV 96.0 H, MCH 32.9 H, MCHC 34.3, RDW Std Deviation 50.9 H, RDW Coeff of Homar 14.6, Plt Count 104 L, MPV 12.8 H, Immature Gran % (Auto) 1.200 H, Neut % (Auto) 72.3 H, Lymph % (Auto) 17.5 L, [place] % (Auto) 7.0, Eos % (Auto) 1.3, Baso % (Auto) 0.7, Absolute Neuts (auto) 4.4, Absolute Lymphs (auto) 1.06, Nucleated RBC % 0, Sodium 123 L, Potassium 3.5, Chloride 97 L, Carbon Dioxide 14.0 L, Anion Gap 12, BUN 43 H, Creatinine 3.27 H, Estim Creat Clear Calc 22.08, Est GFR (MDRD) Af Amer 24 L, Est GFR (MDRD) Non-Af 20 L, BUN/Creatinine Ratio 13.1, Glucose 879 H*, Hemoglobin A1c 12.1 H, Calcium 10.0, Total Bilirubin 1.60 H, Direct Bilirubin 0.63 H, AST 13 L, ALT 12 L, Alkaline Phosphatase 133 H, Troponin I High Sens 52, Total Protein 8.5 H, Albumin 3.4, Globulin 5.1 H, Lipase 295 H, Ethyl Alcohol < 3.0, Acetone Level NEGATIVE 01/09/24 20:27: Urine Color Yellow, Urine Clarity Clear, Urine pH 7.0, Ur Specific [place] 1.010, Urine Protein 30 H, Urine Glucose (UA) 1000 H, Urine Ketones 5 H, Urine Occult Blood 250 H, Urine Nitrite Negative, Urine Bilirubin Negative, Urine Urobilinogen Normal, Ur Leukocyte Esterase 500 H, Urine RBC 0-5 SEEN, Urine WBC 5-10 SEEN, Ur Squamous Epith Cells 0-5 SEEN, Urine Bacteria 0 SEEN, Urine Mucus 0 SEEN, Urine Opiates Screen NEGATIVE, Urine Methadone Screen NEGATIVE, Ur Barbiturates Screen NEGATIVE, Ur Phencyclidine Scrn NEGATIVE, Ur Amphetamines Screen NEGATIVE, MDMA (Ecstasy) Screen NEGATIVE, U Benzodiazepines Scrn NEGATIVE, Urine Cocaine Screen NEGATIVE, U Cannabinoids Screen NEGATIVE, Ur Drug Screen Comment 01/09/24 22:40: Uric Acid 3.9, Phosphorus 1.9 L, Magnesium 2.4, Troponin I High Sens 50 01/10/24 05:17: WBC 5.0, RBC 4.42 L, Hgb 14.7, Hct 42.0, MCV 95.0 H, MCH 33.3 H, MCHC 35.0, RDW Std Deviation 49.6 H, RDW Coeff of Homar 14.4, Plt Count 76 L, MPV 12.5 H, Immature Gran % (Auto) 0.800, Neut % (Auto) 69.3, Lymph % (Auto) 21.7, [place] % (Auto) 6.0, Eos % (Auto) 1.8, Baso % (Auto) 0.4, Absolute Neuts (auto) 3.4, Absolute Lymphs (auto) 1.08, Nucleated RBC % 0, Platelet Estimate SLT DEC, Sodium 134 L, Potassium 3.1 L, Chloride 109 H, Carbon Dioxide 15.0 L, Anion Gap 10, BUN 40 H, Creatinine 2.61 H, Estim Creat Clear Calc 26.80, Est GFR (MDRD) Af Amer 31 L, Est GFR (MDRD) Non-Af 26 L, BUN/Creatinine Ratio 15.3, Glucose 572 H*, Calcium 9.5, TSH 0.47 Micro: Microbiology 01/09/24 21:40 Urine, Nephrostomy Urine Culture - Preliminary GNR lactose x ray developing machine operator GNR lactose x ray developing machine operator#2 Alpha hemolytic organism Gram positive organism 01/09/24 20:11 Mucosa - Nose SARS-CoV-2, Influenza & RSV (PCR) - Final ABG Data ABG results: ABG 01/09/24 20:21 Specimen Type HEBERT Sample Site Not entered VBG pH 7.22 L VBG pO2 38 VBG HCO3 14 L VBG Total CO2 15 L VBG O2 Sat (Calc) 62 VBG Base Excess -14 L POC Mix VBG pCO2 Pt Tmp 33.4 L O2 Delivery Device Room Air Imaging Radiology Impression Brain CT 01/09/24 19:31 IMPRESSION: Chronic involutional changes of the brain. Electronically Signed: Diony Hollingsworth MD at 21:57 EST Reading Location ID and State: [address] [place] [address] Tel , Service support , Abdomen/Pelvis CT 01/09/24 19:32 IMPRESSION: Moderate left hydronephrosis and renal atrophy. Right lower quadrant urostomy. 3 cm abdominal aortic aneurysm unchanged. Sensitivity limited without IV and oral contrast. Electronically Signed: Diony Hollingsworth MD at 21:52 EST Reading Location ID and State: [employer] / [place] Tel , Service support , Chest X-Ray 01/09/24 20:09 IMPRESSION: Normal x-ray examination of the chest. Electronically Signed: Diony Hollingsworth MD at 21:02 EST Reading Location ID and State: [employer] / [place] Tel , Service support ,
[2024-01-10 17:13] VITALS: BP 124/70; PULSE 78; RESP 18; TEMP 36.8; O2SAT 97
[2024-01-10 20:30] LABS: Bedside Glucose > 500 mg/dL (74-106)
[2024-01-10] MEDS: Insulin Lispro 100 UNIT/ML INSULN.PEN SC (20:39)
[2024-01-10] MEDS: Insulin Glargine-YFGN 100 UNIT/ML Pen 30 UNIT SC (20:39)
[2024-01-10 20:53] LABS: Anion Gap 5 (5-15); BUN 37 mg/dL (7-18); BUN/Creat Ratio 15.5 RATIO (10-20); Calcium,Total 8.8 mg/dL (8.5-10.1); Chloride 111 mmol/L (98-107); Creatinine, Serum 2.38 mg/dL (0.70-1.30); EST Glomerular Filtration Rate 29 mL/min (>60); Est Glom Filt Rate - Afr Amer 35 mL/min (>60); Estimated Creatinine Clearance 29.39 ml/min; Glucose 710 mg/dL (74-106); Potassium 3.2 mmol/L (3.5-5.1); Sodium Level 133 mmol/L (136-145)
[2024-01-11] VITALS: BP 131/73; PULSE 84; RESP 18; TEMP 36.4; O2SAT 99
[2024-01-11 00:25] LABS: Osmolality, Urine 364 mOsm/KG
[2024-01-11 00:27] LABS: Urine Chloride 16 mmol/L (Not Establ.); Urine Sodium 23 mmol/L (Not Establ.)
[2024-01-11 02:06] VITALS: BMI 32.8
[2024-01-11 04:46] VITALS: BP 102/64; PULSE 85; RESP 18; TEMP 36.6; O2SAT 98
[2024-01-11] MEDS: Insulin Lispro 100 UNIT/ML INSULN.PEN SC ×5 (05:05→20:58)
[2024-01-11] MEDS: Enoxaparin 30 MG/0.3 ML Syringe SC (05:06)
[2024-01-11 05:36] LABS: Bedside Glucose 393 mg/dL (74-106)
[2024-01-11 07:58] VITALS: O2SAT 95
--- NOTE | 2024-01-11 08:01 | PCM.PN.HOSP ---
Reason for Visit Reason for Visit: Diagnoses Metabolic encephalopathy (01/09/24) Acute kidney failure, unspecified (01/09/24) Hyperglycemia, unspecified (01/09/24) Subjective Subjective Patient seen remains significantly flat with not much interaction Objective Data Objective Data Vital Signs: Vital Signs Temp Pulse Resp BP Pulse Ox O2 Del Method 97.8 F 85 18 102/64 98 Room Air 01/11/24 04:46 01/11/24 04:46 01/11/24 04:46 01/11/24 04:46 01/11/24 04:46 01/11/24 04:46 Oxygen Delivery Method Room Air Weight: 95.2 kg Body Mass Index (BMI) 32.8 Intake & Output: Intake and Output for Last 24 Hours 01/09/24 01/10/24 01/11/24 23:59 23:59 23:59 Intake Total 1000 / 1000 4805 / 5305 1100 / 1100 Output Total 2980 / 3980 2500 / 2500 Balance 1000 / 1000 1825 / 1325 -1400 / -1400 Lab / Micro Data 01/11/24 08:12 01/11/24 08:12 Labs: Laboratory Results - last 24 hr 01/10/24 20:12: POC Glucose > 500 H* 01/10/24 20:25: Sodium 133 L, Potassium 3.2 L, Chloride 111 H, Carbon Dioxide 17.0 L, Anion Gap 5, BUN 37 H, Creatinine 2.38 H, Estim Creat Clear Calc 29.39, Est GFR (MDRD) Af Amer 35 L, Est GFR (MDRD) Non-Af 29 L, BUN/Creatinine Ratio 15.5, Glucose 710 H*, Calcium 8.8 01/10/24 23:08: Urine Osmolality 364, Ur Random Sodium 23, Urine Creatinine 24.30, Urine Potassium 7.0, Urine Chloride 16 01/11/24 05:04: POC Glucose 393 H Micro: Microbiology 01/09/24 21:40 Urine, Nephrostomy Urine Culture - Preliminary GNR lactose print project manager GNR lactose print project manager#2 Alpha hemolytic organism Gram positive organism 01/09/24 20:11 Mucosa - Nose SARS-CoV-2, Influenza & RSV (PCR) - Final Physical Exam Narrative GENERAL: Patient in no apparent distress HEENT: Atraumatic; normocephalic EYES; Anicteric, Normal Conjunctiva NECK; supple, normal thyroid, RESPIRATORY: Diminished to auscultation CARDIOVASCULAR: Regular S1 S2, GI: soft, normoactive bowel sounds, : Urostomy with an 80 conduit EXTREMITIES: No edema, no clubbing, MUSCULOSKELETAL: no muscle wasting NEURO: Awake; no lateralizing signs. SKIN: No Rash PSYCH; Flat affect Assessment & Plan Assessment/Plan (1) Metabolic encephalopathy: (2) Hyperglycemia: (3) NAYE (acute kidney injury): PLAN: Plan Patient is a 73-year-old gentleman with multiple comorbidities who was brought to the ED by the family on account of progressive confusion. Patient was found to have acute kidney injury superimposed on chronic kidney disease admitted to a monitored bed for further management 1. Acute metabolic encephalopathy ? Secondary to acute kidney injury.Patient has baseline creatinine of 1. To from 08/05/2023, creatinine on admission was 3.27 admitted to a monitored bed rehydration started with subsequent monitoring of electrolyte ? 11/10/2024 not much interaction from the patient. 2. Acute complicated UTI ? Patient was started on ertapenem given history of ESBL. Cultures sent from the ED so far positive for GNR lactose print project manager, GNR lactose print project manager#2 , Alpha hemolytic organism, Gram positive organism. 3. Hyperglycemia ? Patient hemoglobin A1c was 12.1 with glucose of 179. Started on long-acting insulin with Accu-Cheks before meals and at bedtime with sliding scale coverage ? Added long-acting insulin given patient persistent hypoglycemia 4. Acute kidney injury ? Baseline creatinine from 08/05/2023 was 1.22, creatinine on admission was 3.27 started on rehydration with subsequent monitoring of electrolytes ordered 5. Metabolic acidosis ? Secondary to acute kidney injury monitor 6. Chronic kidney disease stage III ? Patient presented with acute kidney injury management as discussed above 7. 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 Consult placed to ostomy nurse for local care 8. Thrombocytopenia ? Chronic we will continue with monitoring 9. Hypokalemia -Corrected per protocol 10. Hypophosphatemia for in a.m. 11. DVT prophylaxis ? SC Lovenox, with patient having relatively low platelet count will have no hesitation in discontinuation if platelet count drops ? 01/11/2024 discontinued Lovenox given significant drop in platelet count 12. Physical deconditioning - Requested for PT OT eval and professor of social work to assist with discharge planning Time spent in the patient's overall evaluation,decision-making process, review of diagnostic data, adjustment of management, discussion with other providers, nursing nursing and ancillary staff involved in patient's care documentation, 50 minutes Charges/Coding Visit Charges Inpatient E&M: 74104 Subs Hosp L3
[2024-01-11 08:44] LABS: Absolute Lymphocyte Count 1.15 X10^3/uL (0.83-4.51); Absolute Neutrophil Count 2.8 X10^3/uL (2.0-7.7); Basophil# 0.01 X10^3/uL; Basophil% 0.2 % (0-1); Eosinophil# 0.12 X10^3/uL; Eosinophils% 2.8 % (0-5); Hematocrit 39.4 % (40-54); Hemoglobin 13.9 g/dL (13.0-16.5); Lymphocyte # 1.15 X10^3/ul (0.83-4.51); Lymphocyte % 26.4 % (19-41); Mean Corp Hgb Conc 35.3 g/dL (32-36); Mean Corpuscular Hgb 33.4 pg (27.0-32.0); Mean Corpuscular Volume 94.7 fL (80-94); Mean Platelet Vol. 11.2 fl (6.2-12.0); Monocyte# 0.24 X10^3/uL; Monocyte% 5.5 % (0-10); NRBC Flagged by Analyzer 0 % (0-5); Neutrophil % 64.2 % (47-70); POSITIVE COUNT YES; Platelet Count 65 K/mm3 (150-450); RBC Distribution Width CV 14.6 % (11.6-14.6); RBC Distribution Width SD 50.1 fl (35.1-43.9); Red Blood Count 4.16 M/mm3 (4.6-6.2); White Blood Count 4.4 K/mm3 (4.4-11.0)
[2024-01-11 09:01] LABS: Anion Gap 9 (5-15); BUN 32 mg/dL (7-18); BUN/Creat Ratio 15.6 RATIO (10-20); Calcium,Total 9.7 mg/dL (8.5-10.1); Chloride 113 mmol/L (98-107); Creatinine, Serum 2.05 mg/dL (0.70-1.30); EST Glomerular Filtration Rate 34 mL/min (>60); Est Glom Filt Rate - Afr Amer 41 mL/min (>60); Estimated Creatinine Clearance 35.29 ml/min; Glucose 290 mg/dL (74-106); Magnesium 2.7 mg/dL (1.6-2.6); Potassium 3.3 mmol/L (3.5-5.1); Sodium Level 140 mmol/L (136-145)
[2024-01-11 09:22] VITALS: BP 113/88; PULSE 73; RESP 18; TEMP 36.1; O2SAT 100
[2024-01-11] MEDS: Gentamicin Sulfate 1 OPTH.BTL 1 DRP LEFT EYE ×4 (09:24→20:59)
[2024-01-11] MEDS: 0.9% Saline Lock 10 ML Syringe IV ×2 (09:25→15:03)
[2024-01-11] MEDS: amLODIPine 10 MG Tablet PO (09:25)
[2024-01-11 09:54] LABS: Bedside Glucose 338 mg/dL (74-106)
[2024-01-11] MEDS: Ertapenem Sod 1 GM in 0.9% Normal Saline (50mL MB+) 50 ML IV (10:00)
[2024-01-11] MEDS: Insulin Glargine-YFGN 100 UNIT/ML Pen 20 UNIT SC (11:18)
[2024-01-11 11:43] LABS: Bedside Glucose 337 mg/dL (74-106)
[2024-01-11] MEDS: Na Biphos/Potassium Phosphate PACKET 1 PACKET PO ×4 (13:20→20:58)
[2024-01-11 15:56] VITALS: BP 114/91; PULSE 78; RESP 16; TEMP 36.1; O2SAT 100
[2024-01-11 16:21] LABS: Bedside Glucose 394 mg/dL (74-106)
[2024-01-11] MEDS: Insulin Glargine-YFGN 100 UNIT/ML Pen 30 UNIT SC (20:58)
[2024-01-11 21:00] VITALS: BP 106/73; PULSE 70; RESP 18; TEMP 36.4; O2SAT 99
[2024-01-11 21:46] LABS: Bedside Glucose 241 mg/dL (74-106)
[2024-01-12 01:43] VITALS: BMI 33.2
[2024-01-12 03:00] VITALS: BP 120/70; PULSE 64; RESP 18; TEMP 36.3; O2SAT 98
[2024-01-12] MEDS: Gentamicin Sulfate 1 OPTH.BTL 1 DRP LEFT EYE ×5 (03:54→22:51)
[2024-01-12] MEDS: Insulin Lispro 100 UNIT/ML INSULN.PEN SC ×7 (08:13→22:52)
[2024-01-12] MEDS: Insulin Glargine-YFGN 100 UNIT/ML Pen 20 UNIT SC (08:15)
[2024-01-12 08:29] LABS: Absolute Lymphocyte Count 1.03 X10^3/uL (0.83-4.51); Basophil# 0.03 X10^3/uL; Basophil% 0.9 % (0-1); Eosinophil# 0.11 X10^3/uL; Eosinophils% 3.2 % (0-5); Lymphocyte # 1.03 X10^3/ul (0.83-4.51); Lymphocyte % 29.6 % (19-41); Mean Corp Hgb Conc 35.1 g/dL (32-36); Mean Corpuscular Hgb 32.7 pg (27.0-32.0); Mean Platelet Vol. 11.8 fl (6.2-12.0); Monocyte# 0.27 X10^3/uL; Monocyte% 7.8 % (0-10); NRBC Flagged by Analyzer 0 % (0-5); Neutrophil # 2.01 X10^3/uL (2.7-7.7); Neutrophil % 57.6 % (47-70); POSITIVE COUNT YES; Platelet Count 54 K/mm3 (150-450); RBC Distribution Width CV 14.3 % (11.6-14.6); Red Blood Count 3.98 M/mm3 (4.6-6.2); White Blood Count 3.5 K/mm3 (4.4-11.0)
[2024-01-12 08:37] LABS: Bedside Glucose 222 mg/dL (74-106)
[2024-01-12 08:49] LABS: Phosphorus 2.2 mg/dL (2.5-4.9)
[2024-01-12 09:12] LABS: Anion Gap 6 (5-15); BUN 32 mg/dL (7-18); BUN/Creat Ratio 17.7 RATIO (10-20); Calcium,Total 9.1 mg/dL (8.5-10.1); Chloride 116 mmol/L (98-107); Creatinine, Serum 1.81 mg/dL (0.70-1.30); EST Glomerular Filtration Rate 39 mL/min (>60); Est Glom Filt Rate - Afr Amer 47 mL/min (>60); Estimated Creatinine Clearance 40.17 ml/min; Glucose 196 mg/dL (74-106); Magnesium 2.2 mg/dL (1.6-2.6); Potassium 3.1 mmol/L (3.5-5.1); Sodium Level 139 mmol/L (136-145)
[2024-01-12] MEDS: amLODIPine 10 MG Tablet PO (10:12)
[2024-01-12] MEDS: 0.9% Saline Lock 10 ML Syringe IV ×2 (10:12→20:37)
[2024-01-12] MEDS: Na Biphos/Potassium Phosphate PACKET 1 PACKET PO ×2 (10:12→13:01)
[2024-01-12] MEDS: Ertapenem Sod 1 GM in 0.9% Normal Saline (50mL MB+) 50 ML IV (10:12)
[2024-01-12 10:21] VITALS: BP 126/85; PULSE 74; RESP 18; TEMP 36.3; O2SAT 100
--- NOTE | 2024-01-12 10:55 | PN.RENAL_ITS ---
Subjective Subjective No new events Objective Data Objective Data Vital Signs: Vital Signs Temp Pulse Resp BP Pulse Ox O2 Del Method 97.3 F L 74 18 126/85 H 100 Room Air 01/12/24 10:21 01/12/24 10:21 01/12/24 10:21 01/12/24 10:21 01/12/24 10:21 01/12/24 10:21 Oxygen Delivery Method Room Air Weight: 96.2 kg Body Mass Index (BMI) 33.2 Intake & Output: Intake and Output for Last 24 Hours 01/10/24 01/11/24 01/12/24 23:59 23:59 23:59 Intake Total 4805 / 5305 2370 / 2370 Output Total 2980 / 3980 4250 / 4250 300 / 300 Balance 1825 / 1325 -1880 / -1880 -300 / -300 Lab / Micro Data 01/12/24 07:35 01/12/24 07:35 Labs: Laboratory Results - last 24 hr 01/11/24 11:17: POC Glucose 337 H 01/11/24 15:58: POC Glucose 394 H 01/11/24 20:57: POC Glucose 241 H 01/12/24 07:35: WBC 3.5 L, RBC 3.98 L, Hgb 13.0, Hct 37.0 L, MCV 93.0, MCH 32.7 H, MCHC 35.1, RDW Std Deviation 48.0 H, RDW Coeff of Homar 14.3, Plt Count 54 L, MPV 11.8, Immature Gran % (Auto) 0.900, Neut % (Auto) 57.6, Lymph % (Auto) 29.6, [place] % (Auto) 7.8, Eos % (Auto) 3.2, Baso % (Auto) 0.9, Absolute Neuts (auto) 2.0, Absolute Lymphs (auto) 1.03, Nucleated RBC % 0, Sodium 139, Potassium 3.1 L , Chloride 116 H, Carbon Dioxide 17.0 L, Anion Gap 6, BUN 32 H, Creatinine 1.81 H, Estim Creat Clear Calc 40.17, Est GFR (MDRD) Af Amer 47 L, Est GFR (MDRD) Non-Af 39 L, BUN/Creatinine Ratio 17.7, Glucose 196 H, Calcium 9.1, Phosphorus 2.2 L, Magnesium 2.2 01/12/24 08:10: POC Glucose 222 H Micro: Microbiology 01/09/24 21:40 Urine, Nephrostomy Urine Culture - Preliminary ESBL Escherichia coli Klebsiella oxytoca Lactobacillus gasseri Staphylococcus haemolyticus 01/09/24 20:11 Mucosa - Nose SARS-CoV-2, Influenza & RSV (PCR) - Final Physical Exam Const alert and no apparent distress Constitutional Narrative: He thinks he is in [place] General Appearance: well developed Orientation / Consciousness: oriented to person HEENT normocephalic Eyes PERRL Neck no lymphadenopathy Resp no use of accessory muscles Cardio regular rate GI Auscultation: hypoactive bowel sounds Palpation: soft Back/Spine normal ROM Skin no rashes or lesions noted Skin Narrative: Poor skin turgor Neuro Sensorium / Orientation: somnolent Psych cooperative Assessment & Plan Assessment/Plan (1) NAYE (acute kidney injury): PLAN: Baseline creatinine normal. CT abdomen with left-sided hydronephrosis, atrophic likely chronic. Right kidney looks okay. NAYE is likely related to volume depletion. Creatinine is significantly improved with IV fluids alone. Hypokalemia, being repleted. Hypophosphatemia. Replete as needed. Hyperglycemia. Management as per medicine.
--- NOTE | 2024-01-12 11:10 | NURSING ---
Roslyn cupola charger insulation nurse documenting/monitoring tele.
[2024-01-12 11:51] LABS: Bedside Glucose 221 mg/dL (74-106)
[2024-01-12] MEDS: Potassium Chloride Oral Tablet 20 MEQ 40 MEQ PO (12:59)
--- NOTE | 2024-01-12 13:40 | CON.PCM.ID_ITS ---
Assessment & Plan Assessment/Plan (1) Asymptomatic bacteriuria: PLAN: Small amount mixed growth in Ucx is common with ileal conduit. UA with minimal inflammation. Will stop ertapenem and monitor off abx. Will follow as needed, thank you, shaw primary team (2) Metabolic encephalopathy: HPI Consult Data Date of Consult: 01/12/24 HPI Narrative Reason for Consultation: (+) ucx HPI Narrative: LEIF SIMON, is a 73 M who presented to ED 01/09 with new onset altered mental status. Taken to ED after being found by his brother. Now on ertapenem, seen by neph, feeling back to normal. No fever, no abd pain, no flank pain, no n/v/d. No change in urine in urostomy. Full ROS performed and neg except as noted above. [facility] Medical History Hypertension Non-STEMI (non-ST elevated myocardial infarction) Stage 3a chronic kidney disease Tobacco dependence Home Medications acetaminophen 325 mg tablet 650 mg (2 x 325 mg) PO Q6H PRN PRN Pain 1-10 Or Fever>100.7 #0 tabs 03/04/23 [Rx Last Taken 07/25/23] amlodipine 10 mg tablet 10 mg PO DAILY blood pressure #0 tabs 03/04/23 [Rx Last Taken 07/25/23] melatonin 3 mg tablet 3 mg PO QHS PRN PRN Insomnia #0 tabs 03/04/23 [Rx Last Taken Unknown] Allergy/AdvReac Type Severity Reaction Status Date / Time No Known Allergies Allergy Verified 07/26/23 12:50 Surgical History History of urostomy Social History household members: none Smoking Status: Current some day smoker tobacco type: cigarettes and cigars alcohol intake: former Physical Exam Const alert, oriented x3 and no apparent distress General Appearance: cooperative HEENT normocephalic and head/scalp atraumatic Eyes PERRL and EOMs intact bilaterally Neck supple and No nodes Resp normal air movement and clear to auscultation bilaterally Cardio regular rate and regular rhythm GI soft to palpation, non-tender and non-distended Extremity General Extremity: edema Skin no rashes or lesions noted Neuro CN's II-XII intact bilaterally Lab / Micro Data Attestation: I reviewed the patient's lab results. 01/12/24 07:35 01/12/24 07:35 Labs: Laboratory Results - last 24 hr 01/11/24 15:58: POC Glucose 394 H 01/11/24 20:57: POC Glucose 241 H 01/12/24 07:35: WBC 3.5 L, RBC 3.98 L, Hgb 13.0, Hct 37.0 L, MCV 93.0, MCH 32.7 H, MCHC 35.1, RDW Std Deviation 48.0 H, RDW Coeff of Homar 14.3, Plt Count 54 L, MPV 11.8, Immature Gran % (Auto) 0.900, Neut % (Auto) 57.6, Lymph % (Auto) 29.6, [place] % (Auto) 7.8, Eos % (Auto) 3.2, Baso % (Auto) 0.9, Absolute Neuts (auto) 2 .0, Absolute Lymphs (auto) 1.03, Nucleated RBC % 0, Sodium 139, Potassium 3.1 L, Chloride 116 H, Carbon Dioxide 17.0 L, Anion Gap 6, BUN 32 H, Creatinine 1.81 H, Estim Creat Clear Calc 40.17, Est GFR (MDRD) Af Amer 47 L, Est GFR (MDRD) Non-Af 39 L, BUN/Creatinine Ratio 17.7, Glucose 196 H, Calcium 9.1, Phosphorus 2.2 L, Magnesium 2.2 01/12/24 08:10: POC Glucose 222 H 01/12/24 11:30: POC Glucose 221 H Micro: Microbiology 01/09/24 21:40 Urine, Nephrostomy Urine Culture - Preliminary ESBL Escherichia coli Klebsiella oxytoca Lactobacillus gasseri Staphylococcus haemolyticus
--- NOTE | 2024-01-12 13:54 | WOUNDNOTE ---
Removed the Primofit from over the stoma. patient has had an ileal conduit for quite some time d/t bladder cancer. patient has had numerous issues with leakage at home. the peristomal skin is very painful and cantrell in color. this has been this way for a while now. patient may need a skin biopsy at some point. could possibly be pyoderma gangrenosum. patient does has a skin fold just to the right of the stoma. patient states this is where most of the leaks occur. gently cleaned the skin with warm water. pat dry. stoma sits just above skin level. sits just at the skin level at the crease. applied a new 1 piece [place] convex appliance with stoma paste. applied a belt to assist in keeping the appliance close to this skin. hopefully this will help with leaks. was worried about the Primofit keeping too much moisture on the skin. will continue to monitor. see stoma photo.
--- NOTE | 2024-01-12 14:36 | WOUNDNOTE ---
stoma photo: right lower abdomen
--- NOTE | 2024-01-12 14:54 | NURSING ---
Mgehan Jackson resuming care of pt
--- NOTE | 2024-01-12 16:02 | NURSING ---
Roslyn cordwood cutter helper nurse continues to run strips/document/assess telemetry.
--- NOTE | 2024-01-12 16:10 | CASEMGMT ---
Per physician patient is agreeable to SNF. Patient told physician [facility]. BENJAMIN reviewed old notes from previous hospitalizations. Patient is service connected and has SNF benefits through the [facility]. BENJAMIN called Wan, the Continuous Improvement Coach at the [facility] and left her a voice mail requesting a return call regarding [facility] contracted SNF's in [facility]. Dorene HER
--- NOTE | 2024-01-12 16:35 | CHAPLAIN ---
Type of Pastoral Visit _x__ Initial Visit ___ Follow-up Visit ___ On-call Visit ___ General Patient Visit ___ Spiritual Assessment ___ Family Conference ___ Bereavement ___ Rapid Response ___ Code Blue ___ Other (describe below) Pastoral Care Referral From _x__ Patient ___ Family ___ Nurse ___ Physician ___ Deputy Juvenile Officer ___ Sack Department Supervisor ___ Other (describe below) Sacrament/Intervention _x__ Active listening ___ Anointing ___ Denominational ___ Bereavement ___ Communion ___ Destiny exploration ___ ___ Life review _x__ Prayer ___ Reconciliation ___ Sacrament of Sick _x__ Supportive presence ___ Wedding ___ Other (describe below) Pastoral Comments patient was heard talking to himself prior to this item repair manager entering room; pt is able to answer questions but has some evidence of confusion or distress; pt states that he is behind on his rent and wants to get home although they want me to go for rehab ; pt states he lives alone; pt needed some assistance and the RN was called to the room; pt was offered prayer and the pt responded we all need a prayer ; pt will go back to bed with help of the RN
[2024-01-12 16:43] LABS: Bedside Glucose 178 mg/dL (74-106)
[2024-01-12] MEDS: Acetaminophen 500 MG Tablet 1000 MG PO (17:53)
--- NOTE | 2024-01-12 19:07 | PCM.PN.HOSP ---
Reason for Visit Reason for Visit: Diagnoses Metabolic encephalopathy (01/09/24) Acute kidney failure, unspecified (01/09/24) Hyperglycemia, unspecified (01/09/24) Bacteriuria (01/09/24) Subjective Subjective Patient was seen and examined today, he did poorly with physical therapy, I told the patient that he needs to go to an extended care facility for short-term rehab services, patient did not seem to object to this. He wanted me to find out if there was an opening at the [place] [facility] and I relayed this to social media analyst. Also had a brief conversation with the patient's brothers who state that the patient is unable to take care of himself at home and he leaves his ileostomy bag off at times and there is urine all over his house. I had infectious diseases see the patient today and they do not feel the patient has a urinary tract infection, his antibiotics were stopped. Objective Data Objective Data Vital Signs: Vital Signs Temp Pulse Resp BP Pulse Ox O2 Del Method 97.3 F L 74 18 126/85 H 100 Room Air 01/12/24 10:21 01/12/24 10:21 01/12/24 10:21 01/12/24 10:21 01/12/24 10:21 01/12/24 10:21 Oxygen Delivery Method Room Air Weight: 96.2 kg Body Mass Index (BMI) 33.2 Intake & Output: Intake and Output for Last 24 Hours 01/10/24 01/11/24 01/12/24 23:59 23:59 23:59 Intake Total 4805 / 5305 2370 / 2370 1270 / 1270 Output Total 2980 / 3980 4250 / 4250 800 / 800 Balance 1825 / 1325 -1880 / -1880 470 / 470 Lab / Micro Data 01/12/24 07:35 01/12/24 07:35 Labs: Laboratory Results - last 24 hr 01/11/24 20:57: POC Glucose 241 H 01/12/24 07:35: WBC 3.5 L, RBC 3.98 L, Hgb 13.0, Hct 37.0 L, MCV 93.0, MCH 32.7 H, MCHC 35.1, RDW Std Deviation 48.0 H, RDW Coeff of Homar 14.3, Plt Count 54 L, MPV 11.8, Immature Gran % (Auto) 0.900, Neut % (Auto) 57.6, Lymph % (Auto) 29.6, [place] % (Auto) 7.8, Eos % (Auto) 3.2, Baso % (Auto) 0.9, Absolute Neuts (auto) 2.0, Absolute Lymphs (auto) 1.03, Nucleated RBC % 0, Sodium 139, Potassium 3.1 L, Chloride 116 H, Carbon Dioxide 17.0 L, Anion Gap 6, BUN 32 H, Creatinine 1.81 H, Estim Creat Clear Calc 40.17, Est GFR (MDRD) Af Amer 47 L, Est GFR (MDRD) Non-Af 39 L, BUN/Creatinine Ratio 17.7, Glucose 196 H, Calcium 9.1, Phosphorus 2.2 L, Magnesium 2.2 01/12/24 08:10: POC Glucose 222 H 01/12/24 11:30: POC Glucose 221 H 01/12/24 16:25: POC Glucose 178 H Micro: Microbiology 01/09/24 21:40 Urine, Nephrostomy Urine Culture - Preliminary ESBL Escherichia coli Klebsiella oxytoca Lactobacillus gasseri Staphylococcus haemolyticus 01/09/24 20:11 Mucosa - Nose SARS-CoV-2, Influenza & RSV (PCR) - Final Physical Exam Const alert and no apparent distress General Appearance: cooperative, well kempt and well developed Orientation / Consciousness: awake, oriented to place and lethargic HEENT normocephalic, head/scalp atraumatic and moist oral mucous membranes Eyes PERRL, EOMs intact bilaterally and conjunctivae normal Neck supple, no JVD, thyroid normal and no carotid bruits General: trachea midline Resp normal respiratory effort, no retractions, no use of accessory muscles and clear to auscultation bilaterally Auscultation: Negative for rales, rhonchi or wheezes Cardio regular rate, regular rhythm, S1 normal heart sound, S2 normal heart sound, no murmurs, no rub and no gallops GI normal to inspection, nondistended, normoactive bowel sounds, soft to palpation, non-tender and non-distended Extremity no clubbing, cyanosis or edema Skin no rashes or lesions noted General Skin Exam: no breakdown Neuro CN's II-XII intact bilaterally, moves all extremities, no focal motor deficits and no sensory deficits noted Neuro Narrative: Patient appears lethargic Sensorium / Orientation: awake, alert, oriented to person and oriented to place Speech: speech normal Psych Psych Narrative: Patient appears lethargic Assessment & Plan Assessment/Plan (1) Metabolic encephalopathy: PLAN: Plan 1. Metabolic encephalopathy-etiology unclear, continue to provide supportive care, patient will need to go to a jail facility for short-term rehab services #2 acute kidney injury-patient will continue to receive IV fluids #3 acute debility secondary to multiple medical problems, continue PT and OT, again patient will need temporary placement in a jail facility #4 essential hypertension-patient remains on amlodipine Acute urinary tract infection was ruled out Total clinical time spent by myself addressing the patient's medical issues, reviewing all of his data, and collaborating with patient's care team: 35 minutes Charges/Coding Visit Charges Inpatient E&M: 82410 Subs Hosp L2
[2024-01-12 20:14] VITALS: BP 109/65; PULSE 74; RESP 16; TEMP 36.3; O2SAT 98
[2024-01-12 20:26] VITALS: O2SAT 98
[2024-01-12] MEDS: Insulin Glargine-YFGN 100 UNIT/ML Pen 30 UNIT SC (22:53)
[2024-01-12 23:31] LABS: Bedside Glucose 222 mg/dL (74-106)
[2024-01-13] VITALS (9 sets, daily range): BP systolic 102–122; BP diastolic 57–76; PULSE 66–92; RESP 14–18; TEMP 36.3–36.8; O2SAT 98–100; BMI 32.1
[2024-01-13] MEDS: Gentamicin Sulfate 1 OPTH.BTL 1 DRP LEFT EYE ×5 (02:02→20:56)
--- NOTE | 2024-01-13 06:00 | CT_ITS ---
EXAM: CT HEAD WITHOUT INTRAVENOUS CONTRAST CLINICAL INDICATION: seizure seizure TECHNIQUE: Multiple axial images were obtained of the head without intravenous contrast. This CT exam was performed using one or more of the following dose reduction techniques: automated exposure control, adjustment of the mA and/or kV according to patient size, and/or use of iterative reconstruction technique. RADIATION DOSE: CTDIvol = 44.99 mGy, DLP = 846.73 mGy-cm COMPARISON: No relevant prior studies available. FINDINGS: BRAIN AND EXTRA-AXIAL SPACES: There is cerebral and cerebellar atrophy. No intra- or extra-axial hemorrhage. No evidence of acute infarct. No intracranial mass or mass effect. There is preservation of the cantrell/white matter interface. No hydrocephalus. Basal cisterns are patent. BONES/JOINTS: Unremarkable. No discrete lytic or blastic abnormalities. VASCULATURE: There is atherosclerotic calcification of the vertebral and cavernous carotid arteries. SINUSES: Unremarkable as visualized. Clear. MASTOID AIR CELLS: Unremarkable. Clear. ORBITS: There is evidence for previous cataract surgery. CT/Brain/Head without Contrast IMPRESSION: 1. Mild chronic involutional changes of the brain. 2. No demonstrated acute intracranial process. Electronically Signed: Jacek Silva MD at 6:46 EST Reading Location ID and State: [facility] / [place] , Service support ,
[2024-01-13 06:27] LABS: Absolute Lymphocyte Count 0.88 X10^3/uL (0.83-4.51); Absolute Neutrophil Count 2.1 X10^3/uL (2.0-7.7); Basophil# 0.02 X10^3/uL; Basophil% 0.6 % (0-1); Eosinophil# 0.11 X10^3/uL; Eosinophils% 3.2 % (0-5); Hematocrit 39.9 % (40-54); Hemoglobin 13.8 g/dL (13.0-16.5); Lymphocyte # 0.88 X10^3/ul (0.83-4.51); Lymphocyte % 25.9 % (19-41); Mean Corp Hgb Conc 34.6 g/dL (32-36); Mean Corpuscular Hgb 33.3 pg (27.0-32.0); Mean Corpuscular Volume 96.1 fL (80-94); Mean Platelet Vol. 10.6 fl (6.2-12.0); Monocyte# 0.25 X10^3/uL; Monocyte% 7.4 % (0-10); NRBC Flagged by Analyzer 0 % (0-5); Neutrophil # 2.08 X10^3/uL (2.7-7.7); Neutrophil % 61.1 % (47-70); POSITIVE COUNT YES; Platelet Count 58 K/mm3 (150-450); RBC Distribution Width CV 14.7 % (11.6-14.6); RBC Distribution Width SD 51.4 fl (35.1-43.9); Red Blood Count 4.15 M/mm3 (4.6-6.2); White Blood Count 3.4 K/mm3 (4.4-11.0)
--- NOTE | 2024-01-13 06:27 | PN.HOSP_ITS ---
Hospitalist Note Rapid response was called overhead at approximately 6 AM after patient had a witnessed tonic-clonic seizure lasting less than 1 minute. When I arrived at the bedside the patient was noted to be in a postictal state somnolent but arousable. He was noted to have received 2 days of ertapenem which is known to have side effects of seizure activity particularly in frail geriatric patients. This agent had already been stopped the previous day. He has no history of seizure activity and there was no report of head trauma or fall. He is spontan eously moving all 4 extremities and can protect his airway with a strong cough. Therefore, treatment was then initiated with Keppra 1 g IV twice daily along with a stat head CT without contrast to evaluate for possible structural lesion that could potentially explain his new seizure. His vital signs are stable and his blood glucose was 102 mg/dL. Finally, we will consult [facility] teleneurology to see this patient for further recommendations with help appreciated in advance. RESIDENTIAL FIELD MANAGER was updated with plan.
[2024-01-13 06:40] LABS: Bedside Glucose 229 mg/dL (74-106)
[2024-01-13] MEDS: levETIRAcetam IV 1,000 MG/100 ML BAG 400 MG IV ×2 (06:43→20:55)
[2024-01-13 06:47] LABS: Anion Gap 10 (5-15); BUN 33 mg/dL (7-18); BUN/Creat Ratio 15.1 RATIO (10-20); Calcium,Total 9.3 mg/dL (8.5-10.1); Chloride 117 mmol/L (98-107); Creatinine, Serum 2.18 mg/dL (0.70-1.30); EST Glomerular Filtration Rate 32 mL/min (>60); Est Glom Filt Rate - Afr Amer 38 mL/min (>60); Estimated Creatinine Clearance 32.83 ml/min; Glucose 245 mg/dL (74-106); Potassium 3.7 mmol/L (3.5-5.1); Sodium Level 140 mmol/L (136-145)
--- NOTE | 2024-01-13 09:52 | CASEMGMT ---
BENJAMIN received a return call from BENJAMIN Garcias at the [facility] in [place]. Dieter said in order to get patient to a [facility] BENJAMIN will need to send her the [facility] GEC form, H&P, and therapy notes. She will then send off the information to the team that reviews and approves for SNF. The facilities that are [facility] with the [facility] are; [facility], and [facility]. BENJAMIN will talk with patient. Dorene HER
--- NOTE | 2024-01-13 10:12 | WOUNDNOTE ---
in to reassess the urostomy appliance. appliance remains intact at this time. patient is very confused this morning. will not answer any questions at this time. hooked appliance up to drainage bag. will monitor.
[2024-01-13 11:12] LABS: Bedside Glucose 228 mg/dL (74-106)
[2024-01-13 11:54] LABS: Bedside Glucose 156 mg/dL (74-106)
--- NOTE | 2024-01-13 14:25 | NEURO.CONS ---
Assessment and Plan: Neuro Assessment/Plan LEIF SIMON is a 73 M with a past medical history of hypertension, CKD stage 3, diabetes being evaluated by Teleneurology for witnessed tonic clonic seizure in the setting of recent ertapenem administration for possible urinary tract infection. CT head after the incident non-acute. He is current s/p 1 gram IV keppra, but remains significantly altered. rEEG recently completed in current altered state, awaiting official read. If EEG shows evidence for subclinical seizure activity, would recommend 4 grams IV keppra (status dosing) and transfer for continuous EEG monitoring. For now, would continue to monitor on keppra 1 gram BID as patient is most likely post-ictal and nursing did note mild improvement in mental status now as compared to this morning. If no improvement in the morning, would recommend transfer for continuous EEG monitoring. Recommend MRI brain without contrast, when able. HPI Consult Data Date of Consult: 01/13/24 HPI Narrative HPI Narrative: LEIF SIMON, is a 73 M with a past medical history of hypertension, CKD stage 3, diabetes who presented to [place] ED on 01/09/23 for altered mental status. EMS was called to patient?s apartment for welfare check. Upon arrival EMS describes patient as seated on the edge of his bed and then walking around the apartment, alert and oriented x2. blood glucose check read as high. BP documented as 120s-130s systolic/ 80s diastolic. HR 107-110. He was transported to [place] ED. Labs on admission show NAYE on CKD with creatinine 3.27 on admission (baseline 1.2-1.3) and BUN 43. He was started on ertapenem for possible UTI after urine culture grew several bacteria, this was discontinued by ID on 01/12/24. Around 6am on 01/13/24 patient was witnessed to have a tonic-clonic seizure lasting 1 minute before spontaneous resolution. He was given 1-gram IV Keppra in the morning and underwent CTH which was non-acute. Neurology is consulted today 01/13/24 for further evaluation. [facility] Medical History Hypertension Non-STEMI (non-ST elevated myocardial infarction) Stage 3a chronic kidney disease Tobacco dependence Home Medications acetaminophen 325 mg tablet 650 mg (2 x 325 mg) PO Q6H PRN PRN Pain 1-10 Or Fever>100.7 #0 tabs 03/04/23 [Rx Last Taken 07/25/23] amlodipine 10 mg tablet 10 mg PO DAILY blood pressure #0 tabs 03/04/23 [Rx Last Taken 07/25/23] melatonin 3 mg tablet 3 mg PO QHS PRN PRN Insomnia #0 tabs 03/04/23 [Rx Last Taken Unknown] Allergy/AdvReac Type Severity Reaction Status Date / Time No Known Allergies Allergy Verified 07/26/23 12:50 Surgical History History of urostomy Social History household members: none Smoking Status: Current some day smoker tobacco type: cigarettes and cigars alcohol intake: former Vital Signs Vital Signs Vital Signs: 01/12/24 20:14 01/12/24 20:17 01/12/24 20:26 Temperature 97.4 F L Temperature Source Temporal Pulse Rate 74 Pulse Strength Weak (1+) Respiratory Rate 16 Respiratory Effort Normal Non-Labored Respiratory Depth Normal Respiratory Pattern Normal Blood Pressure 109/65 Blood Pressure Mean 79 Blood Pressure Source Monitor Blood Pressure Position Supine Blood Pressure Location Left Arm Pulse Ox 98 98 Oxygen Delivery Method Room Air Room Air Oxygen Flow Rate (L/min) 01/13/24 02:26 01/13/24 03:58 01/13/24 05:14 Temperature 97.4 F L 97.8 F Temperature Source Temporal Temporal Pulse Rate 76 92 Pulse Strength Respiratory Rate 18 18 Respiratory Effort Normal Non-Labored Respiratory Depth Normal Respiratory Pattern Normal Blood Pressure 117/67 122/73 H Blood Pressure Mean 83 89 Blood Pressure Source Monitor Monitor Blood Pressure Position Semi-Fowlers Semi-Fowlers Blood Pressure Location Left Arm Left Arm Pulse Ox 98 98 Oxygen Delivery Method Room Air Room Air Room Air Oxygen Flow Rate (L/min) 01/13/24 11:00 01/13/24 11:05 01/13/24 10:00 Temperature 98.2 F Temperature Source Oral Pulse Rate 88 Pulse Strength Weak (1+) Respiratory Rate 18 18 Respiratory Effort Respiratory Depth Normal Respiratory Pattern Normal Blood Pressure 107/76 Blood Pressure Mean 86 Blood Pressure Source Monitor Blood Pressure Position Semi-Fowlers Blood Pressure Location Left Arm Pulse Ox 100 Oxygen Delivery Method Nasal Cannula Nasal Cannula Oxygen Flow Rate (L/min) 2 2 01/13/24 12:42 Temperature Temperature Source Pulse Rate Pulse Strength Respiratory Rate Respiratory Effort Respiratory Depth Respiratory Pattern Blood Pressure Blood Pressure Mean Blood Pressure Source Blood Pressure Position Blood Pressure Location Pulse Ox Oxygen Delivery Method Nasal Cannula Oxygen Flow Rate (L/min) 2 Weight Weight: 93.1 kg Body Mass Index (BMI) 32.1 EEG Results Procedure Details EEG Procedure Details: LEIF SIMON is a 73 year old M with a past medical history of , who presents for evaluation of Electroencephalogram on DATE at TIME Physical Exam Neuro Neuro Narrative: Upon entering the room patient is laying in bed with eyes closed, spontaneous movements including fixing of sheets are noted. On verbal stimulation, patient opens eyes and regards/turns head to source of sound. Eyes open to verbal and noxious stimuli. No language is observed/produced. Low-pitched sounds from the back of the throat are continuous and sound like retained secretions. He does not follow verbal commands. Pupils are equal and reactive, he resists eye opening. Face appears symmetric at rest and with activation. All extremities move antigravity. Sensation is intact to noxious stimulation in all 4 extremities. Lab / Micro Data 01/13/24 06:10 01/13/24 06:10 Labs: Laboratory Results - last 24 hr 01/12/24 16:25: POC Glucose 178 H 01/12/24 22:50: POC Glucose 222 H 01/13/24 05:48: POC Glucose 229 H 01/13/24 06:10: WBC 3.4 L, RBC 4.15 L, Hgb 13.8, Hct 39.9 L, MCV 96.1 H, MCH 33.3 H, MCHC 34.6, RDW Std Deviation 51.4 H, RDW Coeff of Homar 14.7 H, Plt Count 58 L, MPV 10.6, Immature Gran % (Auto) 1.800 H, Neut % (Auto) 61.1, Lymph % (Auto) 25.9, [place] % (Auto) 7.4, Eos % (Auto) 3.2, Baso % (Auto) 0.6, Absolute Neuts (auto) 2.1, Absolute Lymphs (auto) 0.88, Nucleated RBC % 0, Sodium 140, Potassium 3.7, Chloride 117 H, Carbon Dioxide 13.0 L, Anion Gap 10, BUN 33 H, Creatinine 2.18 H, Estim Creat Clear Calc 32.83, Est GFR (MDRD) Af Amer 38 L, Est GFR (MDRD) Non-Af 32 L, BUN/Creatinine Ratio 15.1, Glucose 245 H, Calcium 9.3 01/13/24 08:38: POC Glucose 228 H 01/13/24 11:36: POC Glucose 156 H Micro: Microbiology 01/09/24 21:40 Urine, Nephrostomy Urine Culture - Final ESBL Escherichia coli Klebsiella oxytoca Lactobacillus gasseri Staphylococcus haemolyticus Imaging Radiology Impression Brain CT 01/13/24 06:00 IMPRESSION: 1. Mild chronic involutional changes of the brain. 2. No demonstrated acute intracranial process. Electronically Signed: Jacek Silva MD at 6:46 EST Reading Location ID and State: [facility] / [place] , Service support , Active Medications Active Medications Active Medications: Current Medications Generic Name Dose Route Start Last Admin Trade Name Freq PRN Reason Stop Dose Admin Acetaminophen 650 mg 01/09/24 23:58 Acetaminophen 325 Mg Tablet PO Q6H PRN PRN Pain 1-10 Or Fever>100.7 Acetaminophen 1,000 mg 01/12/24 14:14 01/12/24 17:53 Acetaminophen 500 Mg Tablet PO 1,000 mg Q8H PRN PRN Administration Pain 1-10 or Fever Amlodipine Besylate 10 mg 01/10/24 10:00 01/13/24 09:18 Amlodipine 10 Mg Tablet PO Not Given DAILY [facility] Protocol Dextrose 0 gm 01/10/24 19:42 Dextrose 50%-Water 25 Gm/50 Ml Disp.Syrin IV X1 PRN Hypoglycemia Protocol Gentamicin Sulfate 1 drp 01/10/24 02:00 01/13/24 13:27 Gentamicin Sulfate 1 Opth.Btl LEFT EYE Not Given Q4 [facility]IA Glucagon 1 mg 01/10/24 19:42 Glucagon 1 Mg/Ml Syringe IM X1 PRN Hypoglycemia Levetiracetam 1,000 mg in 100 mls @ 400 mls/hr 01/13/24 06:15 01/13/24 08:41 IV Infused Q12 [facility] Infusion Insulin Glargine 30 unit 01/10/24 22:00 01/12/24 22:53 Insulin Glargine-Yfgn 100 Unit/Ml Pen SC 30 unit QHS [facility] Administration Insulin Glargine 20 unit 01/11/24 11:10 01/13/24 09:18 Insulin Glargine-Yfgn 100 Unit/Ml Pen SC Not Given DAILY [facility] Insulin Human Lispro 0 unit 01/10/24 22:00 01/13/24 12:59 Insulin Lispro 100 Unit/Ml Insuln.Pen SC Not Given ACHS [facility] Protocol Insulin Human Lispro 5 unit 01/11/24 16:00 01/13/24 12:59 Insulin Lispro 100 Unit/Ml Insuln.Pen SC Not Given TIDAC [facility] Melatonin 3 mg 01/09/24 23:58 Melatonin 3 Mg Tablet PO QHS PRN PRN Insomnia Ondansetron HCl 4 mg 01/09/24 23:58 Ondansetron 4 Mg/2 Ml Vial IV Q8H PRN PRN NAUSEA/VOMITING Potassium Phos/Sodium Phos 1 packet 01/11/24 11:10 01/13/24 13:27 Na Biphos/Potassium Phosphate Packet PO Not Given 4X/DAY [facility] Senna/Docusate Sodium 2 tablet 01/10/24 10:00 01/13/24 09:19 Senna/Docusate Sodium 1 Tablet PO Not Given BID [facility] Sodium Chloride 2 spray 01/09/24 23:58 Sodium Chloride 0.65% 1 Anderson Anderson.Btl NASAL Q4H PRN PRN NASAL DRYNESS Sodium Chloride 10 - 40 ml 01/10/24 00:07 01/12/24 20:37 0.9% Saline Lock 10 Ml Syringe IV 10 ml UD PRN Administration SALINE FLUSH
--- NOTE | 2024-01-13 15:43 | PCM.PN.REN ---
Subjective Subjective Resting in bed. No acute distress noted. Objective Data Objective Data Vital Signs: Vital Signs Temp Pulse Resp BP Pulse Ox O2 Del Method O2 Flow Rate 98.2 F 88 18 107/76 100 Nasal Cannula 2 01/13/24 11:00 01/13/24 11:00 01/13/24 11:05 01/13/24 11:00 01/13/24 11:00 01/13/24 12:42 01/13/24 12:42 Oxygen Flow Rate (L/min) 2 Oxygen Delivery Method Nasal Cannula Weight: 93.1 kg Body Mass Index (BMI) 32.1 Intake & Output: Intake and Output for Last 24 Hours 01/11/24 01/12/24 01/13/24 23:59 23:59 23:59 Intake Total 2370 / 2370 1270 / 1270 100 / 100 Output Total 4250 / 4250 800 / 950 650 / 650 Balance -1880 / -1880 470 / 320 -550 / -550 Lab / Micro Data 01/13/24 06:10 01/13/24 06:10 Labs: Laboratory Results - last 24 hr 01/12/24 16:25: POC Glucose 178 H 01/12/24 22:50: POC Glucose 222 H 01/13/24 05:48: POC Glucose 229 H 01/13/24 06:10: WBC 3.4 L, RBC 4.15 L, Hgb 13.8, Hct 39.9 L, MCV 96.1 H, MCH 33.3 H, MCHC 34.6, RDW Std Deviation 51.4 H, RDW Coeff of Homar 14.7 H, Plt Count 58 L, MPV 10.6, Immature Gran % (Auto) 1.800 H, Neut % (Auto) 61.1, Lymph % (Auto) 25.9, [place] % (Auto) 7.4, Eos % (Auto) 3.2, Baso % (Auto) 0.6, Absolute Neuts (auto) 2.1, Absolute Lymphs (auto) 0.88, Nucleated RBC % 0, Sodium 140, Potassium 3.7, Chloride 117 H, Carbon Dioxide 13.0 L, Anion Gap 10, BUN 33 H, Creatinine 2.18 H, Estim Creat Clear Calc 32.83, Est GFR (MDRD) Af Amer 38 L, Est GFR (MDRD) Non-Af 32 L, BUN/Creatinine Ratio 15.1, Glucose 245 H, Calcium 9.3 01/13/24 08:38: POC Glucose 228 H 01/13/24 11:36: POC Glucose 156 H Micro: Microbiology 01/09/24 21:40 Urine, Nephrostomy Urine Culture - Final ESBL Escherichia coli Klebsiella oxytoca Lactobacillus gasseri Staphylococcus haemolyticus 01/09/24 20:11 Mucosa - Nose SARS-CoV-2, Influenza & RSV (PCR) - Final Radiography Diagnostic Testing: Radiology Impression Brain CT 01/13/24 06:00 IMPRESSION: 1. Mild chronic involutional changes of the brain. 2. No demonstrated acute intracranial process. Electronically Signed: Jacek Silva MD at 6:46 EST , Physical Exam Narrative Alert, no apparent distress S1, S2, RRR Lung sounds clear anteriorly Abdomen soft, nontender No pitting edema Assessment & Plan Assessment/Plan (1) NAYE (acute kidney injury): PLAN: Baseline creatinine normal. CT abdomen with left-sided hydronephrosis, atrophic likely chronic. Right kidney looks okay. Nonoliguric, mildly hypovolemic NAYE is likely related to volume depletion. Creatinine 3.27 on admission (this was peak), improved daily. Yesterday his creatinine was 1.81 and today creatinine 2.18. With IV fluids alone renal function improved. He is now off IV fluids. Labs ordered for morning. Hypokalemia resolved with supplement. Today potassium 3.7. Will check phosphorus level tomorrow, currently on Neutra-Phos. Blood pressures acceptable.
[2024-01-13] MEDS: Dext 5%-0.45% NS 1,000 ML 100 ML IV (16:23)
[2024-01-13 16:59] LABS: Bedside Glucose 122 mg/dL (74-106)
--- NOTE | 2024-01-13 17:42 | PCM.PN.HOSP ---
Reason for Visit Reason for Visit: Diagnoses Metabolic encephalopathy (01/09/24) Acute kidney failure, unspecified (01/09/24) Hyperglycemia, unspecified (01/09/24) Bacteriuria (01/09/24) Subjective Subjective Patient was seen and examined today, last night he had a seizure and was placed on IV Keppra, today he is responsive to some verbal stimuli but does not carry on a conversation, teleneurology saw the patient and an EEG was performed which is pending at this time. It was recommended that the patient undergo an MRI of the brain when he is able and it was recommended that his Keppra be continued. Objective Data Objective Data Vital Signs: Vital Signs Temp Pulse Resp BP Pulse Ox O2 Del Method O2 Flow Rate 97.5 F L 73 18 102/63 100 Nasal Cannula 2 01/13/24 16:16 01/13/24 16:16 01/13/24 16:16 01/13/24 16:16 01/13/24 16:16 01/13/24 16:16 01/13/24 16:16 Oxygen Flow Rate (L/min) 2 Oxygen Delivery Method Nasal Cannula Weight: 93.1 kg Body Mass Index (BMI) 32.1 Intake & Output: Intake and Output for Last 24 Hours 01/11/24 01/12/24 01/13/24 23:59 23:59 23:59 Intake Total 2370 / 2370 1270 / 1270 100 / 100 Output Total 4250 / 4250 800 / 950 650 / 650 Balance -1880 / -1880 470 / 320 -550 / -550 Lab / Micro Data 01/13/24 06:10 01/13/24 06:10 Labs: Laboratory Results - last 24 hr 01/12/24 22:50: POC Glucose 222 H 01/13/24 05:48: POC Glucose 229 H 01/13/24 06:10: WBC 3.4 L, RBC 4.15 L, Hgb 13.8, Hct 39.9 L, MCV 96.1 H, MCH 33.3 H, MCHC 34.6, RDW Std Deviation 51.4 H, RDW Coeff of Homar 14.7 H, Plt Count 58 L, MPV 10.6, Immature Gran % (Auto) 1.800 H, Neut % (Auto) 61.1, Lymph % (Auto) 25.9, Pratt % (Auto) 7.4, Eos % (Auto) 3.2, Baso % (Auto) 0.6, Absolute Neuts (auto) 2.1, Absolute Lymphs (auto) 0.88, Nucleated RBC % 0, Sodium 140, Potassium 3.7, Chloride 117 H, Carbon Dioxide 13.0 L, Anion Gap 10, BUN 33 H, Creatinine 2.18 H, Estim Creat Clear Calc 32.83, Est GFR (MDRD) Af Amer 38 L, Est GFR (MDRD) Non-Af 32 L, BUN/Creatinine Ratio 15.1, Glucose 245 H, Calcium 9.3 01/13/24 08:38: POC Glucose 228 H 01/13/24 11:36: POC Glucose 156 H 01/13/24 15:48: POC Glucose 122 H Micro: Microbiology 01/09/24 21:40 Urine, Nephrostomy Urine Culture - Final ESBL Escherichia coli Klebsiella oxytoca Lactobacillus gasseri Staphylococcus haemolyticus 01/09/24 20:11 Mucosa - Nose SARS-CoV-2, Influenza & RSV (PCR) - Final Radiography Diagnostic Testing: Radiology Impression Brain CT 01/13/24 06:00 IMPRESSION: 1. Mild chronic involutional changes of the brain. 2. No demonstrated acute intracranial process. Electronically Signed: Jacek Silva MD at 6:46 EST Reading Location ID and State: [facility] / [place] , Service support , Physical Exam Const no apparent distress Constitutional Narrative: Patient is lethargic, he does respond to verbal stimuli but does not talk, he does not follow commands Orientation / Consciousness: confused HEENT normocephalic, head/scalp atraumatic and moist oral mucous membranes Eyes PERRL, EOMs intact bilaterally and conjunctivae normal Neck supple, no JVD, thyroid normal and no carotid bruits General: trachea midline Resp normal respiratory effort, no retractions, no use of accessory muscles and clear to auscultation bilaterally Auscultation: Negative for rales, rhonchi or wheezes Cardio regular rate, regular rhythm, S1 normal heart sound, S2 normal heart sound, no murmurs, no rub and no gallops GI normal to inspection, nondistended, normoactive bowel sounds, soft to palpation, non-tender and non-distended Extremity no clubbing, cyanosis or edema Skin no rashes or lesions noted General Skin Exam: no breakdown Neuro CN's II-XII intact bilaterally Neuro Narrative: Patient responds to verbal and painful stimuli but does not talk, he does not follow commands Psych Psych Narrative: Patient is nonverbal at this time Assessment & Plan Assessment/Plan (1) Metabolic encephalopathy: PLAN: Plan 1. Metabolic encephalopathy-etiology unclear, continue to provide supportive care, patient will need to go to a jail facility for short-term rehab services #2 acute kidney injury-patient will continue to receive IV fluids #3 acute debility secondary to multiple medical problems, continue PT and OT, again patient will need temporary placement in a jail facility #4 essential hypertension-patient remains on amlodipine #5 new onset seizure disorder-patient remains on Keppra for now, if the patient is able to follow commands tomorrow, an MRI of the brain will be performed, await EEG results #6 hyperglycemia-blood sugars will be monitored, sliding scale insulin be given as indicated Acute urinary tract infection was ruled out Total clinical time spent by myself addressing the patient's medical issues, reviewing all of his data, and collaborating with patient's care team: 35 minutes Charges/Coding Visit Charges Inpatient E&M: 27752 Subs Hosp L2
[2024-01-13 21:37] LABS: Bedside Glucose 143 mg/dL (74-106)
--- NOTE | 2024-01-13 21:37 | NURSING ---
Upon entering patient's room, patient did not have oxygen in nose. Checked O2 saturation and patient was 100%. Placed patient on Room Air.
[2024-01-14] VITALS (10 sets, daily range): BP systolic 94–129; BP diastolic 64–83; PULSE 65–107; RESP 16–20; TEMP 36.2–36.7; O2SAT 98–100; BMI 33.5
[2024-01-14] MEDS: Gentamicin Sulfate 1 OPTH.BTL 1 DRP LEFT EYE ×6 (00:54→19:50)
[2024-01-14] MEDS: Dext 5%-0.45% NS 1,000 ML 100 ML IV ×2 (00:56→17:09)
[2024-01-14] MEDS: Morphine 2 MG/ML Syringe IM (05:45)
--- NOTE | 2024-01-14 08:37 | WOUNDNOTE ---
Pt still very lethargic today. did open eyes, but would not answer any questions for this nurse. urostomy appliance remains intact. will monitor.
[2024-01-14 08:59] LABS: Bedside Glucose 190 mg/dL (74-106)
[2024-01-14] MEDS: levETIRAcetam IV 1,000 MG/100 ML BAG 400 MG IV ×2 (09:53→19:49)
[2024-01-14] MEDS: Na Biphos/Potassium Phosphate PACKET 1 PACKET PO ×3 (10:35→18:06)
[2024-01-14] MEDS: amLODIPine 10 MG Tablet PO (10:35)
[2024-01-14] MEDS: Senna/Docusate Sodium 1 Tablet 2 TABLET PO (10:35)
[2024-01-14 11:22] LABS: Bedside Glucose 146 mg/dL (74-106)
[2024-01-14 12:07] LABS: Anion Gap 4 (5-15); BUN 25 mg/dL (7-18); BUN/Creat Ratio 14.9 RATIO (10-20); Calcium,Total 9.1 mg/dL (8.5-10.1); Chloride 122 mmol/L (98-107); Creatinine, Serum 1.68 mg/dL (0.70-1.30); EST Glomerular Filtration Rate 43 mL/min (>60); Est Glom Filt Rate - Afr Amer 52 mL/min (>60); Estimated Creatinine Clearance 43.47 ml/min; Glucose 159 mg/dL (74-106); Potassium 3.5 mmol/L (3.5-5.1); Sodium Level 143 mmol/L (136-145)
--- NOTE | 2024-01-14 13:18 | PN.NEURO_ITS ---
Assessment and Plan: Neuro Assessment/Plan LEIF SIMON, is a 73 M with a past medical history of hypertension, CKD stage 3, s/p urostomy tube, diabetes who presented to [place] ED on 01/09/23 for altered mental status. On admission he was found to have NAYE on CKD with creatinine 3.27 on admission (baseline 1.2-1.3) and BUN 43. Overall his clinical status is improved from yesterday, but he remains persistently altered. Creatinine (curre ntly 1.68) and BUN (currently 25) still elevated (but much improved from prior) which may also be contributing to encephalopathy in this elderly gentleman. Given some improvement over the past 24 hours, and concurrent NAYE we will continue to monitor. However, if by tomorrow morning this patient has not made significant improvement in his mental status I would recommend transfer to [facility] for cEEG monitoring. If the patient has any further events of concern, would recommend transfer for cEEG monitoring. Continue Keppra at 1 gram BID for now. MRI brain when able (patient not able to sit still for MRI procedure). Subject: Neurology Subjective LEIF SIMON, is a 73 M with a past medical history of hypertension, CKD stage 3, s/p urostomy tube, diabetes who presented to [place] ED on 01/09/23 for altered mental status. EMS was called to patient?s apartment for welfare check. Upon arrival EMS describes patient as seated on the edge of his bed and then walking around the apartment, alert and oriented x2. blood glucose check read as high. BP documented as 120s-130s systolic/ 80s diastolic. HR 107-110. He was transported to [place] ED. Labs on admission show NAYE on CKD with creatinine 3.27 on admission (baseline 1.2-1.3) and BUN 43. He was started on ertapenem for possible UTI after urine culture was positive for multiple bacteria, this was discontinued by ID on 01/12/24. Around 6am on 01/13/24 patient was witnessed to have a tonic-clonic seizure lasting 1 minute before spontaneous resolution. He was given 1-gram IV Keppra in the morning, and continued on Keppra 1 gram BID. After event, he underwent CTH which was non-acute. Routine EEG without epileptiform discharges, severe slowing. EEG Results Procedure Details EEG Procedure Details: LEIF SIMON is a 73 year old M with a past medical history of , who presents for evaluation of Electroencephalogram on DATE at TIME Objective Data Objective Data Vital Signs: Vital Signs Temp Pulse Resp BP Pulse Ox O2 Del Method O2 Flow Rate 97.2 F L 66 20 H 129/69 H 100 Room Air 2 01/14/24 08:05 01/14/24 08:05 01/14/24 08:05 01/14/24 08:05 01/14/24 08:05 01/14/24 08:05 01/13/24 18:44 Oxygen Flow Rate (L/min) 2 Oxygen Delivery Method Room Air Weight: 97.069 kg Body Mass Index (BMI) 33.5 Intake & Output: Intake and Output for Last 24 Hours 01/12/24 01/13/24 01/14/24 23:59 23:59 23:59 Intake Total 1270 / 1270 200 / 200 1923.33 / 1923.33 Output Total 800 / 950 1400 / 1400 400 / 400 Balance 470 / 320 -1200 / -1200 1523.33 / 1523.33 Lab / Micro Data 01/13/24 06:10 01/14/24 11:22 Labs: Laboratory Results - last 24 hr 01/13/24 15:48: POC Glucose 122 H 01/13/24 21:09: POC Glucose 143 H 01/14/24 08:09: POC Glucose 190 H 01/14/24 11:04: POC Glucose 146 H 01/14/24 11:22: Sodium 143, Potassium 3.5, Chloride 122 H, Carbon Dioxide 17.0 L , Anion Gap 4 L, BUN 25 H, Creatinine 1.68 H, Estim Creat Clear Calc 43.47, Est GFR (MDRD) Af Amer 52 L, Est GFR (MDRD) Non-Af 43 L, BUN/Creatinine Ratio 14.9, Glucose 159 H, Calcium 9.1 Micro: Microbiology 01/09/24 21:40 Urine, Nephrostomy Urine Culture - Final ESBL Escherichia coli Klebsiella oxytoca Lactobacillus gasseri Staphylococcus haemolyticus 01/09/24 20:11 Mucosa - Nose SARS-CoV-2, Influenza & RSV (PCR) - Final Physical Exam Neuro Neuro Narrative: Patient laying in bed with eyes closed upon arrival of tele robot. Patient opens eyes to name and turns head in direction of RN in the room. When asked to sit up, he replies hi . When asked orientation questions, he states his birthday. He continues to repeat his birthday, even when prompted of his incorrect response. He does not follow further commands like stick out tongue, look to the left. Pupils are equal and reactive. Horizontal eye movements are intact. Face appears symmetric at rest. When arms and legs are placed up in the air, he will hold them anti-gravity before they are lowered to the bed in a controlled manner. There is no obvious truncal ataxia when sitting up or turning over. There is no obvious appendicular ataxia when patient reaches up for sheets, scratches head, etc. There was an unclear episode of left head turn and left eye deviation which was unable to be fully assessed over tele robot. Given inability to fully assess, I am unclear if this was seizure vs behavioral event. This lasted seconds before patient return to confusional baseline.
--- NOTE | 2024-01-14 13:20 | CASEMGMT ---
Addendum entered by Dorene Goodman 01/14/24 14:26: BENJAMIN called patient's daughter Sharee who is also patient's Healthcare POA. BENJAMIN explained right now patient is not able to make decisions as he is confused. BENJAMIN told Sharee BENJAMIN will e-mail her a list of the 4 facilities in the area that are [facility] with [facility]. BENJAMIN asked that she do this as soon as possible. BENJAMIN faxed necessary clinicals to BENJAMIN Garcias at the [facility] to start the process to get approval for SNF. Dorene HER Original Note: BENJAMIN attempted to talk with patient today about going to a detention. Patient did somewhat wake up when SW said his name. Patient did not keep his eyes open. BENJAMIN was able to confirm patient was agreeable to going to a detention. When BENJAMIN tried to ask patient about which facility he would like patient would not wake up and talk with SW. BENJAMIN will call patient's daughter regarding which facility. Dorene HER
[2024-01-14 16:28] LABS: Bedside Glucose 148 mg/dL (74-106)
--- NOTE | 2024-01-14 18:00 | PN.HOSP_ITS ---
Reason for Visit Reason for Visit: Diagnoses Metabolic encephalopathy (01/09/24) Acute kidney failure, unspecified (01/09/24) Hyperglycemia, unspecified (01/09/24) Bacteriuria (01/09/24) Subjective Subjective Patient was seen and examined today, I talked briefly with neurology about his care, EEG did not show any seizure activity, neurology is not sure what is causing the patient's encephalopathy. Neurology recommended that if the patient's mental status did not improve tomorrow that he be transferred to a hospital with 24-hour EEG capabilities. Patient was able to speak a few words today, he was not able to carry on a conversation. Patient still appears lethargic but did awaken to verbal stimuli and tactile stimuli. Objective Data Objective Data Vital Signs: Vital Signs Temp Pulse Resp BP Pulse Ox O2 Del Method O2 Flow Rate 97.7 F L 73 18 124/71 H 100 Room Air 2 01/14/24 14:05 01/14/24 14:05 01/14/24 14:05 01/14/24 14:05 01/14/24 14:05 01/14/24 17:55 01/13/24 18:44 Oxygen Flow Rate (L/min) 2 Oxygen Delivery Method Room Air Weight: 97.069 kg Body Mass Index (BMI) 33.5 Intake & Output: Intake and Output for Last 24 Hours 01/12/24 01/13/24 01/14/24 23:59 23:59 23:59 Intake Total 1270 / 1270 200 / 200 2195.00 / 2195.00 Output Total 800 / 950 1400 / 1400 400 / 400 Balance 470 / 320 -1200 / -1200 1795.00 / 1795.00 Lab / Micro Data 01/13/24 06:10 01/14/24 11:22 Labs: Laboratory Results - last 24 hr 01/13/24 21:09: POC Glucose 143 H 01/14/24 08:09: POC Glucose 190 H 01/14/24 11:04: POC Glucose 146 H 01/14/24 11:22: Sodium 143, Potassium 3.5, Chloride 122 H, Carbon Dioxide 17.0 L , Anion Gap 4 L, BUN 25 H, Creatinine 1.68 H, Estim Creat Clear Calc 43.47, Est GFR (MDRD) Af Amer 52 L, Est GFR (MDRD) Non-Af 43 L, BUN/Creatinine Ratio 14.9, Glucose 159 H, Calcium 9.1 01/14/24 16:10: POC Glucose 148 H Micro: Microbiology 01/09/24 21:40 Urine, Nephrostomy Urine Culture - Final ESBL Escherichia coli Klebsiella oxytoca Lactobacillus gasseri Staphylococcus haemolyticus 01/09/24 20:11 Mucosa - Nose SARS-CoV-2, Influenza & RSV (PCR) - Final Physical Exam Narrative no apparent distress Constitutional Narrative: Patient is lethargic, he does respond to verbal stimuli but does speak a few words, he does follow some commands Orientation / Consciousness: confused HEENT normocephalic, head/scalp atraumatic and moist oral mucous membranes Eyes PERRL, EOMs intact bilaterally and conjunctivae normal Neck supple, no JVD, thyroid normal and no carotid bruits General: trachea midline Resp normal respiratory effort, no retractions, no use of accessory muscles and clear to auscultation bilaterally Auscultation: Negative for rales, rhonchi or wheezes Cardio regular rate, regular rhythm, S1 normal heart sound, S2 normal heart sound, no murmurs, no rub and no gallops GI normal to inspection, nondistended, normoactive bowel sounds, soft to palpation, non-tender and non-distended Extremity no clubbing, cyanosis or edema Skin no rashes or lesions noted General Skin Exam: no breakdown Neuro CN's II-XII intact bilaterally Neuro Narrative: Patient responds to verbal and painful stimuli, patient speaks a few words but does not carry on a conversation Psych Psych Narrative: Patient is able to speak a few words but not able to carry on a conversation Assessment & Plan Assessment/Plan (1) Metabolic encephalopathy: PLAN: Plan 1. Metabolic encephalopathy-etiology unclear, continue to provide supportive care #2 acute kidney injury-patient will continue to receive IV fluids #3 acute debility secondary to multiple medical problems, continue PT and OT, again patient will need temporary placement in a half-way facility #4 essential hypertension-patient remains on amlodipine #5 new onset seizure disorder-patient remains on Keppra for now, nursing does not feel the patient would lie still for an MRI of the brain, I will reevaluate the patient tomorrow for further imaging studies, he may be able to undergo a CT if he is not able to undergo an MRI of the brain. #6 hyperglycemia-blood sugars will be monitored, sliding scale insulin be given as indicated Acute urinary tract infection was ruled out Total clinical time spent by myself addressing the patient's medical issues, reviewing all of his data, and collaborating with patient's care team: 35 minutes Charges/Coding Visit Charges Inpatient E&M: 54125 Subs Hosp L2
--- NOTE | 2024-01-14 18:06 | CT_ITS ---
STUDY: CT BRAIN WITHOUT CONTRAST REASON FOR EXAM: Male, 73 years old. seizure RADIATION DOSAGE (If Supplied By Facility): CTDIvol = ( 44.99 ) mGy, DLP = ( 897.35 ) mGycm TECHNIQUE: Transaxial CT imaging of the brain was performed without administration of intravenous contrast material. Individualized dose optimization techniques were used for this CT. COMPARISON: January 13, 2024 FINDINGS: Normal soft tissue structures. Normal calvarium. Mild atrophy and periventricular white matter ischemic changes. Normal basal ganglia and thalami. Normal brainstem. Normal cerebellum. There is no intracranial hemorrhage. There are no findings of an acute ischemic infarction. Normal visualized paranasal sinuses. No significant change since prior exam CT/Brain/Head without Contrast IMPRESSION: Mild atrophy and periventricular white matter ischemic change. No evidence for mass or bleed. If concern for acute infarct MRI recommended. Electronically Signed: Juan Miguel Samuel MD at 18:29 EST ,
[2024-01-14] MEDS: Acetaminophen 325 MG Tablet 650 MG PO (18:40)
[2024-01-14 20:24] LABS: Bedside Glucose 157 mg/dL (74-106)
--- NOTE | 2024-01-14 21:09 | NURSING ---
Addendum entered by Sean Quesada 01/14/24 22:23: 2136 Dr. Cunningham notified. Wants us to reach out to [facility] teleneurology about more recommendations and to initiate an emergent transfer to a tertiary facility. Neurologist onboarding specialist Mariam Nix notified of situation, informed this RN that hospitalist needs to call transfer line for transfer and further recommendations. This RN notified Dr. Cunningham of this information. Original Note: 2057 pt had about 30 seconds of tonic clonic seizure activity. Pt placed on side during episode, no vomiting, no injury to pt. Pt placed on 2L NC, spo2 100%. Pt is now post-ictal, drowsy, respirations even and nonlabored. Vital signs obtained. Continuing seizure pads on bed and suction equipment at bedside.
--- NOTE | 2024-01-14 22:31 | PCM.HOSP.N ---
Hospitalist Note I was called by INVESTMENT BANKING ASSOCIATE and informed patient was having new tonic-clonic seizure activity in spite of Keppra 1g IV BID. I then urgently called [facility] teleneurology and they recommended Keppra 4g IV once followed by IV Ativan 2 mg prn for breakthrough seizure activity. Also arrangements have been made to transfer this patient to [facility]. INVESTMENT BANKING ASSOCIATE was updated with plan. Update: The patient had more tonic-clonic seizure activity after his additional 4g IV Keppra dose so he was emergently treated with IV Ativan with immediate resolution of seizure activity. We are still awaiting transfer. His Ativan is written for 2 mg IV q. 2 hours prn for breakthrough seizure activity.
[2024-01-14] MEDS: NORMAL SALINE 0.9% IV (22:45)
[2024-01-14] MEDS: LEVETIRACETAM IV (22:45)
--- NOTE | 2024-01-14 23:08 | NURSING ---
2305 Pt had another tonic clonic seizure lasting about 45 seconds. Vital signs WNL. Pt is lethargic, respirations even and nonlabored.
--- NOTE | 2024-01-14 23:17 | NURSING ---
Spoke with pt's daughter Sharee about pt's frequent seizures and that our physician would like to transfer him to a different facility to do continuous EEG. Sharee is agreeable to the plan. This RN told Sharee the healthcare team will keep her informed with the process and will call back once we have a specific facility in the works.
--- NOTE | 2024-01-14 23:48 | NURSING ---
This rn attempted to call pts va insurance several times to verify that its ok to transfer pt to another facility that offers continuous eeg monitoring. The va single pointed operator sent this rn to 2 different extensions the first extension the line rang multiple times with no answer and the line hung up, the second extension this rn was sent to was the bed management number and went to a voicemail, this rn left voicemail. At the time of this note no return call has been received by the va center. Nursing supervisor microfilm duplicating unit is aware. Securities Supervisor aware that [facility] and per their transfer center they do verify insurance, and per our nursing supervisor microfilm duplicating unit plan is to continue with current transfer at this time.
--- NOTE | 2024-01-14 23:48 | NURSING ---
2345 spoke with [facility] transfer center who stated pt has been accepted, pending bed availability. This RN inquired as to whether pt's VA insurance is accepted, transfer center assistance representative stated that insurance is verified during process of accepting pt when we send over pt's facesheet. The fact that pt was accepted means that insurance was verified by transfer center.
[2024-01-15] VITALS (20 sets, daily range): BP systolic 109–145; BP diastolic 64–91; PULSE 77–90; RESP 13–17; TEMP 36.1–36.4; O2SAT 94–100; BMI 32.6
[2024-01-15] MEDS: LORazepam 2 MG/ML Syringe IV ×4 (00:09→13:56)
[2024-01-15] MEDS: 0.9% Saline Lock 10 ML Syringe IV ×5 (00:10→15:14)
--- NOTE | 2024-01-15 00:16 | NURSING ---
2355 Pt had another seizure, approximately 45 seconds long. Vital signs obtained. Dr. cunningham notified of the two additional seizures pt has had since last discussion. Pt received the extra 4000mg keppra at 2301. Dr. Cunningham advised to give a dose of the PRN ativan. Given.
[2024-01-15] MEDS: Gentamicin Sulfate 1 OPTH.BTL 1 DRP LEFT EYE ×4 (02:09→13:06)
[2024-01-15] MEDS: Magnesium Sulfate 2 GM in Dextrose 5%-Water (100mL Bag) 100 ML IV (02:38)
--- NOTE | 2024-01-15 05:22 | NURSING ---
Addendum entered by Sean Quesada 01/15/24 06:23: 0515 Dr. Cunningham informed this RN that he put in transfer orders to send pt to ICU for continuous ativan gtt. Update given to pt's daughter Kortney. Report called to Lizbeth Koroma RN Transported pt to ICU 03. Original Note: 0506 pt had another seizure lasting about 40 seconds. PRN IV ativan given. Vital signs obtained. Dr. Cunningham notified. Seizure precautions continued.
[2024-01-15 06:11] LABS: Absolute Lymphocyte Count 1.06 X10^3/uL (0.83-4.51); Absolute Neutrophil Count 2.6 X10^3/uL (2.0-7.7); Basophil# 0.02 X10^3/uL; Basophil% 0.5 % (0-1); Eosinophil# 0.13 X10^3/uL; Eosinophils% 3.2 % (0-5); Hematocrit 39.8 % (40-54); Hemoglobin 13.6 g/dL (13.0-16.5); Lymphocyte # 1.06 X10^3/ul (0.83-4.51); Lymphocyte % 26.1 % (19-41); Mean Corp Hgb Conc 34.2 g/dL (32-36); Mean Corpuscular Hgb 33.3 pg (27.0-32.0); Mean Corpuscular Volume 97.3 fL (80-94); Mean Platelet Vol. 11.5 fl (6.2-12.0); Monocyte# 0.28 X10^3/uL; Monocyte% 6.9 % (0-10); NRBC Flagged by Analyzer 0 % (0-5); Neutrophil # 2.55 X10^3/uL (2.7-7.7); Neutrophil % 62.8 % (47-70); POSITIVE COUNT YES; Platelet Count 55 K/mm3 (150-450); RBC Distribution Width CV 15.8 % (11.6-14.6); Red Blood Count 4.09 M/mm3 (4.6-6.2); White Blood Count 4.1 K/mm3 (4.4-11.0)
[2024-01-15] MEDS: Dext 5%-0.45% NS 1,000 ML 100 ML IV (06:17)
[2024-01-15 06:25] LABS: Anion Gap 6 (5-15); BUN 22 mg/dL (7-18); BUN/Creat Ratio 13.4 RATIO (10-20); Calcium,Total 8.8 mg/dL (8.5-10.1); Chloride 124 mmol/L (98-107); Creatinine, Serum 1.64 mg/dL (0.70-1.30); EST Glomerular Filtration Rate 44 mL/min (>60); Est Glom Filt Rate - Afr Amer 53 mL/min (>60); Estimated Creatinine Clearance 43.93 ml/min; Glucose 191 mg/dL (74-106); Potassium 4.1 mmol/L (3.5-5.1); Sodium Level 144 mmol/L (136-145)
[2024-01-15] MEDS: Insulin Lispro 100 UNIT/ML INSULN.PEN SC ×2 (08:02→11:17)
[2024-01-15 08:21] LABS: Bedside Glucose 191 mg/dL (74-106)
[2024-01-15] MEDS: levETIRAcetam IV 2,000 MG in 0.9% Normal Saline (250mL Bag) 230 ML 1000 MG IV (09:30)
--- NOTE | 2024-01-15 10:38 | WOUNDNOTE ---
Urostomy appliance remains in place. no sign of leak noted. pt still awaiting bed at [facility]. accordng to notes, patient had 3 more witnessed seizures this am. will monitor.
--- NOTE | 2024-01-15 10:45 | CASEMGMT ---
JOSE YOU NOTE: Pt awaiting transfer to [facility]. Per registration, [facility] A has been verified as being active. Renea HANSON RN CM
--- NOTE | 2024-01-15 11:07 | CASEMGMT ---
BENJAMIN called BENJAMIN Garcias at [facility] and left her a voice mail letting her know patient is being transferred to [facility] for seizures. Dorene Goodman MSW [place]
[2024-01-15 11:35] LABS: Bedside Glucose 174 mg/dL (74-106)
--- NOTE | 2024-01-15 12:12 | NURSING ---
Pt had approx 15-20sec seizure and then spontaneously resolved. Ativan given per JAN. Airway protected and no injury during seizure. Will notify
--- NOTE | 2024-01-15 13:37 | MRI_ITS ---
EXAM: MR HEAD WITHOUT AND WITH INTRAVENOUS CONTRAST CLINICAL INDICATION: Seizure/Coma TECHNIQUE: Multiplanar and multisequence MR images of the brain were obtained without and with intravenous contrast. CONTRAST: IV 19CC CLARISCAN COMPARISON: No relevant prior studies available. FINDINGS: BRAIN AND EXTRA-AXIAL SPACES: Prominence of the cortical sulci and ventricles related to volume loss change. No intra- or extra-axial hemorrhage. No evidence of acute infarct. No intracranial mass or mass effect. There is preservation of the cantrell/white matter interface. Posterior fossa structures are unremarkable. Basal cisterns are patent. No abnormal contrast enhancement. SELLA: Normal. Normal sella turcica, pituitary gland, infundibular stalk, optic chiasm and hypothalamus. AUDITORY SYSTEM: Normal. The internal auditory canals are patent. BONES/JOINTS: Intact calvarium. SINUSES: Unremarkable as visualized. Clear. MASTOID AIR CELLS: Unremarkable as visualized. Clear. ORBITS: Unremarkable as visualized. Both globes, extraocular muscles, optic nerves and retrobulbar fat appear unremarkable. VASCULATURE: Unremarkable as visualized. Normal flow voids in the major intracranial circulation. MRI/Brain W/WO Contrast IMPRESSION: No acute intracranial abnormality. Electronically Signed: Priyank Soliman MD at 15:28 EST ,
[2024-01-15] MEDS: Lacosamide 200 MG in 0.9% Normal Saline (50mL Bag) 50 ML 100 MG IV (15:14)
--- NOTE | 2024-01-15 15:35 | PCM.DC.SUM ---
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 Routine Comment: Reason for Consult:: urostomy very irritated 01/12/24 09:29 Consult: Infectious Disease Routine Consulting Provider: Mike Strange Reason for Consult: ESBL EMERGENT Consult: No MD Notified: Yes Date Notified: 01/12/24 Time Notified: 09:29 Method of Notification: Verbal 01/13/24 05:52 Tele [Consult: Tele-Neurology] Routine Consulting Provider: [facility] Reason for Consult: new onset seizure EMERGENT Consult: Yes MD Notified: Yes Date Notified: 01/13/24 Time Notified: 05:52 Method of Notification: Verbal Nursing Unit Staff Notify [facility] of Tele-Neurology Consult: Yes Reason For Visit: AMS, HYPERGLYCEMIA, HYPOATREMIA,NAYE Diagnosis Discharge Diagnosis (1) Metabolic encephalopathy: Status: Acute Code(s): G93.41 - Metabolic encephalopathy Plan 1. Metabolic encephalopathy-etiology unclear, continue to provide supportive care #2 acute kidney injury-patient will continue to receive IV fluids #3 acute debility secondary to multiple medical problems, continue PT and OT, again patient will need temporary placement in a fpc facility #4 essential hypertension-patient remains on amlodipine #5 new onset seizure disorder-patient remains on Keppra for now, nursing does not feel the patient would lie still for an MRI of the brain, I will reevaluate the patient tomorrow for further imaging studies, he may be able to undergo a CT if he is not able to undergo an MRI of the brain. #6 Type 2 diabetes-uncontrolled Acute urinary tract infection was ruled out Total clinical time spent by myself addressing the patient's medical issues, reviewing all of his data, and collaborating with patient's care team: 35 minutes Medications at Discharge Home Medications acetaminophen 325 mg tablet 650 mg (2 x 325 mg) PO Q6H PRN PRN Pain 1-10 Or Fever>100.7 #0 tabs 03/04/23 amlodipine 10 mg tablet 10 mg PO DAILY blood pressure #0 tabs 03/04/23 melatonin 3 mg tablet 3 mg PO QHS PRN PRN Insomnia #0 tabs 03/04/23 Hospital Course Operations None Procedures None Summary of Care Provided Minutes Spent on Discharge: 32 Hospital Course: This 73-year-old white male was seen in the emergency room at [facility] with complaints of confusion reported by his brothers over the last several days. Home was found to be 85 degrees, patient did say he fell 5 days previously. Patient was nonspecific about any medical complaints and stated that he heard everywhere. According to the patient's brothers, he was taking CBD Gummies at home. Lab work was obtained and it showed a normal white blood cell count, blood sugar was noted to be high at 879, hemoglobin A1c was elevated at 12.1. Patient's creatinine was elevated at 3.27 and BUN was 43. Patient had an ileal conduit, UA was obtained from the ileal conduit, this UA was grossly normal. Patient's talk screen was negative. Patient was admitted to PCU, blood sugars were brought under control and the patient was given IV fluids and seen by nephrology. Patient was seen by PT and OT, urinalysis grew out several organisms, this was felt to be secondary to his ileal conduit and infectious diseases did not feel patient had a urinary tract infection. Patient then began to have seizures, he was started on IV Keppra and seen in consultation by teleneurology, seizures continued and he was transferred to ICU. Ultimately, teleneurology felt that the patient needed to be transferred to a facility with continual EEG monitoring, he was transferred to [facility] in stable condition on 01/15/2024. Patient was seen and examined on 01/15/2024: Patient was comatose, he did not respond to pain pain or verbal stimuli, lungs were clear to auscultation apex to base heart rate and rhythm is regular, abdomen was soft and nondistended. Patient was transferred to [facility] in stable condition on 01/15/2024 Weight / BMI Weight Weight: 94.4 kg Body Mass Index (BMI) 32.6 ABG / Lab / Microbiology Data 01/15/24 06:03 01/15/24 06:03 Laboratory: Laboratory Results - last 24 hr 01/14/24 16:10: POC Glucose 148 H 01/14/24 19:52: POC Glucose 157 H 01/15/24 06:03: WBC 4.1 L, RBC 4.09 L, Hgb 13.6, Hct 39.8 L, MCV 97.3 H, MCH 33.3 H, MCHC 34.2, RDW Std Deviation 55.0 H, RDW Coeff of Homar 15.8 H, Plt Count 55 L, MPV 11.5, Immature Gran % (Auto) 0.500, Neut % (Auto) 62.8, Lymph % (Auto) 26.1, [place] % (Auto) 6.9, Eos % (Auto) 3.2, Baso % (Auto) 0.5, Absolute Neuts (auto) 2.6, Absolute Lymphs (auto) 1.06, Nucleated RBC % 0, Sodium 144, Potassium 4.1, Chloride 124 H, Carbon Dioxide 14.0 L, Anion Gap 6, BUN 22 H, Creatinine 1.64 H, Estim Creat Clear Calc 43.93, Est GFR (MDRD) Af Amer 53 L, Est GFR (MDRD) Non-Af 44 L, BUN/Creatinine Ratio 13.4, Glucose 191 H, Calcium 8.8, Phosphorus 2.0 L, Magnesium 3.0 H 01/15/24 07:59: POC Glucose 191 H 01/15/24 11:15: POC Glucose 174 H Microbiology: Microbiology 01/09/24 21:16 Blood Culture (Wb) - Anticubital Right Blood Culture - Final No growth in 5 days. 01/09/24 21:46 Blood Culture (Wb) - Anticubital Right Blood Culture - Final No growth in 5 days. 01/09/24 21:40 Urine, Nephrostomy Urine Culture - Final ESBL Escherichia coli Klebsiella oxytoca Lactobacillus gasseri Staphylococcus haemolyticus 01/09/24 20:11 Mucosa - Nose SARS-CoV-2, Influenza & RSV (PCR) - Final Radiography Diagnostic Testing: Radiology Impression Brain CT 01/14/24 18:06 IMPRESSION: Mild atrophy and periventricular white matter ischemic change. No evidence for mass or bleed. If concern for acute infarct MRI recommended. Electronically Signed: uJan Miguel Samuel MD at 18:29 EST , Brain MRI 01/15/24 13:37 IMPRESSION: No acute intracranial abnormality. Electronically Signed: Priyank Soliman MD at 15:28 EST , Meaningful Use Info Meaningful Use Diagnoses (Choose all that apply): None applicable Discharge Plan Admission Admit Date/Time: 01/09/24 22:21 Attending Provider: Grupo Lamar [facility] Care Provider: [facility] Consulting Providers: Franck Nayak; Matt Mendez; Rafi Montero; Mike Strange; Jose Angel Romano; Chanell Vazquez; Zuleyma Frazier; Meghan Sanon; Mariam Nix; Vazquez Winkler; Kimberly Kruse; All Nuñez; Marco A Alcaraz; Pam Rojo; Marcial Guzman; Pam Ball; Jason Lara; Valerie Kapoor; Papi Walsh; Nicolas Sy; Celestine Solis; Kasie Womack; Erma Hurley; María Ngo; Denys Salgado; Juan Galarza; ELPIDIO DRISCOLL; Michael Jc; Adrianne Gamble Discharge Orders/Prescriptions Prescriptions: No Action acetaminophen 325 mg Tablet 650 mg PO Q6H PRN PRN (Reason: Pain 1-10 Or Fever>100.7) Qty: 0 0RF melatonin 3 mg Tablet 3 mg PO QHS PRN PRN (Reason: Insomnia) Qty: 0 0RF amlodipine 10 mg Tablet 10 mg PO DAILY Qty: 0 0RF Referrals / [facility] [Primary [facility] - Disposition Disposition (needs filled in before D/C Order can be placed): Acute Care Hospital Charges/Coding Visit Charges Inpatient E&M: 87428 Disch Hosp >30min
[2024-01-15 16:32] LABS: Bedside Glucose 166 mg/dL (74-106)
--- NOTE | 2024-01-23 09:27 | CASEMGMT ---
BENJAMIN received a call from [facility] following up on patient. BENJAMIN let Fab know patient was transferred to [facility] on 01-15-24. Dorene HER
== END 2024-01-15 17:15 | disposition short-term general hospital (02) | DRG 100 ==
LOC: ED 22:26 → PCU 23:45 → ICU 01-15 06:56
PROVIDERS: Internal Medicine; Nurse Practitioner Adult Health; Admitting Provider Internal Medicine; Emergency Provider Emergency Medicine; Referring Provider Internal Medicine; Visit Provider Internal Medicine
DX: G40.409 Other generalized epilepsy and epileptic syndromes, not intractable, without status epilepticus (principal); G93.41 Metabolic encephalopathy; N17.9 Acute kidney failure, unspecified; E87.1 Hypo-osmolality and hyponatremia; D69.6 Thrombocytopenia, unspecified; J11.81 Influenza due to unidentified influenza virus with encephalopathy; E11.65 Type 2 diabetes mellitus with hyperglycemia; N18.31 Chronic kidney disease, stage 3a; E11.21 Type 2 diabetes mellitus with diabetic nephropathy; E11.22 Type 2 diabetes mellitus with diabetic chronic kidney disease; Z79.4 Long term (current) use of insulin; Z93.6 Other artificial openings of urinary tract status; I12.9 Hypertensive chronic kidney disease with stage 1 through stage 4 chronic kidney disease, or unspecified chronic kidney disease; F17.210 Nicotine dependence, cigarettes, uncomplicated; E87.6 Hypokalemia; I25.2 Old myocardial infarction; F17.290 Nicotine dependence, other tobacco product, uncomplicated; R53.81 Other malaise; Z66 Do not resuscitate; Z79.899 Other long term (current) drug therapy
CPT/HCPCS: 36415; 70450; 70553; 71045; 74176; 80048; 80076; 80307; 80320; 81001; 82009; 82436; 82570; 82803; 82962; 83036; 83690; 83735; 83935; 84100; 84133; 84300; 84443; 84484; 84550; 85025; 87040; 87077; 87086; 87088; 87186; 87631; 93005; 94668; 95819; 97162; 97166; 97530; 97535; 99285; A9575; J7030; J7050; A4216; C9254; G0480; J3490; J7799